=== PATIENT | male | born 1940 | race African-American/Black ===

== ENCOUNTER → 2020-07-03 15:41 | Outpatient (CLI) | payer MEDICARE, SELFPAY ==
[2020-07-03] MEDS: COVID-19 VACC, Ad26(JANSSEN)/PF 0.5 ML IM (16:07)
== END ==
PROVIDERS: PCP Family Medicine; Visit Provider Internal Medicine
DX: Z23 Encounter for immunization (principal)
CPT/HCPCS: 0031A; 91303

== ENCOUNTER 2021-05-02 15:21 | Emergency (ER) | payer OTHER, MEDICARE, SELFPAY ==
[2021-05-02] VITALS (31 sets, daily range): BP systolic 175–205; BP diastolic 83–95; PULSE 60–85; RESP 9–26; TEMP 36.1–36.7; O2SAT 92–100; BMI 27.4
--- NOTE | 2021-05-02 15:21 | DI.CT.S_ITS ---
PROCEDURE: CT STROKE INDICATIONS: weakjness, new confusion, speech difficulty TECHNIQUE: Noncontrast 4.5 mm thick angled axial sections acquired from the foramen magnum to the vertex, with coronal reformats. For radiation dose reduction, the following was used: automated exposure control, adjustment of mA and/or kV according to patient size. COMPARISON: None. FINDINGS: Image quality: Excellent. CSF spaces: Basal cisterns are patent. No extra-axial fluid collections. The ventricles are symmetric in size and shape. Brain: No intracranial bleeds or masses. There is cerebral volume loss for age, with resultant ventricular and sulcal prominence. There are periventricular and deep white matter chronic small vessel ischemic changes. There is encephalomalacia within the right parietal occipital lobes consistent with remote infarction. No acute transcortical infarction. There is intracranial internal carotid artery atherosclerosis. Skull and face: Calvarium and visualized facial bones appear intact, without suspicious lesions. Sinuses: Visualized sinuses and mastoids are clear. IMPRESSION: No acute intracranial hemorrhage. Findings consistent with microvascular ischemic changes and remote right parietal occipital infarction. No acute transcortical infarction. Findings discussed with the ordering provider Dr. Kylee Bennett by Dr. Kt Meadows over the telephone at approximately 2:40 p.m. [place] Standard time on 05/02/2021. This study fulfills neurological imaging criteria for inclusion or exclusion of acute stroke therapies based on available published neurological guidelines. Dictated by: Kt Meadows D.O. on 05/02/2021 at 14:35 Approved by: Kt Meadows D.O. on 05/02/2021 at 14:42
--- NOTE | 2021-05-02 15:22 | DI.CT.S_ITS ---
PROCEDURE: CT ANGIO HEAD AND NECK INDICATIONS: stroke TECHNIQUE: After the administration of intravenous contrast, 1 mm thick sections acquired from the aortic arch through the [place] of [place]. Post-contrast 4.5 mm thick sections then re-acquired from the foramen magnum to the vertex. 3-dimensional fyjrnur-gealexlic-kxjxfushgj (MIP) and/or volume rendering reformats were acquired of the central intracranial vasculature and neck separately. COMPARISON: Same day CT head. FINDINGS: Image quality: Excellent. HEAD CT ANGIOGRAPHY: Anterior circulation: Mild atherosclerotic calcifications are noted within the proximal intracranial carotid arteries most from within the cavernous segments without evidence of flow-limiting stenosis or occlusion. Intracranial internal carotid arteries are normal in size and flow. The flow within the paired anterior cerebral arteries is normal and symmetric. The flow within the middle cerebral arteries is normal and symmetric. The anterior communicating artery is seen. No aneurysms are seen. Posterior circulation: Visualized portions of the vertebral arteries demonstrate normal caliber, and join to form a normal appearing basilar artery. Flow within the posterior cerebral arteries is normal and symmetric. No aneurysms are seen. NECK CT ANGIOGRAPHY: Carotid system: Proximal origins of the right carotid artery limited evaluation given artifact from adjacent contrast. The great vessels demonstrate a conventional anatomy as they arise from the aortic arch. The origins of the common carotid arteries appear patent. The common carotid arteries demonstrate normal caliber and courses. The bifurcation regions are both widely patent. The internal carotid arteries demonstrate normal calibers and courses. Posterior circulation: The origins of the vertebral arteries both appear widely patent. The more superior extracranial portions of both vertebral arteries also demonstrate normal courses and calibers. They join to form a normal appearing basilar artery. Soft tissues: Visualized neck soft tissues demonstrate no suspicious abnormalities. Bones: No suspicious bony lesions. Multilevel degenerative changes of the cervical spine with reversal of the normal cervical lordosis. Multiple pole level of mild spinal canal and [id number] neural foraminal stenosis. Mild mucosal thickening of the right maxillary sinus. IMPRESSION: No significant flow-limiting stenosis or occlusion of the intracranial or cervical vasculature. Dictated by: Kt Meadows D.O. on 05/02/2021 at 14:58 Approved by: Kt Meadows D.O. on 05/02/2021 at 15:05
--- NOTE | 2021-05-02 15:23 | ED.NEUROSD ---
HPI - Neuro Symptoms/Deficit General Chief Complaint: Neuro Symptoms/Deficit Stated Complaint: Code Stroke Time Seen by Provider: 05/02/21 15:21 Source: EMS Mode of arrival: EMS Limitations: altered mental status History of Present Illness HPI Narrative: This is a 80-year-old male who comes emergency department with concern for stroke. Patient was at home with his and the 's caregiver when they noticed that he seemed to have one-sided weakness, speech difficulties and confusion. This was described to have occurred about 3:00 p.m. today. EMS was contacted. They do not appreciate any one-sided weakness but do appreciate patient's speech difficulties and that he does not really follow commands. According to patient's daughter who gives all the history that is available to me he has a history of hypertension, PTSD and is supposed to be on sertraline, tamsulosin, furosemide, spironolactone, prazosin, simvastatin, losartan and diazepam. She is unaware of any thinners such as aspirin or Plavix or other does wax. She states they have never discussed his goals of care and that he has never mention whether or not he would want CPR or intubation or aggressive interventions. She believes this is all of his medications she was looking in his box of medications at home. He does have an allergy to penicillin in the EMR. Patient is able to converse but is confused and asks how he can be helpful today over and over. He does not follow commands for me. Related Data Allergies Allergy/AdvReac Type Severity Reaction Status Date / Time Penicillins [PENICILLINS] Allergy Intermediate Unverified 08/03/17 13:00 Review of Systems Review of Systems ROS Unobtainable: Unobtainable due to mental status/LOC Patient History Surgical History History of oral surgery Family History Father Heart disease Essential hypertension Grandmother Diabetes mellitus Exam Narrative Exam Narrative: GEN: Elderly appearing male, alert and oriented x 3, patient appears to be in mild distress. HEENT: Atraumatic, pupils are equal round reactive to light, extraocular movements are intact, nares are clear, TMs are clear with no fluid, there is no conjunctival pallor. Throat is clear without any exudates, erythema, tonsillar enlargement or uvular deviation, right facial droop although patient does not smile for exam. HEART: Regular rate and rhythm without murmur, clicks, rubs. Pulses are equal in upper and lower extremities LUNGS:Lungs clear to auscultation, no wheezes, rales, crackles, chest moves symmetrically ABD:bowel sounds normal, soft, non-tender, no guarding, rebound, rigidity, no masses noted, no hepatosplenomegaly :No CVA tenderness MSCL: Non-tender, no muscle atrophy, muscles strength 5/5 upper and lower extremities. Patient can hold his arms up for 10 seconds as well as his legs but they have to be placed in that position. Will gently lower them down after told that he can do this. NEURO:CN 2-12 intact, sensation normal, reflexes 2/4 upper and lower extremities. Unable to perform xnoeng-vdbk-ajnyik heel-frazier patient is not able to follow commands. Initial Vital Signs Initial Vital Signs: Vital Signs Temperature 97.6 F 05/02/21 15:21 Pulse Rate 84 05/02/21 15:21 Respiratory Rate 18 05/02/21 15:21 Blood Pressure 175/86 H 05/02/21 15:21 Pulse Oximetry 98 05/02/21 15:21 Scores NIH Stroke Scale Level of Conciousness: Alert, keenly responsive Ask month/age: Answers neither question correctly, aphasic, stuporous, coma Open/close eyes, close hand: Performs neither task correctly Facial palsy: Minor paralysis, flattened nasolabial fold, asymmetry on smiling Left arm drift: No drift for full 10 sec Right arm drift: No drift for full 10 sec Left leg drift: No drift for full 5 sec Right leg drift: No drift for full 5 sec Sensory on face/arms/legs: Normal, no sensory loss Best language: Severe aphasia, not much is understood, fragmented Dysarthria: Mild to mod,some slurring Extinction or inattention: No abnormality Citation:: Patient has an NIH of 8 on exam but I am unable to fully access limb ataxia or visual mendez fully. Course Orders Ordered: ED Orders 05/02/21 15:21 CT Stroke Stat EKG-12 Lead Stat 05/02/21 15:22 CT angio head and neck Stat 05/02/21 15:38 Basic Metabolic Panel Stat Complete Blood Count AUTO DIFF Stat Partial Thromboplastin Time Stat Prothrombin Time INR Stat Troponin & CK Cardiac Panel Stat 05/02/21 15:53 COVID19 - ADMIT ([employer] swab/PCR) Stat 05/02/21 16:15 Urinalysis and Microscopic Stat Urine Drug Screen, Rapid Stat Sodium Chloride (Normal Saline 0.9%) 1,000 mls @ 150 mls/hr IV CONT KATE Discontinued Medications Alteplase, Recombinant (Alteplase 100 Mg/100 Ml Vial) 82.7 mg IV NOW ONE Stop: 05/02/21 17:01 Last Admin: 05/02/21 17:13 Dose: 82.7 mg Documented by: Aspirin (Aspirin 81 Mg Chew Tab) 324 mg PO NOW ONE Stop: 05/02/21 18:24 Labetalol HCl (Labetalol 20 Mg/4 Ml Syringe) 5 mg IV NOW ONE Stop: 05/02/21 17:39 Reevaluation(s) Reevaluation #1: Patient had very slight improvement in speech she is able to tell me his name and that he is cold but really cannot answer any other questions or have other back and forth interaction. Patient has not had any other changes on his examination so far. Reevaluation #2: Post tPA, patient's daughter has arrived. She did confirm her consent. Patient has had some mild improvement. His systolic blood pressure did come up to 190 so a dose of labetalol was ordered. Consultations Consultation #1: Tele-stroke. Dr. Lynne recommends tpa if we can pin down an appropriate would be tpa candidate. Patient otherwise appears to be appropriate candidate. Patient's family would have to consent. I did discuss with patient's daughter at length for unable to establish a clear timeline she states not to give tPA. If we are able to establish a clear inappropriate timeline than would be appropriate to give. Patient's daughter Sudha did give verbal consent to give tPA for able to establish a clear timeline and is appropriate time frame. We did discuss the risk versus benefits. Time: 16:30 Consultation #2: I was able to more clearly establish a last known normal which would be 1245. Dr. Lynne recommends we go ahead and give tPA at this time. We still are within the window at this time. He agrees with plan for transfer although finding bed availability will be difficult. He asked us to contact their transfer center. Consultation #3: Dr. Watts with neurology at [facility] accepted for transfer ED to ED for post tpa treatment and monitoring. Vital Signs Vital signs: Vital Signs - 8 hr 05/02/21 15:21 05/02/21 15:34 05/02/21 15:51 Temperature 97.6 F Pulse Rate 84 85 Respiratory Rate 18 18 Blood Pressure 175/86 H 175/86 H Pulse Oximetry 98 05/02/21 16:00 05/02/21 16:15 05/02/21 16:30 Temperature Pulse Rate 80 64 64 Respiratory Rate 20 18 17 Blood Pressure Pulse Oximetry 98 92 95 05/02/21 16:45 05/02/21 17:11 05/02/21 17:15 Temperature Pulse Rate 67 79 64 Respiratory Rate 23 18 18 Blood Pressure Pulse Oximetry 100 98 98 05/02/21 17:16 05/02/21 17:30 05/02/21 17:37 Temperature 97.0 F L Pulse Rate 64 61 63 Respiratory Rate 20 19 20 Blood Pressure 190/88 H 191/94 H 194/88 H Pulse Oximetry 98 100 98 05/02/21 17:45 05/02/21 17:59 05/02/21 18:00 Temperature 97.5 F L 97.7 F Pulse Rate 61 63 64 Respiratory Rate 17 18 14 Blood Pressure 186/89 H 186/95 H 188/87 H Pulse Oximetry 99 97 97 05/02/21 18:15 05/02/21 18:16 05/02/21 18:28 Temperature 97.8 F 98.1 F Pulse Rate 61 61 60 Respiratory Rate 17 20 13 Blood Pressure 184/91 H 195/90 H 197/88 H Pulse Oximetry 96 98 99 MDM - Neuro Symptoms/Deficit Lab Data Result diagrams: 05/02/21 15:38 05/02/21 15:38 Labs: Lab Results 05/02/21 05/02/21 05/02/21 Range/Units 15:38 15:38 15:38 WBC 6.6 (4.5-11.0) X10^3/uL RBC 3.86 L (4.5-5.9) X10^6/uL Hgb 12.3 L (13.5-17.5) g/dL Hct 36.4 L (41-53) % MCV 94.2 (80-100) fL MCH 31.9 (26-34) PG MCHC 33.8 (30-36) % RDW 12.5 (11.6-14.8) % Plt Count 153 (150-400) X10^3/uL Neut % (Auto) 74.2 (50-75) % Lymph % (Auto) 16.1 L (25-40) % [place] % (Auto) 7.0 (3-14) % Eos % (Auto) 2.0 (2-4) % Baso % (Auto) 0.7 (0-2) % Neut # (Auto) 4900 (5288-2611) /uL Lymph # (Auto) 1100 (3434-3125) /uL [place] # (Auto) 500 (0-900) /uL Eos # (Auto) 100 (0-450) /uL Baso # (Auto) 0 (0-100) /uL PT 11.7 (10.1-12.7) SECONDS INR 1.0 (0.9-1.3) APTT 28 (26.4-36.2) SECONDS Sodium 137 (137-145) mmol/L Potassium 4.4 (3.4-5.1) mmol/L Chloride 103 (98-107) mmol/L Carbon Dioxide 31 (22-32) mmol/L BUN 18 (9-20) mg/dL Creatinine 1.29 H (0.66-1.25) mg/dL Estimated GFR 53.7 L (>60) mL/min BUN/Creatinine Ratio 14.0 (6-22) Glucose 116 H (80-110) mg/dL Calcium 8.7 (8.4-10.2) mg/dL Total Creatine Kinase 51 L (55-170) U/L CK-MB (CK-2) TNP CK-MB (CK-2) Rel Index TNP Troponin I < 0.012 (0.01-0.034) ng/mL Urine Color Urine Appearance Urine pH (4.5-8.0) Ur Specific [place] (1.000-1.035) Urine Protein (Negative) Urine Glucose (UA) (Negative) g/dL Urine Ketones (NEGATIVE) Urine Occult Blood (Negative) Urine Nitrate (Negative) Urine Bilirubin (NEGATIVE) Urine Urobilinogen (0.2) E.U./dL Ur Leukocyte Esterase (NEGATIVE) Urine RBC (0-5/HPF) Urine WBC (0-5/HPF) Urine Bacteria (None) Ur Culture Indicated? U Opiates 300ng/mL cut (Negative) Ur Oxycodone Screen (Negative) Urine Methadone Screen (Negative) Ur Barbiturates Screen (Negative) U Tricyclic Antidepress (Negative) Ur Phencyclidine Scrn (Negative) Ur Amphetamines Screen (Negative) U Methamphetamines Scrn (Negative) Ur MDMA Scrn (Ecstasy) (Negative) U Benzodiazepines Scrn (Negative) Urine Cocaine Screen (Negative) U Marijuana (THC) Screen (Negative) SARS-CoV-2 (PCR) (Negative) 05/02/21 05/02/21 05/02/21 Range/Units 15:53 16:15 16:15 WBC (4.5-11.0) X10^3/uL RBC (4.5-5.9) X10^6/uL Hgb (13.5-17.5) g/dL Hct (41-53) % MCV (80-100) fL MCH (26-34) PG MCHC (30-36) % RDW (11.6-14.8) % Plt Count (150-400) X10^3/uL Neut % (Auto) (50-75) % Lymph % (Auto) (25-40) % [place] % (Auto) (3-14) % Eos % (Auto) (2-4) % Baso % (Auto) (0-2) % Neut # (Auto) (2421-6096) /uL Lymph # (Auto) (4408-7560) /uL [place] # (Auto) (0-900) /uL Eos # (Auto) (0-450) /uL Baso # (Auto) (0-100) /uL PT (10.1-12.7) SECONDS INR (0.9-1.3) APTT (26.4-36.2) SECONDS Sodium (137-145) mmol/L Potassium (3.4-5.1) mmol/L Chloride (98-107) mmol/L Carbon Dioxide (22-32) mmol/L BUN (9-20) mg/dL Creatinine (0.66-1.25) mg/dL Estimated GFR (>60) mL/min BUN/Creatinine Ratio (6-22) Glucose (80-110) mg/dL Calcium (8.4-10.2) mg/dL Total Creatine Kinase (55-170) U/L CK-MB (CK-2) CK-MB (CK-2) Rel Index Troponin I (0.01-0.034) ng/mL Urine Color Yellow Urine Appearance Clear Urine pH 7.5 (4.5-8.0) Ur Specific [place] 1.010 (1.000-1.035) Urine Protein Trace H (Negative) Urine Glucose (UA) Negative (Negative) g/dL Urine Ketones Negative (NEGATIVE) Urine Occult Blood Negative (Negative) Urine Nitrate Negative (Negative) Urine Bilirubin Negative (NEGATIVE) Urine Urobilinogen 0.2 (0.2) E.U./dL Ur Leukocyte Esterase Negative (NEGATIVE) Urine RBC 0-1/hpf (0-5/HPF) Urine WBC 0-1/hpf (0-5/HPF) Urine Bacteria None seen (None) Ur Culture Indicated? Cult not indicated U Opiates 300ng/mL cut Negative (Negative) Ur Oxycodone Screen Negative (Negative) Urine Methadone Screen Negative (Negative) Ur Barbiturates Screen Negative (Negative) U Tricyclic Antidepress Negative (Negative) Ur Phencyclidine Scrn Negative (Negative) Ur Amphetamines Screen Negative (Negative) U Methamphetamines Scrn Negative (Negative) Ur MDMA Scrn (Ecstasy) Negative (Negative) U Benzodiazepines Scrn Negative (Negative) Urine Cocaine Screen Negative (Negative) U Marijuana (THC) Screen Negative (Negative) SARS-CoV-2 (PCR) Negative (Negative) Imaging Data CT scan - head: Radiologist's Impression: wet read by Dr. Meadows is negative. called to [place] [address] CT Scan Report Signed Patient: Zackery Banda MR#: [id number] : 1940 Acct:[id number] Age/Sex: 80 / M Date of Service: 05/02/21 Loc: ED Accession Number: [id number] ?? Procedure: CT Stroke Ordering Provider: Kylee Bennett D.O. PROCEDURE:? CT STROKE ? INDICATIONS:? weakjness, new confusion, speech difficulty ? TECHNIQUE:? Noncontrast 4.5 mm thick angled axial sections acquired from the foramen magnum to the vertex, with coronal reformats.? For radiation dose reduction, the following was used:? automated exposure control, adjustment of mA and/or kV according to patient size.? ? COMPARISON:? None. ? FINDINGS:? Image quality:? Excellent.? ? CSF spaces:? Basal cisterns are patent.? No extra-axial fluid collections.? The ventricles are symmetric in size and shape.? ? Brain:? No intracranial bleeds or masses.? There is cerebral volume loss for age, with resultant ventricular and sulcal prominence.? There are periventricular and deep white matter chronic small vessel ischemic changes.? There is encephalomalacia within the right parietal occipital lobes consistent with remote infarction.? No acute transcortical infarction.? There is intracranial internal carotid artery atherosclerosis.? ? Skull and face:? Calvarium and visualized facial bones appear intact, without suspicious lesions.? ? Sinuses:? Visualized sinuses and mastoids are clear.? ? IMPRESSION:? ? No acute intracranial hemorrhage. ? Findings consistent with microvascular ischemic changes and remote right parietal occipital infarction.? No acute transcortical infarction. ? Findings discussed with the ordering provider Dr. Kylee Bennett by Dr. Kt Meadows over the telephone at approximately 2:40 p.m. [place] Standard time on 05/02/2021. ? This study fulfills neurological imaging criteria for inclusion or exclusion of acute stroke therapies based on available published neurological guidelines.? ? ? Dictated by: Kt Meadows D.O. on 05/02/2021 at 14:35 ? ? Approved by: Kt Meadows D.O. on 05/02/2021 at 14:42?? CTA - brain/neck: Radiologist's Impression: Zackery Banda??80??M??1940 ? Allergy/Adv: Penicillins Close Head/Neck CTA (Signed) Kt Meadows - 05/02/[address] (Signed) Kt Meadows 05/02/21 [address] [address] CT Scan Report Signed Patient: Zackery Banda MR#: [id number] : 1940 Acct:[id number] Age/Sex: 80 / M Date of Service: 05/02/21 Loc: ED Accession Number: [id number] ?? Procedure: CT angio head and neck Ordering Provider: Mank,Kylee C D.O. PROCEDURE:? CT ANGIO HEAD AND NECK ? INDICATIONS:? stroke ? TECHNIQUE:? After the administration of intravenous contrast, 1 mm thick sections acquired from the aortic arch through the [place] of Banda.? Post-contrast 4.5 mm thick sections then re-acquired from the foramen magnum to the vertex.? 3-dimensional dehbsgh-wbszpjjrk-fcjulejczp (MIP) and/or volume rendering reformats were acquired of the central intracranial vasculature and neck separately. ? COMPARISON:? Same day CT head. ? FINDINGS:? Image quality:? Excellent.? ? HEAD CT ANGIOGRAPHY:? Anterior circulation:? Mild atherosclerotic calcifications are noted within the proximal intracranial carotid arteries most from within the cavernous segments without evidence of flow-limiting stenosis or occlusion.? Intracranial internal carotid arteries are normal in size and flow.? The flow within the paired anterior cerebral arteries is normal and symmetric.? The flow within the middle cerebral arteries is normal and symmetric.? The anterior communicating artery is seen.? No aneurysms are seen.? ? Posterior circulation:? Visualized portions of the vertebral arteries demonstrate normal caliber, and join to form a normal appearing basilar artery.? Flow within the posterior cerebral arteries is normal and symmetric.? No aneurysms are seen.? ? NECK CT ANGIOGRAPHY:? Carotid system:? Proximal origins of the right carotid artery limited evaluation given artifact from adjacent contrast.? The great vessels demonstrate a conventional anatomy as they arise from the aortic arch.? The origins of the common carotid arteries appear patent.? The common carotid arteries demonstrate normal caliber and courses.? The bifurcation regions are both widely patent.? The internal carotid arteries demonstrate normal calibers and courses.? ? Posterior circulation:? The origins of the vertebral arteries both appear widely patent.? The more superior extracranial portions of both vertebral arteries also demonstrate normal courses and calibers.? They join to form a normal appearing basilar artery.? ? Soft tissues:? Visualized neck soft tissues demonstrate no suspicious abnormalities.? ? Bones:? No suspicious bony lesions.? Multilevel degenerative changes of the cervical spine with reversal of the normal cervical lordosis.? Multiple pole level of mild spinal canal and ypsj-sm-adtwbxjb neural foraminal stenosis.? Mild mucosal thickening of the right maxillary sinus. ? ? IMPRESSION:? ? No significant flow-limiting stenosis or occlusion of the intracranial or cervical vasculature. ? ? ? Dictated by: Kt Meadows D.O. on 05/02/2021 at 14:58 ? ? Approved by: Kt Meadows D.O. on 05/02/2021 at 15:05?? ECG Data Attestation: I personally reviewed and interpreted this ECG as follows: Prior ECG tracings: not available for review Interpretation: Sinus rhythm rate of 65 [place] 174 QRS 86 and QTC of 430. No acute ST elevation depression noted. Patient has premature complexes but appears to be sinus. No priors available. MDM Narrative Medical decision making narrative: This is a 80-year-old male who comes in with suspected stroke. Patient has equal strength but does not follow commands to fully evaluate with an IH. He does have dense expressive aphasia, some dysarthria and a right facial droop which is appreciated even though he will smile. I was able to speak with his daughter she does not believe he is on any blood thinners. She is able to review some of his medications which include medications for blood pressure, dyslipidemia, diuretics, PTSD and prostate issues. She states he is normally fully cognizant individual with no memory issues, he assist taking care of his and she states this is very atypical. The time line I have been given was that at 3:00 p.m. or just a few minutes before he had a sudden onset of one-sided weakness and difficulty with speech and confusion that was witnessed by the 's caregiver. Patient is potential tpa candidate at this time. Tele-stroke contacted. Spoke with Dr. Lynne. He would recommend tPA for able to establish a clear timeline. Spoke with daughter at length. She is agreeable to giving tPA if patient is in the window. If it is unclear when able to establish a clear timeline she would not wish to take that risk. Spoke with caregiver. Maritza Freeman. After long discussion appears patient's last known normal was likely 12:45pm and not 3:00 p.m. patient did have an episode of confusion at that time. Caregiver states that she had been with the whom she caregives and when she returned she saw at 1430 seated attempting to eat and that he was unable to use his been properly. Re-contacted Telestroke. Spoke with Dr. Lynne. Patient is very close but within the window at this time for 4-1/2 hours. He would recommend going at giving tPA. We have CAD verbal consent from the family already risks and benefits were discussed. Bolus was initiated. Patient has been having some improvement here in the department and is now following some commands. He did have a increase in his blood pressure to systolic of 190s was given a dose of labetalol post infusion he was not that elevated prior. We are searching for bed placement as he is patient's are typically transferred post tPA but there are no beds available regionally. We were able to find placement at [facility], Dr. Koenig kindly accepts for transfer to ED to ED at [facility]. Critical Care Time Critical Care Time Critical Care Time: Yes Total Critical Care Time: 55 Attestation: The high probability of a clinically significant, sudden or life threatening deterioration of the [neurologic] system(s) required my full and direct attention, intervention and personal management. The aggregate critical care time was [55] minutes. This time is in addition to time spent performing reported procedures but includes the following: [x] Data Review and interpretation [x] Patient assessment and monitoring of vital signs [x] Documentation [x] Medication orders and management Discharge Plan Departure Patient Disposition: [facility] Clinical Impression: Acute CVA (cerebrovascular accident) Referrals: Leydi Josue DO [Primary Care Provider] -
--- NOTE | 2021-05-02 15:42 | RT ---
Responded to code stroke, pt airway intact, no distress noted and pt on room air. Released by Rn
[2021-05-02 15:48] LABS: Add Manual Diff / Slide Review NO; Basophils Absolute Auto 0 /uL (0-100); Basophils Percent Auto 0.7 % (0-2); Eosinophils Absolute Auto 100 /uL (0-450); Hematocrit 36.4 % (41-53); Hemoglobin 12.3 g/dL (13.5-17.5); Lymphocytes Absolute Auto 1100 /uL (1100-4500); Lymphocytes Percent Auto 16.1 % (25-40); Mean Corpuscular HGB Conc 33.8 % (30-36); Mean Corpuscular Hemoglobin 31.9 PG (26-34); Mean Corpuscular Volume 94.2 fL (80-100); Monocytes Absolute Auto 500 /uL (0-900); Neutrophils Absolute Auto 4900 /uL (1500-7000); Neutrophils Percent Auto 74.2 % (50-75); Platelet Count 153 X10^3/uL (150-400); Red Blood Cell Count 3.86 X10^6/uL (4.5-5.9); Red Cell Distribution Width 12.5 % (11.6-14.8); White Blood Cell Count 6.6 X10^3/uL (4.5-11.0)
[2021-05-02 16:01] LABS: Prothrombin Time 11.7 SECONDS (10.1-12.7)
[2021-05-02 16:03] LABS: PTT Partial Thromboplastin Tim 28 SECONDS (26.4-36.2)
[2021-05-02 16:05] LABS: Blood Urea Nitrogen 18 mg/dL (9-20); Calcium 8.7 mg/dL (8.4-10.2); Carbon Dioxide 31 mmol/L (22-32); Chloride 103 mmol/L (98-107); Creatine Kinase 51 U/L (55-170); Estimated Glomerular Filt Rate 53.7 mL/min (>60); Glucose 116 mg/dL (80-110); HEMOLYSIS 30 (0-50); Potassium 4.4 mmol/L (3.4-5.1); Sodium 137 mmol/L (137-145)
[2021-05-02 16:17] LABS: Troponin I < 0.012 ng/mL (0.01-0.034)
[2021-05-02 16:50] LABS: Appearance Urine UA CLEAR; Bilirubin Urine UA NEGATIVE (NEGATIVE); Color Urine UA YELLOW; Glucose Urine UA NEGATIVE (Negative); Ketones Urine UA NEGATIVE (NEGATIVE); Leukocyte Esterase Urine UA NEGATIVE (NEGATIVE); Nitrite Urine UA NEGATIVE (Negative); Occult Blood Urine UA NEGATIVE (Negative); Protein Urine UA TRACE (Negative); Urobilinogen Urine UA 0.2 E.U./dL (0.2); pH Urine UA 7.5 (4.5-8.0)
[2021-05-02 16:52] LABS: UR Morphine/Opiate cutoff 300 Negative (Negative); Ur Creatinine Normal (Normal); Ur Specific Gravity Normal (Normal); Urine Amphetamines Negative (Negative); Urine Barbiturates Negative (Negative); Urine Benzodiazepines Negative (Negative); Urine Cocaine Negative (Negative); Urine MDMA Negative (Negative); Urine Methadone Negative (Negative); Urine Methamphetamines Negative (Negative); Urine Oxycodone Negative (Negative); Urine Phencyclidine Negative (Negative); Urine Tetrahydrocannabinol Negative (Negative); Urine Tricyclic Antidepressant Negative (Negative); Urine pH Normal (Normal)
[2021-05-02 17:11] LABS: RBC Urine 0-1/HPF (0-5/HPF); WBC Urine 0-1/HPF (0-5/HPF)
[2021-05-02 17:12] LABS: Bacteria Urine None Seen; Culture Indicated Urine Cult Not Indicated
[2021-05-02] MEDS: ALTEPLASE 100 MG/100 ML VIAL 82.7 MG IV (17:13)
[2021-05-02 17:20] LABS: COVID19 - ADMIT (NP swab/PCR) Negative (Negative)
[2021-05-02] MEDS: ASPIRIN 81 MG CHEW TAB 324 MG PO (18:45)
[2021-05-02] MEDS: LABETALOL 20 MG/4 ML SYRINGE 5 MG IV ×2 (18:51→19:41)
--- NOTE | 2021-05-02 19:29 | PC.NURSE ---
Pt arrives @ 1520 with signs/symptoms associated with Stroke. Code stroke called overhead prior to pt's arrival. Initial NIH @ 1521 = 12, secondary NIH @ 1721 = 3. TPA bolus given at 1713, TPA drip started at 1714, Q15 vitals taken for 2hrs. TPA stopped at 1851. There was a brief unimtentional stop
--- NOTE | 2021-05-02 19:35 | PC.NURSE ---
Pt arrives @ 1520 with signs/symptoms associated with Stroke. Code stroke called overhead prior to pt's arrival. Initial NIH @ 1521 = 12, secondary NIH @ 1721 = 3. TPA bolus given at 1713, TPA drip started at 1714, Q15 vitals taken for 2hrs. TPA stopped at 1851. There was a brief unintentional stop of the TPA drip, MD advised. Restarted and no complications. Unable to obtain 2nd IV. Doctor ordered labetalol to be pushed when TPA was finished, 5mg x 2 prior to transport. Full report given to Rickey ENGLISH with [facility]. Pt transported to [facility].
[2021-05-02] MEDS: NICARDIPINE 25 MG in SODIUM CHLORIDE 0.9% 240 ML 50 ML IV (19:41)
== END 2021-05-02 20:07 | disposition short-term general hospital (02) ==
PROVIDERS: Emergency Provider Emergency Medicine; PCP Family Medicine; Referring Provider Emergency Medicine
DX: I63.9 Cerebral infarction, unspecified (principal); R29.708 NIHSS score 8; I10 Essential (primary) hypertension; Z20.822 Contact with and (suspected) exposure to COVID-19
CPT/HCPCS: 70450; 70496; 70498; 80048; 80305; 81001; 82550; 84484; 85025; 85610; 85730; 87635; 93005; 93010; 96365; 96375; 96376; 99285; 99291; 99292; C9803; J2997; Q9967

== ENCOUNTER → 2022-08-04 12:14 | Outpatient (CLI) | payer OTHER, SELFPAY ==
[2022-08-04 13:39] LABS: Add Manual Diff / Slide Review NO; Basophils Absolute Auto 100 /uL (0-100); Eosinophils Absolute Auto 200 /uL (0-450); Eosinophils Percent Auto 3.2 % (2-4); Hematocrit 37.9 % (41-53); Hemoglobin 12.8 g/dL (13.5-17.5); Lymphocytes Absolute Auto 1500 /uL (1100-4500); Lymphocytes Percent Auto 22.9 % (25-40); Mean Corpuscular HGB Conc 33.8 % (30-36); Mean Corpuscular Volume 91.8 fL (80-100); Monocytes Absolute Auto 500 /uL (0-900); Monocytes Percent Auto 8.6 % (3-14); Neutrophils Absolute Auto 4100 /uL (1500-7000); Neutrophils Percent Auto 64.3 % (50-75); Platelet Count 174 X10^3/uL (150-400); Red Blood Cell Count 4.12 X10^6/uL (4.5-5.9); White Blood Cell Count 6.4 X10^3/uL (4.5-11.0)
[2022-08-04 14:17] LABS: Alanine Aminotransferase 14 IU/L (<50); Albumin 3.5 g/dL (3.5-5.0); Albumin Globulin Ratio 1.2 (1.0-2.8); Alkaline Phosphatase 49 U/L (38-126); Aspartate Aminotransferase 19 IU/L (17-59); BUN Creatinine Ratio 16.7 (6-22); Bilirubin Total 0.4 mg/dL (0.2-1.3); Blood Urea Nitrogen 22 mg/dL (9-20); Calcium 8.7 mg/dL (8.4-10.2); Carbon Dioxide 26 mmol/L (22-32); Chloride 106 mmol/L (98-107); Estimated Glomerular Filt Rate 54 mL/min (>60); Globulin 2.9 g/dL (1.7-4.1); Glucose 119 mg/dL (80-110); HEMOLYSIS < 15 (0-50); Potassium 4.4 mmol/L (3.4-5.1); Sodium 140 mmol/L (137-145); Total Protein 6.4 g/dL (6.3-8.2)
== END ==
PROVIDERS: PCP Family Medicine; Referring Provider Internal Medicine Cardiovascular Disease; Visit Provider Internal Medicine Cardiovascular Disease
DX: I10 Essential (primary) hypertension (principal); Z86.73 Personal history of transient ischemic attack (TIA), and cerebral infarction without residual deficits
CPT/HCPCS: 36415; 80053; 85025

== ENCOUNTER 2022-12-20 15:45 | Emergency (ER) | payer OTHER, SELFPAY ==
[2022-12-20] VITALS (7 sets, daily range): BP systolic 144–184; BP diastolic 65–99; PULSE 50–67; RESP 12–21; TEMP 36.2; O2SAT 97–100; BMI 27.8
--- NOTE | 2022-12-20 16:01 | DI.RAD.S_ITS ---
PROCEDURE: XR CHEST 1V INDICATIONS: chest pain TECHNIQUE: One view of the chest was acquired. COMPARISON: None. FINDINGS: Surgical changes and devices: None. Lungs and pleura: Lungs are clear. No pleural effusions or pneumothorax. Mediastinum: Mediastinal contours appear normal. Heart size is normal. Bones and chest wall: No suspicious bony lesions. Overlying soft tissues appear unremarkable. IMPRESSION: No acute cardiopulmonary process. Dictated by: Amaury Hubbard M.D. on 12/20/2022 at 16:23 Approved by: Amaury Hubbard M.D. on 12/20/2022 at 16:24
--- NOTE | 2022-12-20 16:05 | DI.CT.S_ITS ---
PROCEDURE: CT HEAD/BRAIN WO CON INDICATIONS: fall, ASA 325mg TECHNIQUE: Noncontrast 4.5 mm thick angled axial sections acquired from the foramen magnum to the vertex, with coronal and sagittal reformats. For radiation dose reduction, the following was used: automated exposure control, adjustment of mA and/or kV according to patient size. COMPARISON: None. FINDINGS: Image quality: Excellent. CSF spaces: Basal cisterns are patent. No extra-axial fluid collections. The ventricles are symmetric in size and shape. Brain: No intracranial bleeds or masses. There is cerebral volume loss for age, with resultant ventricular and sulcal prominence. There are periventricular and deep white matter chronic small vessel ischemic changes. Old focal right parietal infarct. There is intracranial internal carotid artery atherosclerosis. Skull and face: Calvarium and visualized facial bones appear intact, without suspicious lesions. Sinuses: Visualized sinuses and mastoids are clear. IMPRESSION: Old focal infarct, age-related volume loss and small vessel ischemic change. No acute intracranial process. Dictated by: Gary Krishnamurthy M.D. on 12/20/2022 at 16:34 Approved by: Gary Krishnamurthy M.D. on 12/20/2022 at 16:36
--- NOTE | 2022-12-20 16:05 | DI.CT.S_ITS ---
PROCEDURE: CT CERVICAL SPINE WO CON INDICATIONS: fall, ASA 325mg TECHNIQUE: Noncontrast 3 mm thick sections acquired from the skull base to the T4 level. Sagittal and coronal reformats were then constructed. For radiation dose reduction, the following was used: automated exposure control, adjustment of mA and/or kV according to patient size. COMPARISON: None. FINDINGS: Image quality: Excellent. Bones: No fractures or dislocations. Reversal the normal cervical lordosis. No spondylolisthesis. There are multilevel degenerative changes of the cervical spine with facet and uncovertebral arthropathy, disc height loss with degenerative endplate changes and spurring. Visualized superior ribs are intact. Soft tissues: Prevertebral soft tissues are normal in thickness. No paravertebral hematomas. No apical pneumothoraces. Partially visualized right upper lobe opacity, may be infectious or inflammatory in etiology. IMPRESSION: 1. No acute fracture or traumatic listhesis of the cervical spine. 2. Partially visualized small right upper lobe pulmonary opacity, may be infectious or inflammatory in etiology. Nodule can not be excluded, consider nonurgent chest CT. Dictated by: Amaury Hubbard M.D. on 12/20/2022 at 16:24 Approved by: Amaury Hubbard M.D. on 12/20/2022 at 16:27
[2022-12-20 16:45] LABS: Add Manual Diff / Slide Review NO; Basophils Absolute Auto 100 /uL (0-100); Basophils Percent Auto 1.5 % (0-2); Eosinophils Absolute Auto 200 /uL (0-450); Eosinophils Percent Auto 2.7 % (2-4); Hematocrit 38.5 % (41-53); Hemoglobin 13.2 g/dL (13.5-17.5); Lymphocytes Absolute Auto 1500 /uL (1100-4500); Lymphocytes Percent Auto 23.9 % (25-40); Mean Corpuscular HGB Conc 34.3 % (30-36); Mean Corpuscular Hemoglobin 31.2 PG (26-34); Mean Corpuscular Volume 91.1 fL (80-100); Monocytes Absolute Auto 500 /uL (0-900); Monocytes Percent Auto 8.5 % (3-14); Neutrophils Absolute Auto 4000 /uL (1500-7000); Neutrophils Percent Auto 63.4 % (50-75); Platelet Count 171 X10^3/uL (150-400); Red Blood Cell Count 4.23 X10^6/uL (4.5-5.9); Red Cell Distribution Width 13.5 % (11.6-14.8); White Blood Cell Count 6.3 X10^3/uL (4.5-11.0)
[2022-12-20 16:50] LABS: INR 1.1 (0.9-1.3); Prothrombin Time 12.5 SECONDS (10.1-12.7)
[2022-12-20 16:52] LABS: PTT Partial Thromboplastin Tim 30 SECONDS (26-36)
[2022-12-20 16:55] LABS: Alanine Aminotransferase 12 IU/L (<50); Albumin Globulin Ratio 1.3 (1.0-2.8); Alkaline Phosphatase 30 U/L (38-126); Aspartate Aminotransferase 26 IU/L (17-59); BUN Creatinine Ratio 17.2 (6-22); Bilirubin Total 0.8 mg/dL (0.2-1.3); Blood Urea Nitrogen 22 mg/dL (9-20); Calcium 8.8 mg/dL (8.4-10.2); Carbon Dioxide 25 mmol/L (22-32); Chloride 104 mmol/L (98-107); Creatine Kinase 53 U/L (55-170); Estimated Glomerular Filt Rate 56 mL/min (>60); Glucose 102 mg/dL (80-110); HEMOLYSIS 84 (0-50); Lipase 56 U/L (23-300); Magnesium 2.1 mg/dL (1.6-2.3); Potassium 4.5 mmol/L (3.4-5.1); Sodium 136 mmol/L (137-145)
[2022-12-20 17:06] LABS: Troponin I 0.025 ng/mL (0.01-0.034)
--- NOTE | 2022-12-20 17:09 | ED_ITS ---
HPI - General Adult General Chief complaint: Dizziness Stated complaint: GLF hit head, blood thinners, low BP Time Seen by Provider: 12/20/22 16:55 Source: patient and family Mode of arrival: Ambulatory Limitations: no limitations History of Present Illness HPI narrative: Patient is an 82-year-old male. He is on anticoagulation. He states that he is had an issue for extended period of time that includes becoming very lightheaded when he goes from sitting to standing. This happened to him over the weekend. He states he fell because of this and did hit his head. No loss of consciousness. He has no upper or lower extremity injuries. He states that at the time of my evaluation he does have a small amount of lightheadedness but this is baseline for him. At the time he was not having palpitations or chest pain or shortness of breath. He has not taken his medications today. Related Data Allergies Allergy/AdvReac Type Severity Reaction Status Date / Time Penicillins [PENICILLINS] Allergy Intermediate Verified 12/20/22 15:53 Review of Systems Review of Systems ROS Unobtainable: All systems reviewed & are unremarkable except as noted in HPI and below Patient History Surgical History History of oral surgery Family History Father Heart disease Essential hypertension Grandmother Diabetes mellitus Social History Smoking Status: Former smoker Smoking Status: Former smoker alcohol intake frequency: 0-2 drinks per day Alcohol type: wine and hard liquor Substance Use Type: does not use Exam Initial Vital Signs Initial Vital Signs: Vital Signs Temperature 97.1 F L 12/20/22 15:53 Pulse Rate 67 12/20/22 15:53 Respiratory Rate 18 12/20/22 15:53 Blood Pressure 144/65 H 12/20/22 15:53 Pulse Oximetry 98 12/20/22 15:53 Oxygen Delivery Method Room Air 12/20/22 15:53 Const General: cooperative and comfortable HENMT Head: normal to inspection Resp Effort & Inspection: normal respiratory effort Auscultation: clear to auscultation bilaterally Cardio Rate: bradycardic Rhythm: regular rhythm Skin General: no rashes or lesions noted Neuro General: patient alert, patient awake and moves all extremities Extrem General: normal to inspection and capillary refill normal Course Orders Ordered: ED Orders 12/20/22 16:01 XR chest 1V Stat 12/20/22 16:05 CT cervical spine wo con Stat CT head/brain wo con Stat 12/20/22 16:22 EKG-12 Lead Stat 12/20/22 16:30 Complete Blood Count AUTO DIFF Stat Comprehensive Metabolic Panel Stat Lipase Stat Magnesium Stat PTT Partial Thromboplastin Jose Antonio Stat Prothrombin Time INR Stat Troponin & CK Cardiac Panel Stat Discontinued Medications Aspirin (Aspirin 81 Mg Chew Tab) 324 mg PO NOW ONE Stop: 12/20/22 16:02 Last Admin: 12/20/22 16:55 Dose: Not Given Documented By: JABIER Vital Signs Vital signs: Vital Signs - 8 hr 12/20/22 15:53 12/20/22 16:30 12/20/22 16:31 Temperature 97.1 F L Pulse Rate 67 67 67 Respiratory Rate 18 21 21 Blood Pressure 144/65 H Pulse Oximetry 98 100 100 Oxygen Delivery Method Room Air 12/20/22 17:00 12/20/22 17:01 12/20/22 17:01 Temperature Pulse Rate 50 L 55 L Respiratory Rate 12 17 Blood Pressure 184/99 H Pulse Oximetry 100 100 Oxygen Delivery Method Medical Decision Making Lab Data Lab results reviewed: Yes I reviewed the patient's lab results. 12/20/22 16:30 12/20/22 16:30 Labs: Lab Results 12/20/22 12/20/22 12/20/22 Range/Units 16:30 16:30 16:30 WBC 6.3 (4.5-11.0) X10^3/uL RBC 4.23 L (4.5-5.9) X10^6/uL Hgb 13.2 L (13.5-17.5) g/dL Hct 38.5 L (41-53) % MCV 91.1 (80-100) fL MCH 31.2 (26-34) PG MCHC 34.3 (30-36) % RDW 13.5 (11.6-14.8) % Plt Count 171 (150-400) X10^3/uL Neut % (Auto) 63.4 (50-75) % Lymph % (Auto) 23.9 L (25-40) % Blanco % (Auto) 8.5 (3-14) % Eos % (Auto) 2.7 (2-4) % Baso % (Auto) 1.5 (0-2) % Neut # (Auto) 4000 (2257-2188) /uL Lymph # (Auto) 1500 (4672-5745) /uL Blanco # (Auto) 500 (0-900) /uL Eos # (Auto) 200 (0-450) /uL Baso # (Auto) 100 (0-100) /uL PT 12.5 (10.1-12.7) SECONDS INR 1.1 (0.9-1.3) APTT 30 (26-36) SECONDS Sodium 136 L (137-145) mmol/L Potassium 4.5 (3.4-5.1) mmol/L Chloride 104 (98-107) mmol/L Carbon Dioxide 25 (22-32) mmol/L BUN 22 H (9-20) mg/dL Creatinine 1.28 H (0.66-1.25) mg/dL Estimated GFR 56 L (>60) mL/min BUN/Creatinine Ratio 17.2 (6-22) Glucose 102 (80-110) mg/dL Calcium 8.8 (8.4-10.2) mg/dL Magnesium 2.1 (1.6-2.3) mg/dL Total Bilirubin 0.8 (0.2-1.3) mg/dL AST 26 (17-59) IU/L ALT 12 (<50) IU/L Alkaline Phosphatase 30 L (38-126) U/L Total Creatine Kinase 53 L (55-170) U/L Troponin I 0.025 (0.01-0.034) ng/mL Total Protein 7.0 (6.3-8.2) g/dL Albumin 4.0 (3.5-5.0) g/dL Globulin 3.0 (1.7-4.1) g/dL Albumin/Globulin Ratio 1.3 (1.0-2.8) Lipase 56 (23-300) U/L Imaging Data Chest x-ray: Radiologist's Impression: PROCEDURE:? XR CHEST 1V ? INDICATIONS:? chest pain ? TECHNIQUE:? One view of the chest was acquired.? ? COMPARISON:? None. ? FINDINGS:? ? Surgical changes and devices:? None.? ? Lungs and pleura:? Lungs are clear.? No pleural effusions or pneumothorax.? ? Mediastinum:? Mediastinal contours appear normal.? Heart size is normal.? ? Bones and chest wall:? No suspicious bony lesions.? Overlying soft tissues appear unremarkable.? ? IMPRESSION:? No acute cardiopulmonary process CT - cervical spine: Radiologist's Impression: PROCEDURE:? CT CERVICAL SPINE WO CON ? INDICATIONS:? fall, ASA 325mg ? TECHNIQUE:? Noncontrast 3 mm thick sections acquired from the skull base to the T4 level.? Sagittal and coronal reformats were then constructed.? For radiation dose reduction, the following was used:? automated exposure control, adjustment of mA and/or kV according to patient size.? ? COMPARISON:? None. ? FINDINGS:? Image quality:? Excellent.? ? Bones:? No fractures or dislocations.? Reversal the normal cervical lordosis.? No spondylolisthesis. There are multilevel degenerative changes of the cervical spine with facet and uncovertebral arthropathy, disc height loss with degenerative endplate changes and spurring. ? Visualized superior ribs are intact.? ? Soft tissues:? Prevertebral soft tissues are normal in thickness.? No paravertebral hematomas.? No apical pneumothoraces.? Partially visualized right upper lobe opa city, may be infectious or inflammatory in etiology. ? ? IMPRESSION:? ? 1. No acute fracture or traumatic listhesis of the cervical spine. 2. Partially visualized small right upper lobe pulmonary opacity, may be infectious or inflammatory in etiology.? Nodule can not be excluded, consider nonurgent chest CT. CT scan - head: Radiologist's Impression: PROCEDURE:? CT HEAD/BRAIN WO CON ? INDICATIONS:? fall, ASA 325mg ? TECHNIQUE:? Noncontrast 4.5 mm thick angled axial sections acquired from the foramen magnum to the vertex, with coronal and sagittal reformats.? For radiation dose reduction, the following was used:? automated exposure control, adjustment of mA and/or kV according to patient size.? ? COMPARISON:? None. ? FINDINGS:? Image quality:? Excellent.? ? CSF spaces:? Basal cisterns are patent.? No extra-axial fluid collections.? The ventricles are symmetric in size and shape.? ? Brain:? No intracranial bleeds or masses.? There is cerebral volume loss for age, with resultant ventricular and sulcal prominence.? There are periventricular and deep white matter chronic small vessel ischemic changes.? Old focal right parietal infarct.? There is intracranial internal carotid artery atherosclerosis.? ? Skull and face:? Calvarium and visualized facial bones appear intact, without suspicious lesions.? ? Sinuses:? Visualized sinuses and mastoids are clear.? ? IMPRESSION:? Old focal infarct, age-related volume loss and small vessel ischemic change. ?No acute intracranial process ECG Data Attestation: I personally reviewed and interpreted this ECG as follows: Interpretation: Sinus rhythm Ventricular rate is 66 Sinus arrhythmia Normal QRS Normal QTC Nonspecific ST T wave changes MDM Narrative Medical decision making narrative: Patient is hypertensive however he has not taken any of his medications today. His imaging studies today show no acute issues. He reports no extremity injuries. Had a long discussion with him and his family regarding his symptoms. It does appear that it is every time for and he goes from sitting to standing is when he gets lightheaded. We discussed that he needs to avoid falling. He uses a walking stick or cane at baseline. Will discharge patient home with instructions to follow-up with his primary doctor. He was given return precautions. He expressed understanding and agreement. Discharge Plan Departure Patient Disposition: Home Clinical Impression: Lightheadedness Instructions: DI for Dizziness-Nonvertigo Activity Restrictions/Additional Instructions: I do recommend that you continue to take all of your medications as directed. It is also important that you contact your primary doctor for a follow-up so that you can discuss the issues that you were having with the lightheadedness. This very well could be issues with your blood pressure and you may need to change some of your blood pressure medications. Return to the emergency department for new or worsening symptoms. Referrals: Leydi Josue DO [Primary Care Provider] - Stand Alone Forms: Patient Portal/API
== END 2022-12-20 18:05 | disposition home or self-care (01) ==
PROVIDERS: Emergency Provider Emergency Medicine; PCP Family Medicine
DX: R42 Dizziness and giddiness (principal); S09.90XA Unspecified injury of head, initial encounter; W18.30XA Fall on same level, unspecified, initial encounter; Z79.01 Long term (current) use of anticoagulants
CPT/HCPCS: 36415; 70450; 71045; 72125; 80053; 82550; 83690; 83735; 84484; 85025; 85610; 85730; 93005; 99283; 99284

== ENCOUNTER 2023-01-01 15:42 | Observation (INO) | payer OTHER, SELFPAY ==
[2023-01-01] VITALS (11 sets, daily range): BP systolic 141–183; BP diastolic 65–91; PULSE 66–77; RESP 12–23; TEMP 36.1–36.9; O2SAT 96–100; BMI 29.5; BMI 29.4
--- NOTE | 2023-01-01 15:55 | DI.CT.S_ITS ---
PROCEDURE: CT STROKE INDICATIONS: left weak/face, resolved now. TECHNIQUE: Noncontrast 4.5 mm thick angled axial sections acquired from the foramen magnum to the vertex, with coronal reformats. For radiation dose reduction, the following was used: automated exposure control, adjustment of mA and/or kV according to patient size. COMPARISON: [facility], CT, CT STROKE, 05/02/2021, 15:30. FINDINGS: Image quality: Excellent. CSF spaces: Basal cisterns are patent. No extra-axial fluid collections. Ventricles are normal in size and shape. Brain: No midline shift. No intracranial masses or hemorrhage. Luna-white matter interface is normal. Moderate cerebral and cerebellar volume loss with multifocal white matter chronic ischemic change noted. Encephalomalacia and gliosis noted in the posterior aspect of the right MCA territory, stable from the prior exam.. Skull and face: Calvarium and visualized facial bones are intact, without suspicious lesions. Sinuses: Visualized sinuses and mastoids are clear. 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 No change from prior exam Atrophy and chronic ischemic change without intracranial hemorrhage or mass effect This study fulfills neurological imaging criteria for inclusion or exclusion of acute stroke therapies based on available published neurological imaging guidelines. Approved by: Darwin Shirley M.D. on 01/01/2023 at 15:50
--- NOTE | 2023-01-01 15:56 | DI.CT.S_ITS ---
PROCEDURE: CT ANGIO HEAD AND NECK INDICATIONS: left face, arm, resolved. TECHNIQUE: After the administration of intravenous contrast, 1 mm thick sections acquired from the aortic arch through the [place] of [place]. MIP reformats of the arterial vasculature were utilized. For radiation dose reduction, the following was used: automated exposure control, adjustment of mA and/or kV according to patient size. COMPARISON: [facility], CT, CT ANGIO HEAD AND NECK, 05/02/2021, 15:30. FINDINGS: Cerebral CT Angiogram: Internal carotid arteries: Mild calcific atherosclerotic plaque in the cavernous segments of both internal carotid arteries without stenosis or occlusion Anterior cerebral arteries: Unremarkable. No significant stenosis. No occlusion. No aneurysm. Middle cerebral arteries: Unremarkable. No significant stenosis. No occlusion. No aneurysm. Posterior cerebral arteries: Unremarkable. No significant stenosis. No occlusion. No aneurysm. Basilar artery: Unremarkable. No significant stenosis. No occlusion. No aneurysm. Vertebral arteries: Unremarkable as visualized. Dural venous sinuses: Unremarkable given phase of enhancement. Other: Arterial phase brain parenchyma is unremarkable. Neck CT Angiogram: Internal carotid arteries: Mild atherosclerotic plaque in both proximal internal carotid arteries without stenosis or aneurysm. Common carotid arteries: Unremarkable. No significant stenosis. No dissection or occlusion. External carotid arteries: Unremarkable. No occlusion. Vertebral arteries: Unremarkable. No significant stenosis. No dissection or occlusion. Other: None. Aortic Arch and Mediastinum: Partially visualized aortic arch unremarkable without evidence of aneurysm. Origins of the great vessels unremarkable. IMPRESSION: 1. Unremarkable CT angiogram without large vessel occlusion, stenosis or aneurysm. 2. 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 Approved by: Darwin Shirley M.D. on 01/01/2023 at 16:01
[2023-01-01 16:08] LABS: INR 1.1 (0.9-1.3); Prothrombin Time 12.3 SECONDS (10.1-12.7)
[2023-01-01 16:10] LABS: PTT Partial Thromboplastin Tim 29 SECONDS (26-36)
[2023-01-01 16:21] LABS: Add Manual Diff / Slide Review NO; Basophils Absolute Auto 0 /uL (0-100); Basophils Percent Auto 0.6 % (0-2); Eosinophils Absolute Auto 100 /uL (0-450); Eosinophils Percent Auto 1.9 % (2-4); Hematocrit 37.3 % (41-53); Hemoglobin 12.6 g/dL (13.5-17.5); Lymphocytes Absolute Auto 1800 /uL (1100-4500); Lymphocytes Percent Auto 26.3 % (25-40); Mean Corpuscular HGB Conc 33.7 % (30-36); Mean Corpuscular Hemoglobin 31.4 PG (26-34); Mean Corpuscular Volume 93.2 fL (80-100); Monocytes Absolute Auto 600 /uL (0-900); Monocytes Percent Auto 8.9 % (3-14); Neutrophils Absolute Auto 4400 /uL (1500-7000); Neutrophils Percent Auto 62.3 % (50-75); Platelet Count 170 X10^3/uL (150-400); Red Cell Distribution Width 13.6 % (11.6-14.8)
[2023-01-01 16:26] LABS: Alanine Aminotransferase 13 IU/L (<50); Albumin 3.8 g/dL (3.5-5.0); Albumin Globulin Ratio 1.3 (1.0-2.8); Alkaline Phosphatase 46 U/L (38-126); Aspartate Aminotransferase 19 IU/L (17-59); BUN Creatinine Ratio 15.8 (6-22); Bilirubin Total 0.4 mg/dL (0.2-1.3); Blood Urea Nitrogen 25 mg/dL (9-20); Calcium 8.6 mg/dL (8.4-10.2); Carbon Dioxide 27 mmol/L (22-32); Chloride 105 mmol/L (98-107); Creatine Kinase 44 U/L (55-170); Estimated Glomerular Filt Rate 44 mL/min (>60); Ethanol (ETOH) < 10 mg/dL; Globulin 2.9 g/dL (1.7-4.1); Glucose 114 mg/dL (80-110); HEMOLYSIS < 15 (0-50); Potassium 3.9 mmol/L (3.4-5.1); Sodium 138 mmol/L (137-145); Total Protein 6.7 g/dL (6.3-8.2)
[2023-01-01 16:37] LABS: Troponin I 0.015 ng/mL (0.01-0.034)
--- NOTE | 2023-01-01 17:00 | ED.NEUROSD ---
HPI - Neuro Symptoms/Deficit General Chief Complaint: Neuro Symptoms/Deficit Stated Complaint: stroke symptoms resolved now Time Seen by Provider: 01/01/23 15:53 Source: patient, family and EMS Mode of arrival: EMS Limitations: no limitations History of Present Illness HPI Narrative: This is a 82-year-old male with history of prior stroke receive tPA in October of 2021, hypertension, urine output CHF, PTSD, seizures recently started on Keppra 2 weeks ago. Patient's family states seizures already tightness of the face and using of his on the left with no other changes. Patient presents today after having left facial droop, left upper extremity weakness and unable being lift move his arm. Patient was at home with his daughter at bedside he would just finished eating he was seated she noted he could not talk, he could not get his words out his face started drooping in his left arm stopped working when she had him lift his extremities to check. EMS states they were present he had active symptoms and they resolved in route. Patient's glucose in the field was greater than 100. Onset was around 1510. Patient did have some lightheadedness earlier today family notes that when he got out to walk earlier he had to hang and stand for awhile and then was able to walk without issue. They did not appreciate any facial droop they did not appreciate any lateralized weakness, facial changes or speech changes. Patient denies any numbness tingling or weakness currently. He denies any twitching or facial changes currently, he states his speech is fine he denies headache, no chest pain, no shortness of breath, denies any nausea or vomiting, no diarrhea constipation, no loss of bowel or bladder control. Patient does note that he got tPA about a year ago was told he had a prior stroke, he was recommended to have a Watchman device but deferred as he did not wish to pursue surgery. He and family note that he is currently on aspirin 325 mg daily, carvedilol, finasteride, Lasix, losartan, prazosin for PTSD at nightmares, sertraline, spironolactone, tamsulosin and started Keppra for seizures 2 weeks ago. He and family note he had positive EEG after seeing cardiology and complaining of a tightness in his face. He denies any surgeries. No known drug allergies besides penicillin. He notes he is a Spiritism and does not wish for blood products. Had 2 pack per day history quit about 15 years ago, occasional alcohol but none recently, no marijuana, no illicit. PCP is Dr. Ray, Dr. Deleon is his ward nurse, Dr. Bernabe is his neurologist in [place]. Patient has daughter and family bedside. On Anticoagulants: No (asa 325 mg) Related Data Allergies Allergy/AdvReac Type Severity Reaction Status Date / Time Penicillins [PENICILLINS] Allergy Intermediate Verified 01/01/23 16:03 Review of Systems Review of Systems ROS Unobtainable: All systems reviewed & are unremarkable except as noted in HPI and below Hematologic/Lymphatic On Anticoagulants: No (asa 325 mg) Patient History Surgical History History of oral surgery Family History Father Heart disease Essential hypertension Grandmother Diabetes mellitus Social History Smoking Status: Former smoker Smoking Status: Former smoker tobacco type: cigarettes alcohol intake frequency: 0-2 drinks per day Alcohol type: wine and hard liquor Substance Use Type: does not use Exam Narrative Exam Narrative: GEN: well nourished, well appearing male, alert and oriented x 3, patient appears to be in mild distress. HEENT: Atraumatic, pupils are equal round reactive to light, extraocular movements are intact, no nystagmus, nares are clear, there is no conjunctival pallor. Throat is clear without any exudates, erythema, tonsillar enlargement or uvular deviation, no facial droop. Normal movement. HEART: Regular rate and rhythm without murmur, clicks, rubs. Pulses are equal in upper and lower extremities LUNGS:Lungs clear to auscultation, no wheezes, rales, crackles, chest moves symmetrically ABD:bowel sounds normal, soft, non-tender, no guarding, rebound, rigidity, no masses noted, no hepatosplenomegaly :No CVA tenderness MSCL: Non-tender, no muscle atrophy, muscles strength 5/5 upper and lower extremities, full range of motion NEURO:CN 2-12 intact, sensation normal, finger nose finger test normal, heel frazier test normal SKIN: No rash, erythema or other skin changes noted. Initial Vital Signs Initial Vital Signs: Vital Signs Pulse Rate 67 01/01/23 15:56 Respiratory Rate 20 01/01/23 15:56 Pulse Oximetry 98 01/01/23 15:56 Scores NIH Stroke Scale Level of Conciousness: Alert, keenly responsive Ask month/age: Answers both questions correctly. Open/close eyes, close hand: Performs both tasks correctly Best gaze horizontal: Normal Visual mendez: No visual loss Facial palsy: Normal symetrical movement Left arm drift: No drift for full 10 sec Right arm drift: No drift for full 10 sec Left leg drift: No drift for full 5 sec Right leg drift: No drift for full 5 sec Limb ataxia: Absent Sensory on face/arms/legs: Normal, no sensory loss Best language: No aphasia, normal Dysarthria: Normal Extinction or inattention: No abnormality Total NIH Stroke scale score: 0 Course Orders Ordered: ED Orders 01/01/23 15:25 Complete Blood Count AUTO DIFF Stat Comprehensive Metabolic Panel Stat Ethanol (ETOH) Stat PTT Partial Thromboplastin Jose Antonio Stat Prothrombin Time INR Stat Troponin & CK Cardiac Panel Stat 01/01/23 15:55 CT Stroke Stat Urinalysis and Microscopic Stat Urine Drug Screen, Rapid Stat EKG-12 Lead Stat 01/01/23 15:56 CT angio head and neck Stat Sodium Chloride (Normal Saline 0.9%) 1,000 mls @ 150 mls/hr IV CONT KATE Last Admin: 01/01/23 17:30 Dose: Not Given Vital Signs Vital signs: Vital Signs - 8 hr 01/01/23 16:03 01/01/23 15:56 01/01/23 15:57 Temperature 97.0 F L Pulse Rate 67 67 Respiratory Rate 12 20 Blood Pressure 141/66 H 141/66 H Pulse Oximetry 99 98 Oxygen Delivery Method Room Air 01/01/23 15:57 01/01/23 16:00 01/01/23 16:00 Temperature Pulse Rate 67 66 Respiratory Rate 16 12 Blood Pressure 146/67 H Pulse Oximetry 98 98 Oxygen Delivery Method Room Air 01/01/23 16:19 01/01/23 16:19 01/01/23 16:30 Temperature Pulse Rate 71 Respiratory Rate 17 Blood Pressure 176/72 H 147/65 H Pulse Oximetry 97 Oxygen Delivery Method 01/01/23 16:30 01/01/23 17:00 01/01/23 17:00 Temperature Pulse Rate 70 70 Respiratory Rate 15 18 Blood Pressure 176/81 H Pulse Oximetry 97 97 Oxygen Delivery Method Room Air 01/01/23 17:30 01/01/23 17:30 Temperature Pulse Rate 72 Respiratory Rate 23 Blood Pressure 183/81 H Pulse Oximetry 97 Oxygen Delivery Method MDM - Neuro Symptoms/Deficit Lab Data 01/01/23 15:25 01/01/23 15:25 Labs: Lab Results 01/01/23 01/01/23 01/01/23 Range/Units 15:25 15:25 15:25 WBC 7.0 (4.5-11.0) X10^3/uL RBC 4.00 L (4.5-5.9) X10^6/uL Hgb 12.6 L (13.5-17.5) g/dL Hct 37.3 L (41-53) % MCV 93.2 (80-100) fL MCH 31.4 (26-34) PG MCHC 33.7 (30-36) % RDW 13.6 (11.6-14.8) % Plt Count 170 (150-400) X10^3/uL Neut % (Auto) 62.3 (50-75) % Lymph % (Auto) 26.3 (25-40) % [place] % (Auto) 8.9 (3-14) % Eos % (Auto) 1.9 L (2-4) % Baso % (Auto) 0.6 (0-2) % Neut # (Auto) 4400 (8302-3735) /uL Lymph # (Auto) 1800 (0513-0946) /uL [place] # (Auto) 600 (0-900) /uL Eos # (Auto) 100 (0-450) /uL Baso # (Auto) 0 (0-100) /uL PT 12.3 (10.1-12.7) SECONDS INR 1.1 (0.9-1.3) APTT 29 (26-36) SECONDS Sodium 138 (137-145) mmol/L Potassium 3.9 (3.4-5.1) mmol/L Chloride 105 (98-107) mmol/L Carbon Dioxide 27 (22-32) mmol/L BUN 25 H (9-20) mg/dL Creatinine 1.58 H (0.66-1.25) mg/dL Estimated GFR 44 L (>60) mL/min BUN/Creatinine Ratio 15.8 (6-22) Glucose 114 H (80-110) mg/dL Calcium 8.6 (8.4-10.2) mg/dL Total Bilirubin 0.4 (0.2-1.3) mg/dL AST 19 (17-59) IU/L ALT 13 (<50) IU/L Alkaline Phosphatase 46 (38-126) U/L Total Creatine Kinase 44 L (55-170) U/L Troponin I 0.015 (0.01-0.034) ng/mL Total Protein 6.7 (6.3-8.2) g/dL Albumin 3.8 (3.5-5.0) g/dL Globulin 2.9 (1.7-4.1) g/dL Albumin/Globulin Ratio 1.3 (1.0-2.8) Ethyl Alcohol < 10 ( - 10) mg/dL Point of Care Testing Glucose POC [address] scan - head: Radiologist's Impression: [address] [address] [address] Scan Report Signed Patient: Zackery Banda MR#: [id number] : 1940 Acct:[id number] Age/Sex: 82 / M Date of Service: 01/01/23 Loc: ED Accession Number: [id number] ?? Procedure: CT Stroke Ordering Provider: Kylee Bennett D.O. PROCEDURE:? CT STROKE ? INDICATIONS:? left weak/face, resolved now. ? TECHNIQUE:? Noncontrast 4.5 mm thick angled axial sections acquired from the foramen magnum to the vertex, with coronal reformats.? For radiation dose reduction, the following was used:? automated exposure control, adjustment of mA and/or kV according to patient size.? ? COMPARISON:? [facility], CT, CT STROKE, 05/02/2021, 15:30. ? FINDINGS:? Image quality:? Excellent.? ? CSF spaces:? Basal cisterns are patent.? No extra-axial fluid collections.? Ventricles are normal in size and shape.? ? Brain:? No midline shift.? No intracranial masses or hemorrhage.? Luna-white matter interface is normal.? Moderate cerebral and cerebellar volume loss with multifocal white matter chronic ischemic change noted.? Encephalomalacia and gliosis noted in the posterior aspect of the right MCA territory, stable from the prior exam.. ? Skull and face:? Calvarium and visualized facial bones are intact, without suspicious lesions.? ? Sinuses:? Visualized sinuses and mastoids are clear.? ? IMPRESSION:? ? Old right occipital MCA infarct noted in the posterior territory.? No change from prior exam ? Atrophy and chronic ischemic change without intracranial hemorrhage or mass effect ? This study fulfills neurological imaging criteria for inclusion or exclusion of acute stroke therapies based on available published neurological imaging guidelines.? Approved by: Darwin Shirley M.D. on 01/01/2023 at 15:50? CTA - brain/neck: Radiologist's Impression: [address] [address] [address] Scan Report Signed Patient: Zackery Banda MR#: [id number] : 1940 Acct:[id number] Age/Sex: 82 / M Date of Service: 01/01/23 Loc: ED Accession Number: [id number] ?? Procedure: CT angio head and neck Ordering Provider: Kylee Bennett D.O. PROCEDURE:? CT ANGIO HEAD AND NECK ? INDICATIONS:? left face, arm, resolved. ? TECHNIQUE:? After the administration of intravenous contrast, 1 mm thick sections acquired from the aortic arch through the [place] of [place]anda.? MIP reformats of the arterial vasculature were utilized.? For radiation dose reduction, the following was used:? automated exposure control, adjustment of mA and/or kV according to patient size.? ? COMPARISON:? [facility], CT, CT ANGIO HEAD AND NECK, 05/02/2021, 15:30. ? FINDINGS: ? Cerebral CT Angiogram: ? Internal carotid arteries:? Mild calcific atherosclerotic plaque in the cavernous segments of both internal carotid arteries without stenosis or occlusion ? Anterior cerebral arteries:? Unremarkable.? No significant stenosis.? No occlusion.? No aneurysm. ? Middle cerebral arteries:? Unremarkable.? No significant stenosis.? No occlusion.? No aneurysm. ? Posterior cerebral arteries:? Unremarkable.? No significant stenosis.? No occlusion.? No aneurysm. ? Basilar artery:? Unremarkable.? No significant stenosis.? No occlusion.? No aneurysm. ? Vertebral arteries:? Unremarkable as visualized. ? Dural venous sinuses:? Unremarkable given phase of enhancement. ? Other:? Arterial phase brain parenchyma is unremarkable. ? Neck CT Angiogram: ? Internal carotid arteries:? Mild atherosclerotic plaque in both proximal internal carotid arteries without stenosis or aneurysm. ? Common carotid arteries:? Unremarkable.? No significant stenosis.? No dissection or occlusion. ? External carotid arteries:? Unremarkable.? No occlusion. ? Vertebral arteries:? Unremarkable.? No significant stenosis.? No dissection or occlusion. ? Other: None. ? Aortic Arch and Mediastinum:? Partially visualized aortic arch unremarkable without evidence of aneurysm. Origins of the great vessels unremarkable. ? IMPRESSION: ? 1. Unremarkable CT angiogram without large vessel occlusion, stenosis or aneurysm. ? 2. 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 ? Note: If present, proximal ICA stenosis was calculated using NASCET guidelines.? Approved by: Darwin Shirley M.D. on 01/01/2023 at 16:01? ECG Data Attestation: I personally reviewed and interpreted this ECG as follows: Prior ECG tracings: available for review Interpretation: Sinus rhythm sinus arrhythmia, rate of 70 AL 202 QRS [address]TC [address] No acute [address] elevation, patient does have T-wave inversion in 1 and aVL. Patient has prior from 12/20/2022 which has some appear appearing ST segments accept for inverted T-waves in V5 and V6. EKG from 05/02/2021 does not show any changes from today. MDM Narrative Medical decision making narrative: This is a 82-year-old male with history of prior stroke seen on CT, patient had what sounds like stroke-like symptoms today had left facial and left upper extremity droop with drooling and garbled speech. Symptoms resolved with EMS and patient is currently asymptomatic he has not NIH of 0 on examination and is not tpa candidate, initial head CT shows old right MCA infarct but no acute change CT angio shows no significant stenosis, does show multilevel degenerative changes, CBC is appropriate, INR is 1.1, creatinine 1.58 appears to range to 1.3-1.2 on last couple visits, normal electrolytes with potassium of 3.9, glucose of 114. LFTs and troponin are negative. Urine is negative for for infection UDS is negative. Patient takes an aspirin full dose daily. Suspect TIA although with discussion with patient he was recently diagnosed with seizure disorder and started on Keppra 2 weeks ago. He reportedly was diagnosed by EEG by Dr. Bernabe with Neurology in [place]. They note that usual symptoms are tightness sensation in his left cheek with squeezing of his eyes tightly. Facial droop, weakness of extremities are not the typical symptoms. Discussed with Dr. Cai hospitalist who accepts for admission. Reviewed todays findings with patient and family at bedside. All questions answered patient is agreeable to observation overnight for further workup. Denies any metal or contraindications to MRI in am. Discharge Plan Departure Patient Disposition: Admitted as Observation Clinical Impression: TIA (transient ischemic attack), Spinal stenosis Admit Date/Time: 01/01/23 17:39 Admit Provider: Nikolai Cai
--- NOTE | 2023-01-01 17:49 | DI.ECHO.S_ITS ---
[facility] +---------+ Hospital +---------+ : : [address] : : : : [id number] : : : : Phone: [phone]+ Echocardiogram Report + + :Name: BRITT FREITAS Study Date: 01/02/2023 Height: 69 in : :[facility] ReadingLocation: Weight: 200 lb : : Gender: Male BSA: 2.1 m2 : :: 1940 Age: 82 yrs BP: 174/91 mmHg: :Reason For Study: TIA : : Performed By: Jose Feldman : :Referring: KELLE VEGA A : + + Interpretation Summary Left ventricular wall thickness is mildly increased. Left ventricular systolic function is normal. The ejection fraction is estimated to be 65-70%. There is basal inferior wall hypokinesis which was present on prior study. Diastolic parameters suggest a relaxation abnormality of the left ventricle, consistent with probable normal filling pressures. The right ventricle is normal in size and function. Pulmonary artery pressures cannot be estimated because of the lack of a measurable TR jet velocity but the IVC suggests a CVP of around 3 mmHg. Both atria are normal in size. Procedure: A two-dimensional transthoracic echocardiogram with color flow and Doppler was performed. The study quality was technically adequate. Comparison is made with the echocardiogram of 11/02/21. The patient was in normal sinus rhythm during the exam. Left Ventricle: The left ventricle is normal in size. Left ventricular wall thickness is mildly increased. Left ventricular systolic function is normal. The ejection fraction is estimated to be 65-70%. There is basal inferior wall hypokinesis. Diastolic parameters suggest a relaxation abnormality of the left ventricle, consistent with probable normal filling pressures. Right Ventricle: The right ventricle is normal in size and function. Atria: Both atria are normal in size. There is no Doppler evidence for an atrial septal defect. Mitral Valve: The mitral valve is normal in structure and function. There is mild mitral regurgitation. Aortic Valve: The aortic valve is trileaflet. The aortic valve opens well. There is trace aortic regurgitation. Tricuspid Valve: The tricuspid valve is normal in structure and function. No tricuspid regurgitation. Pulmonary artery pressures cannot be estimated because of the lack of a measurable TR jet velocity but the IVC suggests a CVP of around 3 mmHg. Pulmonic Valve: The pulmonic valve leaflets are thin and pliable; valve motion is normal. There is trace pulmonic regurgitation. Great Vessels: The aortic root is normal size. The dimensions of the ascending aorta are normal. The pulmonary artery is normal size. The IVC is of normal diameter and collapses greater than 50% with a sniff. This suggests a low right atrial pressure of 3 mm Hg. Pericardium/ Pleura There is no pericardial effusion. There is no pleural effusion. MMode/2D Measurements & Calculations LVIDd: 4.9 cm LVOT diam: 2.2 cm LVIDs: 3.3 cm Ao root diam: 3.6 cm FS: 31.6 % asc Aorta Diam: 3.3 cm EPSS: 0.44 cm Ao Arch Diam (Prox Trans): 2.4 cm IVSd: 1.0 cm LVPWd: 0.88 cm LV katz. diameter/BSA (cm/m^2): 2.3 LV sys. diameter/BSA (cm/m^2): 1.6 LA A2 area: 20.4 cm2 RA long axis: 5.0 cm LA A4 area: 19.6 cm2 RA area: 13.5 cm2 LA length (vol): 5.8 cm RA vol: 31.3 ml LA vol: 58.8 ml RA : 15.1 ml/m2 LA vol index: 28.5 ml/m2 IVC diam: 1.1 cm TAPSE: 1.8 cm Doppler Measurements & Calculations Ao V2 max: 121.8 cm/sec LVOT Max Ede: 97.8 cm/sec Ao V2 mean: 92.4 cm/sec LV V1 max P.8 mmHg Ao max P.9 mmHg LV V1 VTI: 21.8 cm Ao mean P.6 mmHg MIKE(I,D): 3.1 cm2 Ao V2 VTI: 27.1 cm MIKE(V,D): 3.1 cm2 sev ratio: 0.80 MIKE indexed to BSA (cm^2/m^2): 1.5 MV E max ede: 61.5 cm/sec PA V2 max: 84.7 cm/sec MV A max ede: 76.0 cm/sec PA V2 mean: 68.0 cm/sec MV E/A: 0.81 PA mean P.9 mmHg Med Peak E' Ede: 3.9 cm/sec PA pr(Accel): 36.2 mmHg E/E' med: 15.9 Lat Peak E' Ede: 6.0 cm/sec E/E' lat: 10.3 E/e' average: 13.1 MV dec time: 0.19 sec SV(LVOT): 82.9 ml Reading Physician:02:40 PM
--- NOTE | 2023-01-01 17:51 | DI.MRI.S_ITS ---
PROCEDURE: MR HEAD/BRAIN WO CON INDICATIONS: TIA TECHNIQUE: Noncontrast axial T1 spin echo, axial T2 fast spin echo, sagittal and axial FLAIR, coronal T2 fast spin echo, axial gradient echo, axial diffusion and ADC through the brain. COMPARISON: [facility], CT, CT STROKE, 01/01/2023, 16:11. FINDINGS: Image quality: Excellent. CSF Spaces: Basal cisterns are patent. No extra-axial fluid collections. Ventricles are normal in size and shape. Brain: No intracranial masses or hemorrhage. Encephalomalacia and gliosis noted in the right occipital lobe. Atrophy and confluent white matter chronic ischemic change noted Brainstem appears normal. Diffusion-weighted sequence is unremarkable without evidence of acute infarct. Normal intravascular flow voids are present. Skull and face: Calvarium has normal marrow signal. Orbits appear normal. Sinuses: Sinuses and mastoids are clear. IMPRESSION: Atrophy and white matter chronic ischemic change without acute infarct, hemorrhage or mass lesion. Old right occipital infarct Approved by: Darwin Shirley M.D. on 01/02/2023 at 8:26
--- NOTE | 2023-01-01 17:59 | P.HP_ITS ---
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 Patient is a poor historian so history obtained from the ED note. Apparently he developed acute onset L facial droop and L arm weakness at 1510. EMS called and while in transport his symptoms resolved. He has has continued L facial spasms which an EEG confirmed were focal seizures so he was started on po keppra 2 weeks ago. He is apparently on aspirin 325 mg daily, carvedilol, finasteride, Lasix, losartan, prazosin for PTSD at nightmares, sertraline, spironolactone, tamsulosin and Keppra. No record in chart of current dosages. Nursing obtaining med list from daughter to have reconciled in chart. Patient currently denies any symptoms. He appears to have a slightly flattened nasolabial fold on the left. He denies current weakness, numbness or tingling in his extremities. He denies CP, NV, SOB, abd pain or diarrhea. [facility] Surgical History History of oral surgery Family History Father Heart disease Essential hypertension Grandmother Diabetes mellitus Social History household members: spouse Smoking Status: Former smoker Meds Home Medications and Allergies Allergies Allergy/AdvReac Type Severity Reaction Status Date / Time Penicillins [PENICILLINS] Allergy Intermediate Verified 01/01/23 16:03 Review of Systems Review of Systems Narrative: All other systems reviewed with the patient and are negative unless otherwise stated. Exam Vital Signs (past 8 hours): - 01/01/23 16:03 01/01/23 15:56 01/01/23 15:57 Temperature 97.0 F L Pulse Rate 67 67 Respiratory Rate 12 20 Blood Pressure 141/66 H 141/66 H Pulse Oximetry 99 98 Oxygen Delivery Method Room Air 01/01/23 15:57 01/01/23 16:00 01/01/23 16:00 Temperature Pulse Rate 67 66 Respiratory Rate 16 12 Blood Pressure 146/67 H Pulse Oximetry 98 98 Oxygen Delivery Method Room Air 01/01/23 16:19 01/01/23 16:19 01/01/23 16:30 Temperature Pulse Rate 71 Respiratory Rate 17 Blood Pressure 176/72 H 147/65 H Pulse Oximetry 97 Oxygen Delivery Method 01/01/23 16:30 01/01/23 17:00 01/01/23 17:00 Temperature Pulse Rate 70 70 Respiratory Rate 15 18 Blood Pressure 176/81 H Pulse Oximetry 97 97 Oxygen Delivery Method Room Air 01/01/23 17:30 01/01/23 17:30 Temperature Pulse Rate 72 Respiratory Rate 23 Blood Pressure 183/81 H Pulse Oximetry 97 Oxygen Delivery Method Oxygen Delivery Method Room Air Narrative Exam Narrative: GEN: no acute distress HEENT: moist mucous membranes, PERRL NECK: trachea midline, no JVD CV: regular rate and rhythm, no murmurs PULM: clear bilaterally ABD: soft, nontender, nondistended, no organomegaly EXT: warm and well perfused with no edema NEURO: flattened L nasolabial fold Objective Labs 01/01/23 15:25 01/01/23 15:25 Labs: Laboratory Results - last 24 hr 01/01/23 01/01/23 01/01/23 15:25 15:25 15:25 WBC 7.0 RBC 4.00 L Hgb 12.6 L Hct 37.3 L MCV 93.2 MCH 31.4 MCHC 33.7 RDW 13.6 Plt Count 170 Neut % (Auto) 62.3 Lymph % (Auto) 26.3 [place] % (Auto) 8.9 Eos % (Auto) 1.9 L Baso % (Auto) 0.6 Neut # (Auto) 4400 Lymph # (Auto) 1800 [place] # (Auto) 600 Eos # (Auto) 100 Baso # (Auto) 0 PT 12.3 INR 1.1 APTT 29 Sodium 138 Potassium 3.9 Chloride 105 Carbon Dioxide 27 BUN 25 H Creatinine 1.58 H Estimated GFR 44 L BUN/Creatinine Ratio 15.8 Glucose 114 H Calcium 8.6 Total Bilirubin 0.4 AST 19 ALT 13 Alkaline Phosphatase 46 Total Creatine Kinase 44 L Troponin I 0.015 Total Protein 6.7 Albumin 3.8 Globulin 2.9 Albumin/Globulin Ratio 1.3 Ethyl Alcohol < 10 Assessment & Plan Assessment & Plan narrative: # likely TIA -patient had acute L facial droop, L arm weakness, resolved before he got to the ED -NIH 0 in ED, CT and CTA head/neck showed prior infarct but nothing acute -given ASA 325 mg, start 81 mg aspirin daily and plavix -start Lipitor 80 mg nightly -check lipid panel, A1c and TSH -MRI brain ordered -echo ordered -labetalol as needed for SBP greater than 220 -tele # prior CVA s/p tPA in April 2021, 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 Rodriguez neurology in [place], recently placed on Keppra 2 weeks ago -resume home keppra # HTN -allow permissive HTN x24 hours # CKD stage III -creatinine 1.58 with baseline 1.3 -IV fluids given -monitor # PTSD -continue zoloft and prazosin # BPH -continue flomax # alcohol dependence -drinks 1-2 drinks of wine or liquor daily Code status is Full code. No blood products as he is JW. DVT prophylaxis with heparin subQ. Proxy is daughter Skylar. I have reviewed home meds and used all available resources to reconcile the home meds. Case discussed with ED physician/APC and patient will be admitted to the hosp italist service for further workup and management. This patient will be admitted as observation and will require less than 2 midnights of hospital time to treat TIA.
[2023-01-01 18:23] LABS: Cholesterol 160 mg/dL (140-199); HDL Cholesterol 40 mg/dL (40-60); LDL Cholesterol Calculated 101 mg/dL (<100); Triglycerides 97 mg/dL (35-150)
[2023-01-01 18:25] LABS: Hemoglobin A1C% w Est Avg Glu 5.3 % (4.0-6.0)
[2023-01-01] MEDS: SERTRALINE 50 MG TABLET 25 MG PO (20:29)
[2023-01-01] MEDS: PRAZOSIN 1 MG CAPSULE PO (20:29)
[2023-01-01] MEDS: ATORVASTATIN 20 MG TABLET 80 MG PO (20:29)
[2023-01-01] MEDS: HEPARIN 5,000 UNIT/ML VIAL 5000 UNIT SUBCUT (20:29)
[2023-01-01] MEDS: levETIRAcetam 250 MG TABLET 500 MG PO (20:29)
[2023-01-01] MEDS: CLOPIDOGREL 75 MG TABLET 300 MG PO (20:31)
[2023-01-01 22:50] LABS: UR Morphine/Opiate cutoff 300 Negative (Negative); Ur Creatinine Normal (Normal); Ur Specific Gravity Normal (Normal); Urine Amphetamines Negative (Negative); Urine Barbiturates Negative (Negative); Urine Benzodiazepines Negative (Negative); Urine Cocaine Negative (Negative); Urine MDMA Negative (Negative); Urine Methadone Negative (Negative); Urine Methamphetamines Negative (Negative); Urine Oxycodone Negative (Negative); Urine Phencyclidine Negative (Negative); Urine Tetrahydrocannabinol Negative (Negative); Urine Tricyclic Antidepressant Negative (Negative); Urine pH Normal (Normal)
[2023-01-01 22:56] LABS: Appearance Urine UA CLEAR; Bilirubin Urine UA NEGATIVE (NEGATIVE); Color Urine UA YELLOW; Glucose Urine UA NEGATIVE (Negative); Ketones Urine UA NEGATIVE (NEGATIVE); Leukocyte Esterase Urine UA NEGATIVE (NEGATIVE); Nitrite Urine UA NEGATIVE (Negative); Occult Blood Urine UA NEGATIVE (Negative); Protein Urine UA NEGATIVE (Negative)
[2023-01-01 23:04] LABS: Bacteria Urine None Seen; Culture Indicated Urine Cult Not Indicated; RBC Urine None Seen (0-5/HPF); Squamous Epithelial Cell Urine None Seen (0-5/HPF); WBC Urine None Seen (0-5/HPF)
[2023-01-02] VITALS: BP 167/80; PULSE 72; RESP 16; TEMP 36.3; O2SAT 99
[2023-01-02 04:00] VITALS: BP 170/86; PULSE 69; RESP 19; TEMP 36.8; O2SAT 98
[2023-01-02 05:18] LABS: Add Manual Diff / Slide Review NO; Basophils Absolute Auto 0 /uL (0-100); Basophils Percent Auto 0.5 % (0-2); Eosinophils Absolute Auto 200 /uL (0-450); Eosinophils Percent Auto 2.2 % (2-4); Hematocrit 35.9 % (41-53); Hemoglobin 12.3 g/dL (13.5-17.5); Lymphocytes Absolute Auto 1800 /uL (1100-4500); Lymphocytes Percent Auto 25.8 % (25-40); Mean Corpuscular HGB Conc 34.4 % (30-36); Mean Corpuscular Hemoglobin 31.3 PG (26-34); Mean Corpuscular Volume 91.1 fL (80-100); Monocytes Absolute Auto 600 /uL (0-900); Monocytes Percent Auto 9.2 % (3-14); Neutrophils Absolute Auto 4300 /uL (1500-7000); Neutrophils Percent Auto 62.3 % (50-75); Platelet Count 163 X10^3/uL (150-400); Red Blood Cell Count 3.94 X10^6/uL (4.5-5.9); Red Cell Distribution Width 13.6 % (11.6-14.8); White Blood Cell Count 6.9 X10^3/uL (4.5-11.0)
[2023-01-02 05:24] LABS: BUN Creatinine Ratio 16.5 (6-22); Blood Urea Nitrogen 22 mg/dL (9-20); Calcium 8.1 mg/dL (8.4-10.2); Carbon Dioxide 26 mmol/L (22-32); Chloride 105 mmol/L (98-107); Estimated Glomerular Filt Rate 54 mL/min (>60); Glucose 99 mg/dL (80-110); HEMOLYSIS < 15 (0-50); Potassium 4.1 mmol/L (3.4-5.1); Sodium 135 mmol/L (137-145)
[2023-01-02 05:57] LABS: TSH w/ Reflex to FT4 1.37 uIU/mL (0.47-4.68)
[2023-01-02 08:00] VITALS: BP 124/66; PULSE 71; RESP 16; TEMP 35.9; O2SAT 98
[2023-01-02] MEDS: TAMSULOSIN 0.4 MG CAPSULE PO (09:46)
[2023-01-02] MEDS: levETIRAcetam 250 MG TABLET 500 MG PO (09:46)
[2023-01-02] MEDS: ASPIRIN EC 81 MG TABLET PO (09:46)
[2023-01-02] MEDS: CLOPIDOGREL 75 MG TABLET PO (09:46)
[2023-01-02] MEDS: HEPARIN 5,000 UNIT/ML VIAL 5000 UNIT SUBCUT (09:47)
--- NOTE | 2023-01-02 10:40 | PC.NURSE ---
Addendum entered by Nova Dove R.N. 01/02/23 14:29: Patient napping and watching football. Addendum entered by Nova Dove R.N. 01/02/23 13:22: Phoned patients daughter Jennifer and talked with her. She will be by to visit later on. Original Note: Patients NIH score a 2/10. Patient has some asymmetry when smiling and its hard at times for him to think of what he wants to say! Patient states that he has a hx of seizures and sometimes the l.side of his cheek gets spasms from this. No seizure like activity noted. Patient down and back from his MRI. Working with physical therapy now.
--- NOTE | 2023-01-02 10:43 | PT.IIE ---
Surgical History (Last Reviewed 01/01/23 @ 18:09 by Kylee Bennett DO) History of oral surgery Physical Therapy Inpatient Evaluation/Re-Eval M1 PT/OT-IP Prior Functional Status Start: 01/02/23 11:43 Freq: NEEDED Status: Active Protocol: Document 01/02/23 11:44 AB (Rec: 01/02/23 12:03 AB [id number]) Medical Review Prior Functional Status Medical History Reviewed Yes Communication Pt is able to express needs. Mobility and Gait Pt reports he ambulates with SPC. Activities of Daily Living and IADL's IND with ADLs, but reports he requires assistance from daughter for IADLs such as cooking and cleaning. Social History Household Members spouse,children Living Arrangements House Number of Floors (Floors) One Floor Number of Stairs To Enter/Railing? Ramp + 1 WILBERTO Home Environment Standard Height Toilet,Walk in Shower,Tub/Shower Doors,Built -In Shower Seat Home Equipment Front Wheel Walker,Four Wheel Walker,Straight Cane,Power Wheelchair/Scooter,Bedside Commode,Shower Seat with Backrest,Hand Held Shower,Grab Bars Near Toilet,Grab Bars In Shower Additional Social History Comment The pt reports his requires more assistance with ADLs than he does, which his daughter helps with. He also states some of the DME they have are what his uses. They have an adjustable bed which can elevate head of bed or foot of bed. M2 PT-IP Current Condition Start: 01/02/23 11:43 Freq: NEEDED Status: Active Protocol: Document 01/02/23 11:44 AB (Rec: 01/02/23 12:03 AB [id number]) Physical Therapy Current Condition Current Condition Evaluation Date 01/02/23 Treatment Diagnosis NSTEMI; decreased activity tolerance Onset Date 01/01/23 M3 PT-IP Subjective Start: 01/02/23 11:43 Freq: NEEDED Status: Active Protocol: Document 01/02/23 11:44 AB (Rec: 01/02/23 12:03 AB [id number]) Subjective Physical Therapy Visit Type Type Initial Evaluation Visit Start Time 10:41 Visit Stop Time 11:15 Total Visit Minutes 44 Notes Pt presents seated in chair with all needs met. Number of PLANT SPRAYER Visits 0 Physical Therapy Visit Comments Patient Comments The pt reports he is feeling well and denies any symptoms currently. He is agreeable to PT evaluation this morning. Patient Goals To be safe and avoid falls when walking. Therapy Pain Assessment Pain When Pain Assessed At Rest Pain Present Pain Present Denied Pain M4 PT-IP Mobility and Gait Start: 01/02/23 11:43 Freq: NEEDED Status: Active Protocol: Document 01/02/23 11:44 AB (Rec: 01/02/23 12:03 AB [id number]) PT-Bed Mobility Assessment Rolling Level of Assist Independent Supine to Sit Supine to Sit Independent,Head of Bed Elevated Sit to Supine Sit to Supine Independent,Head of Bed Elevated Scooting Scooting to Edge of Bed Independent PT-Transfer Assessment Sit to and From Stand Sit to and from Stand Independent,Use of Upper Extremities Equipment Transfer Assistive Device Gait Belt Transfers Transfer Destination Bed,Chair Transfer Technique Stand Step Pivot Transfer Ability Level of Assist Standby Assistance,1 Person Assistance,Use of Upper Extremities Gait Assessment Gait Gait Assistance Required: Standby Assistance,1 Person Assist Distance (Feet) 200 Assistive Devices Assistive Device Gait Belt,Front Wheeled Walker Gait Deviations General Gait Pattern Decreased Feet Clearance Factors Limiting Gait Function Factors Limiting Gait Function Decreased Activity Tolerance Comments Gait Comments Pt is able to amb 200ft with FWW and SBA, showing only minor gait deviations. He is able to ambulated 2x10ft with SBA and no AD. Stair Climbing Assessment Comments Stair Climbing Comments Not assessed today due to fatigue. PT-Balance Assessment Sitting Balance and Reactions Static Sitting Balance Ability Normal Dynamic Sitting Balance Ability Normal Standing Balance and Reactions Static Standing Balance Ability Normal Dynamic Standing Balance Ability Good M5 PT-IP Objective Assessments Start: 01/02/23 11:43 Freq: NEEDED Status: Active Protocol: Document 01/02/23 11:44 AB (Rec: 01/02/23 12:03 AB [id number]) Orientation Orientation/Cognition Level of Alertness Alert Orientation Name,Date,Place,Situation Language Function Ability No Deficits Noted Safety Awareness Understands Safety Issues Memory Description No Deficits Noted Gross Range of Motion Upper Extremity ROM Assessment Within Functional Limits Lower Extremity ROM Assessment Within Functional Limits Strength Upper Extremity Strength Assessment Within Functional Limits Lower Extremity Strength Assessment Within Functional Limits M6 PT-IP Treatment Start: 01/02/23 11:43 Freq: NEEDED Status: Active Protocol: Document 01/02/23 11:44 AB (Rec: 01/02/23 12:03 AB [id number]) Physical Therapy Treatment Education Education Provided Safety Brace Education Patient Other Treatments Other Treatment Performed Education regarding safety with functional mobility. Pt demos good standing balance to use the restroom and to perform hand hygiene. At end of session, the pt returned to chair, all needs were met and call light was placed within reach. RN and MD were notified of PT eval findings. M7 PT-IP Assessment and Plan Start: 01/02/23 11:43 Freq: NEEDED Status: Active Protocol: Document 01/02/23 11:44 AB (Rec: 01/02/23 12:03 AB [id number]) PT Summary Assessment and Plan Potential Rehabilitation Potential Excellent Status of Condition at Evaluation Stable Summary Impairments Strength,Activity Tolerance Assessment Summary Zackery Banda is an 82 year old male patient who presented to ED with stroke-like symptoms. Today's PT evaluation revealed mild gait deviations and mild weakness, though he is within functional limits. He is able to perform bed mobility and STS independently, and required only SBA with transfers and ambulation, though he improved throughout session. The pt was able to ambulate 200ft with FWW and 2x10ft without AD , and did not have any instances of LOB. He demonstrates good safety awareness and verbalizes understanding of education regarding safety with functional mobility. Based on his current level of function, discharge from PT is recommended at this time, and the pt does not require home health PT or outpatient PT at this time. However, he was educated on the benefits of outpatient PT if he notices increased balance impairments or muscular weakness, with the pt verbalizing understanding. Goals Bed Mobility Goal Independent Transfer Goal Independent Gait Goal Independent,Cane Gait Distance 200 Days to Meet Goals 5 Frequency of Treatment Frequency Of Treatment Discharge Treatment Plan Physical Therapy Treatment Plan Gait Training,Therapeutic Exercise,Balance Retraining, Discharge Planning,Hot or Cold Pack,Neuromuscular Re-ed Other Recommendations and Next Treatment PT only as needed. Focus Recommendations To Nursing Amount of Assist Needed Standby Assistance,1 Person Assist Discharge Recommendations PT Discharge Recommendations Home Transportation Needs at Discharge Private Vehicle
--- NOTE | 2023-01-02 11:30 | CM.DANOTE ---
Addendum entered by FATMATA Costello 01/02/23 12:50: Per PT, patient moved very well and they will not be recommending HH at this time. EMERGENCY MANAGEMENT SYSTEM DIRECTOR called daughter Skylar to update her. reports understanding. asked for nurse to call her for updates/questions she has. Informed RN of daughter's wishes. SL. Original Note: DCP Assessment Note: Patient is an 82yo m here following likely TIA. PCP Dr. Cory Campbell [facility] and self pay EMERGENCY MANAGEMENT SYSTEM DIRECTOR reviewed EMR. Per provider, likely d/c home today. Pending MRI and PT eval. EMERGENCY MANAGEMENT SYSTEM DIRECTOR entered room and introduced self and role. Patient sitting in chair and appeared A/Ox4. Patient reports living at home with spouse and daughter, emergency contact Skylar ([phone]). patient reports daughter has been assisting with him and his for needs. He needs assistance with shopping/chores/meal prep but spouse needs a lot more care. Patient no longer drives and daughter drives for him. Patient uses a cane and has a walker at home. Patient has used [facility] in past. EMERGENCY MANAGEMENT SYSTEM DIRECTOR spoke with keaton alba over the phone. Skylar reported she would be interested in additional resources for private caregivers. Skylar reported if needed would be open to HH. EMERGENCY MANAGEMENT SYSTEM DIRECTOR informed Skylar that if not ordered here could also be done through PCP. EMERGENCY MANAGEMENT SYSTEM DIRECTOR put senior resources booklet and other caregiver information in patient's room. Plan: home when medically stable, likely today transport with daughter. CM team will continue to follow closely for additional needs. FATMATA Costello Discharge Planning/Care Management CM Discharge Assessment Start: 01/02/23 11:25 Freq: Status: Active Protocol: Document 01/02/23 11:25 (Rec: 01/02/23 11:30 [id number]) Discharge Planning Assessment Assigned Animal Care Provider FATMATA Salas DPOA/Assigned Designee Name Skylar Banda (daughter) Contact Information [phone] Advance Directives? Yes Advance Directives on File No History Provided By Patient,Family Member,Medical Record Prior Living Arrangements House Household Members spouse,children Comment Adult daughter is caregiver for him and spouse Type of transporation used prior to Relies on Others admit Comment Daughter transports Independent with ADL's Yes: see needs assistance with Is patient alert and oriented? Yes Needs Assistance With Meal Prep,Home Chores / Shopping Comment daughter assists him with needs DME Already Rented / Owned FWW / Walker,Cane,Other Comment shower railings Discharge Plan Home Transportation Arrangement daughter in POV SNF/HH Preference used [facility] in past Whiteboard Updated in Patient Room with Yes name and ext. # of Animal Care Provider Review Status In Process Next Review Type Continued Stay Review
[2023-01-02 12:00] VITALS: BP 151/72; PULSE 71; RESP 16; TEMP 36.5; O2SAT 99
--- NOTE | 2023-01-02 17:40 | PM.DS.1 ---
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 Patient is a poor historian so history obtained from the ED note. Apparently he developed acute onset L facial droop and L arm weakness at 1510. EMS called and while in transport his symptoms resolved. He has has continued L facial spasms which an EEG confirmed were focal seizures so he was started on po keppra 2 weeks ago. He is apparently on aspirin 325 mg daily, carvedilol, finasteride, Lasix, losartan, prazosin for PTSD at nightmares, sertraline, spironolactone, tamsulosin and Keppra. No record in chart of current dosages. Nursing obtaining med list from daughter to have reconciled in chart. Patient currently denies any symptoms. He appears to have a slightly flattened nasolabial fold on the left. He denies current weakness, numbness or tingling in his extremities. He denies CP, NV, SOB, abd pain or diarrhea. Discharge Providers Provider Date of admission: 01/01/23 17:39 Discharge Date: 01/02/23 Primary care physician: Leydi Josue DO Consults: 01/02/23 10:07 Consult to Physical Therapy Evaluate & Treat Comment: Physician Instructions: Evaluate and Treat Discharge provider: Nikolai aCi DO Summary Hospital Course Discharge Diagnosis: # likely TIA -patient had acute L facial droop, L arm weakness, resolved before he got to the ED -NIH 0 in ED, CT and CTA head/neck showed prior infarct but nothing acute -given ASA 325 mg, start 81 mg aspirin daily and plavix x21 days -start Lipitor 80 mg nightly, given script on discharge -A1c 6.1%, LDL 101, TSH normal -MRI brain without acute infarct, showed old infarct -echo unchanged from previous, no LV clots -labetalol as needed for SBP greater than 220 -tele # prior CVA s/p tPA in April 2021, 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 Rodriguez neurology in [place], recently placed on Keppra 2 weeks ago -resumed home keppra # HTN -allow permissive HTN x24 hours -resumed home BP meds on discharge # CKD stage III -creatinine 1.58 with baseline 1.3 -IV fluids given -monitor # PTSD -continue zoloft and prazosin # BPH -continue flomax # alcohol dependence -drinks 1-2 drinks of wine or liquor daily Hospital Course: Admitted for L facial droop and arm weakness which resolved. Worked up for TIA with MRI brain and echo which were reassuring. Placed on DAPT x21 days due to high-risk TIA and told to resume home ASA 325 after this time. Placed on high-intensity statin. PT cleared for home. Will f/u with neurology in clinic in a few days. Exam Vital Signs (past 8 hours): - 01/02/23 12:00 Temperature 97.7 F Pulse Rate 71 Respiratory Rate 16 Blood Pressure 151/72 H Pulse Oximetry 99 Oxygen Flow Rate 0 Oxygen Delivery Method Room Air Oxygen Flow Rate 0 Narrative Exam Narrative: GEN: no acute distress HEENT: moist mucous membranes, PERRL NECK: trachea midline, no JVD CV: regular rate and rhythm, no murmurs PULM: clear bilaterally ABD: soft, nontender, nondistended, no organomegaly EXT: warm and well perfused with no edema NEURO: flattened L nasolabial fold Objective Labs 01/02/23 04:28 01/02/23 04:28 Labs: Laboratory Results - last 24 hr 01/01/23 01/01/23 01/01/23 15:25 15:25 22:36 WBC RBC Hgb Hct MCV MCH MCHC RDW Plt Count Neut % (Auto) Lymph % (Auto) Yates % (Auto) Eos % (Auto) Baso % (Auto) Neut # (Auto) Lymph # (Auto) Yates # (Auto) Eos # (Auto) Baso # (Auto) Sodium Potassium Chloride Carbon Dioxide BUN Creatinine Estimated GFR BUN/Creatinine Ratio Glucose Hemoglobin A1c 5.3 Calcium Triglycerides 97 Cholesterol 160 LDL Cholesterol, Calc 101 H HDL Cholesterol 40 TSH Urine Color Urine Appearance Urine pH Ur Specific [place] Urine Protein Urine Glucose (UA) Urine Ketones Urine Occult Blood Urine Nitrate Urine Bilirubin Urine Urobilinogen Ur Leukocyte Esterase Urine RBC Urine WBC Ur Squamous Epith Cells Urine Bacteria Ur Culture Indicated? U Opiates 300ng/mL cut Negative Ur Oxycodone Screen Negative Urine Methadone Screen Negative Ur Barbiturates Screen Negative U Tricyclic Antidepress Negative Ur Phencyclidine Scrn Negative Ur Amphetamines Screen Negative U Methamphetamines Scrn Negative Ur MDMA Scrn (Ecstasy) Negative U Benzodiazepines Scrn Negative Urine Cocaine Screen Negative U Marijuana (THC) Screen Negative 01/01/23 01/02/23 01/02/23 22:36 04:28 04:28 WBC 6.9 RBC 3.94 L Hgb 12.3 L Hct 35.9 L MCV 91.1 MCH 31.3 MCHC 34.4 RDW 13.6 Plt Count 163 Neut % (Auto) 62.3 Lymph % (Auto) 25.8 Yates % (Auto) 9.2 Eos % (Auto) 2.2 Baso % (Auto) 0.5 Neut # (Auto) 4300 Lymph # (Auto) 1800 Yates # (Auto) 600 Eos # (Auto) 200 Baso # (Auto) 0 Sodium 135 L Potassium 4.1 Chloride 105 Carbon Dioxide 26 BUN 22 H Creatinine 1.33 H Estimated GFR 54 L BUN/Creatinine Ratio 16.5 Glucose 99 Hemoglobin A1c Calcium 8.1 L Triglycerides Cholesterol LDL Cholesterol, Calc HDL Cholesterol TSH Urine Color Yellow Urine Appearance Clear Urine pH 6.0 Ur Specific [place] 1.010 Urine Protein Negative Urine Glucose (UA) Negative Urine Ketones Negative Urine Occult Blood Negative Urine Nitrate Negative Urine Bilirubin Negative Urine Urobilinogen 2.0 H Ur Leukocyte Esterase Negative Urine RBC None seen Urine WBC None seen Ur Squamous Epith Cells None seen Urine Bacteria None seen Ur Culture Indicated? Cult not indicated U Opiates 300ng/mL cut Ur Oxycodone Screen Urine Methadone Screen Ur Barbiturates Screen U Tricyclic Antidepress Ur Phencyclidine Scrn Ur Amphetamines Screen U Methamphetamines Scrn Ur MDMA Scrn (Ecstasy) U Benzodiazepines Scrn Urine Cocaine Screen U Marijuana (THC) Screen 01/02/23 04:28 WBC RBC Hgb Hct MCV MCH MCHC RDW Plt Count Neut % (Auto) Lymph % (Auto) Yates % (Auto) Eos % (Auto) Baso % (Auto) Neut # (Auto) Lymph # (Auto) Yates # (Auto) Eos # (Auto) Baso # (Auto) Sodium Potassium Chloride Carbon Dioxide BUN Creatinine Estimated GFR BUN/Creatinine Ratio Glucose Hemoglobin A1c Calcium Triglycerides Cholesterol LDL Cholesterol, Calc HDL Cholesterol TSH 1.37 Urine Color Urine Appearance Urine pH Ur Specific [place] Urine Protein Urine Glucose (UA) Urine Ketones Urine Occult Blood Urine Nitrate Urine Bilirubin Urine Urobilinogen Ur Leukocyte Esterase Urine RBC Urine WBC Ur Squamous Epith Cells Urine Bacteria Ur Culture Indicated? U Opiates 300ng/mL cut Ur Oxycodone Screen Urine Methadone Screen Ur Barbiturates Screen U Tricyclic Antidepress Ur Phencyclidine Scrn Ur Amphetamines Screen U Methamphetamines Scrn Ur MDMA Scrn (Ecstasy) U Benzodiazepines Scrn Urine Cocaine Screen U Marijuana (THC) Screen COUNT INCLUDES THE [facility] Surgical History History of oral surgery Family History Father Heart disease Essential hypertension Grandmother Diabetes mellitus Social History household members: spouse and children Smoking Status: Former smoker alcohol intake: current Discharge Plan Discharge Plan Patient Disposition: Home Provider Discharge Comment: Zackery likely had a TIA or mini-stroke. No new stroke was seen on his brain MRI. He will now need to be on a blood thinner called plavix for 3 weeks. Please take a baby aspirin during this time, and then once finished can restart the aspirin 325. I've also prescribed a statin. Discharge orders & Medications Prescriptions: New aspirin 81 mg Tablet,Delayed Release (Dr/Ec) 81 mg PO DAILY 20 Days Qty: 20 0RF Rx Instructions: hold on taking aspirin 325mg while taking this clopidogrel 75 mg Tablet 75 mg PO DAILY 20 Days Qty: 20 0RF Rx Instructions: start on 01/03 atorvastatin 80 mg tablet 80 mg PO BEDTIME Qty: 90 0RF Continued aspirin 325 mg Tablet,Delayed Release (Dr/Ec) 325 mg PO DAILY carvedilol 12.5 mg Tablet 12.5 mg PO BID Rx Instructions: must administer with a meal/food sertraline 100 mg Tablet 150 mg PO DAILY Rx Instructions: one and one half tab q day tamsulosin 0.4 mg Capsule 1 mg PO BEDTIME levetiracetam [Keppra] 250 mg Tablet 250 mg PO BID losartan 25 mg Tablet 12.5 mg PO DAILY Rx Instructions: one half tab daily furosemide 20 mg Tablet 20 mg PO Q OTHER DAY Rx Instructions: tue.tue,fri finasteride 5 mg Tablet 5 mg PO DAILY prazosin 2 mg Capsule 2 mg PO BEDTIME spironolactone 50 mg Tablet 50 mg PO DAILY fluoride (sodium) [Sodium Fluoride 5000 Dry Mouth] 1.1 % Paste 1 ea PO BEDTIME Follow up/Referrals: Leydi Josue DO [Primary Care Provider] - 2 Weeks Visit Report/Discharge Packet Instructions: Transient Ischemic Attack, Atorvastatin, Clopidogrel Stand Alone Forms: Patient Portal/API, Stroke Signs & Symptoms Discharge Data Primary Care Provider: Leydi Josue Attending Provider: Nikolai Cai Admit Date/Time: 01/01/23 17:39 Discharges patient from system. Discharge Date/Time: 01/02/23 18:10 Quality VTE Deep Vein Thrombosis/Pulmonary Embolism Present on Admission: No
== END 2023-01-02 18:10 | disposition home or self-care (01) ==
LOC: ED 17:37 → AC 17:40
PROVIDERS: Admitting Provider Student in an Organized Health Care Education/Training Program; Emergency Provider Emergency Medicine; PCP Family Medicine; Visit Provider Student in an Organized Health Care Education/Training Program
DX: R29.818 Other symptoms and signs involving the nervous system (principal); R29.810 Facial weakness; R53.1 Weakness; Z86.73 Personal history of transient ischemic attack (TIA), and cerebral infarction without residual deficits; R29.700 NIHSS score 0; I12.9 Hypertensive chronic kidney disease with stage 1 through stage 4 chronic kidney disease, or unspecified chronic kidney disease; N18.30 Chronic kidney disease, stage 3 unspecified; F43.10 Post-traumatic stress disorder, unspecified; N40.0 Benign prostatic hyperplasia without lower urinary tract symptoms; F10.20 Alcohol dependence, uncomplicated
CPT/HCPCS: 36415; 70450; 70496; 70498; 70551; 80048; 80053; 80061; 80305; 80320; 81001; 82550; 82962; 83036; 84443; 84484; 85025; 85610; 85730; 93005; 93010; 93306; 96372; 97161; 97535; 99285; G0378; J1644; Q9967

== ENCOUNTER 2023-07-14 14:30 | Outpatient (RCR) | payer OTHER, SELFPAY ==
[2023-01-01 18:43] VITALS: BMI 29.4
--- NOTE | 2023-05-24 17:14 | PT.OIE ---
Current Diagnoses Unspecified fall, sequela (05/24/23) Past Surgical History (Last Reviewed 01/01/23 @ 18:09 by Kylee Bennett DO) History of oral surgery Visit Care Team Role Provider Type Leydi Josue DO Family Provider Non-Staff Primary Care Provider Specialty: Family Practice Address: [address] [place] [address], [facility], [place], [address] Email: [email or web address] Dana Clemons MD Attending Provider Non-Staff Referring Provider Specialty: Internal Medicine Address: [address] [place] [address],[address], [place], [address] Email: Physical Therapy Initial Evaluation PT-OP-A Visit Information Start: 05/24/23 13:01 Freq: Status: Active Protocol: Document 05/24/23 13:02 NM (Rec: 05/24/23 14:31 NM [id number]) Out-Patient Physical Therapy Visit Information Visit Information Visit Type Initial Evaluation Visit Note 15 visits Visit Start Time 13:05 Visit Stop Time 13:45 Visit Number 05/09 Evaluation Information Evaluation Date 05/24/23 Precautions Precautions Fall risk, hx of stroke PT-OP-B Current Condition Start: 05/24/23 13:01 Freq: Status: Active Protocol: Document 05/24/23 13:02 NM (Rec: 05/24/23 14:31 NM [id number]) Current Condition History of Current Condition Onset Date April 2022 Current Complaints poor balance, pain in arms/ legs History of Current Condition Pt presents to clinic with decreased balance in addition to L shoulder pain, R thigh/ hip pain s/p 2 stroked/TIA in April and Dec 2022. Has hx of falls and decreased balance , reporting falls 1x/2-3 months. During his strokes, pt reports that his L side was more affected. He presents to clinic with spc on R side. Reports catching in R hip/ thigh with limb advancement and hip flexion. Prior to 1st stroke, pt was not using an AD for gait. He reports changes in his blood pressure, especially with positional changes but improved since change in medications. Prior to his falls, he often reports that he feels dizzy; he tries to get into a chair to minimize his fall risk. Hx of seizures, reports of dizziness and lightheadedness, room spinning prior to falls. Dizziness is worse with bending, squatting. Occurred prior to stroke. Lives with (requires 15/11 care), daughter who cares for them. Hx of L4-L5 herniated disc from years ago, no surgery. Prior Treatments and Tests Previous PT for L shoulder; HHPT following strokes Current Functional Impairments (Reported) Functional Limitations- ADL's Limited household ADLs due to balance, changing blood pressure Functional Limitations- Mobility/Gait Uses AD for ambulation, difficulty ambulating >150 ft due to R hip/thigh pain PT-OP-C Subjective Start: 05/24/23 13:01 Freq: Status: Active Protocol: Document 05/24/23 13:02 NM (Rec: 05/24/23 14:31 NM [id number]) OP-PT Subjective Patient Comments Patient Comments see hx above for pt report OP-PT Pain Assessment Location R hip/thigh Pain Location Details inside anterior hip joint, lateral hip, anterior thigh Intensity 6 Scale Used Numeric (0 - 10) Description Aching,With Movement Description- Other best 3/10 at rest Frequency Frequent Pain Aggravating Factors Changing Position,Standing, Walking Pain Alleviating Factors Sitting,Massage Other Pain Alleviating Factors lidocaine L shoulder Pain Location Details posterior scapula, anterior shoulder Intensity 6 Scale Used Numeric (0 - 10) Description Aching Frequency Frequent Pain Aggravating Factors Position,Activity Pain Alleviating Factors Heat,Rest Other Pain Alleviating Factors stretching Pain Behaviors Pain Behaviors Calling Out,Guarding,Holding Area PT-OP-D Balance Start: 05/24/23 13:01 Freq: Status: Active Protocol: Document 05/24/23 13:02 NM (Rec: 05/24/23 14:31 NM [id number]) Balance Tests Crespo Balance Test Cerspo Balance Test Score 38/56 Romberg Romberg 10 seconds Single Limb Standing Single Limb- Right 1 second Single Limb- Left 3 seconds Semi-Tandem Standing Semi-Tandem Standing Balance 10 seconds with CGA Tandem Tandem Standing unable position IND, 5 seconds B once in position PT-OP-E Functional Tests Start: 05/24/23 13:01 Freq: Status: Active Protocol: Document 05/24/23 13:02 NM (Rec: 05/24/23 14:31 NM [id number]) Functional Tests Five Times Sit to Stand Test Score 26.10 sec Comments reports no pain in hip, but slow motion with difficulty without UE to rise Timed Up and Go (TUG) Score 26.52 seconds Comments using spc, close SBA for gait Tinetti Balance and Gait Assessment Balance Score 10 Gait Score 6 Composite Score 16/28 PT-OP-F Manual Assessment Start: 05/24/23 13:01 Freq: Status: Active Protocol: Document 05/24/23 13:02 NM (Rec: 05/24/23 14:31 NM [id number]) Manual Assessments Soft Tissue Assessment Soft Tissue Mobility Assessment Demonstrates decreased hip flexion ROM and length, restricted hip extension. Joint Mobility Assessment Joint Mobility Assessment R hip mobility decreased into active and passive hip flexion , lena with IR, ER, ADD. Pt reports catching, worse with R hip flexion overpressure, scouring hip joint. PT-OP-G Mobility & Gait Start: 05/24/23 13:01 Freq: Status: Active Protocol: Document 05/24/23 13:02 NM (Rec: 05/24/23 14:31 NM [id number]) OP Gait Assessment Gait Gait Assistance Required: Standby Assistance,Contact Guard Assist Distance (Feet) 100 Assistive Devices Assistive Device Gait Belt,Straight Cane Gait Deviations General Gait Pattern Antalgic,Decreased Stride Length,Step-to Gait Factors Limiting Gait Function Factors Limiting Gait Function Decreased Activity Tolerance, Decreased Strength,Limited Range of Motion,Pain,Poor Balance Comments Gait Comments Decreased B hip extension. Pain in R hip with ambulation, lena with limb advancement. No pain with step tapping during Crespo PT-OP-H Neuro Start: 05/24/23 13:01 Freq: Status: Active Protocol: Document 05/24/23 13:02 NM (Rec: 05/24/23 14:31 NM [id number]) Sensation Evaluation Comments Summary Comments Did not formally assess due to time constraints; will assess B light touch next session PT-OP-J Posture/Palpation/Skin Start: 05/24/23 13:01 Freq: Status: Active Protocol: Document 05/24/23 13:02 NM (Rec: 05/24/23 14:31 NM [id number]) Posture Evaluation Position Standing Head/C-Spine Posture Forward Head T-Spine Posture Increased Kyphosis L-Spine Posture Increased Lordosis Shoulder Posture (L) Rounded,(R) Rounded,(L) Elevated Pelvis Posture Anteriorly Tilted Weight Distribution Decreased Wt.Bear on (R) Hip Posture (L) Externally Rotated,(R) Externally Rotated Knee Posture (L) Genu Valgus,(R) Genu Valgus Patellar Posture (L) Superior,(R) Superior Palpation Assessment Location R hip Palpation Location R lateral quad, iliopsoas, hip flexors, greater trochanter, joint Palpation Findings Soft Tissue Tightness,Muscle Guarding,Tenderness Palpation Details Tenderness to palpation at R superolateral quad, hip flexors; worse with hip IR/ER. No tenderness at greater trochanter, distal quad, or ASIS. PT-OP-K Range of Motion Start: 05/24/23 13:01 Freq: Status: Active Protocol: Document 05/24/23 13:02 NM (Rec: 05/24/23 14:31 NM [id number]) Hip Goniometric Range of Motion Hip Left Flexion w/Knee Flexed 95 Extension 5 Right Flexion w/Knee Flexed 90 Extension 5 Comments Pain with hip flexion PT-OP-L Special Tests Start: 05/24/23 13:01 Freq: Status: Active Protocol: Document 05/24/23 13:02 NM (Rec: 05/24/23 14:31 NM [id number]) Special Tests Hip Special Tests FADIR Test Results + Comments R hip, pain inside anterior joint Scour Test Test Results + Comments R hip Anterior Labral Test Test Results + Comments R hip PT-OP-M Strength Start: 05/24/23 13:01 Freq: Status: Active Protocol: Document 05/24/23 13:02 NM (Rec: 05/24/23 14:31 NM [id number]) Hip Strength Hip Manual Muscle Testing Right Flexion (L2) 4- Good- Extension (S1) 4- Good- Abduction 4- Good- Adduction 4- Good- External Rotation 4- Good- Internal Rotation 4- Good- Left Flexion (L2) 4- Good- Extension (S1) 4- Good- Abduction 4- Good- Adduction 4- Good- External Rotation 4- Good- Internal Rotation 4- Good- Knee Strength Knee Manual Muscle Testing Right Flexion (S2) 4- Good- Extension (L3) 4- Good- Left Flexion (S2) 4 Good Extension (L3) 4 Good Ankle/Foot Strength Ankle and Foot Manual Muscle Testing Right Dorsiflexion (L4) 4 Good Plantarflexion (S1) 4 Good Left Dorsiflexion (L4) 4 Good Plantarflexion (S1) 4 Good PT-OP-Q Treatments Start: 05/24/23 13:01 Freq: Status: Active Protocol: Document 05/24/23 13:02 NM (Rec: 05/24/23 17:09 NM [id number]) Self-Care/Home Management Treatment Education Patient Education Fall Risk,Safety Other Education 8 minutes: PT educated pt on exam findings and POC, including fall risk. Instructed pt in safety precautions to decrease fall risk, including removing rugs, using lights, using AD consistently. Further education regarding blood pressure findings; instructed pt in performing slow transitions with positional changes, especially if symptomatic. Also instructed pt in performing brief isometrics or exercises prior to standing/positional changes to increase circulation. Orthostatic assessment: seated at rest prior: 132/67, 72 bpm, 99 spo2 supine 151/79 mmHg, sitting 134/62 mmHg, standing 111/79 mmHg PT-OP-T Assessment and Plan Start: 05/24/23 13:01 Freq: Status: Active Protocol: Document 05/24/23 13:02 NM (Rec: 05/24/23 14:31 NM [id number]) Physical Therapy Assessment Rehab Potential Rehabilitation Potential Fair Evaluation Complexity Number of Personal Factors/Comorbidities 3 or More Number of Body Systems Impaired 3 Clinical Presentation at Evaluation Evolving Impairments Impairments Activity Tolerance,Balance, Coordination,Functional Activities,Functional Mobility ,Gait,Integument,Pain,Posture, ROM,Sensation,Soft Tissue Mobility,Strength,Transfers Goals Four Impairment gait Impairment Difficulty with ambulation > 150 ft with close SBA using spc due to R hip pain Short Term Goal (STG) Pt will ambulate at least 200 ft using LRAD and SBA or better in order to demonstrate improved balance and activity tolerance STG Duration 4 weeks Chcf Goal (LTG) Pt will ambulate at least 500 ft using LRAD and SBA or better in order to demonstrate improved balance and activity tolerance LTG Duration 8 weeks Three Impairment strength Impairment 5x STS test 26.10 seconds Short Term Goal (STG) Pt will complete 5x STS in less than 22 seconds in order to demonstrate increased BLE strength needed for gait and ADLs. STG Duration 4 weeks Chcf Goal (LTG) Pt will complete 5x STS in less than 18 seconds in order to demonstrate increased BLE strength needed for gait and ADLs. LTG Duration 8 weeks Two Impairment balance Impairment Crespo/56 Short Term Goal (STG) Pt will increase Crespo score to greater than 41 using LRAD in order to demonstrate improved balance and decreased fall risk. STG Duration 4 weeks Chcf Goal (LTG) Pt will increase Crespo score to greater than 45 using LRAD in order to demonstrate improved balance and decreased fall risk. LTG Duration 8 weeks One Impairment balance Impairment TU.52 seconds with spc Short Term Goal (STG) Pt will decrease TUG time to less than 22 seconds using LRAD in order to demonstrate improved balance, gait speed, and safety during ambulation. STG Duration 4 weeks Chcf Goal (LTG) Pt will decrease TUG time to less than 20 seconds using LRAD in order to demonstrate improved balance, gait speed, and safety during ambulation. LTG Duration 8 weeks Assessment Summary Assessment Pt is an 82 y.o. male presenting to clinic with impairments in balance and gait s/p 2 CVA/TIAs in 2022. His L side was affected by the strokes; however, pt's LLE strength is comparable to his RLE strength. Currently, pt's global B hip strength is 4-/5 MMT. His 5 time sit to stand score is 26.1 seconds; pt has difficulty rising without UE use. He has pain at his R hip joint and reports catching that worsens with gait. He is positive for labral tests and would benefit from further imaging and assessment from PCP. Pt has a hx of falls and uses a single point cane for ambulation. However, he reports that he has difficulty with ambulation greater than 150 ft due to R hip pain. His Crespo score is 38/56, Tinetti score 16/28 (gait more limited than balance), and a TUG time of 26.52 seconds using his spc; all indicate an increased fall risk. He has most difficulty with maintaining balance with changes in ROSS or moving outside ROSS. Pt also demonstrates positive signs for orthostatic hypotension, which likely factors into pt's balance changes and hx of falls. PT educated pt on exam findings, POC, fall risk, increased safety awareness, slow positional changes, and gentle isometrics or exercise prior to rising. Pt would benefit from skilled PT for progressive BLE strengthening, balance, and gait training in order to decrease fall risk, improve activity tolerance, and decrease caregiver burden. Physical Therapy Plan Frequency and Duration Frequency of Treatment 2x/Week Duration of treatment (weeks) 8 Plan of Care Start Date 05/24/23 Plan of Care End Date 07/22/23 Therapeutic Interventions Therapeutic Interventions Aquatic Therapy,Balance Training,Coordination Training ,Gait Training,Home Exercise Program,Joint Mobilizations, Manual Therapy,Neuromuscular Re-education,Orthotic/ Prosthetic Management,Patient/ Caregiver Education,Self-Care/ Home Management,Sensory Integration,Soft Tissue Mobilization,Taping, Therapeutic Activities, Therapeutic Exercises Modalities Biofeedback,Cold Pack/Ice Massage,Electric Stimulation, Hot Packs,Iontophoresis, Ultrasound,Vasopneumatic Devices Other Referrals/Consults Referrals/Consults Recommended Recommend further imaging of R hip due to reports of catching and reproduction of symptoms into R hip flexion/ ADD/IR Next Visit Focus/Plan Next Note Type Treatment Note Next Visit Plan STS (add band prn), hip abd, seated hip flex. Gait training with AD, stepping, hurdles POC: BLE strengthening, gait and balance training
--- NOTE | 2023-05-24 17:15 | PT.OPPOC ---
Physical, Occupational & Speech Therapy At [facility] Current Diagnoses Unspecified fall, sequela (05/24/23) Visit Care Team Role Provider Type Leydi Josue DO Family Provider Non-Staff Primary Care Provider Specialty: Family Practice Address: [address] [place] [address], [facility] [place], [address] Email: [email or web address] Dana Clemons MD Attending Provider Non-Staff Referring Provider Specialty: Internal Medicine Address: [address] [place] [address],[address], [place], [address] Email: Plan Of Care PT-OP-T Assessment and Plan Start: 05/24/23 13:01 Freq: Status: Active Protocol: Document 05/24/23 13:02 NM (Rec: 05/24/23 14:31 NM [id number]) Physical Therapy Assessment Rehab Potential Rehabilitation Potential Fair Evaluation Complexity Number of Personal Factors/Comorbidities 3 or More Number of Body Systems Impaired 3 Clinical Presentation at Evaluation Evolving Impairments Impairments Activity Tolerance,Balance, Coordination,Functional Activities,Functional Mobility ,Gait,Integument,Pain,Posture, ROM,Sensation,Soft Tissue Mobility,Strength,Transfers Goals Four Impairment gait Impairment Difficulty with ambulation > 150 ft with close SBA using spc due to R hip pain Short Term Goal (STG) Pt will ambulate at least 200 ft using LRAD and SBA or better in order to demonstrate improved balance and activity tolerance STG Duration 4 weeks Repair Operator Goal (LTG) Pt will ambulate at least 500 ft using LRAD and SBA or better in order to demonstrate improved balance and activity tolerance LTG Duration 8 weeks Three Impairment strength Impairment 5x STS test 26.10 seconds Short Term Goal (STG) Pt will complete 5x STS in less than 22 seconds in order to demonstrate increased BLE strength needed for gait and ADLs. STG Duration 4 weeks Senior Care Goal (LTG) Pt will complete 5x STS in less than 18 seconds in order to demonstrate increased BLE strength needed for gait and ADLs. LTG Duration 8 weeks Two Impairment balance Impairment Crespo/56 Short Term Goal (STG) Pt will increase Crespo score to greater than 41 using LRAD in order to demonstrate improved balance and decreased fall risk. STG Duration 4 weeks Senior Care Goal (LTG) Pt will increase Crespo score to greater than 45 using LRAD in order to demonstrate improved balance and decreased fall risk. LTG Duration 8 weeks One Impairment balance Impairment TU.52 seconds with spc Short Term Goal (STG) Pt will decrease TUG time to less than 22 seconds using LRAD in order to demonstrate improved balance, gait speed, and safety during ambulation. STG Duration 4 weeks Senior Care Goal (LTG) Pt will decrease TUG time to less than 20 seconds using LRAD in order to demonstrate improved balance, gait speed, and safety during ambulation. LTG Duration 8 weeks Assessment Summary Assessment Pt is an 82 y.o. male presenting to clinic with impairments in balance and gait s/p 2 CVA/TIAs in 2022. His L side was affected by the strokes; however, pt's LLE strength is comparable to his RLE strength. Currently, pt's global B hip strength is 4-/5 MMT. His 5 time sit to stand score is 26.1 seconds; pt has difficulty rising without UE use. He has pain at his R hip joint and reports catching that worsens with gait. He is positive for labral tests and would benefit from further imaging and assessment from PCP. Pt has a hx of falls and uses a single point cane for ambulation. However, he reports that he has difficulty with ambulation greater than 150 ft due to R hip pain. His Crespo score is 38/56, Tinetti score 16/28 (gait more limited than balance), and a TUG time of 26.52 seconds using his spc; all indicate an increased fall risk. He has most difficulty with maintaining balance with changes in ROSS or moving outside ROSS. Pt also demonstrates positive signs for orthostatic hypotension, which likely factors into pt's balance changes and hx of falls. PT educated pt on exam findings, POC, fall risk, increased safety awareness, slow positional changes, and gentle isometrics or exercise prior to rising. Pt would benefit from skilled PT for progressive BLE strengthening, balance, and gait training in order to decrease fall risk, improve activity tolerance, and decrease caregiver burden. Physical Therapy Plan Frequency and Duration Frequency of Treatment 2x/Week Duration of treatment (weeks) 8 Plan of Care Start Date 05/24/23 Plan of Care End Date 07/22/23 Therapeutic Interventions Therapeutic Interventions Aquatic Therapy,Balance Training,Coordination Training ,Gait Training,Home Exercise Program,Joint Mobilizations, Manual Therapy,Neuromuscular Re-education,Orthotic/ Prosthetic Management,Patient/ Caregiver Education,Self-Care/ Home Management,Sensory Integration,Soft Tissue Mobilization,Taping, Therapeutic Activities, Therapeutic Exercises Modalities Biofeedback,Cold Pack/Ice Massage,Electric Stimulation, Hot Packs,Iontophoresis, Ultrasound,Vasopneumatic Devices Other Referrals/Consults Referrals/Consults Recommended Recommend further imaging of R hip due to reports of catching and reproduction of symptoms into R hip flexion/ ADD/IR Next Visit Focus/Plan Next Note Type Treatment Note Next Visit Plan STS (add band prn), hip abd, seated hip flex. Gait training with AD, stepping, hurdles POC: BLE strengthening, gait and balance training Plan of Care Dates Plan of Care Start Date 05/24/23 Plan of Care End Date 07/22/23 Electronically Signed by: Perla Robbins, PT 05/24/23 5902 If you are in agreement with this Plan of Care, please return a signed and dated copy. I have reviewed this Plan of Care and certify that the skilled therapy services above are required to meet the patient?s needs. Physician Signature Date Printed Name and Credentials Clinical Instructor Signature Printed Name and Credentials
--- NOTE | 2023-05-27 15:59 | PT.OTN ---
Current Diagnoses Unspecified fall, sequela (05/27/23) Physical Therapy Treatment Note PT-OP-A Visit Information Start: 05/24/23 13:01 Freq: Status: Active Protocol: Document 05/27/23 13:45 NM (Rec: 05/27/23 14:32 NM [id number]) Out-Patient Physical Therapy Visit Information Visit Information Visit Type Treatment Note Visit Note daughter Skylar Visit Start Time 13:45 Visit Stop Time 14:30 Visit Number 06/09 Evaluation Information Evaluation Date 05/24/23 Precautions Precautions Fall risk, hx of stroke PT-OP-B Current Condition Start: 05/24/23 13:01 Freq: Status: Active Protocol: Document 05/24/23 13:02 NM (Rec: 05/24/23 14:31 NM [id number]) Current Condition History of Current Condition Onset Date April 2022 Current Complaints poor balance, pain in arms/ legs History of Current Condition Pt presents to clinic with decreased balance in addition to L shoulder pain, R thigh/ hip pain s/p 2 stroked/TIA in April and Dec 2022. Has hx of falls and decreased balance , reporting falls 1x/2-3 months. During his strokes, pt reports that his L side was more affected. He presents to clinic with spc on R side. Reports catching in R hip/ thigh with limb advancement and hip flexion. Prior to 1st stroke, pt was not using an AD for gait. He reports changes in his blood pressure, especially with positional changes but improved since change in medications. Prior to his falls, he often reports that he feels dizzy; he tries to get into a chair to minimize his fall risk. Hx of seizures, reports of dizziness and lightheadedness, room spinning prior to falls. Dizziness is worse with bending, squatting. Occurred prior to stroke. Lives with (requires / care), daughter who cares for them. Hx of L4-L5 herniated disc from years ago, no surgery. Prior Treatments and Tests Previous PT for L shoulder; HHPT following strokes Current Functional Impairments (Reported) Functional Limitations- ADL's Limited household ADLs due to balance, changing blood pressure Functional Limitations- Mobility/Gait Uses AD for ambulation, difficulty ambulating >150 ft due to R hip/thigh pain PT-OP-C Subjective Start: 05/24/23 13:01 Freq: Status: Active Protocol: Document 05/27/23 13:45 NM (Rec: 05/27/23 14:32 NM [id number]) OP-PT Subjective Patient Comments Patient Comments Pt reports R hip pain of 0/10 sitting, 4/10 during ambulation. Using spc in R hand. Daughter Skylar present today. PT-OP-D Balance Start: 05/24/23 13:01 Freq: Status: Active Protocol: Document 05/24/23 13:02 NM (Rec: 05/24/23 14:31 NM [id number]) Balance Tests Crespo Balance Test Crespo Balance Test Score 38/56 Romberg Romberg 10 seconds Single Limb Standing Single Limb- Right 1 second Single Limb- Left 3 seconds Semi-Tandem Standing Semi-Tandem Standing Balance 10 seconds with CGA Tandem Tandem Standing unable position IND, 5 seconds B once in position PT-OP-E Functional Tests Start: 05/24/23 13:01 Freq: Status: Active Protocol: Document 05/24/23 13:02 NM (Rec: 05/24/23 14:31 NM [id number]) Functional Tests Five Times Sit to Stand Test Score 26.10 sec Comments reports no pain in hip, but slow motion with difficulty without UE to rise Timed Up and Go (TUG) Score 26.52 seconds Comments using spc, close SBA for gait Tinetti Balance and Gait Assessment Balance Score 10 Gait Score 6 Composite Score 16/28 PT-OP-F Manual Assessment Start: 05/24/23 13:01 Freq: Status: Active Protocol: Document 05/24/23 13:02 NM (Rec: 05/24/23 14:31 NM [id number]) Manual Assessments Soft Tissue Assessment Soft Tissue Mobility Assessment Demonstrates decreased hip flexion ROM and length, restricted hip extension. Joint Mobility Assessment Joint Mobility Assessment R hip mobility decreased into active and passive hip flexion , lena with IR, ER, ADD. Pt reports catching, worse with R hip flexion overpressure, scouring hip joint. PT-OP-G Mobility & Gait Start: 05/24/23 13:01 Freq: Status: Active Protocol: Document 05/24/23 13:02 NM (Rec: 05/24/23 14:31 NM [id number]) OP Gait Assessment Gait Gait Assistance Required: Standby Assistance,Contact Guard Assist Distance (Feet) 100 Assistive Devices Assistive Device Gait Belt,Straight Cane Gait Deviations General Gait Pattern Antalgic,Decreased Stride Length,Step-to Gait Factors Limiting Gait Function Factors Limiting Gait Function Decreased Activity Tolerance, Decreased Strength,Limited Range of Motion,Pain,Poor Balance Comments Gait Comments Decreased B hip extension. Pain in R hip with ambulation, lena with limb advancement. No pain with step tapping during Crespo PT-OP-H Neuro Start: 05/24/23 13:01 Freq: Status: Active Protocol: Document 05/24/23 13:02 NM (Rec: 05/24/23 14:31 NM [id number]) Sensation Evaluation Comments Summary Comments Did not formally assess due to time constraints; will assess B light touch next session PT-OP-J Posture/Palpation/Skin Start: 05/24/23 13:01 Freq: Status: Active Protocol: Document 05/24/23 13:02 NM (Rec: 05/24/23 14:31 NM [id number]) Posture Evaluation Position Standing Head/C-Spine Posture Forward Head T-Spine Posture Increased Kyphosis L-Spine Posture Increased Lordosis Shoulder Posture (L) Rounded,(R) Rounded,(L) Elevated Pelvis Posture Anteriorly Tilted Weight Distribution Decreased Wt.Bear on (R) Hip Posture (L) Externally Rotated,(R) Externally Rotated Knee Posture (L) Genu Valgus,(R) Genu Valgus Patellar Posture (L) Superior,(R) Superior Palpation Assessment Location R hip Palpation Location R lateral quad, iliopsoas, hip flexors, greater trochanter, joint Palpation Findings Soft Tissue Tightness,Muscle Guarding,Tenderness Palpation Details Tenderness to palpation at R superolateral quad, hip flexors; worse with hip IR/ER. No tenderness at greater trochanter, distal quad, or ASIS. PT-OP-K Range of Motion Start: 05/24/23 13:01 Freq: Status: Active Protocol: Document 05/24/23 13:02 NM (Rec: 05/24/23 14:31 NM [id number]) Hip Goniometric Range of Motion Hip Left Flexion w/Knee Flexed 95 Extension 5 Right Flexion w/Knee Flexed 90 Extension 5 Comments Pain with hip flexion PT-OP-L Special Tests Start: 05/24/23 13:01 Freq: Status: Active Protocol: Document 05/24/23 13:02 NM (Rec: 05/24/23 14:31 NM [id number]) Special Tests Hip Special Tests FADIR Test Results + Comments R hip, pain inside anterior joint Scour Test Test Results + Comments R hip Anterior Labral Test Test Results + Comments R hip PT-OP-M Strength Start: 05/24/23 13:01 Freq: Status: Active Protocol: Document 05/24/23 13:02 NM (Rec: 05/24/23 14:31 NM [id number]) Hip Strength Hip Manual Muscle Testing Right Flexion (L2) 4- Good- Extension (S1) 4- Good- Abduction 4- Good- Adduction 4- Good- External Rotation 4- Good- Internal Rotation 4- Good- Left Flexion (L2) 4- Good- Extension (S1) 4- Good- Abduction 4- Good- Adduction 4- Good- External Rotation 4- Good- Internal Rotation 4- Good- Knee Strength Knee Manual Muscle Testing Right Flexion (S2) 4- Good- Extension (L3) 4- Good- Left Flexion (S2) 4 Good Extension (L3) 4 Good Ankle/Foot Strength Ankle and Foot Manual Muscle Testing Right Dorsiflexion (L4) 4 Good Plantarflexion (S1) 4 Good Left Dorsiflexion (L4) 4 Good Plantarflexion (S1) 4 Good PT-OP-Q Treatments Start: 05/24/23 13:01 Freq: Status: Active Protocol: Document 05/27/23 13:45 NM (Rec: 05/27/23 14:32 NM [id number]) Therapeutic Exercises Sitting Exercises hip flexion Sitting Exercise Name marching (performed individually) Side bilateral Resistance lvl 2 teal tb around thighs Reps/Minutes 1x15 ea Comments cued to prevent post trunk lean compensation hip abduction Sitting Exercise Name seated clam. 1 LE at a time Side bilateral Resistance lvl 2 tb around thighs Equipment Used chair Reps/Minutes 2x10 with 2 hold Comments cue for full ROM, reports good feedback with exercises plantarflexion Sitting Exercise Name seated heel raises (added to HEP) Side bilateral Resistance AROM Reps/Minutes 1x20 with 3 hold Comments cued full range dorsiflexion Sitting Exercise Name seated toe raises (added to HEP) Side bilateral Resistance AROM Reps/Minutes 1x20 with 3 hold Comments cue for full range; reports medium difficulty Sit to stand Sitting Exercise Name (added to HEP) Side bilateral Equipment Used plinth> chair behind Reps/Minutes 4x5 Comments cue for fwd weight shift, nose over toes Gait Training Gait Activity Spc Device Used spc Level of Assistance IND for spc R hand, close SBA for spc L hand Surface stable Distance/Duration 250 ft Treatment Focus 2 pt gait pattern, 3 pt gait pattern, nml mechanics Comments 1. 2 point gait pattern x 200 ft With spc in R hand, cued for moving LLE and spc simulataneously per pt's normal usage at home/community due to hx of stroke and R weakness. Cued for coordination initially, then for upright trunk posture, increased gait speed, and B foot clearance for safety 2. 3 point gait pattern x50 ft With spc in L hand to offload RLE due to pt reports of pain, pt unable to coordinate 2 pt gait pattern. Able to perform 3 pt gait pattern with cues only for foot clearance. Pt reports no RLE pain currently. Instructed to use this pattern at home Self-Care/Home Management Treatment Education Patient Education Fall Risk,Home Exercise Program,Pain Management,Safety Caregiver Education Daughter, Skylar; educated on being near pt during any standing exercises. Also educated on slow positional changes, performance of exercises, being nearby when pt performs STS Other Education 7 min total: Educated again on orthostasis, slow positional changes, performance of exercises prior to getting up out of bed to increase circulation. HEP handout: seated heel raises, seated toe raises, sit to stand without UE support (daughter nearby) with band around thighs, seated hip abduction. Instructed on use of spc with gait, L hand if RLE hurts using 3 pt pattern or 2pt pattern if using with R hand. Pt has exercise bike, so discussed trying to use recumbent bike at home 1-2x/wk PT-OP-T Assessment and Plan Start: 05/24/23 13:01 Freq: Status: Active Protocol: Document 05/27/23 13:45 NM (Rec: 05/27/23 14:32 NM [id number]) Physical Therapy Assessment Goals Four Impairment gait Impairment Difficulty with ambulation > 150 ft with close SBA using spc due to R hip pain Short Term Goal (STG) Pt will ambulate at least 200 ft using LRAD and SBA or better in order to demonstrate improved balance and activity tolerance STG Duration 4 weeks Hydrodynamicist Goal (LTG) Pt will ambulate at least 500 ft using LRAD and SBA or better in order to demonstrate improved balance and activity tolerance LTG Duration 8 weeks Three Impairment strength Impairment 5x STS test 26.10 seconds Short Term Goal (STG) Pt will complete 5x STS in less than 22 seconds in order to demonstrate increased BLE strength needed for gait and ADLs. STG Duration 4 weeks Group Home Goal (LTG) Pt will complete 5x STS in less than 18 seconds in order to demonstrate increased BLE strength needed for gait and ADLs. LTG Duration 8 weeks Two Impairment balance Impairment Crespo/56 Short Term Goal (STG) Pt will increase Crespo score to greater than 41 using LRAD in order to demonstrate improved balance and decreased fall risk. STG Duration 4 weeks Hydrodynamicist Goal (LTG) Pt will increase Crespo score to greater than 45 using LRAD in order to demonstrate improved balance and decreased fall risk. LTG Duration 8 weeks One Impairment balance Impairment TU.52 seconds with spc Short Term Goal (STG) Pt will decrease TUG time to less than 22 seconds using LRAD in order to demonstrate improved balance, gait speed, and safety during ambulation. STG Duration 4 weeks Group Home Goal (LTG) Pt will decrease TUG time to less than 20 seconds using LRAD in order to demonstrate improved balance, gait speed, and safety during ambulation. LTG Duration 8 weeks Assessment Summary Assessment Initiated BLE strengthening to address impairments and as precursor for future balance training. Exercises provided in sitting due to pt reports of RLE pain with certain activities in standing; able to perform all motions without pain today. During sit to stand, pt able to progress from elevated plinth to normal chair using fwd reach for anterior weight shift, no UE support, and band around thighs for tactile cue to prevent knee valgus. PT verbally cued pt consistently to scoot fwd in chair prior to stand. Pt demos good eccentric lowering to chair but increased difficulty as plinth/chair height lowered. Initiated gait training using spc in both hands with 2 pt and 3 pt gait patterns as pt reports tendency to switch between hands depending on his RLE pain. Pt unable to coordinate 2 pt gait pattern with spc in L hand despite max cueing. PT educated pt and daughter about HEP, safety during transitions between positions; both verbalize understanding. Pt would benefit from skilled PT for progressive BLE strengthening, gait and balance training in order to decrease fall risk and caregiver burden. Physical Therapy Plan Frequency and Duration Frequency of Treatment 2x/Week Duration of treatment (weeks) 8 Plan of Care Start Date 05/24/23 Plan of Care End Date 07/22/23 Therapeutic Interventions Therapeutic Interventions Aquatic Therapy,Balance Training,Coordination Training ,Gait Training,Home Exercise Program,Joint Mobilizations, Manual Therapy,Neuromuscular Re-education,Orthotic/ Prosthetic Management,Patient/ Caregiver Education,Self-Care/ Home Management,Sensory Integration,Soft Tissue Mobilization,Taping, Therapeutic Activities, Therapeutic Exercises Modalities Biofeedback,Cold Pack/Ice Massage,Electric Stimulation, Hot Packs,Iontophoresis, Ultrasound,Vasopneumatic Devices Other Referrals/Consults Referrals/Consults Recommended Recommend further imaging of R hip due to reports of catching and reproduction of symptoms into R hip flexion/ ADD/IR Next Visit Focus/Plan Next Note Type Treatment Note Next Visit Plan Progress BLE strengthening ( into standing depending on RLE pain), initiate gait training as needed with obstacles etc for balance (2 pt vs 3 pt if RLE hurting) Future sessions: stair training (has B rails at home) , with and without spc
--- NOTE | 2023-06-01 16:27 | PT.OTN ---
Current Diagnoses Unspecified fall, sequela (06/01/23) Physical Therapy Treatment Note PT-OP-A Visit Information Start: 05/24/23 13:01 Freq: Status: Active Protocol: Document 06/01/23 13:51 SW (Rec: 06/01/23 14:34 SW [id number]) Out-Patient Physical Therapy Visit Information Visit Information Visit Type Treatment Note Visit Start Time 13:48 Visit Stop Time 14:28 Visit Number 3 Precautions Precautions Fall risk, hx of stroke PT-OP-B Current Condition Start: 05/24/23 13:01 Freq: Status: Active Protocol: Document 05/24/23 13:02 NM (Rec: 05/24/23 14:31 NM [id number]) Current Condition History of Current Condition Onset Date April 2022 Current Complaints poor balance, pain in arms/ legs History of Current Condition Pt presents to clinic with decreased balance in addition to L shoulder pain, R thigh/ hip pain s/p 2 stroked/TIA in April and Dec 2022. Has hx of falls and decreased balance , reporting falls 1x/2-3 months. During his strokes, pt reports that his L side was more affected. He presents to clinic with spc on R side. Reports catching in R hip/ thigh with limb advancement and hip flexion. Prior to 1st stroke, pt was not using an AD for gait. He reports changes in his blood pressure, especially with positional changes but improved since change in medications. Prior to his falls, he often reports that he feels dizzy; he tries to get into a chair to minimize his fall risk. Hx of seizures, reports of dizziness and lightheadedness, room spinning prior to falls. Dizziness is worse with bending, squatting. Occurred prior to stroke. Lives with (requires 15/11 care), daughter who cares for them. Hx of L4-L5 herniated disc from years ago, no surgery. Prior Treatments and Tests Previous PT for L shoulder; HHPT following strokes Current Functional Impairments (Reported) Functional Limitations- ADL's Limited household ADLs due to balance, changing blood pressure Functional Limitations- Mobility/Gait Uses AD for ambulation, difficulty ambulating >150 ft due to R hip/thigh pain PT-OP-C Subjective Start: 05/24/23 13:01 Freq: Status: Active Protocol: Document 06/01/23 13:51 SW (Rec: 06/01/23 14:34 SW [id number]) OP-PT Subjective Patient Comments Patient Comments Pt reports seeing doctor yesterday for xray in shoulder and RLE. PT-OP-D Balance Start: 05/24/23 13:01 Freq: Status: Active Protocol: Document 05/24/23 13:02 NM (Rec: 05/24/23 14:31 NM [id number]) Balance Tests Crespo Balance Test Crespo Balance Test Score 38/56 Romberg Romberg 10 seconds Single Limb Standing Single Limb- Right 1 second Single Limb- Left 3 seconds Semi-Tandem Standing Semi-Tandem Standing Balance 10 seconds with CGA Tandem Tandem Standing unable position IND, 5 seconds B once in position PT-OP-E Functional Tests Start: 05/24/23 13:01 Freq: Status: Active Protocol: Document 05/24/23 13:02 NM (Rec: 05/24/23 14:31 NM [id number]) Functional Tests Five Times Sit to Stand Test Score 26.10 sec Comments reports no pain in hip, but slow motion with difficulty without UE to rise Timed Up and Go (TUG) Score 26.52 seconds Comments using spc, close SBA for gait Tinetti Balance and Gait Assessment Balance Score 10 Gait Score 6 Composite Score 16/28 PT-OP-F Manual Assessment Start: 05/24/23 13:01 Freq: Status: Active Protocol: Document 05/24/23 13:02 NM (Rec: 05/24/23 14:31 NM [id number]) Manual Assessments Soft Tissue Assessment Soft Tissue Mobility Assessment Demonstrates decreased hip flexion ROM and length, restricted hip extension. Joint Mobility Assessment Joint Mobility Assessment R hip mobility decreased into active and passive hip flexion , lena with IR, ER, ADD. Pt reports catching, worse with R hip flexion overpressure, scouring hip joint. PT-OP-G Mobility & Gait Start: 05/24/23 13:01 Freq: Status: Active Protocol: Document 05/24/23 13:02 NM (Rec: 05/24/23 14:31 NM [id number]) OP Gait Assessment Gait Gait Assistance Required: Standby Assistance,Contact Guard Assist Distance (Feet) 100 Assistive Devices Assistive Device Gait Belt,Straight Cane Gait Deviations General Gait Pattern Antalgic,Decreased Stride Length,Step-to Gait Factors Limiting Gait Function Factors Limiting Gait Function Decreased Activity Tolerance, Decreased Strength,Limited Range of Motion,Pain,Poor Balance Comments Gait Comments Decreased B hip extension. Pain in R hip with ambulation, lena with limb advancement. No pain with step tapping during Crespo PT-OP-H Neuro Start: 05/24/23 13:01 Freq: Status: Active Protocol: Document 05/24/23 13:02 NM (Rec: 05/24/23 14:31 NM [id number]) Sensation Evaluation Comments Summary Comments Did not formally assess due to time constraints; will assess B light touch next session PT-OP-J Posture/Palpation/Skin Start: 05/24/23 13:01 Freq: Status: Active Protocol: Document 05/24/23 13:02 NM (Rec: 05/24/23 14:31 NM [id number]) Posture Evaluation Position Standing Head/C-Spine Posture Forward Head T-Spine Posture Increased Kyphosis L-Spine Posture Increased Lordosis Shoulder Posture (L) Rounded,(R) Rounded,(L) Elevated Pelvis Posture Anteriorly Tilted Weight Distribution Decreased Wt.Bear on (R) Hip Posture (L) Externally Rotated,(R) Externally Rotated Knee Posture (L) Genu Valgus,(R) Genu Valgus Patellar Posture (L) Superior,(R) Superior Palpation Assessment Location R hip Palpation Location R lateral quad, iliopsoas, hip flexors, greater trochanter, joint Palpation Findings Soft Tissue Tightness,Muscle Guarding,Tenderness Palpation Details Tenderness to palpation at R superolateral quad, hip flexors; worse with hip IR/ER. No tenderness at greater trochanter, distal quad, or ASIS. PT-OP-K Range of Motion Start: 05/24/23 13:01 Freq: Status: Active Protocol: Document 05/24/23 13:02 NM (Rec: 05/24/23 14:31 NM [id number]) Hip Goniometric Range of Motion Hip Left Flexion w/Knee Flexed 95 Extension 5 Right Flexion w/Knee Flexed 90 Extension 5 Comments Pain with hip flexion PT-OP-L Special Tests Start: 05/24/23 13:01 Freq: Status: Active Protocol: Document 05/24/23 13:02 NM (Rec: 05/24/23 14:31 NM [id number]) Special Tests Hip Special Tests FADIR Test Results + Comments R hip, pain inside anterior joint Scour Test Test Results + Comments R hip Anterior Labral Test Test Results + Comments R hip PT-OP-M Strength Start: 05/24/23 13:01 Freq: Status: Active Protocol: Document 05/24/23 13:02 NM (Rec: 05/24/23 14:31 NM [id number]) Hip Strength Hip Manual Muscle Testing Right Flexion (L2) 4- Good- Extension (S1) 4- Good- Abduction 4- Good- Adduction 4- Good- External Rotation 4- Good- Internal Rotation 4- Good- Left Flexion (L2) 4- Good- Extension (S1) 4- Good- Abduction 4- Good- Adduction 4- Good- External Rotation 4- Good- Internal Rotation 4- Good- Knee Strength Knee Manual Muscle Testing Right Flexion (S2) 4- Good- Extension (L3) 4- Good- Left Flexion (S2) 4 Good Extension (L3) 4 Good Ankle/Foot Strength Ankle and Foot Manual Muscle Testing Right Dorsiflexion (L4) 4 Good Plantarflexion (S1) 4 Good Left Dorsiflexion (L4) 4 Good Plantarflexion (S1) 4 Good PT-OP-Q Treatments Start: 05/24/23 13:01 Freq: Status: Active Protocol: Document 06/01/23 13:51 SW (Rec: 06/01/23 14:34 SW [id number]) Therapeutic Exercises Sitting Exercises hip flexion Sitting Exercise Name marching (performed individually) Side bilateral Resistance lvl 2 teal tb around thighs Reps/Minutes 1x15 ea Comments cued to prevent post trunk lean compensation hip abduction Sitting Exercise Name seated clam. 1 LE at a time Side bilateral Resistance lvl 2 tb around thighs Equipment Used chair Reps/Minutes 2x10 with 2 hold Comments cue for full ROM, reports good feedback with exercises plantarflexion Sitting Exercise Name seated heel raises (added to HEP) Side bilateral Resistance AROM Reps/Minutes 1x20 with 3 hold Comments cued full range dorsiflexion Sitting Exercise Name seated toe raises (added to HEP) Side bilateral Resistance AROM Reps/Minutes 1x20 with 3 hold Comments cue for full range; reports medium difficulty Sit to stand Sitting Exercise Name (added to HEP) Side bilateral Equipment Used plinth> chair behind Reps/Minutes 4x5 Comments cue for fwd weight shift, nose over toes Standing Exercises Hip Abd Standing Exercise Name Hip Abd Side bilateral Resistance AROM Equipment Used @ rail Reps/Minutes x10 ea Comments cues for execution and for compensation Neuro Re-Education Treatment Balance Activities Step Tap Details step taps, alternating Surface stable Equipment @ rail for support prn Reps/Duration x 10 Comments cues for slow control to decrease reliance on momentum, CHANNEL DEVELOPMENT MANAGER prn, in PT only. PT-OP-T Assessment and Plan Start: 05/24/23 13:01 Freq: Status: Active Protocol: Document 06/01/23 13:51 SW (Rec: 06/01/23 14:34 SW [id number]) Physical Therapy Assessment Goals Four Impairment gait Impairment Difficulty with ambulation > 150 ft with close SBA using spc due to R hip pain Short Term Goal (STG) Pt will ambulate at least 200 ft using LRAD and SBA or better in order to demonstrate improved balance and activity tolerance STG Duration 4 weeks Making Line Worker Goal (LTG) Pt will ambulate at least 500 ft using LRAD and SBA or better in order to demonstrate improved balance and activity tolerance LTG Duration 8 weeks Three Impairment strength Impairment 5x STS test 26.10 seconds Short Term Goal (STG) Pt will complete 5x STS in less than 22 seconds in order to demonstrate increased BLE strength needed for gait and ADLs. STG Duration 4 weeks Prison Goal (LTG) Pt will complete 5x STS in less than 18 seconds in order to demonstrate increased BLE strength needed for gait and ADLs. LTG Duration 8 weeks Two Impairment balance Impairment Crespo/56 Short Term Goal (STG) Pt will increase Crespo score to greater than 41 using LRAD in order to demonstrate improved balance and decreased fall risk. STG Duration 4 weeks Prison Goal (LTG) Pt will increase Crespo score to greater than 45 using LRAD in order to demonstrate improved balance and decreased fall risk. LTG Duration 8 weeks One Impairment balance Impairment TU.52 seconds with spc Short Term Goal (STG) Pt will decrease TUG time to less than 22 seconds using LRAD in order to demonstrate improved balance, gait speed, and safety during ambulation. STG Duration 4 weeks Making Line Worker Goal (LTG) Pt will decrease TUG time to less than 20 seconds using LRAD in order to demonstrate improved balance, gait speed, and safety during ambulation. LTG Duration 8 weeks Assessment Summary Assessment Trialed standing hip abd strengthening ex this session for pt tolerance, pt tolerated well without increase pn, mod verbal cues for compensations with trunk and hip flexion, pt denies increased pn. Initiated step taps in PT only today for pt balance, instructed patient not to try this at home d/t fall risk. Pt denied increased pain with standing activities this session, but does express that standing is when pain would typically increase. Plan to follow up with pt tolerance to today's session and progress as able. Physical Therapy Plan Frequency and Duration Frequency of Treatment 2x/Week Duration of treatment (weeks) 8 Plan of Care Start Date 05/24/23 Plan of Care End Date 07/22/23 Therapeutic Interventions Therapeutic Interventions Aquatic Therapy,Balance Training,Coordination Training ,Gait Training,Home Exercise Program,Joint Mobilizations, Manual Therapy,Neuromuscular Re-education,Orthotic/ Prosthetic Management,Patient/ Caregiver Education,Self-Care/ Home Management,Sensory Integration,Soft Tissue Mobilization,Taping, Therapeutic Activities, Therapeutic Exercises Modalities Biofeedback,Cold Pack/Ice Massage,Electric Stimulation, Hot Packs,Iontophoresis, Ultrasound,Vasopneumatic Devices Other Referrals/Consults Referrals/Consults Recommended Recommend further imaging of R hip due to reports of catching and reproduction of symptoms into R hip flexion/ ADD/IR Next Visit Focus/Plan Next Note Type Treatment Note Next Visit Plan Progress BLE strengthening ( into standing depending on RLE pain), initiate gait training as needed with obstacles etc for balance (2 pt vs 3 pt if RLE hurting) Future sessions: stair training (has B rails at home) , with and without spc
--- NOTE | 2023-06-03 14:35 | PT.OTN ---
Current Diagnoses Unspecified fall, sequela (06/03/23) Physical Therapy Treatment Note PT-OP-A Visit Information Start: 05/24/23 13:01 Freq: Status: Active Protocol: Document 06/03/23 13:57 SP (Rec: 06/03/23 14:39 SP [id number]) Out-Patient Physical Therapy Visit Information Visit Information Visit Type Treatment Note Visit Start Time 13:57 Visit Stop Time 14:35 Visit Number 08/07 Evaluation Information Evaluation Date 05/24/23 Precautions Precautions Fall risk, hx of stroke PT-OP-B Current Condition Start: 05/24/23 13:01 Freq: Status: Active Protocol: Document 05/24/23 13:02 NM (Rec: 05/24/23 14:31 NM [id number]) Current Condition History of Current Condition Onset Date April 2022 Current Complaints poor balance, pain in arms/ legs History of Current Condition Pt presents to clinic with decreased balance in addition to L shoulder pain, R thigh/ hip pain s/p 2 stroked/TIA in April and Dec 2022. Has hx of falls and decreased balance , reporting falls 1x/2-3 months. During his strokes, pt reports that his L side was more affected. He presents to clinic with spc on R side. Reports catching in R hip/ thigh with limb advancement and hip flexion. Prior to 1st stroke, pt was not using an AD for gait. He reports changes in his blood pressure, especially with positional changes but improved since change in medications. Prior to his falls, he often reports that he feels dizzy; he tries to get into a chair to minimize his fall risk. Hx of seizures, reports of dizziness and lightheadedness, room spinning prior to falls. Dizziness is worse with bending, squatting. Occurred prior to stroke. Lives with (requires 15/11 care), daughter who cares for them. Hx of L4-L5 herniated disc from years ago, no surgery. Prior Treatments and Tests Previous PT for L shoulder; HHPT following strokes Current Functional Impairments (Reported) Functional Limitations- ADL's Limited household ADLs due to balance, changing blood pressure Functional Limitations- Mobility/Gait Uses AD for ambulation, difficulty ambulating >150 ft due to R hip/thigh pain PT-OP-C Subjective Start: 05/24/23 13:01 Freq: Status: Active Protocol: Document 06/03/23 13:57 SP (Rec: 06/03/23 14:39 SP [id number]) OP-PT Subjective Patient Comments Patient Comments Pt reports doing ok after last tx. He prefers wear hospital mask for his safety around others. PT-OP-D Balance Start: 05/24/23 13:01 Freq: Status: Active Protocol: Document 05/24/23 13:02 NM (Rec: 05/24/23 14:31 NM [id number]) Balance Tests Crespo Balance Test Crespo Balance Test Score 38/56 Romberg Romberg 10 seconds Single Limb Standing Single Limb- Right 1 second Single Limb- Left 3 seconds Semi-Tandem Standing Semi-Tandem Standing Balance 10 seconds with CGA Tandem Tandem Standing unable position IND, 5 seconds B once in position PT-OP-E Functional Tests Start: 05/24/23 13:01 Freq: Status: Active Protocol: Document 05/24/23 13:02 NM (Rec: 05/24/23 14:31 NM [id number]) Functional Tests Five Times Sit to Stand Test Score 26.10 sec Comments reports no pain in hip, but slow motion with difficulty without UE to rise Timed Up and Go (TUG) Score 26.52 seconds Comments using spc, close SBA for gait Tinetti Balance and Gait Assessment Balance Score 10 Gait Score 6 Composite Score 16/28 PT-OP-F Manual Assessment Start: 05/24/23 13:01 Freq: Status: Active Protocol: Document 05/24/23 13:02 NM (Rec: 05/24/23 14:31 NM [id number]) Manual Assessments Soft Tissue Assessment Soft Tissue Mobility Assessment Demonstrates decreased hip flexion ROM and length, restricted hip extension. Joint Mobility Assessment Joint Mobility Assessment R hip mobility decreased into active and passive hip flexion , lena with IR, ER, ADD. Pt reports catching, worse with R hip flexion overpressure, scouring hip joint. PT-OP-G Mobility & Gait Start: 05/24/23 13:01 Freq: Status: Active Protocol: Document 05/24/23 13:02 NM (Rec: 05/24/23 14:31 NM [id number]) OP Gait Assessment Gait Gait Assistance Required: Standby Assistance,Contact Guard Assist Distance (Feet) 100 Assistive Devices Assistive Device Gait Belt,Straight Cane Gait Deviations General Gait Pattern Antalgic,Decreased Stride Length,Step-to Gait Factors Limiting Gait Function Factors Limiting Gait Function Decreased Activity Tolerance, Decreased Strength,Limited Range of Motion,Pain,Poor Balance Comments Gait Comments Decreased B hip extension. Pain in R hip with ambulation, lena with limb advancement. No pain with step tapping during Crespo PT-OP-H Neuro Start: 05/24/23 13:01 Freq: Status: Active Protocol: Document 05/24/23 13:02 NM (Rec: 05/24/23 14:31 NM [id number]) Sensation Evaluation Comments Summary Comments Did not formally assess due to time constraints; will assess B light touch next session PT-OP-J Posture/Palpation/Skin Start: 05/24/23 13:01 Freq: Status: Active Protocol: Document 05/24/23 13:02 NM (Rec: 05/24/23 14:31 NM [id number]) Posture Evaluation Position Standing Head/C-Spine Posture Forward Head T-Spine Posture Increased Kyphosis L-Spine Posture Increased Lordosis Shoulder Posture (L) Rounded,(R) Rounded,(L) Elevated Pelvis Posture Anteriorly Tilted Weight Distribution Decreased Wt.Bear on (R) Hip Posture (L) Externally Rotated,(R) Externally Rotated Knee Posture (L) Genu Valgus,(R) Genu Valgus Patellar Posture (L) Superior,(R) Superior Palpation Assessment Location R hip Palpation Location R lateral quad, iliopsoas, hip flexors, greater trochanter, joint Palpation Findings Soft Tissue Tightness,Muscle Guarding,Tenderness Palpation Details Tenderness to palpation at R superolateral quad, hip flexors; worse with hip IR/ER. No tenderness at greater trochanter, distal quad, or ASIS. PT-OP-K Range of Motion Start: 05/24/23 13:01 Freq: Status: Active Protocol: Document 05/24/23 13:02 NM (Rec: 05/24/23 14:31 NM [id number]) Hip Goniometric Range of Motion Hip Left Flexion w/Knee Flexed 95 Extension 5 Right Flexion w/Knee Flexed 90 Extension 5 Comments Pain with hip flexion PT-OP-L Special Tests Start: 05/24/23 13:01 Freq: Status: Active Protocol: Document 05/24/23 13:02 NM (Rec: 05/24/23 14:31 NM [id number]) Special Tests Hip Special Tests FADIR Test Results + Comments R hip, pain inside anterior joint Scour Test Test Results + Comments R hip Anterior Labral Test Test Results + Comments R hip PT-OP-M Strength Start: 05/24/23 13:01 Freq: Status: Active Protocol: Document 05/24/23 13:02 NM (Rec: 05/24/23 14:31 NM [id number]) Hip Strength Hip Manual Muscle Testing Right Flexion (L2) 4- Good- Extension (S1) 4- Good- Abduction 4- Good- Adduction 4- Good- External Rotation 4- Good- Internal Rotation 4- Good- Left Flexion (L2) 4- Good- Extension (S1) 4- Good- Abduction 4- Good- Adduction 4- Good- External Rotation 4- Good- Internal Rotation 4- Good- Knee Strength Knee Manual Muscle Testing Right Flexion (S2) 4- Good- Extension (L3) 4- Good- Left Flexion (S2) 4 Good Extension (L3) 4 Good Ankle/Foot Strength Ankle and Foot Manual Muscle Testing Right Dorsiflexion (L4) 4 Good Plantarflexion (S1) 4 Good Left Dorsiflexion (L4) 4 Good Plantarflexion (S1) 4 Good PT-OP-Q Treatments Start: 05/24/23 13:01 Freq: Status: Active Protocol: Document 06/03/23 13:57 SP (Rec: 06/03/23 14:39 SP [id number]) Therapeutic Exercises Sitting Exercises shoulder ER Sitting Exercise Name added to HEP Side bilateral Resistance AROM Reps/Minutes 2x10 Comments cued upright posturing, elbows at side, ROM painfree LAQ Sitting Exercise Name trialed in PT Side bilateral Resistance TB #2 at forefoot/under ft Equipment Used mesh chair Reps/Minutes 5, Comments good tiring effort, painfree hip flexion Sitting Exercise Name marching (performed individually) Side bilateral Resistance lvl 2 teal tb around thighs Reps/Minutes 1x15 ea Comments cued to prevent post trunk lean compensation hip abduction Sitting Exercise Name seated clam. 1 LE at a time Side bilateral Resistance lvl 2 tb around thighs Equipment Used chair Reps/Minutes 2x12 with 2 hold Comments cue for full ROM, good tiring effort lat thigh, performed x2 at home plantarflexion Sitting Exercise Name seated heel raises standing 2/ 9 Side bilateral Resistance AROM Reps/Minutes 1x20 with 3 hold Comments cued full range dorsiflexion Sitting Exercise Name seated toe raises standing 2/9 Side bilateral Resistance AROM Reps/Minutes 1x20 with 3 hold Comments cue for full range; reports medium difficulty Sit to stand Sitting Exercise Name HEP reviewed Side bilateral Equipment Used mesh chair Reps/Minutes x10 Comments cue scoot fwd, hip hinge slow descent sit Standing Exercises Hip Abd Standing Exercise Name Hip Abd Side bilateral Resistance AROM Equipment Used @ rail Reps/Minutes x10 ea Comments cues elongated posture on RLE for engagement Gait Training Gait Activity Spc Device Used spc Level of Assistance IND for spc R hand, close SBA for spc L hand Surface stable Distance/Duration 250 ft Treatment Focus 2 pt gait pattern, 3 pt gait pattern, nml mechanics Comments 1. 2 point gait pattern x 200 ft With spc in R hand, cued for moving LLE and spc simulataneously per pt's normal usage at home/community due to hx of stroke and R weakness. Cued for coordination initially, then for upright trunk posture, increased gait speed, and B foot clearance for safety 2. 3 point gait pattern x50 ft With spc in L hand to offload RLE due to pt reports of pain, pt unable to coordinate 2 pt gait pattern. Able to perform 3 pt gait pattern with cues only for foot clearance. Pt reports no RLE pain currently. Instructed to use this pattern at home Neuro Re-Education Treatment Balance Activities hurdles Details walking around cheryl obstacle and stepping over Surface floor, SPC in RUE, CGA via gait belt Equipment 4 hurdles Reps/Duration 15 ft distance x2 laps Comments good SPC patterning with RUE, cued Rhomboid fac and wt shift over stance LE wt shift into advance LE with awareness of trail LE foot clearance. GOod stability, trial repetitive hurdles next tx, progress uneven as tolerated. PT-OP-T Assessment and Plan Start: 05/24/23 13:01 Freq: Status: Active Protocol: Document 06/03/23 13:57 SP (Rec: 06/03/23 14:39 SP [id number]) Physical Therapy Assessment Goals Four Impairment gait Impairment Difficulty with ambulation > 150 ft with close SBA using spc due to R hip pain Short Term Goal (STG) Pt will ambulate at least 200 ft using LRAD and SBA or better in order to demonstrate improved balance and activity tolerance STG Duration 4 weeks Skilled Nursing Goal (LTG) Pt will ambulate at least 500 ft using LRAD and SBA or better in order to demonstrate improved balance and activity tolerance LTG Duration 8 weeks Three Impairment strength Impairment 5x STS test 26.10 seconds Short Term Goal (STG) Pt will complete 5x STS in less than 22 seconds in order to demonstrate increased BLE strength needed for gait and ADLs. STG Duration 4 weeks Skilled Nursing Goal (LTG) Pt will complete 5x STS in less than 18 seconds in order to demonstrate increased BLE strength needed for gait and ADLs. LTG Duration 8 weeks Two Impairment balance Impairment Crespo/56 Short Term Goal (STG) Pt will increase Crespo score to greater than 41 using LRAD in order to demonstrate improved balance and decreased fall risk. STG Duration 4 weeks Skilled Nursing Goal (LTG) Pt will increase Crespo score to greater than 45 using LRAD in order to demonstrate improved balance and decreased fall risk. LTG Duration 8 weeks One Impairment balance Impairment TU.52 seconds with spc Short Term Goal (STG) Pt will decrease TUG time to less than 22 seconds using LRAD in order to demonstrate improved balance, gait speed, and safety during ambulation. STG Duration 4 weeks Skilled Nursing Goal (LTG) Pt will decrease TUG time to less than 20 seconds using LRAD in order to demonstrate improved balance, gait speed, and safety during ambulation. LTG Duration 8 weeks Assessment Summary Assessment Pt denies pain this tx. Pt tolerated standing DF/PF this tx with UE support on rails, cues for posture over LEs. He tires quickly and requires seated rest between standing activities for recovery breath and low progression endurance . He was able to complete further gait with almost consistant 2pt gait using SPC, improvement from 3pt gait last tx. Will progress stair mgt next tx. Physical Therapy Plan Frequency and Duration Frequency of Treatment 2x/Week Duration of treatment (weeks) 8 Plan of Care Start Date 05/24/23 Plan of Care End Date 07/22/23 Therapeutic Interventions Therapeutic Interventions Aquatic Therapy,Balance Training,Coordination Training ,Gait Training,Home Exercise Program,Joint Mobilizations, Manual Therapy,Neuromuscular Re-education,Orthotic/ Prosthetic Management,Patient/ Caregiver Education,Self-Care/ Home Management,Sensory Integration,Soft Tissue Mobilization,Taping, Therapeutic Activities, Therapeutic Exercises Modalities Biofeedback,Cold Pack/Ice Massage,Electric Stimulation, Hot Packs,Iontophoresis, Ultrasound,Vasopneumatic Devices Other Referrals/Consults Referrals/Consults Recommended Recommend further imaging of R hip due to reports of catching and reproduction of symptoms into R hip flexion/ ADD/IR Next Visit Focus/Plan Next Note Type Treatment Note Next Visit Plan Progress BLE strengthening ( into standing depending on RLE pain), initiate gait training as needed with obstacles etc for balance (2 pt vs 3 pt if RLE hurting) Future sessions: stair training (has B rails at home) , with and without spc
--- NOTE | 2023-06-09 16:38 | PT.OTN ---
Current Diagnoses Unspecified fall, sequela (06/09/23) Physical Therapy Treatment Note PT-OP-A Visit Information Start: 05/24/23 13:01 Freq: Status: Active Protocol: Document 06/09/23 13:49 SW (Rec: 06/09/23 14:33 SW [id number]) Out-Patient Physical Therapy Visit Information Visit Information Visit Type Treatment Note Visit Start Time 13:48 Visit Stop Time 14:27 Visit Number 09/06 Precautions Precautions Fall risk, hx of stroke PT-OP-B Current Condition Start: 05/24/23 13:01 Freq: Status: Active Protocol: Document 05/24/23 13:02 NM (Rec: 05/24/23 14:31 NM [id number]) Current Condition History of Current Condition Onset Date April 2022 Current Complaints poor balance, pain in arms/ legs History of Current Condition Pt presents to clinic with decreased balance in addition to L shoulder pain, R thigh/ hip pain s/p 2 stroked/TIA in April and Dec 2022. Has hx of falls and decreased balance , reporting falls 1x/2-3 months. During his strokes, pt reports that his L side was more affected. He presents to clinic with spc on R side. Reports catching in R hip/ thigh with limb advancement and hip flexion. Prior to 1st stroke, pt was not using an AD for gait. He reports changes in his blood pressure, especially with positional changes but improved since change in medications. Prior to his falls, he often reports that he feels dizzy; he tries to get into a chair to minimize his fall risk. Hx of seizures, reports of dizziness and lightheadedness, room spinning prior to falls. Dizziness is worse with bending, squatting. Occurred prior to stroke. Lives with (requires 15/11 care), daughter who cares for them. Hx of L4-L5 herniated disc from years ago, no surgery. Prior Treatments and Tests Previous PT for L shoulder; HHPT following strokes Current Functional Impairments (Reported) Functional Limitations- ADL's Limited household ADLs due to balance, changing blood pressure Functional Limitations- Mobility/Gait Uses AD for ambulation, difficulty ambulating >150 ft due to R hip/thigh pain PT-OP-C Subjective Start: 05/24/23 13:01 Freq: Status: Active Protocol: Document 06/09/23 13:49 SW (Rec: 06/09/23 14:33 SW [id number]) OP-PT Subjective Patient Comments Patient Comments Pt reports it lets me know it is still there, but no increase in pain since last session. Pt reports doing stationary bike at home PT-OP-D Balance Start: 05/24/23 13:01 Freq: Status: Active Protocol: Document 05/24/23 13:02 NM (Rec: 05/24/23 14:31 NM [id number]) Balance Tests Crespo Balance Test Crespo Balance Test Score 38/56 Romberg Romberg 10 seconds Single Limb Standing Single Limb- Right 1 second Single Limb- Left 3 seconds Semi-Tandem Standing Semi-Tandem Standing Balance 10 seconds with CGA Tandem Tandem Standing unable position IND, 5 seconds B once in position PT-OP-E Functional Tests Start: 05/24/23 13:01 Freq: Status: Active Protocol: Document 05/24/23 13:02 NM (Rec: 05/24/23 14:31 NM [id number]) Functional Tests Five Times Sit to Stand Test Score 26.10 sec Comments reports no pain in hip, but slow motion with difficulty without UE to rise Timed Up and Go (TUG) Score 26.52 seconds Comments using spc, close SBA for gait Tinetti Balance and Gait Assessment Balance Score 10 Gait Score 6 Composite Score 16/28 PT-OP-F Manual Assessment Start: 05/24/23 13:01 Freq: Status: Active Protocol: Document 05/24/23 13:02 NM (Rec: 05/24/23 14:31 NM [id number]) Manual Assessments Soft Tissue Assessment Soft Tissue Mobility Assessment Demonstrates decreased hip flexion ROM and length, restricted hip extension. Joint Mobility Assessment Joint Mobility Assessment R hip mobility decreased into active and passive hip flexion , lena with IR, ER, ADD. Pt reports catching, worse with R hip flexion overpressure, scouring hip joint. PT-OP-G Mobility & Gait Start: 05/24/23 13:01 Freq: Status: Active Protocol: Document 05/24/23 13:02 NM (Rec: 05/24/23 14:31 NM [id number]) OP Gait Assessment Gait Gait Assistance Required: Standby Assistance,Contact Guard Assist Distance (Feet) 100 Assistive Devices Assistive Device Gait Belt,Straight Cane Gait Deviations General Gait Pattern Antalgic,Decreased Stride Length,Step-to Gait Factors Limiting Gait Function Factors Limiting Gait Function Decreased Activity Tolerance, Decreased Strength,Limited Range of Motion,Pain,Poor Balance Comments Gait Comments Decreased B hip extension. Pain in R hip with ambulation, lena with limb advancement. No pain with step tapping during Crespo PT-OP-H Neuro Start: 05/24/23 13:01 Freq: Status: Active Protocol: Document 05/24/23 13:02 NM (Rec: 05/24/23 14:31 NM [id number]) Sensation Evaluation Comments Summary Comments Did not formally assess due to time constraints; will assess B light touch next session PT-OP-J Posture/Palpation/Skin Start: 05/24/23 13:01 Freq: Status: Active Protocol: Document 05/24/23 13:02 NM (Rec: 05/24/23 14:31 NM [id number]) Posture Evaluation Position Standing Head/C-Spine Posture Forward Head T-Spine Posture Increased Kyphosis L-Spine Posture Increased Lordosis Shoulder Posture (L) Rounded,(R) Rounded,(L) Elevated Pelvis Posture Anteriorly Tilted Weight Distribution Decreased Wt.Bear on (R) Hip Posture (L) Externally Rotated,(R) Externally Rotated Knee Posture (L) Genu Valgus,(R) Genu Valgus Patellar Posture (L) Superior,(R) Superior Palpation Assessment Location R hip Palpation Location R lateral quad, iliopsoas, hip flexors, greater trochanter, joint Palpation Findings Soft Tissue Tightness,Muscle Guarding,Tenderness Palpation Details Tenderness to palpation at R superolateral quad, hip flexors; worse with hip IR/ER. No tenderness at greater trochanter, distal quad, or ASIS. PT-OP-K Range of Motion Start: 05/24/23 13:01 Freq: Status: Active Protocol: Document 05/24/23 13:02 NM (Rec: 05/24/23 14:31 NM [id number]) Hip Goniometric Range of Motion Hip Left Flexion w/Knee Flexed 95 Extension 5 Right Flexion w/Knee Flexed 90 Extension 5 Comments Pain with hip flexion PT-OP-L Special Tests Start: 05/24/23 13:01 Freq: Status: Active Protocol: Document 05/24/23 13:02 NM (Rec: 05/24/23 14:31 NM [id number]) Special Tests Hip Special Tests FADIR Test Results + Comments R hip, pain inside anterior joint Scour Test Test Results + Comments R hip Anterior Labral Test Test Results + Comments R hip PT-OP-M Strength Start: 05/24/23 13:01 Freq: Status: Active Protocol: Document 05/24/23 13:02 NM (Rec: 05/24/23 14:31 NM [id number]) Hip Strength Hip Manual Muscle Testing Right Flexion (L2) 4- Good- Extension (S1) 4- Good- Abduction 4- Good- Adduction 4- Good- External Rotation 4- Good- Internal Rotation 4- Good- Left Flexion (L2) 4- Good- Extension (S1) 4- Good- Abduction 4- Good- Adduction 4- Good- External Rotation 4- Good- Internal Rotation 4- Good- Knee Strength Knee Manual Muscle Testing Right Flexion (S2) 4- Good- Extension (L3) 4- Good- Left Flexion (S2) 4 Good Extension (L3) 4 Good Ankle/Foot Strength Ankle and Foot Manual Muscle Testing Right Dorsiflexion (L4) 4 Good Plantarflexion (S1) 4 Good Left Dorsiflexion (L4) 4 Good Plantarflexion (S1) 4 Good PT-OP-Q Treatments Start: 05/24/23 13:01 Freq: Status: Active Protocol: Document 06/09/23 13:49 SW (Rec: 06/09/23 14:33 SW [id number]) Therapeutic Exercises Sitting Exercises LAQ Sitting Exercise Name trialed in PT Side bilateral Resistance TB #2 at forefoot/under ft Equipment Used mesh chair Reps/Minutes 5, Comments good tiring effort, painfree hip flexion Sitting Exercise Name marching (performed individually) Side bilateral Resistance lvl 2 teal tb around thighs Reps/Minutes 1x15 ea Comments cued to prevent post trunk lean compensation hip abduction Sitting Exercise Name seated clam. 1 LE at a time Side bilateral Resistance lvl 2 tb around thighs Equipment Used chair Reps/Minutes 2x12 with 2 hold Comments cue for full ROM, good tiring effort lat thigh, performed x2 at home Sit to stand Sitting Exercise Name HEP reviewed Side bilateral Equipment Used mesh chair Reps/Minutes x10 Comments cue scoot fwd, hip hinge slow descent sit Standing Exercises Toe raises Standing Exercise Name Toe raises Reps/Minutes x10 Comments minimal lift, cues for trunk stabilization Heel raises Standing Exercise Name Heel raises Reps/Minutes x1o Hip Abd Standing Exercise Name Hip Abd Side bilateral Resistance AROM Equipment Used @ rail Reps/Minutes x10 ea Comments cues elongated posture on RLE for engagement PT-OP-T Assessment and Plan Start: 05/24/23 13:01 Freq: Status: Active Protocol: Document 06/09/23 13:49 (Rec: 06/09/23 14:33 [id number]) Physical Therapy Assessment Goals Four Impairment gait Impairment Difficulty with ambulation > 150 ft with close SBA using spc due to R hip pain Short Term Goal (STG) Pt will ambulate at least 200 ft using LRAD and SBA or better in order to demonstrate improved balance and activity tolerance STG Duration 4 weeks Wet Process Operator Goal (LTG) Pt will ambulate at least 500 ft using LRAD and SBA or better in order to demonstrate improved balance and activity tolerance LTG Duration 8 weeks Three Impairment strength Impairment 5x STS test 26.10 seconds Short Term Goal (STG) Pt will complete 5x STS in less than 22 seconds in order to demonstrate increased BLE strength needed for gait and ADLs. STG Duration 4 weeks Usp Goal (LTG) Pt will complete 5x STS in less than 18 seconds in order to demonstrate increased BLE strength needed for gait and ADLs. LTG Duration 8 weeks Two Impairment balance Impairment Crespo/56 Short Term Goal (STG) Pt will increase Crespo score to greater than 41 using LRAD in order to demonstrate improved balance and decreased fall risk. STG Duration 4 weeks Usp Goal (LTG) Pt will increase Crespo score to greater than 45 using LRAD in order to demonstrate improved balance and decreased fall risk. LTG Duration 8 weeks One Impairment balance Impairment TU.52 seconds with spc Short Term Goal (STG) Pt will decrease TUG time to less than 22 seconds using LRAD in order to demonstrate improved balance, gait speed, and safety during ambulation. STG Duration 4 weeks Usp Goal (LTG) Pt will decrease TUG time to less than 20 seconds using LRAD in order to demonstrate improved balance, gait speed, and safety during ambulation. LTG Duration 8 weeks Assessment Summary Assessment Continued strengthening exercises this session for carryover into pt gait and balance goals, issued HEP HO, minimal cues required for correct execution. Educated pt on safety with standing strengthening exercises. Pt required seated rest breaks throughout session d/t pt fatigue. Physical Therapy Plan Frequency and Duration Frequency of Treatment 2x/Week Duration of treatment (weeks) 8 Plan of Care Start Date 05/24/23 Plan of Care End Date 07/22/23 Therapeutic Interventions Therapeutic Interventions Aquatic Therapy,Balance Training,Coordination Training ,Gait Training,Home Exercise Program,Joint Mobilizations, Manual Therapy,Neuromuscular Re-education,Orthotic/ Prosthetic Management,Patient/ Caregiver Education,Self-Care/ Home Management,Sensory Integration,Soft Tissue Mobilization,Taping, Therapeutic Activities, Therapeutic Exercises Modalities Biofeedback,Cold Pack/Ice Massage,Electric Stimulation, Hot Packs,Iontophoresis, Ultrasound,Vasopneumatic Devices Other Referrals/Consults Referrals/Consults Recommended Recommend further imaging of R hip due to reports of catching and reproduction of symptoms into R hip flexion/ ADD/IR Next Visit Focus/Plan Next Note Type Treatment Note Next Visit Plan Progress BLE strengthening ( into standing depending on RLE pain), initiate gait training as needed with obstacles etc for balance (2 pt vs 3 pt if RLE hurting) Future sessions: stair training (has B rails at home) , with and without spc
--- NOTE | 2023-06-14 14:59 | PT.OTN ---
Current Diagnoses Unspecified fall, sequela (06/14/23) Physical Therapy Treatment Note PT-OP-A Visit Information Start: 05/24/23 13:01 Freq: Status: Active Protocol: Document 06/14/23 13:45 NM (Rec: 06/14/23 14:59 NM [id number]) Out-Patient Physical Therapy Visit Information Visit Information Visit Type Treatment Note Visit Start Time 13:45 Visit Stop Time 14:30 Visit Number 10/07 Evaluation Information Evaluation Date 05/24/23 PT-OP-B Current Condition Start: 05/24/23 13:01 Freq: Status: Active Protocol: Document 05/24/23 13:02 NM (Rec: 05/24/23 14:31 NM [id number]) Current Condition History of Current Condition Onset Date April 2022 Current Complaints poor balance, pain in arms/ legs History of Current Condition Pt presents to clinic with decreased balance in addition to L shoulder pain, R thigh/ hip pain s/p 2 stroked/TIA in April and Dec 2022. Has hx of falls and decreased balance , reporting falls 1x/2-3 months. During his strokes, pt reports that his L side was more affected. He presents to clinic with spc on R side. Reports catching in R hip/ thigh with limb advancement and hip flexion. Prior to 1st stroke, pt was not using an AD for gait. He reports changes in his blood pressure, especially with positional changes but improved since change in medications. Prior to his falls, he often reports that he feels dizzy; he tries to get into a chair to minimize his fall risk. Hx of seizures, reports of dizziness and lightheadedness, room spinning prior to falls. Dizziness is worse with bending, squatting. Occurred prior to stroke. Lives with (requires 15/11 care), daughter who cares for them. Hx of L4-L5 herniated disc from years ago, no surgery. Prior Treatments and Tests Previous PT for L shoulder; HHPT following strokes Current Functional Impairments (Reported) Functional Limitations- ADL's Limited household ADLs due to balance, changing blood pressure Functional Limitations- Mobility/Gait Uses AD for ambulation, difficulty ambulating >150 ft due to R hip/thigh pain PT-OP-C Subjective Start: 05/24/23 13:01 Freq: Status: Active Protocol: Document 06/14/23 13:45 NM (Rec: 06/14/23 14:59 NM [id number]) OP-PT Subjective Patient Comments Patient Comments Pt is wearing lidocaine patches on his hip and shoulders. Reports his HEP is easy. Presents with spc. Reports that his hip only bothers him when he's walking too fast. He's been doing the stationary bike, on lvl 7 (only goes to up 8). He is constipated and is having trouble performing lots of standing exercises at one time , has to sit occasionally until pain passes. Had hip and shoulder x ray PT-OP-D Balance Start: 05/24/23 13:01 Freq: Status: Active Protocol: Document 05/24/23 13:02 NM (Rec: 05/24/23 14:31 NM [id number]) Balance Tests Crespo Balance Test Crespo Balance Test Score 38/56 Romberg Romberg 10 seconds Single Limb Standing Single Limb- Right 1 second Single Limb- Left 3 seconds Semi-Tandem Standing Semi-Tandem Standing Balance 10 seconds with CGA Tandem Tandem Standing unable position IND, 5 seconds B once in position PT-OP-E Functional Tests Start: 05/24/23 13:01 Freq: Status: Active Protocol: Document 05/24/23 13:02 NM (Rec: 05/24/23 14:31 NM [id number]) Functional Tests Five Times Sit to Stand Test Score 26.10 sec Comments reports no pain in hip, but slow motion with difficulty without UE to rise Timed Up and Go (TUG) Score 26.52 seconds Comments using spc, close SBA for gait Tinetti Balance and Gait Assessment Balance Score 10 Gait Score 6 Composite Score 16/28 PT-OP-F Manual Assessment Start: 05/24/23 13:01 Freq: Status: Active Protocol: Document 05/24/23 13:02 NM (Rec: 05/24/23 14:31 NM [id number]) Manual Assessments Soft Tissue Assessment Soft Tissue Mobility Assessment Demonstrates decreased hip flexion ROM and length, restricted hip extension. Joint Mobility Assessment Joint Mobility Assessment R hip mobility decreased into active and passive hip flexion , lena with IR, ER, ADD. Pt reports catching, worse with R hip flexion overpressure, scouring hip joint. PT-OP-G Mobility & Gait Start: 05/24/23 13:01 Freq: Status: Active Protocol: Document 05/24/23 13:02 NM (Rec: 05/24/23 14:31 NM [id number]) OP Gait Assessment Gait Gait Assistance Required: Standby Assistance,Contact Guard Assist Distance (Feet) 100 Assistive Devices Assistive Device Gait Belt,Straight Cane Gait Deviations General Gait Pattern Antalgic,Decreased Stride Length,Step-to Gait Factors Limiting Gait Function Factors Limiting Gait Function Decreased Activity Tolerance, Decreased Strength,Limited Range of Motion,Pain,Poor Balance Comments Gait Comments Decreased B hip extension. Pain in R hip with ambulation, lena with limb advancement. No pain with step tapping during Crespo PT-OP-H Neuro Start: 05/24/23 13:01 Freq: Status: Active Protocol: Document 05/24/23 13:02 NM (Rec: 05/24/23 14:31 NM [id number]) Sensation Evaluation Comments Summary Comments Did not formally assess due to time constraints; will assess B light touch next session PT-OP-J Posture/Palpation/Skin Start: 05/24/23 13:01 Freq: Status: Active Protocol: Document 05/24/23 13:02 NM (Rec: 05/24/23 14:31 NM [id number]) Posture Evaluation Position Standing Head/C-Spine Posture Forward Head T-Spine Posture Increased Kyphosis L-Spine Posture Increased Lordosis Shoulder Posture (L) Rounded,(R) Rounded,(L) Elevated Pelvis Posture Anteriorly Tilted Weight Distribution Decreased Wt.Bear on (R) Hip Posture (L) Externally Rotated,(R) Externally Rotated Knee Posture (L) Genu Valgus,(R) Genu Valgus Patellar Posture (L) Superior,(R) Superior Palpation Assessment Location R hip Palpation Location R lateral quad, iliopsoas, hip flexors, greater trochanter, joint Palpation Findings Soft Tissue Tightness,Muscle Guarding,Tenderness Palpation Details Tenderness to palpation at R superolateral quad, hip flexors; worse with hip IR/ER. No tenderness at greater trochanter, distal quad, or ASIS. PT-OP-K Range of Motion Start: 05/24/23 13:01 Freq: Status: Active Protocol: Document 05/24/23 13:02 NM (Rec: 05/24/23 14:31 NM [id number]) Hip Goniometric Range of Motion Hip Left Flexion w/Knee Flexed 95 Extension 5 Right Flexion w/Knee Flexed 90 Extension 5 Comments Pain with hip flexion PT-OP-L Special Tests Start: 05/24/23 13:01 Freq: Status: Active Protocol: Document 05/24/23 13:02 NM (Rec: 05/24/23 14:31 NM [id number]) Special Tests Hip Special Tests FADIR Test Results + Comments R hip, pain inside anterior joint Scour Test Test Results + Comments R hip Anterior Labral Test Test Results + Comments R hip PT-OP-M Strength Start: 05/24/23 13:01 Freq: Status: Active Protocol: Document 05/24/23 13:02 NM (Rec: 05/24/23 14:31 NM [id number]) Hip Strength Hip Manual Muscle Testing Right Flexion (L2) 4- Good- Extension (S1) 4- Good- Abduction 4- Good- Adduction 4- Good- External Rotation 4- Good- Internal Rotation 4- Good- Left Flexion (L2) 4- Good- Extension (S1) 4- Good- Abduction 4- Good- Adduction 4- Good- External Rotation 4- Good- Internal Rotation 4- Good- Knee Strength Knee Manual Muscle Testing Right Flexion (S2) 4- Good- Extension (L3) 4- Good- Left Flexion (S2) 4 Good Extension (L3) 4 Good Ankle/Foot Strength Ankle and Foot Manual Muscle Testing Right Dorsiflexion (L4) 4 Good Plantarflexion (S1) 4 Good Left Dorsiflexion (L4) 4 Good Plantarflexion (S1) 4 Good PT-OP-Q Treatments Start: 05/24/23 13:01 Freq: Status: Active Protocol: Document 06/14/23 13:45 NM (Rec: 06/14/23 14:59 NM [id number]) Therapeutic Exercises Sitting Exercises LAQ Side bilateral Resistance 5# Equipment Used mesh chair Reps/Minutes 2x10 Comments painfree; PT hand external target for TKE Sit to stand Side bilateral Equipment Used mesh chair, from 20 plinth for 5x STS Reps/Minutes 1x5 with lvl 2 teal band for abd, 1x5 from plinth 20 Comments slow motion, increased time; min cueing for form Standing Exercises march Standing Exercise Name added to HEP at ballet bar/ counter top: non-alternating Side bilateral Resistance 5# ankle weight Equipment Used spc for balance, CGA for safety but not steadying Reps/Minutes 1. 1x10 ea, 2. 1x5 at ballet bar for HEP Comments cued for smaller AROM for balance, weight shift slightly onto stance LE side steps Standing Exercise Name added to HEP Side bilateral Resistance lvl 2 tb around thighs Equipment Used ballet bars for UE support, 2 flat hands Reps/Minutes 2x10 ft Comments cued to prevent L hip rot, upright trunk, no shuffling step up Standing Exercise Name 4, 6 Side bilateral Resistance AROM, non alternating Equipment Used 1 hand rail Reps/Minutes 1x10 4 ea leg, 1x10 6 ea leg Comments cued for upright trunk, strong glute activation w step up, eccentric lower Heel raises Standing Exercise Name heel raises Resistance 5# ankle weights Reps/Minutes 2x10 Comments cued for straight up/down, no rocking; improved with reps Hip Abd Standing Exercise Name Hip Abd Side bilateral Resistance lvl 2 tb around thighs Equipment Used @ rail Reps/Minutes x10 ea Comments cues elongated posture on RLE for engagement Self-Care/Home Management Treatment Education Patient Education Fall Risk,Home Exercise Program,Pain Management,Safety Other Education 8 minutes- HEP: side steps at counter top, standing march at counter top. Educated to have daughter nearby and aware for safety. Educated on use of hand support at home for safety, decrease fall risk. PT also educated pt on drinking water, exercise can assist with bowel mobilization. Encouraged to continue riding stationary bike, changing levels and varying exercise speed/resistance/time for strength and cardio. Educated on modalities, gentle activity for pain relief. Pt verbalizes understanding. PT-OP-T Assessment and Plan Start: 05/24/23 13:01 Freq: Status: Active Protocol: Document 06/14/23 13:45 NM (Rec: 06/14/23 14:59 NM [id number]) Physical Therapy Assessment Goals Four Impairment gait Impairment Difficulty with ambulation > 150 ft with close SBA using spc due to R hip pain Short Term Goal (STG) Pt will ambulate at least 200 ft using LRAD and SBA or better in order to demonstrate improved balance and activity tolerance STG Duration 4 weeks [facility]ci Goal (LTG) Pt will ambulate at least 500 ft using LRAD and SBA or better in order to demonstrate improved balance and activity tolerance LTG Duration 8 weeks Three Impairment strength Impairment 5x STS test 26.10 seconds Short Term Goal (STG) Pt will complete 5x STS in less than 22 seconds in order to demonstrate increased BLE strength needed for gait and ADLs. 06/14/23: 38 sec, pain in rectum d/t constipation STG Duration 4 weeks Telecommunications Manager Goal (LTG) Pt will complete 5x STS in less than 18 seconds in order to demonstrate increased BLE strength needed for gait and ADLs. LTG Duration 8 weeks Two Impairment balance Impairment Crespo/56 Short Term Goal (STG) Pt will increase Crespo score to greater than 41 using LRAD in order to demonstrate improved balance and decreased fall risk. STG Duration 4 weeks [facility]ci Goal (LTG) Pt will increase Crespo score to greater than 45 using LRAD in order to demonstrate improved balance and decreased fall risk. LTG Duration 8 weeks One Impairment balance Impairment TU.52 seconds with spc Short Term Goal (STG) Pt will decrease TUG time to less than 22 seconds using LRAD in order to demonstrate improved balance, gait speed, and safety during ambulation. STG Duration 4 weeks [facility] Goal (LTG) Pt will decrease TUG time to less than 20 seconds using LRAD in order to demonstrate improved balance, gait speed, and safety during ambulation. LTG Duration 8 weeks Assessment Summary Assessment Pt reports constipated, so required seated rest breaks throughout session due to pain and fatigue. Initiated 4 and 6 step ups with 1 hand rail for quad/glute strengthening, in addition to challenge for balance. Pt requires cues for strong glute squeeze and push up strong on step ups; however, able to perform with 1 hand rail use and verbal cueing. Pt responds well to external target, particularly when progressed LAQ with 5# ankle weights. Progressed to standing march and stand heel raise with 5# ankle weight for greater challenge to balance and strength for improved gait patterns. Initiated side steps with B flat hand support for hip abduction strengthening; pt attempts to compensate with hip external rotation, requires moderate cues for correct execution and upright trunk posture. PT educated pt on safety during standing exercises, asking pt to have daughter next to pt and aware of exercises. Pt would benefit from progressive BLE strengthening and balance training in order to decrease fall risk, improve balance, and QOL. Physical Therapy Plan Frequency and Duration Frequency of Treatment 2x/Week Duration of treatment (weeks) 8 Plan of Care Start Date 05/24/23 Plan of Care End Date 07/22/23 Therapeutic Interventions Therapeutic Interventions Aquatic Therapy,Balance Training,Coordination Training ,Gait Training,Home Exercise Program,Joint Mobilizations, Manual Therapy,Neuromuscular Re-education,Orthotic/ Prosthetic Management,Patient/ Caregiver Education,Self-Care/ Home Management,Sensory Integration,Soft Tissue Mobilization,Taping, Therapeutic Activities, Therapeutic Exercises Modalities Biofeedback,Cold Pack/Ice Massage,Electric Stimulation, Hot Packs,Iontophoresis, Ultrasound,Vasopneumatic Devices Other Referrals/Consults Referrals/Consults Recommended Recommend further imaging of R hip due to reports of catching and reproduction of symptoms into R hip flexion/ ADD/IR Next Visit Focus/Plan Next Note Type Treatment Note Next Visit Plan Progress BLE strengthening ( standing), initiate gait training as needed with obstacles etc for balance (2 pt vs 3 pt if RLE hurting), static and Crespo balance activities/dynamic balance Future sessions: stair training (has B rails at home) , with and without spc PN in 2 visits
--- NOTE | 2023-06-16 16:25 | PT.OTN ---
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 Has hx of falls and decreased balance , reporting falls 1x/2-3 months. During his strokes, pt reports that his L side was more affected. He presents to clinic with spc on R side. Reports catching in R hip/ thigh with limb advancement and hip flexion. Prior to 1st stroke, pt was not using an AD for gait. He reports changes in his blood pressure, especially with positional changes but improved since change in medications. Prior to his falls, he often reports that he feels dizzy; he tries to get into a chair to minimize his fall risk. Hx of seizures, reports of dizziness and lightheadedness, room spinning prior to falls. Dizziness is worse with bending, squatting. Occurred prior to stroke. Lives with (requires / care), daughter who cares for them. Hx of L4-L5 herniated disc from years ago, no surgery. Prior Treatments and Tests Previous PT for L shoulder; HHPT following strokes Current Functional Impairments (Reported) Functional Limitations- ADL's Limited household ADLs due to balance, changing blood pressure Functional Limitations- Mobility/Gait Uses AD for ambulation, difficulty ambulating >150 ft due to R hip/thigh pain PT-OP-C Subjective Start: 05/24/23 13:01 Freq: Status: Active Protocol: Document 06/16/23 14:36 SW (Rec: 06/16/23 15:17 SW [id number]) OP-PT Subjective Patient Comments Patient Comments Pt reports feeling better than earlier this week. Pt reports wearing two lidocain patches at a time, though has question for pharmacist on usage. PT-OP-D Balance Start: 05/24/23 13:01 Freq: Status: Active Protocol: Document 05/24/23 13:02 NM (Rec: 05/24/23 14:31 NM [id number]) Balance Tests Crespo Balance Test Crespo Balance Test Score 38/56 Romberg Romberg 10 seconds Single Limb Standing Single Limb- Right 1 second Single Limb- Left 3 seconds Semi-Tandem Standing Semi-Tandem Standing Balance 10 seconds with CGA Tandem Tandem Standing unable position IND, 5 seconds B once in position PT-OP-E Functional Tests Start: 05/24/23 13:01 Freq: Status: Active Protocol: Document 05/24/23 13:02 NM (Rec: 05/24/23 14:31 NM [id number]) Functional Tests Five Times Sit to Stand Test Score 26.10 sec Comments reports no pain in hip, but slow motion with difficulty without UE to rise Timed Up and Go (TUG) Score 26.52 seconds Comments using spc, close SBA for gait Tinetti Balance and Gait Assessment Balance Score 10 Gait Score 6 Composite Score 16/28 PT-OP-F Manual Assessment Start: 05/24/23 13:01 Freq: Status: Active Protocol: Document 05/24/23 13:02 NM (Rec: 05/24/23 14:31 NM [id number]) Manual Assessments Soft Tissue Assessment Soft Tissue Mobility Assessment Demonstrates decreased hip flexion ROM and length, restricted hip extension. Joint Mobility Assessment Joint Mobility Assessment R hip mobility decreased into active and passive hip flexion , lena with IR, ER, ADD. Pt reports catching, worse with R hip flexion overpressure, scouring hip joint. PT-OP-G Mobility & Gait Start: 05/24/23 13:01 Freq: Status: Active Protocol: Document 05/24/23 13:02 NM (Rec: 05/24/23 14:31 NM [id number]) OP Gait Assessment Gait Gait Assistance Required: Standby Assistance,Contact Guard Assist Distance (Feet) 100 Assistive Devices Assistive Device Gait Belt,Straight Cane Gait Deviations General Gait Pattern Antalgic,Decreased Stride Length,Step-to Gait Factors Limiting Gait Function Factors Limiting Gait Function Decreased Activity Tolerance, Decreased Strength,Limited Range of Motion,Pain,Poor Balance Comments Gait Comments Decreased B hip extension. Pain in R hip with ambulation, lena with limb advancement. No pain with step tapping during Crespo PT-OP-H Neuro Start: 05/24/23 13:01 Freq: Status: Active Protocol: Document 05/24/23 13:02 NM (Rec: 05/24/23 14:31 NM [id number]) Sensation Evaluation Comments Summary Comments Did not formally assess due to time constraints; will assess B light touch next session PT-OP-J Posture/Palpation/Skin Start: 05/24/23 13:01 Freq: Status: Active Protocol: Document 05/24/23 13:02 NM (Rec: 05/24/23 14:31 NM [id number]) Posture Evaluation Position Standing Head/C-Spine Posture Forward Head T-Spine Posture Increased Kyphosis L-Spine Posture Increased Lordosis Shoulder Posture (L) Rounded,(R) Rounded,(L) Elevated Pelvis Posture Anteriorly Tilted Weight Distribution Decreased Wt.Bear on (R) Hip Posture (L) Externally Rotated,(R) Externally Rotated Knee Posture (L) Genu Valgus,(R) Genu Valgus Patellar Posture (L) Superior,(R) Superior Palpation Assessment Location R hip Palpation Location R lateral quad, iliopsoas, hip flexors, greater trochanter, joint Palpation Findings Soft Tissue Tightness,Muscle Guarding,Tenderness Palpation Details Tenderness to palpation at R superolateral quad, hip flexors; worse with hip IR/ER. No tenderness at greater trochanter, distal quad, or ASIS. PT-OP-K Range of Motion Start: 05/24/23 13:01 Freq: Status: Active Protocol: Document 05/24/23 13:02 NM (Rec: 05/24/23 14:31 NM [id number]) Hip Goniometric Range of Motion Hip Left Flexion w/Knee Flexed 95 Extension 5 Right Flexion w/Knee Flexed 90 Extension 5 Comments Pain with hip flexion PT-OP-L Special Tests Start: 05/24/23 13:01 Freq: Status: Active Protocol: Document 05/24/23 13:02 NM (Rec: 05/24/23 14:31 NM [id number]) Special Tests Hip Special Tests FADIR Test Results + Comments R hip, pain inside anterior joint Scour Test Test Results + Comments R hip Anterior Labral Test Test Results + Comments R hip PT-OP-M Strength Start: 05/24/23 13:01 Freq: Status: Active Protocol: Document 05/24/23 13:02 NM (Rec: 05/24/23 14:31 NM [id number]) Hip Strength Hip Manual Muscle Testing Right Flexion (L2) 4- Good- Extension (S1) 4- Good- Abduction 4- Good- Adduction 4- Good- External Rotation 4- Good- Internal Rotation 4- Good- Left Flexion (L2) 4- Good- Extension (S1) 4- Good- Abduction 4- Good- Adduction 4- Good- External Rotation 4- Good- Internal Rotation 4- Good- Knee Strength Knee Manual Muscle Testing Right Flexion (S2) 4- Good- Extension (L3) 4- Good- Left Flexion (S2) 4 Good Extension (L3) 4 Good Ankle/Foot Strength Ankle and Foot Manual Muscle Testing Right Dorsiflexion (L4) 4 Good Plantarflexion (S1) 4 Good Left Dorsiflexion (L4) 4 Good Plantarflexion (S1) 4 Good PT-OP-Q Treatments Start: 05/24/23 13:01 Freq: Status: Active Protocol: Document 06/16/23 14:36 SW (Rec: 06/16/23 15:17 SW [id number]) Therapeutic Exercises Sitting Exercises LAQ Side bilateral Resistance 5# Equipment Used mesh chair Reps/Minutes 2x10 Comments painfree; PT hand external target for TKE Sit to stand Side bilateral Equipment Used mesh chair, from 20 plinth for 5x STS Reps/Minutes 1x5 with lvl 2 teal band for abd, 1x5 from plinth 20 Comments slow motion, increased time; min cueing for form Standing Exercises march Standing Exercise Name added to HEP at ballet bar/ counter top: non-alternating Side bilateral Resistance 5# ankle weight Equipment Used spc for balance, CGA for safety but not steadying Reps/Minutes 1. 1x10 ea, 2. 1x5 at ballet bar for HEP Comments cued for smaller AROM for balance, weight shift slightly onto stance LE side steps Standing Exercise Name added to HEP Side bilateral Resistance lvl 2 tb around thighs Equipment Used ballet bars for UE support, 2 flat hands Reps/Minutes 2x10 ft Comments cued to prevent L hip rot, upright trunk, no shuffling step up Standing Exercise Name 4, 6 Side bilateral Resistance AROM, non alternating Equipment Used 1 hand rail Reps/Minutes 1x10 4 ea leg, 1x10 6 ea leg Comments cued for upright trunk, strong glute activation w step up, eccentric lower Heel raises Standing Exercise Name heel raises Resistance 5# ankle weights Reps/Minutes 2x10 Comments cued for straight up/down, no rocking; improved with reps Hip Abd Standing Exercise Name Hip Abd Side bilateral Resistance lvl 2 tb around thighs Equipment Used @ rail Reps/Minutes x10 ea Comments cues elongated posture on RLE for engagement PT-OP-T Assessment and Plan Start: 05/24/23 13:01 Freq: Status: Active Protocol: Document 06/16/23 14:36 SW (Rec: 06/16/23 15:17 [id number]) Physical Therapy Assessment Goals Four Impairment gait Impairment Difficulty with ambulation > 150 ft with close SBA using spc due to R hip pain Short Term Goal (STG) Pt will ambulate at least 200 ft using LRAD and SBA or better in order to demonstrate improved balance and activity tolerance STG Duration 4 weeks Senior Care Goal (LTG) Pt will ambulate at least 500 ft using LRAD and SBA or better in order to demonstrate improved balance and activity tolerance LTG Duration 8 weeks Three Impairment strength Impairment 5x STS test 26.10 seconds Short Term Goal (STG) Pt will complete 5x STS in less than 22 seconds in order to demonstrate increased BLE strength needed for gait and ADLs. 06/14/23: 38 sec, pain in rectum d/t constipation STG Duration 4 weeks Senior Care Goal (LTG) Pt will complete 5x STS in less than 18 seconds in order to demonstrate increased BLE strength needed for gait and ADLs. LTG Duration 8 weeks Two Impairment balance Impairment Crespo/56 Short Term Goal (STG) Pt will increase Crespo score to greater than 41 using LRAD in order to demonstrate improved balance and decreased fall risk. STG Duration 4 weeks Facilitator Goal (LTG) Pt will increase Crespo score to greater than 45 using LRAD in order to demonstrate improved balance and decreased fall risk. LTG Duration 8 weeks One Impairment balance Impairment TU.52 seconds with spc Short Term Goal (STG) Pt will decrease TUG time to less than 22 seconds using LRAD in order to demonstrate improved balance, gait speed, and safety during ambulation. STG Duration 4 weeks Facilitator Goal (LTG) Pt will decrease TUG time to less than 20 seconds using LRAD in order to demonstrate improved balance, gait speed, and safety during ambulation. LTG Duration 8 weeks Assessment Summary Assessment Pt reported good tolerance to strengthening exercises this session, minimal reproduction of pain with standing strength , verbal/tactile cues required for correct posture and execution without compensation , relieved discomfort with corrections. Physical Therapy Plan Frequency and Duration Frequency of Treatment 2x/Week Duration of treatment (weeks) 8 Plan of Care Start Date 05/24/23 Plan of Care End Date 07/22/23 Therapeutic Interventions Therapeutic Interventions Aquatic Therapy,Balance Training,Coordination Training ,Gait Training,Home Exercise Program,Joint Mobilizations, Manual Therapy,Neuromuscular Re-education,Orthotic/ Prosthetic Management,Patient/ Caregiver Education,Self-Care/ Home Management,Sensory Integration,Soft Tissue Mobilization,Taping, Therapeutic Activities, Therapeutic Exercises Modalities Biofeedback,Cold Pack/Ice Massage,Electric Stimulation, Hot Packs,Iontophoresis, Ultrasound,Vasopneumatic Devices Other Referrals/Consults Referrals/Consults Recommended Recommend further imaging of R hip due to reports of catching and reproduction of symptoms into R hip flexion/ ADD/IR Next Visit Focus/Plan Next Note Type Treatment Note Next Visit Plan Progress BLE strengthening ( standing), initiate gait training as needed with obstacles etc for balance (2 pt vs 3 pt if RLE hurting), static and Crespo balance activities/dynamic balance Future sessions: stair training (has B rails at home) , with and without spc PN in 2 visits
--- NOTE | 2023-06-21 15:12 | PT.OTN ---
Current Diagnoses Unspecified fall, sequela (06/21/23) Physical Therapy Treatment Note PT-OP-A Visit Information Start: 05/24/23 13:01 Freq: Status: Active Protocol: Document 06/21/23 13:53 NM (Rec: 06/21/23 15:12 NM [id number]) Out-Patient Physical Therapy Visit Information Visit Information Visit Type Progress Note Visit Start Time 13:53 Visit Stop Time 14:35 Visit Number 12/07 Evaluation Information Evaluation Date 05/24/23 PT-OP-B Current Condition Start: 05/24/23 13:01 Freq: Status: Active Protocol: Document 05/24/23 13:02 NM (Rec: 05/24/23 14:31 NM [id number]) Current Condition History of Current Condition Onset Date April 2022 Current Complaints poor balance, pain in arms/ legs History of Current Condition Pt presents to clinic with decreased balance in addition to L shoulder pain, R thigh/ hip pain s/p 2 stroked/TIA in April and Dec 2022. Has hx of falls and decreased balance , reporting falls 1x/2-3 months. During his strokes, pt reports that his L side was more affected. He presents to clinic with spc on R side. Reports catching in R hip/ thigh with limb advancement and hip flexion. Prior to 1st stroke, pt was not using an AD for gait. He reports changes in his blood pressure, especially with positional changes but improved since change in medications. Prior to his falls, he often reports that he feels dizzy; he tries to get into a chair to minimize his fall risk. Hx of seizures, reports of dizziness and lightheadedness, room spinning prior to falls. Dizziness is worse with bending, squatting. Occurred prior to stroke. Lives with (requires 15/11 care), daughter who cares for them. Hx of L4-L5 herniated disc from years ago, no surgery. Prior Treatments and Tests Previous PT for L shoulder; HHPT following strokes Current Functional Impairments (Reported) Functional Limitations- ADL's Limited household ADLs due to balance, changing blood pressure Functional Limitations- Mobility/Gait Uses AD for ambulation, difficulty ambulating >150 ft due to R hip/thigh pain PT-OP-C Subjective Start: 05/24/23 13:01 Freq: Status: Active Protocol: Document 06/21/23 13:53 NM (Rec: 06/21/23 15:12 NM [id number]) OP-PT Subjective Patient Comments Patient Comments Pt reports he's feeling better . Had some soreness of R leg. He reports that he has more mental confidence in his balance. He thinks his balance has improved; he was able to put his pants on while standing with less difficulty. PT-OP-D Balance Start: 05/24/23 13:01 Freq: Status: Active Protocol: Document 05/24/23 13:02 NM (Rec: 05/24/23 14:31 NM [id number]) Balance Tests Crespo Balance Test Crespo Balance Test Score 38/56 Romberg Romberg 10 seconds Single Limb Standing Single Limb- Right 1 second Single Limb- Left 3 seconds Semi-Tandem Standing Semi-Tandem Standing Balance 10 seconds with CGA Tandem Tandem Standing unable position IND, 5 seconds B once in position PT-OP-E Functional Tests Start: 05/24/23 13:01 Freq: Status: Active Protocol: Document 05/24/23 13:02 NM (Rec: 05/24/23 14:31 NM [id number]) Functional Tests Five Times Sit to Stand Test Score 26.10 sec Comments reports no pain in hip, but slow motion with difficulty without UE to rise Timed Up and Go (TUG) Score 26.52 seconds Comments using spc, close SBA for gait Tinetti Balance and Gait Assessment Balance Score 10 Gait Score 6 Composite Score 16/28 PT-OP-F Manual Assessment Start: 05/24/23 13:01 Freq: Status: Active Protocol: Document 05/24/23 13:02 NM (Rec: 05/24/23 14:31 NM [id number]) Manual Assessments Soft Tissue Assessment Soft Tissue Mobility Assessment Demonstrates decreased hip flexion ROM and length, restricted hip extension. Joint Mobility Assessment Joint Mobility Assessment R hip mobility decreased into active and passive hip flexion , lena with IR, ER, ADD. Pt reports catching, worse with R hip flexion overpressure, scouring hip joint. PT-OP-G Mobility & Gait Start: 05/24/23 13:01 Freq: Status: Active Protocol: Document 05/24/23 13:02 NM (Rec: 05/24/23 14:31 NM [id number]) OP Gait Assessment Gait Gait Assistance Required: Standby Assistance,Contact Guard Assist Distance (Feet) 100 Assistive Devices Assistive Device Gait Belt,Straight Cane Gait Deviations General Gait Pattern Antalgic,Decreased Stride Length,Step-to Gait Factors Limiting Gait Function Factors Limiting Gait Function Decreased Activity Tolerance, Decreased Strength,Limited Range of Motion,Pain,Poor Balance Comments Gait Comments Decreased B hip extension. Pain in R hip with ambulation, lena with limb advancement. No pain with step tapping during Crespo PT-OP-H Neuro Start: 05/24/23 13:01 Freq: Status: Active Protocol: Document 05/24/23 13:02 NM (Rec: 05/24/23 14:31 NM [id number]) Sensation Evaluation Comments Summary Comments Did not formally assess due to time constraints; will assess B light touch next session PT-OP-J Posture/Palpation/Skin Start: 05/24/23 13:01 Freq: Status: Active Protocol: Document 05/24/23 13:02 NM (Rec: 05/24/23 14:31 NM [id number]) Posture Evaluation Position Standing Head/C-Spine Posture Forward Head T-Spine Posture Increased Kyphosis L-Spine Posture Increased Lordosis Shoulder Posture (L) Rounded,(R) Rounded,(L) Elevated Pelvis Posture Anteriorly Tilted Weight Distribution Decreased Wt.Bear on (R) Hip Posture (L) Externally Rotated,(R) Externally Rotated Knee Posture (L) Genu Valgus,(R) Genu Valgus Patellar Posture (L) Superior,(R) Superior Palpation Assessment Location R hip Palpation Location R lateral quad, iliopsoas, hip flexors, greater trochanter, joint Palpation Findings Soft Tissue Tightness,Muscle Guarding,Tenderness Palpation Details Tenderness to palpation at R superolateral quad, hip flexors; worse with hip IR/ER. No tenderness at greater trochanter, distal quad, or ASIS. PT-OP-K Range of Motion Start: 05/24/23 13:01 Freq: Status: Active Protocol: Document 05/24/23 13:02 NM (Rec: 05/24/23 14:31 NM [id number]) Hip Goniometric Range of Motion Hip Left Flexion w/Knee Flexed 95 Extension 5 Right Flexion w/Knee Flexed 90 Extension 5 Comments Pain with hip flexion PT-OP-L Special Tests Start: 05/24/23 13:01 Freq: Status: Active Protocol: Document 05/24/23 13:02 NM (Rec: 05/24/23 14:31 NM [id number]) Special Tests Hip Special Tests FADIR Test Results + Comments R hip, pain inside anterior joint Scour Test Test Results + Comments R hip Anterior Labral Test Test Results + Comments R hip PT-OP-M Strength Start: 05/24/23 13:01 Freq: Status: Active Protocol: Document 05/24/23 13:02 NM (Rec: 05/24/23 14:31 NM [id number]) Hip Strength Hip Manual Muscle Testing Right Flexion (L2) 4- Good- Extension (S1) 4- Good- Abduction 4- Good- Adduction 4- Good- External Rotation 4- Good- Internal Rotation 4- Good- Left Flexion (L2) 4- Good- Extension (S1) 4- Good- Abduction 4- Good- Adduction 4- Good- External Rotation 4- Good- Internal Rotation 4- Good- Knee Strength Knee Manual Muscle Testing Right Flexion (S2) 4- Good- Extension (L3) 4- Good- Left Flexion (S2) 4 Good Extension (L3) 4 Good Ankle/Foot Strength Ankle and Foot Manual Muscle Testing Right Dorsiflexion (L4) 4 Good Plantarflexion (S1) 4 Good Left Dorsiflexion (L4) 4 Good Plantarflexion (S1) 4 Good PT-OP-Q Treatments Start: 05/24/23 13:01 Freq: Status: Active Protocol: Document 06/21/23 13:53 NM (Rec: 06/21/23 15:12 NM [id number]) Therapeutic Exercises Sitting Exercises Sit to stand Sitting Exercise Name 5x STS Side bilateral Equipment Used 20 plinth Reps/Minutes 2x5 (28 sec, 19 sec) Comments improved eccentric control, Standing Exercises step up Standing Exercise Name 6 step up Side bilateral Resistance AROM Equipment Used 1 hand rail assist Reps/Minutes 1x10 ea step Comments cued for upright trunk, strong glute activation w step up, eccentric lower Gait Training Gait Activity stairs Device Used 1 hand rail assist Level of Assistance close SBA, CGA prn Distance/Duration 2x4 steps Treatment Focus foot clearance, strengthening Comments reciprocal gait, cued for DF/ toe clearance onto step to prevent catching. Improved stability with less UE support needed to ascend. Cued for eccentric control upon descent Spc Description normal gait mechanics Device Used spc in L hand Level of Assistance close SBA Surface stable (tile, carpet, obstacles) Distance/Duration 300 ft Treatment Focus endurance, spc placement, nml gait mechanics Comments Pt ambulated for distance with spc in L hand. PT providing cues for spc placement more in front of pt to offload R quad more. Reports no hip pain, but feels R quad when advancing RLE or during stance after 150 ft using spc. Demos decreased trunk sway compared to IE. Also cued for foot clearance prn as fatigues Neuro Re-Education Treatment Balance Activities Crespo Surface stable, unstable Reps/Duration 43/56 Comments Demos difficulty with picking object off of ground, performed 2 reps. Also challenged with single leg stance, step taps on stairs, forward reaching, weight shifts with turning foam pad Surface unstable airex Equipment 1 hand support for ascent/ descent, changing positions Comments 1. stance on foam, 1x60 2. narrow ROSS on foam, 2x30 3. stance on foam with horizontal head turns, 2x30 4. stance on foam with vertical head nods, 2x30 CGA to steady, cues for correct execution and weight shift toward center of foam. Demos ankle strategy, able to correct with slight hip strategy prn june Comments 1. standing march on stable surface, 2x10 ea leg Hands hoving above ballet bar, CGA to steady. PT cueing pt for weight shift onto RLE during L june, cued soft knee for increased stability, faciltiating at hips prn 2. on foam pad, 1x5 ea, 1 hand support on ballet bar, CGA Cued for weight shift on foam prior to lifting LE for stability TUG Surface stable Equipment spc Reps/Duration 1 set Comments 20 sec Improved turns around cones, speed of transfers. Demos spc far from body during turns hurdles Surface stable Equipment hand hovering over ballet bar for prn UE support Reps/Duration 2 reps ea Comments 1. fwd cheryl, non alternating x5 hurdles 2. fwd cheryl, reciprocal x5 hurdles 3. lateral hurdles, x5 hurdles CGA for all to steady. Cued to step closer to cheryl prior to stepping for safety, weight shift onto stance LE prior to advancing swing LE Step Tap Details close SBA Surface stable Equipment 6 stairs, no UE support Reps/Duration 2x8 taps Comments Reciprocal stepping, demos slight trunk sway PT-OP-T Assessment and Plan Start: 05/24/23 13:01 Freq: Status: Active Protocol: Document 06/21/23 13:53 NM (Rec: 06/21/23 15:12 NM [id number]) Physical Therapy Assessment Goals Four Impairment gait Impairment Difficulty with ambulation > 150 ft with close SBA using spc due to R hip pain Short Term Goal (STG) Pt will ambulate at least 200 ft using LRAD and SBA or better in order to demonstrate improved balance and activity tolerance 06/21/23: 300 ft using spc SBA without reports of R hip pain STG Duration 4 weeks [facility] Goal (LTG) Pt will ambulate at least 500 ft using LRAD and SBA or better in order to demonstrate improved balance and activity tolerance LTG Duration 8 weeks Three Impairment strength Impairment 5x STS test 26.10 seconds Short Term Goal (STG) Pt will complete 5x STS in less than 22 seconds in order to demonstrate increased BLE strength needed for gait and ADLs. 06/14/23: 38 sec, pain in rectum d/t constipation 06/21/23: 28 sec, 19 secs 2nd attempt STG Duration 4 weeks [facility] Goal (LTG) Pt will complete 5x STS in less than 18 seconds in order to demonstrate increased BLE strength needed for gait and ADLs. 06/21/23: 19 sec LTG Duration 8 weeks Two Impairment balance Impairment Crespo/56 Short Term Goal (STG) Pt will increase Crespo score to greater than 41 using LRAD in order to demonstrate improved balance and decreased fall risk. 06/21/23: 43/56, no spc used STG Duration 4 weeks [facility] Goal (LTG) Pt will increase Crespo score to greater than 45 using LRAD in order to demonstrate improved balance and decreased fall risk. LTG Duration 8 weeks One Impairment balance Impairment TU.52 seconds with spc Short Term Goal (STG) Pt will decrease TUG time to less than 22 seconds using LRAD in order to demonstrate improved balance, gait speed, and safety during ambulation. 06/21/23: 20.5 sec STG Duration 4 weeks [facility] Goal (LTG) Pt will decrease TUG time to less than 20 seconds using LRAD in order to demonstrate improved balance, gait speed, and safety during ambulation. LTG Duration 8 weeks Progress Towards Goals Progress Towards Goals Progressing Toward Goals Progress Comments Met all STGs, progressing toward LTGs Assessment Summary Assessment Pt tolerated session well today with minimal pain or discomfort at start of session . He continues to require increased time with activity and has poor tolerance overall , requiring frequent breaks. However, pt demos improved balance and safety understanding. Initiated stairs with 1 hand rail today; PT cued for dorsiflexion due to poor toe clearance. Continued with balance activities targeting changing ROSS, stability of surface, and challenging non-visual aspects of balance in order to increase pt proprioceptive awareness. Pt demos difficulty with weight shifts during Crespo and other balance activities, requiring cues for shifting onto stance LE and maintaining stability without locking R knee. During gait training, pt demos improved speed and overall mechanics, distance using spc without R hip pain (but reports R quad pain). PT verbally cued pt for spc placement for safety and to better offload RLE depending on pt needs. Pt has been seen x7 visits since IE in April 2023 for balance and gait abnormalities . He is progressing well toward goals, meeting all STGs at this time. His Crespo score continues to improve and TUG score continues to decrease, indicating decreased fall risk . Pt also able to perform 5x STS with improved form, better eccentric and concentric control, indicating improved BLE strength. He continues to be most limited by activity tolerance. Will continue to progress BLE strength and balance in future sessions. Pt would benefit from skilled PT for progressive BLE strengthening, gait, and balance training in order to decrease fall risk, decrease caregiver burden, and improve activity tolerance. Physical Therapy Plan Frequency and Duration Frequency of Treatment 2x/Week Duration of treatment (weeks) 8 Plan of Care Start Date 05/24/23 Plan of Care End Date 07/22/23 Therapeutic Interventions Therapeutic Interventions Aquatic Therapy,Balance Training,Coordination Training ,Gait Training,Home Exercise Program,Joint Mobilizations, Manual Therapy,Neuromuscular Re-education,Orthotic/ Prosthetic Management,Patient/ Caregiver Education,Self-Care/ Home Management,Sensory Integration,Soft Tissue Mobilization,Taping, Therapeutic Activities, Therapeutic Exercises Modalities Biofeedback,Cold Pack/Ice Massage,Electric Stimulation, Hot Packs,Iontophoresis, Ultrasound,Vasopneumatic Devices Other Referrals/Consults Referrals/Consults Recommended Recommend further imaging of R hip due to reports of catching and reproduction of symptoms into R hip flexion/ ADD/IR Next Visit Focus/Plan Next Note Type Treatment Note Next Visit Plan Progress BLE strengthening ( standing), initiate gait training as needed with obstacles etc for balance (2 pt vs 3 pt if RLE hurting), static and Crespo balance activities/dynamic balance Future sessions: stair training (has B rails at home) , with and without spc PN in 2 visits
--- NOTE | 2023-06-23 16:30 | PT.OTN ---
Current Diagnoses Unspecified fall, sequela (06/23/23) Physical Therapy Treatment Note PT-OP-A Visit Information Start: 05/24/23 13:01 Freq: Status: Active Protocol: Document 06/23/23 14:30 SW (Rec: 06/23/23 15:19 SW [id number]) Out-Patient Physical Therapy Visit Information Visit Information Visit Type Treatment Note Visit Start Time 14:30 Visit Stop Time 15:10 Visit Number 15 Number of CLAIM PROFESSIONAL Visits 1 PT-OP-B Current Condition Start: 05/24/23 13:01 Freq: Status: Active Protocol: Document 05/24/23 13:02 NM (Rec: 05/24/23 14:31 NM [id number]) Current Condition History of Current Condition Onset Date April 2022 Current Complaints poor balance, pain in arms/ legs History of Current Condition Pt presents to clinic with decreased balance in addition to L shoulder pain, R thigh/ hip pain s/p 2 stroked/TIA in April and Dec 2022. Has hx of falls and decreased balance , reporting falls 1x/2-3 months. During his strokes, pt reports that his L side was more affected. He presents to clinic with spc on R side. Reports catching in R hip/ thigh with limb advancement and hip flexion. Prior to 1st stroke, pt was not using an AD for gait. He reports changes in his blood pressure, especially with positional changes but improved since change in medications. Prior to his falls, he often reports that he feels dizzy; he tries to get into a chair to minimize his fall risk. Hx of seizures, reports of dizziness and lightheadedness, room spinning prior to falls. Dizziness is worse with bending, squatting. Occurred prior to stroke. Lives with (requires / care), daughter who cares for them. Hx of L4-L5 herniated disc from years ago, no surgery. Prior Treatments and Tests Previous PT for L shoulder; HHPT following strokes Current Functional Impairments (Reported) Functional Limitations- ADL's Limited household ADLs due to balance, changing blood pressure Functional Limitations- Mobility/Gait Uses AD for ambulation, difficulty ambulating >150 ft due to R hip/thigh pain PT-OP-C Subjective Start: 05/24/23 13:01 Freq: Status: Active Protocol: Document 06/23/23 14:30 SW (Rec: 06/23/23 15:19 SW [id number]) OP-PT Subjective Patient Comments Patient Comments Pt reports no new c/o this session. Did not have meds today. PT-OP-D Balance Start: 05/24/23 13:01 Freq: Status: Active Protocol: Document 05/24/23 13:02 NM (Rec: 05/24/23 14:31 NM [id number]) Balance Tests Crespo Balance Test Crespo Balance Test Score 38/56 Romberg Romberg 10 seconds Single Limb Standing Single Limb- Right 1 second Single Limb- Left 3 seconds Semi-Tandem Standing Semi-Tandem Standing Balance 10 seconds with CGA Tandem Tandem Standing unable position IND, 5 seconds B once in position PT-OP-E Functional Tests Start: 05/24/23 13:01 Freq: Status: Active Protocol: Document 05/24/23 13:02 NM (Rec: 05/24/23 14:31 NM [id number]) Functional Tests Five Times Sit to Stand Test Score 26.10 sec Comments reports no pain in hip, but slow motion with difficulty without UE to rise Timed Up and Go (TUG) Score 26.52 seconds Comments using spc, close SBA for gait Tinetti Balance and Gait Assessment Balance Score 10 Gait Score 6 Composite Score 16/28 PT-OP-F Manual Assessment Start: 05/24/23 13:01 Freq: Status: Active Protocol: Document 05/24/23 13:02 NM (Rec: 05/24/23 14:31 NM [id number]) Manual Assessments Soft Tissue Assessment Soft Tissue Mobility Assessment Demonstrates decreased hip flexion ROM and length, restricted hip extension. Joint Mobility Assessment Joint Mobility Assessment R hip mobility decreased into active and passive hip flexion , lena with IR, ER, ADD. Pt reports catching, worse with R hip flexion overpressure, scouring hip joint. PT-OP-G Mobility & Gait Start: 05/24/23 13:01 Freq: Status: Active Protocol: Document 05/24/23 13:02 NM (Rec: 05/24/23 14:31 NM [id number]) OP Gait Assessment Gait Gait Assistance Required: Standby Assistance,Contact Guard Assist Distance (Feet) 100 Assistive Devices Assistive Device Gait Belt,Straight Cane Gait Deviations General Gait Pattern Antalgic,Decreased Stride Length,Step-to Gait Factors Limiting Gait Function Factors Limiting Gait Function Decreased Activity Tolerance, Decreased Strength,Limited Range of Motion,Pain,Poor Balance Comments Gait Comments Decreased B hip extension. Pain in R hip with ambulation, lena with limb advancement. No pain with step tapping during Crespo PT-OP-H Neuro Start: 05/24/23 13:01 Freq: Status: Active Protocol: Document 05/24/23 13:02 NM (Rec: 05/24/23 14:31 NM [id number]) Sensation Evaluation Comments Summary Comments Did not formally assess due to time constraints; will assess B light touch next session PT-OP-J Posture/Palpation/Skin Start: 05/24/23 13:01 Freq: Status: Active Protocol: Document 05/24/23 13:02 NM (Rec: 05/24/23 14:31 NM [id number]) Posture Evaluation Position Standing Head/C-Spine Posture Forward Head T-Spine Posture Increased Kyphosis L-Spine Posture Increased Lordosis Shoulder Posture (L) Rounded,(R) Rounded,(L) Elevated Pelvis Posture Anteriorly Tilted Weight Distribution Decreased Wt.Bear on (R) Hip Posture (L) Externally Rotated,(R) Externally Rotated Knee Posture (L) Genu Valgus,(R) Genu Valgus Patellar Posture (L) Superior,(R) Superior Palpation Assessment Location R hip Palpation Location R lateral quad, iliopsoas, hip flexors, greater trochanter, joint Palpation Findings Soft Tissue Tightness,Muscle Guarding,Tenderness Palpation Details Tenderness to palpation at R superolateral quad, hip flexors; worse with hip IR/ER. No tenderness at greater trochanter, distal quad, or ASIS. PT-OP-K Range of Motion Start: 05/24/23 13:01 Freq: Status: Active Protocol: Document 05/24/23 13:02 NM (Rec: 05/24/23 14:31 NM [id number]) Hip Goniometric Range of Motion Hip Left Flexion w/Knee Flexed 95 Extension 5 Right Flexion w/Knee Flexed 90 Extension 5 Comments Pain with hip flexion PT-OP-L Special Tests Start: 05/24/23 13:01 Freq: Status: Active Protocol: Document 05/24/23 13:02 NM (Rec: 05/24/23 14:31 NM [id number]) Special Tests Hip Special Tests FADIR Test Results + Comments R hip, pain inside anterior joint Scour Test Test Results + Comments R hip Anterior Labral Test Test Results + Comments R hip PT-OP-M Strength Start: 05/24/23 13:01 Freq: Status: Active Protocol: Document 05/24/23 13:02 NM (Rec: 05/24/23 14:31 NM [id number]) Hip Strength Hip Manual Muscle Testing Right Flexion (L2) 4- Good- Extension (S1) 4- Good- Abduction 4- Good- Adduction 4- Good- External Rotation 4- Good- Internal Rotation 4- Good- Left Flexion (L2) 4- Good- Extension (S1) 4- Good- Abduction 4- Good- Adduction 4- Good- External Rotation 4- Good- Internal Rotation 4- Good- Knee Strength Knee Manual Muscle Testing Right Flexion (S2) 4- Good- Extension (L3) 4- Good- Left Flexion (S2) 4 Good Extension (L3) 4 Good Ankle/Foot Strength Ankle and Foot Manual Muscle Testing Right Dorsiflexion (L4) 4 Good Plantarflexion (S1) 4 Good Left Dorsiflexion (L4) 4 Good Plantarflexion (S1) 4 Good PT-OP-Q Treatments Start: 05/24/23 13:01 Freq: Status: Active Protocol: Document 06/23/23 14:30 SW (Rec: 06/23/23 15:19 SW [id number]) Cardio Equipment Recumbent Elliptical (Lukkin) Duration (Minutes) 5 Resistance 3 Therapeutic Exercises Sitting Exercises Sit to stand Sitting Exercise Name 5x STS Side bilateral Equipment Used 20 plinth Reps/Minutes 2x5 (28 sec, 19 sec) Comments improved eccentric control, Standing Exercises step up Standing Exercise Name 6 step up Side bilateral Resistance AROM Equipment Used 1 hand rail assist Reps/Minutes 1x10 ea step Comments cued for upright trunk, strong glute activation w step up, eccentric lower Neuro Re-Education Treatment Balance Activities Crespo Details SLS, Step taps, forward reach Surface stable foam pad Surface unstable airex Equipment 1 hand support for ascent/ descent, changing positions Comments 1.NBOS foam 2 x30 2.Stance on foam EC 2.Stance on foam, horizontal head turns 3.stance on foam, vertical head turns 4. Weight shifting june Comments 1. standing march on foam, 2x10 ea leg Hands hoving above ballet bar, CGA to steady. PT cueing pt for weight shift onto RLE during June, cued soft knee for increased stability, faciltiating at hips prn Cued for weight shift on foam prior to lifting LE for stability Step Tap Details close SBA Surface stable Equipment 6 stairs, no UE support Reps/Duration 2x10 taps ea Comments Reciprocal stepping, demos slight trunk sway PT-OP-T Assessment and Plan Start: 05/24/23 13:01 Freq: Status: Active Protocol: Document 06/23/23 14:30 SW (Rec: 06/23/23 15:19 SW [id number]) Physical Therapy Assessment Goals Four Impairment gait Impairment Difficulty with ambulation > 150 ft with close SBA using spc due to R hip pain Short Term Goal (STG) Pt will ambulate at least 200 ft using LRAD and SBA or better in order to demonstrate improved balance and activity tolerance 06/21/23: 300 ft using spc SBA without reports of R hip pain STG Duration 4 weeks MET Hvac Operations Technician Goal (LTG) Pt will ambulate at least 500 ft using LRAD and SBA or better in order to demonstrate improved balance and activity tolerance LTG Duration 8 weeks Three Impairment strength Impairment 5x STS test 26.10 seconds Short Term Goal (STG) Pt will complete 5x STS in less than 22 seconds in order to demonstrate increased BLE strength needed for gait and ADLs. 06/14/23: 38 sec, pain in rectum d/t constipation 06/21/23: 28 sec, 19 secs 2nd attempt STG Duration 4 weeks MET H[employer] Operations Technician Goal (LTG) Pt will complete 5x STS in less than 18 seconds in order to demonstrate increased BLE strength needed for gait and ADLs. 06/21/23: 19 sec LTG Duration 8 weeks Two Impairment balance Impairment Crespo/56 Short Term Goal (STG) Pt will increase Crespo score to greater than 41 using LRAD in order to demonstrate improved balance and decreased fall risk. 06/21/23: 43/56, no spc used STG Duration 4 weeks MET Hvac Operations Technician Goal (LTG) Pt will increase Crespo score to greater than 45 using LRAD in order to demonstrate improved balance and decreased fall risk. LTG Duration 8 weeks One Impairment balance Impairment TU.52 seconds with spc Short Term Goal (STG) Pt will decrease TUG time to less than 22 seconds using LRAD in order to demonstrate improved balance, gait speed, and safety during ambulation. 06/21/23: 20.5 sec STG Duration 4 weeks MET H[employer] Operations Technician Goal (LTG) Pt will decrease TUG time to less than 20 seconds using LRAD in order to demonstrate improved balance, gait speed, and safety during ambulation. 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 Pt continued to require verbal cues for accepting weight into RLE during balance challenges , ankle and hip strategies engaged and occasional GILL TENDER prn . Pt highly challenged with elimination of visual input during balance work today, requiring CGA. Physical Therapy Plan Frequency and Duration Frequency of Treatment 2x/Week Duration of treatment (weeks) 8 Plan of Care Start Date 05/24/23 Plan of Care End Date 07/22/23 Therapeutic Interventions Therapeutic Interventions Aquatic Therapy,Balance Training,Coordination Training ,Gait Training,Home Exercise Program,Joint Mobilizations, Manual Therapy,Neuromuscular Re-education,Orthotic/ Prosthetic Management,Patient/ Caregiver Education,Self-Care/ Home Management,Sensory Integration,Soft Tissue Mobilization,Taping, Therapeutic Activities, Therapeutic Exercises Modalities Biofeedback,Cold Pack/Ice Massage,Electric Stimulation, Hot Packs,Iontophoresis, Ultrasound,Vasopneumatic Devices Other Referrals/Consults Referrals/Consults Recommended Recommend further imaging of R hip due to reports of catching and reproduction of symptoms into R hip flexion/ ADD/IR Next Visit Focus/Plan Next Note Type Treatment Note Next Visit Plan Progress BLE strengthening ( standing), initiate gait training as needed with obstacles etc for balance (2 pt vs 3 pt if RLE hurting), static and Crespo balance activities/dynamic balance Future sessions: stair training (has B rails at home) , with and without spc PN in 2 visits
--- NOTE | 2023-06-28 15:13 | PT.OTN ---
Current Diagnoses Unspecified fall, sequela (06/28/23) Physical Therapy Treatment Note PT-OP-A Visit Information Start: 05/24/23 13:01 Freq: Status: Active Protocol: Document 06/28/23 13:48 NM (Rec: 06/28/23 14:31 NM [id number]) Out-Patient Physical Therapy Visit Information Visit Information Visit Type Treatment Note Visit Start Time 13:48 Visit Stop Time 14:30 Visit Number 02/06 Evaluation Information Evaluation Date 05/24/23 PT-OP-B Current Condition Start: 05/24/23 13:01 Freq: Status: Active Protocol: Document 05/24/23 13:02 NM (Rec: 05/24/23 14:31 NM [id number]) Current Condition History of Current Condition Onset Date April 2022 Current Complaints poor balance, pain in arms/ legs History of Current Condition Pt presents to clinic with decreased balance in addition to L shoulder pain, R thigh/ hip pain s/p 2 stroked/TIA in April and Dec 2022. Has hx of falls and decreased balance , reporting falls 1x/2-3 months. During his strokes, pt reports that his L side was more affected. He presents to clinic with spc on R side. Reports catching in R hip/ thigh with limb advancement and hip flexion. Prior to 1st stroke, pt was not using an AD for gait. He reports changes in his blood pressure, especially with positional changes but improved since change in medications. Prior to his falls, he often reports that he feels dizzy; he tries to get into a chair to minimize his fall risk. Hx of seizures, reports of dizziness and lightheadedness, room spinning prior to falls. Dizziness is worse with bending, squatting. Occurred prior to stroke. Lives with (requires 15/11 care), daughter who cares for them. Hx of L4-L5 herniated disc from years ago, no surgery. Prior Treatments and Tests Previous PT for L shoulder; HHPT following strokes Current Functional Impairments (Reported) Functional Limitations- ADL's Limited household ADLs due to balance, changing blood pressure Functional Limitations- Mobility/Gait Uses AD for ambulation, difficulty ambulating >150 ft due to R hip/thigh pain PT-OP-C Subjective Start: 05/24/23 13:01 Freq: Status: Active Protocol: Document 06/28/23 13:48 NM (Rec: 06/28/23 14:31 NM [id number]) OP-PT Subjective Patient Comments Patient Comments Pt reports that he's doing ok . He reports that he's not having any leg pain. He has been compliant with HEP, still medium difficulty. PT-OP-D Balance Start: 05/24/23 13:01 Freq: Status: Active Protocol: Document 05/24/23 13:02 NM (Rec: 05/24/23 14:31 NM [id number]) Balance Tests Crespo Balance Test Crespo Balance Test Score 38/56 Romberg Romberg 10 seconds Single Limb Standing Single Limb- Right 1 second Single Limb- Left 3 seconds Semi-Tandem Standing Semi-Tandem Standing Balance 10 seconds with CGA Tandem Tandem Standing unable position IND, 5 seconds B once in position PT-OP-E Functional Tests Start: 05/24/23 13:01 Freq: Status: Active Protocol: Document 05/24/23 13:02 NM (Rec: 05/24/23 14:31 NM [id number]) Functional Tests Five Times Sit to Stand Test Score 26.10 sec Comments reports no pain in hip, but slow motion with difficulty without UE to rise Timed Up and Go (TUG) Score 26.52 seconds Comments using spc, close SBA for gait Tinetti Balance and Gait Assessment Balance Score 10 Gait Score 6 Composite Score 16/28 PT-OP-F Manual Assessment Start: 05/24/23 13:01 Freq: Status: Active Protocol: Document 05/24/23 13:02 NM (Rec: 05/24/23 14:31 NM [id number]) Manual Assessments Soft Tissue Assessment Soft Tissue Mobility Assessment Demonstrates decreased hip flexion ROM and length, restricted hip extension. Joint Mobility Assessment Joint Mobility Assessment R hip mobility decreased into active and passive hip flexion , lena with IR, ER, ADD. Pt reports catching, worse with R hip flexion overpressure, scouring hip joint. PT-OP-G Mobility & Gait Start: 05/24/23 13:01 Freq: Status: Active Protocol: Document 05/24/23 13:02 NM (Rec: 05/24/23 14:31 NM [id number]) OP Gait Assessment Gait Gait Assistance Required: Standby Assistance,Contact Guard Assist Distance (Feet) 100 Assistive Devices Assistive Device Gait Belt,Straight Cane Gait Deviations General Gait Pattern Antalgic,Decreased Stride Length,Step-to Gait Factors Limiting Gait Function Factors Limiting Gait Function Decreased Activity Tolerance, Decreased Strength,Limited Range of Motion,Pain,Poor Balance Comments Gait Comments Decreased B hip extension. Pain in R hip with ambulation, lena with limb advancement. No pain with step tapping during Crespo PT-OP-H Neuro Start: 05/24/23 13:01 Freq: Status: Active Protocol: Document 05/24/23 13:02 NM (Rec: 05/24/23 14:31 NM [id number]) Sensation Evaluation Comments Summary Comments Did not formally assess due to time constraints; will assess B light touch next session PT-OP-J Posture/Palpation/Skin Start: 05/24/23 13:01 Freq: Status: Active Protocol: Document 05/24/23 13:02 NM (Rec: 05/24/23 14:31 NM [id number]) Posture Evaluation Position Standing Head/C-Spine Posture Forward Head T-Spine Posture Increased Kyphosis L-Spine Posture Increased Lordosis Shoulder Posture (L) Rounded,(R) Rounded,(L) Elevated Pelvis Posture Anteriorly Tilted Weight Distribution Decreased Wt.Bear on (R) Hip Posture (L) Externally Rotated,(R) Externally Rotated Knee Posture (L) Genu Valgus,(R) Genu Valgus Patellar Posture (L) Superior,(R) Superior Palpation Assessment Location R hip Palpation Location R lateral quad, iliopsoas, hip flexors, greater trochanter, joint Palpation Findings Soft Tissue Tightness,Muscle Guarding,Tenderness Palpation Details Tenderness to palpation at R superolateral quad, hip flexors; worse with hip IR/ER. No tenderness at greater trochanter, distal quad, or ASIS. PT-OP-K Range of Motion Start: 05/24/23 13:01 Freq: Status: Active Protocol: Document 05/24/23 13:02 NM (Rec: 05/24/23 14:31 NM [id number]) Hip Goniometric Range of Motion Hip Left Flexion w/Knee Flexed 95 Extension 5 Right Flexion w/Knee Flexed 90 Extension 5 Comments Pain with hip flexion PT-OP-L Special Tests Start: 05/24/23 13:01 Freq: Status: Active Protocol: Document 05/24/23 13:02 NM (Rec: 05/24/23 14:31 NM [id number]) Special Tests Hip Special Tests FADIR Test Results + Comments R hip, pain inside anterior joint Scour Test Test Results + Comments R hip Anterior Labral Test Test Results + Comments R hip PT-OP-M Strength Start: 05/24/23 13:01 Freq: Status: Active Protocol: Document 05/24/23 13:02 NM (Rec: 05/24/23 14:31 NM [id number]) Hip Strength Hip Manual Muscle Testing Right Flexion (L2) 4- Good- Extension (S1) 4- Good- Abduction 4- Good- Adduction 4- Good- External Rotation 4- Good- Internal Rotation 4- Good- Left Flexion (L2) 4- Good- Extension (S1) 4- Good- Abduction 4- Good- Adduction 4- Good- External Rotation 4- Good- Internal Rotation 4- Good- Knee Strength Knee Manual Muscle Testing Right Flexion (S2) 4- Good- Extension (L3) 4- Good- Left Flexion (S2) 4 Good Extension (L3) 4 Good Ankle/Foot Strength Ankle and Foot Manual Muscle Testing Right Dorsiflexion (L4) 4 Good Plantarflexion (S1) 4 Good Left Dorsiflexion (L4) 4 Good Plantarflexion (S1) 4 Good PT-OP-Q Treatments Start: 05/24/23 13:01 Freq: Status: Active Protocol: Document 06/28/23 13:48 NM (Rec: 06/28/23 14:31 NM [id number]) Therapeutic Exercises Sitting Exercises LAQ Side bilateral Resistance 4# Equipment Used mesh chair Reps/Minutes 1x15 Comments cued TKE, PT hand for target Sit to stand Side bilateral Equipment Used mesh chair Reps/Minutes 1x5, 1x10 Comments good eccentric control, no UE support Standing Exercises resisted stepping Standing Exercise Name fwd/bwd Side bilateral Resistance lvl 2 teal tb around ankles Equipment Used no hand support in //bars, CGA Reps/Minutes 2x10 ft Comments cued for larger step, wider ROSS for balance hip extension Side bilateral Resistance 4# ankle weight ea Equipment Used B hand support //bars Reps/Minutes 2x10 Comments cued no trunk flexion, kick leg back Hip Abd Standing Exercise Name Hip Abd Side bilateral Resistance 4# ankle weight Equipment Used B hand support /bars Reps/Minutes 2x10 ea Comments cued no lateral trunk lean compensation Neuro Re-Education Treatment Balance Activities foam pad Surface unstable airex Equipment 1 hand support ascent/descent Comments 1. NBOS, 2x30 close SBA 2. NBOS eyes closed, 2x30 Close SBA 3. Semi-tandem stance, 2x30 ea leg Ankle strategy, improved stability, close SBA wtih 1 instance CGA 4. lateral step taps from stable to airex pad, 1x10 ea Improved weight shift onto stance LE march Surface 4 trujillo pillow Comments Non-alternating marching, 2x10 ea Cued strong TKE but without locking out knee for increased stability. CGA to steady. Improved weight shift, but challenging hurdles Details CGA Surface stable Equipment hand hovering over ballet bar for prn UE support Comments 1. fwd non alternating 2 feet, 2x5 2. fwd cheryl reciprocal, 2x5 Step Tap Details close SBA Surface stable Equipment 6 step, no UE support (hands hovering over //bars) Comments Reciprocal stepping, demos slight trunk sway 1. 1x10 ea reciprocal, ~30 sec 2. 1x4 ea reciprocal, for speed ~15 sec PT-OP-T Assessment and Plan Start: 05/24/23 13:01 Freq: Status: Active Protocol: Document 06/28/23 13:48 NM (Rec: 06/28/23 14:31 NM [id number]) Physical Therapy Assessment Goals Four Impairment gait Impairment Difficulty with ambulation > 150 ft with close SBA using spc due to R hip pain Short Term Goal (STG) Pt will ambulate at least 200 ft using LRAD and SBA or better in order to demonstrate improved balance and activity tolerance 06/21/23: 300 ft using spc SBA without reports of R hip pain STG Duration 4 weeks [facility] [employer] [facility] Goal (LTG) Pt will ambulate at least 500 ft using LRAD and SBA or better in order to demonstrate improved balance and activity tolerance LTG Duration 8 weeks Three Impairment strength Impairment 5x STS test 26.10 seconds Short Term Goal (STG) Pt will complete 5x STS in less than 22 seconds in order to demonstrate increased BLE strength needed for gait and ADLs. 06/14/23: 38 sec, pain in rectum d/t constipation 06/21/23: 28 sec, 19 secs 2nd attempt STG Duration 4 weeks [facility] [employer] [facility] Goal (LTG) Pt will complete 5x STS in less than 18 seconds in order to demonstrate increased BLE strength needed for gait and ADLs. 06/21/23: 19 sec LTG Duration 8 weeks Two Impairment balance Impairment Crespo/56 Short Term Goal (STG) Pt will increase Crespo score to greater than 41 using LRAD in order to demonstrate improved balance and decreased fall risk. 06/21/23: 43/56, no spc used STG Duration 4 weeks [facility] Goal (LTG) Pt will increase Crespo score to greater than 45 using LRAD in order to demonstrate improved balance and decreased fall risk. LTG Duration 8 weeks One Impairment balance Impairment TU.52 seconds with spc Short Term Goal (STG) Pt will decrease TUG time to less than 22 seconds using LRAD in order to demonstrate improved balance, gait speed, and safety during ambulation. 06/21/23: 20.5 sec STG Duration 4 weeks [facility] Goal (LTG) Pt will decrease TUG time to less than 20 seconds using LRAD in order to demonstrate improved balance, gait speed, and safety during ambulation. LTG Duration 8 weeks Assessment Summary Assessment Pt tolerated session well, progressing toward goals. Requires increased time for activities. Demonstrates improved weight shifting during balance activities. Progressed stance and dynamic stepping exercises on unstable surfaces. Progressed marching from airex pad to 4 trujillo pillow for greater challenge. PT cued pt for shifting ROSS over midfoot for improved stability. Pt able to perform reciprocal hurdles without contact with cheryl today compared to previous sessions. Requires decreased level of assistance for most activities . Continued with BLE strengthening, especially hip abductors and extensors for improved hip stability during gait and balance. PT cueing pt to prevent compensations with trunk, soft terminal knee extension. PT educated pt on having daughter near during HEP for safety due to fall risk. PT also recommended pt begin reaching out to referring physician to initiate process for further authorization if pt wanting to continue with PT. Pt would benefit from skilled PT for further gait and balance training in order to decrease fall risk, reduce caregiver burden, and improve activity tolerance. Physical Therapy Plan Frequency and Duration Frequency of Treatment 2x/Week Duration of treatment (weeks) 8 Plan of Care Start Date 05/24/23 Plan of Care End Date 07/22/23 Therapeutic Interventions Therapeutic Interventions Aquatic Therapy,Balance Training,Coordination Training ,Gait Training,Home Exercise Program,Joint Mobilizations, Manual Therapy,Neuromuscular Re-education,Orthotic/ Prosthetic Management,Patient/ Caregiver Education,Self-Care/ Home Management,Sensory Integration,Soft Tissue Mobilization,Taping, Therapeutic Activities, Therapeutic Exercises Modalities Biofeedback,Cold Pack/Ice Massage,Electric Stimulation, Hot Packs,Iontophoresis, Ultrasound,Vasopneumatic Devices Other Referrals/Consults Referrals/Consults Recommended Recommend further imaging of R hip due to reports of catching and reproduction of symptoms into R hip flexion/ ADD/IR Next Visit Focus/Plan Next Note Type Treatment Note Next Visit Plan Progress BLE strengthening ( standing), initiate gait training as needed with obstacles etc for balance (2 pt vs 3 pt if RLE hurting), static and Crespo balance activities/dynamic balance Future sessions: stair training (has B rails at home) , with and without spc
--- NOTE | 2023-06-30 15:34 | PT.OTN ---
Current Diagnoses Unspecified fall, sequela (06/30/23) Physical Therapy Treatment Note PT-OP-A Visit Information Start: 05/24/23 13:01 Freq: Status: Active Protocol: Document 06/30/23 14:35 SW (Rec: 06/30/23 15:33 SW [id number]) Out-Patient Physical Therapy Visit Information Visit Information Visit Type Treatment Note Visit Start Time 14:28 Visit Stop Time 15:10 Visit Number 11 Number of VOICE WRITING REPORTER Visits 1 PT-OP-B Current Condition Start: 05/24/23 13:01 Freq: Status: Active Protocol: Document 05/24/23 13:02 NM (Rec: 05/24/23 14:31 NM [id number]) Current Condition History of Current Condition Onset Date April 2022 Current Complaints poor balance, pain in arms/ legs History of Current Condition Pt presents to clinic with decreased balance in addition to L shoulder pain, R thigh/ hip pain s/p 2 stroked/TIA in April and Dec 2022. Has hx of falls and decreased balance , reporting falls 1x/2-3 months. During his strokes, pt reports that his L side was more affected. He presents to clinic with spc on R side. Reports catching in R hip/ thigh with limb advancement and hip flexion. Prior to 1st stroke, pt was not using an AD for gait. He reports changes in his blood pressure, especially with positional changes but improved since change in medications. Prior to his falls, he often reports that he feels dizzy; he tries to get into a chair to minimize his fall risk. Hx of seizures, reports of dizziness and lightheadedness, room spinning prior to falls. Dizziness is worse with bending, squatting. Occurred prior to stroke. Lives with (requires /7 care), daughter who cares for them. Hx of L4-L5 herniated disc from years ago, no surgery. Prior Treatments and Tests Previous PT for L shoulder; HHPT following strokes Current Functional Impairments (Reported) Functional Limitations- ADL's Limited household ADLs due to balance, changing blood pressure Functional Limitations- Mobility/Gait Uses AD for ambulation, difficulty ambulating >150 ft due to R hip/thigh pain PT-OP-C Subjective Start: 05/24/23 13:01 Freq: Status: Active Protocol: Document 06/30/23 14:35 SW (Rec: 06/30/23 15:33 SW [id number]) OP-PT Subjective Patient Comments Patient Comments Pt reports doing ok. He reported last session he came in to the session for the first time with no right side pain. PT-OP-D Balance Start: 05/24/23 13:01 Freq: Status: Active Protocol: Document 05/24/23 13:02 NM (Rec: 05/24/23 14:31 NM [id number]) Balance Tests Crespo Balance Test Crespo Balance Test Score 38/56 Romberg Romberg 10 seconds Single Limb Standing Single Limb- Right 1 second Single Limb- Left 3 seconds Semi-Tandem Standing Semi-Tandem Standing Balance 10 seconds with CGA Tandem Tandem Standing unable position IND, 5 seconds B once in position PT-OP-E Functional Tests Start: 05/24/23 13:01 Freq: Status: Active Protocol: Document 05/24/23 13:02 NM (Rec: 05/24/23 14:31 NM [id number]) Functional Tests Five Times Sit to Stand Test Score 26.10 sec Comments reports no pain in hip, but slow motion with difficulty without UE to rise Timed Up and Go (TUG) Score 26.52 seconds Comments using spc, close SBA for gait Tinetti Balance and Gait Assessment Balance Score 10 Gait Score 6 Composite Score 16/28 PT-OP-F Manual Assessment Start: 05/24/23 13:01 Freq: Status: Active Protocol: Document 05/24/23 13:02 NM (Rec: 05/24/23 14:31 NM [id number]) Manual Assessments Soft Tissue Assessment Soft Tissue Mobility Assessment Demonstrates decreased hip flexion ROM and length, restricted hip extension. Joint Mobility Assessment Joint Mobility Assessment R hip mobility decreased into active and passive hip flexion , lena with IR, ER, ADD. Pt reports catching, worse with R hip flexion overpressure, scouring hip joint. PT-OP-G Mobility & Gait Start: 05/24/23 13:01 Freq: Status: Active Protocol: Document 05/24/23 13:02 NM (Rec: 05/24/23 14:31 NM [id number]) OP Gait Assessment Gait Gait Assistance Required: Standby Assistance,Contact Guard Assist Distance (Feet) 100 Assistive Devices Assistive Device Gait Belt,Straight Cane Gait Deviations General Gait Pattern Antalgic,Decreased Stride Length,Step-to Gait Factors Limiting Gait Function Factors Limiting Gait Function Decreased Activity Tolerance, Decreased Strength,Limited Range of Motion,Pain,Poor Balance Comments Gait Comments Decreased B hip extension. Pain in R hip with ambulation, lena with limb advancement. No pain with step tapping during Crespo PT-OP-H Neuro Start: 05/24/23 13:01 Freq: Status: Active Protocol: Document 05/24/23 13:02 NM (Rec: 05/24/23 14:31 NM [id number]) Sensation Evaluation Comments Summary Comments Did not formally assess due to time constraints; will assess B light touch next session PT-OP-J Posture/Palpation/Skin Start: 05/24/23 13:01 Freq: Status: Active Protocol: Document 05/24/23 13:02 NM (Rec: 05/24/23 14:31 NM [id number]) Posture Evaluation Position Standing Head/C-Spine Posture Forward Head T-Spine Posture Increased Kyphosis L-Spine Posture Increased Lordosis Shoulder Posture (L) Rounded,(R) Rounded,(L) Elevated Pelvis Posture Anteriorly Tilted Weight Distribution Decreased Wt.Bear on (R) Hip Posture (L) Externally Rotated,(R) Externally Rotated Knee Posture (L) Genu Valgus,(R) Genu Valgus Patellar Posture (L) Superior,(R) Superior Palpation Assessment Location R hip Palpation Location R lateral quad, iliopsoas, hip flexors, greater trochanter, joint Palpation Findings Soft Tissue Tightness,Muscle Guarding,Tenderness Palpation Details Tenderness to palpation at R superolateral quad, hip flexors; worse with hip IR/ER. No tenderness at greater trochanter, distal quad, or ASIS. PT-OP-K Range of Motion Start: 05/24/23 13:01 Freq: Status: Active Protocol: Document 05/24/23 13:02 NM (Rec: 05/24/23 14:31 NM [id number]) Hip Goniometric Range of Motion Hip Left Flexion w/Knee Flexed 95 Extension 5 Right Flexion w/Knee Flexed 90 Extension 5 Comments Pain with hip flexion PT-OP-L Special Tests Start: 05/24/23 13:01 Freq: Status: Active Protocol: Document 05/24/23 13:02 NM (Rec: 05/24/23 14:31 NM [id number]) Special Tests Hip Special Tests FADIR Test Results + Comments R hip, pain inside anterior joint Scour Test Test Results + Comments R hip Anterior Labral Test Test Results + Comments R hip PT-OP-M Strength Start: 05/24/23 13:01 Freq: Status: Active Protocol: Document 05/24/23 13:02 NM (Rec: 05/24/23 14:31 NM [id number]) Hip Strength Hip Manual Muscle Testing Right Flexion (L2) 4- Good- Extension (S1) 4- Good- Abduction 4- Good- Adduction 4- Good- External Rotation 4- Good- Internal Rotation 4- Good- Left Flexion (L2) 4- Good- Extension (S1) 4- Good- Abduction 4- Good- Adduction 4- Good- External Rotation 4- Good- Internal Rotation 4- Good- Knee Strength Knee Manual Muscle Testing Right Flexion (S2) 4- Good- Extension (L3) 4- Good- Left Flexion (S2) 4 Good Extension (L3) 4 Good Ankle/Foot Strength Ankle and Foot Manual Muscle Testing Right Dorsiflexion (L4) 4 Good Plantarflexion (S1) 4 Good Left Dorsiflexion (L4) 4 Good Plantarflexion (S1) 4 Good PT-OP-Q Treatments Start: 05/24/23 13:01 Freq: Status: Active Protocol: Document 06/30/23 14:35 SW (Rec: 06/30/23 15:33 SW [id number]) Cardio Equipment Recumbent Elliptical ([employer]) Duration (Minutes) 5 Resistance 4 Therapeutic Exercises Sitting Exercises LAQ Side bilateral Resistance 4# Equipment Used mesh chair Reps/Minutes 1x15 Comments cued TKE, PT hand for target Sit to stand Side bilateral Equipment Used mesh chair Reps/Minutes 2 x 10 Comments good eccentric control, no UE support Standing Exercises resisted stepping Standing Exercise Name fwd/bwd Side bilateral Resistance lvl 2 teal tb around ankles Equipment Used no hand support in //bars, CGA Reps/Minutes 2x10 ft Comments cued for larger step, wider ROSS for balance hip extension Side bilateral Resistance 4# ankle weight ea Equipment Used B hand support //bars Reps/Minutes 2x10 Comments cued no trunk flexion, kick leg back Hip Abd Standing Exercise Name Hip Abd Side bilateral Resistance 4# ankle weight Equipment Used B hand support /bars Reps/Minutes 2x10 ea Comments cued no lateral trunk lean compensation Neuro Re-Education Treatment Balance Activities foam pad Surface Airex Comments 1.Tandem head turns 2.NBOS E/O E/C Head turns 2.March 3.Fwd/lateral step up march Surface 4 trujillo pillow Comments Non-alternating marching, 2x10 ea Cued strong TKE but without locking out knee for increased stability. CGA to steady. Improved weight shift, but challenging hurdles Details CGA Surface stable Equipment hand hovering over ballet bar for prn UE support Comments 1. fwd non alternating 2 feet, 2x10 2. fwd cheryl reciprocal, 2x10 cues to slow control and pause for balance prn PT-OP-T Assessment and Plan Start: 05/24/23 13:01 Freq: Status: Active Protocol: Document 06/30/23 14:35 SW (Rec: 06/30/23 15:33 SW [id number]) Physical Therapy Assessment Goals Four Impairment gait Impairment Difficulty with ambulation > 150 ft with close SBA using spc due to R hip pain Short Term Goal (STG) Pt will ambulate at least 200 ft using LRAD and SBA or better in order to demonstrate improved balance and activity tolerance 06/21/23: 300 ft using spc SBA without reports of R hip pain STG Duration 4 weeks [facility] Goal (LTG) Pt will ambulate at least 500 ft using LRAD and SBA or better in order to demonstrate improved balance and activity tolerance LTG Duration 8 weeks Three Impairment strength Impairment 5x STS test 26.10 seconds Short Term Goal (STG) Pt will complete 5x STS in less than 22 seconds in order to demonstrate increased BLE strength needed for gait and ADLs. 06/14/23: 38 sec, pain in rectum d/t constipation 06/21/23: 28 sec, 19 secs 2nd attempt STG Duration 4 weeks [facility] Goal (LTG) Pt will complete 5x STS in less than 18 seconds in order to demonstrate increased BLE strength needed for gait and ADLs. 06/21/23: 19 sec LTG Duration 8 weeks Two Impairment balance Impairment Crespo/56 Short Term Goal (STG) Pt will increase Crespo score to greater than 41 using LRAD in order to demonstrate improved balance and decreased fall risk. 06/21/23: 43/56, no spc used STG Duration 4 weeks [facility] Goal (LTG) Pt will increase Crespo score to greater than 45 using LRAD in order to demonstrate improved balance and decreased fall risk. LTG Duration 8 weeks One Impairment balance Impairment TU.52 seconds with spc Short Term Goal (STG) Pt will decrease TUG time to less than 22 seconds using LRAD in order to demonstrate improved balance, gait speed, and safety during ambulation. 06/21/23: 20.5 sec STG Duration 4 weeks [facility] Goal (LTG) Pt will decrease TUG time to less than 20 seconds using LRAD in order to demonstrate improved balance, gait speed, and safety during ambulation. LTG Duration 8 weeks Assessment Summary Assessment Continued strengthening exercises to progress toward pt goals. Progressed pt with level 3 TB for HEP exercises this session. Continued balance challenges with elimination of visual input to challenge proprioception, CGA ankle strategy fully engaged, occasional hip strategy, though patient tends to REAL ESTATE ANALYST prior to engaging knee/hip strategy. Pt reported symptom relief, no pain in right side post session stating I feel like I could keep going. Pt showed progress with STS today , able to tolerate 2 x 10 today with no REAL ESTATE ANALYST. Physical Therapy Plan Frequency and Duration Frequency of Treatment 2x/Week Duration of treatment (weeks) 8 Plan of Care Start Date 05/24/23 Plan of Care End Date 07/22/23 Therapeutic Interventions Therapeutic Interventions Aquatic Therapy,Balance Training,Coordination Training ,Gait Training,Home Exercise Program,Joint Mobilizations, Manual Therapy,Neuromuscular Re-education,Orthotic/ Prosthetic Management,Patient/ Caregiver Education,Self-Care/ Home Management,Sensory Integration,Soft Tissue Mobilization,Taping, Therapeutic Activities, Therapeutic Exercises Modalities Biofeedback,Cold Pack/Ice Massage,Electric Stimulation, Hot Packs,Iontophoresis, Ultrasound,Vasopneumatic Devices Other Referrals/Consults Referrals/Consults Recommended Recommend further imaging of R hip due to reports of catching and reproduction of symptoms into R hip flexion/ ADD/IR Next Visit Focus/Plan Next Note Type Treatment Note Next Visit Plan Progress BLE strengthening ( standing), initiate gait training as needed with obstacles etc for balance (2 pt vs 3 pt if RLE hurting), static and Crespo balance activities/dynamic balance Future sessions: stair training (has B rails at home) , with and without spc
--- NOTE | 2023-07-05 16:35 | PT.OTN ---
Current Diagnoses Unspecified fall, sequela (07/05/23) Physical Therapy Treatment Note PT-OP-A Visit Information Start: 05/24/23 13:01 Freq: Status: Active Protocol: Document 07/05/23 14:37 SW (Rec: 07/05/23 15:18 SW [id number]) Out-Patient Physical Therapy Visit Information Visit Information Visit Type Treatment Note Visit Start Time 14:32 Visit Stop Time 15:10 Visit Number 04/08 PT-OP-B Current Condition Start: 05/24/23 13:01 Freq: Status: Active Protocol: Document 05/24/23 13:02 NM (Rec: 05/24/23 14:31 NM [id number]) Current Condition History of Current Condition Onset Date April 2022 Current Complaints poor balance, pain in arms/ legs History of Current Condition Pt presents to clinic with decreased balance in addition to L shoulder pain, R thigh/ hip pain s/p 2 stroked/TIA in April and Dec 2022. Has hx of falls and decreased balance , reporting falls 1x/2-3 months. During his strokes, pt reports that his L side was more affected. He presents to clinic with spc on R side. Reports catching in R hip/ thigh with limb advancement and hip flexion. Prior to 1st stroke, pt was not using an AD for gait. He reports changes in his blood pressure, especially with positional changes but improved since change in medications. Prior to his falls, he often reports that he feels dizzy; he tries to get into a chair to minimize his fall risk. Hx of seizures, reports of dizziness and lightheadedness, room spinning prior to falls. Dizziness is worse with bending, squatting. Occurred prior to stroke. Lives with (requires 24/7 care), daughter who cares for them. Hx of L4-L5 herniated disc from years ago, no surgery. Prior Treatments and Tests Previous PT for L shoulder; HHPT following strokes Current Functional Impairments (Reported) Functional Limitations- ADL's Limited household ADLs due to balance, changing blood pressure Functional Limitations- Mobility/Gait Uses AD for ambulation, difficulty ambulating >150 ft due to R hip/thigh pain PT-OP-C Subjective Start: 05/24/23 13:01 Freq: Status: Active Protocol: Document 07/05/23 14:37 SW (Rec: 07/05/23 15:18 SW [id number]) OP-PT Subjective Patient Comments Patient Comments Pt reports reports doing ok, was tempted to try walking without cane, went to neighbors without and felt pretty good. PT-OP-D Balance Start: 05/24/23 13:01 Freq: Status: Active Protocol: Document 05/24/23 13:02 NM (Rec: 05/24/23 14:31 NM [id number]) Balance Tests Crespo Balance Test Crespo Balance Test Score 38/56 Romberg Romberg 10 seconds Single Limb Standing Single Limb- Right 1 second Single Limb- Left 3 seconds Semi-Tandem Standing Semi-Tandem Standing Balance 10 seconds with CGA Tandem Tandem Standing unable position IND, 5 seconds B once in position PT-OP-E Functional Tests Start: 05/24/23 13:01 Freq: Status: Active Protocol: Document 05/24/23 13:02 NM (Rec: 05/24/23 14:31 NM [id number]) Functional Tests Five Times Sit to Stand Test Score 26.10 sec Comments reports no pain in hip, but slow motion with difficulty without UE to rise Timed Up and Go (TUG) Score 26.52 seconds Comments using spc, close SBA for gait Tinetti Balance and Gait Assessment Balance Score 10 Gait Score 6 Composite Score 16/28 PT-OP-F Manual Assessment Start: 05/24/23 13:01 Freq: Status: Active Protocol: Document 05/24/23 13:02 NM (Rec: 05/24/23 14:31 NM [id number]) Manual Assessments Soft Tissue Assessment Soft Tissue Mobility Assessment Demonstrates decreased hip flexion ROM and length, restricted hip extension. Joint Mobility Assessment Joint Mobility Assessment R hip mobility decreased into active and passive hip flexion , lena with IR, ER, ADD. Pt reports catching, worse with R hip flexion overpressure, scouring hip joint. PT-OP-G Mobility & Gait Start: 05/24/23 13:01 Freq: Status: Active Protocol: Document 05/24/23 13:02 NM (Rec: 05/24/23 14:31 NM [id number]) OP Gait Assessment Gait Gait Assistance Required: Standby Assistance,Contact Guard Assist Distance (Feet) 100 Assistive Devices Assistive Device Gait Belt,Straight Cane Gait Deviations General Gait Pattern Antalgic,Decreased Stride Length,Step-to Gait Factors Limiting Gait Function Factors Limiting Gait Function Decreased Activity Tolerance, Decreased Strength,Limited Range of Motion,Pain,Poor Balance Comments Gait Comments Decreased B hip extension. Pain in R hip with ambulation, lena with limb advancement. No pain with step tapping during Crespo PT-OP-H Neuro Start: 05/24/23 13:01 Freq: Status: Active Protocol: Document 05/24/23 13:02 NM (Rec: 05/24/23 14:31 NM [id number]) Sensation Evaluation Comments Summary Comments Did not formally assess due to time constraints; will assess B light touch next session PT-OP-J Posture/Palpation/Skin Start: 05/24/23 13:01 Freq: Status: Active Protocol: Document 05/24/23 13:02 NM (Rec: 05/24/23 14:31 NM [id number]) Posture Evaluation Position Standing Head/C-Spine Posture Forward Head T-Spine Posture Increased Kyphosis L-Spine Posture Increased Lordosis Shoulder Posture (L) Rounded,(R) Rounded,(L) Elevated Pelvis Posture Anteriorly Tilted Weight Distribution Decreased Wt.Bear on (R) Hip Posture (L) Externally Rotated,(R) Externally Rotated Knee Posture (L) Genu Valgus,(R) Genu Valgus Patellar Posture (L) Superior,(R) Superior Palpation Assessment Location R hip Palpation Location R lateral quad, iliopsoas, hip flexors, greater trochanter, joint Palpation Findings Soft Tissue Tightness,Muscle Guarding,Tenderness Palpation Details Tenderness to palpation at R superolateral quad, hip flexors; worse with hip IR/ER. No tenderness at greater trochanter, distal quad, or ASIS. PT-OP-K Range of Motion Start: 05/24/23 13:01 Freq: Status: Active Protocol: Document 05/24/23 13:02 NM (Rec: 05/24/23 14:31 NM [id number]) Hip Goniometric Range of Motion Hip Left Flexion w/Knee Flexed 95 Extension 5 Right Flexion w/Knee Flexed 90 Extension 5 Comments Pain with hip flexion PT-OP-L Special Tests Start: 05/24/23 13:01 Freq: Status: Active Protocol: Document 05/24/23 13:02 NM (Rec: 05/24/23 14:31 NM [id number]) Special Tests Hip Special Tests FADIR Test Results + Comments R hip, pain inside anterior joint Scour Test Test Results + Comments R hip Anterior Labral Test Test Results + Comments R hip PT-OP-M Strength Start: 05/24/23 13:01 Freq: Status: Active Protocol: Document 05/24/23 13:02 NM (Rec: 05/24/23 14:31 NM [id number]) Hip Strength Hip Manual Muscle Testing Right Flexion (L2) 4- Good- Extension (S1) 4- Good- Abduction 4- Good- Adduction 4- Good- External Rotation 4- Good- Internal Rotation 4- Good- Left Flexion (L2) 4- Good- Extension (S1) 4- Good- Abduction 4- Good- Adduction 4- Good- External Rotation 4- Good- Internal Rotation 4- Good- Knee Strength Knee Manual Muscle Testing Right Flexion (S2) 4- Good- Extension (L3) 4- Good- Left Flexion (S2) 4 Good Extension (L3) 4 Good Ankle/Foot Strength Ankle and Foot Manual Muscle Testing Right Dorsiflexion (L4) 4 Good Plantarflexion (S1) 4 Good Left Dorsiflexion (L4) 4 Good Plantarflexion (S1) 4 Good PT-OP-Q Treatments Start: 05/24/23 13:01 Freq: Status: Active Protocol: Document 07/05/23 14:37 SW (Rec: 07/05/23 15:18 SW [id number]) Cardio Equipment Recumbent Elliptical (Biodex) Duration (Minutes) 2 Resistance 4 Other warmup Therapeutic Exercises Sitting Exercises Sit to stand Side bilateral Equipment Used mesh chair Reps/Minutes 2 x 10 Comments good eccentric control, no UE support Gait Training Gait Activity Spc Description normal gait mechanics Device Used spc in L hand Level of Assistance close SBA Surface stable (tile, carpet, obstacles) Distance/Duration 300 ft Treatment Focus endurance, spc placement, nml gait mechanics Comments Corrected pt cane placement to LUE vs RUE, cues for foot clearance, x1 instance of hip catching, close SBA Neuro Re-Education Treatment Balance Activities Tandem Details Tandem>Tandem walking in PT only Surface stable Equipment // bars Comments PROFILE TRIMMER prn uneven surface Details Dynamic Balance challenge Surface Unstable Equipment SPC, mat/wedges Comments gait on uneven surface, gait belt donned, CGA hurdles Details CGA Surface stable Equipment hand hovering over ballet bar for prn UE support Comments 1. fwd non alternating 2 feet, 2x10 2. fwd cheryl reciprocal, 2x10 cues to slow control and pause for balance prn PT-OP-T Assessment and Plan Start: 05/24/23 13:01 Freq: Status: Active Protocol: Document 07/05/23 14:37 (Rec: 07/05/23 15:18 [id number]) Physical Therapy Assessment Goals Four Impairment gait Impairment Difficulty with ambulation > 150 ft with close SBA using spc due to R hip pain Short Term Goal (STG) Pt will ambulate at least 200 ft using LRAD and SBA or better in order to demonstrate improved balance and activity tolerance 06/21/23: 300 ft using spc SBA without reports of R hip pain STG Duration 4 weeks MET Prepress Operator Goal (LTG) Pt will ambulate at least 500 ft using LRAD and SBA or better in order to demonstrate improved balance and activity tolerance LTG Duration 8 weeks Three Impairment strength Impairment 5x STS test 26.10 seconds Short Term Goal (STG) Pt will complete 5x STS in less than 22 seconds in order to demonstrate increased BLE strength needed for gait and ADLs. 06/14/23: 38 sec, pain in rectum d/t constipation 06/21/23: 28 sec, 19 secs 2nd attempt STG Duration 4 weeks MET Custodial Goal (LTG) Pt will complete 5x STS in less than 18 seconds in order to demonstrate increased BLE strength needed for gait and ADLs. 06/21/23: 19 sec LTG Duration 8 weeks Two Impairment balance Impairment Crespo/56 Short Term Goal (STG) Pt will increase Crespo score to greater than 41 using LRAD in order to demonstrate improved balance and decreased fall risk. 06/21/23: 43/56, no spc used STG Duration 4 weeks MET Custodial Goal (LTG) Pt will increase Crespo score to greater than 45 using LRAD in order to demonstrate improved balance and decreased fall risk. LTG Duration 8 weeks One Impairment balance Impairment TU.52 seconds with spc Short Term Goal (STG) Pt will decrease TUG time to less than 22 seconds using LRAD in order to demonstrate improved balance, gait speed, and safety during ambulation. 06/21/23: 20.5 sec STG Duration 4 weeks MET Custodial Goal (LTG) Pt will decrease TUG time to less than 20 seconds using LRAD in order to demonstrate improved balance, gait speed, and safety during ambulation. LTG Duration 8 weeks Assessment Summary Assessment Tx focus on balance this session. Initiated ambulation on uneven surface, pt heavily reliant on visual feedback at feet requiring slower pace, difficulty gazing environment for obstacles ahead, improved with repetition, CGA. Corrected SPC hand placement to KVNG vs SATNAM, educated pt on reasoning for using AD on opposite side for stability and decreased pain on right side. Physical Therapy Plan Frequency and Duration Frequency of Treatment 2x/Week Duration of treatment (weeks) 8 Plan of Care Start Date 05/24/23 Plan of Care End Date 07/22/23 Therapeutic Interventions Therapeutic Interventions Aquatic Therapy,Balance Training,Coordination Training ,Gait Training,Home Exercise Program,Joint Mobilizations, Manual Therapy,Neuromuscular Re-education,Orthotic/ Prosthetic Management,Patient/ Caregiver Education,Self-Care/ Home Management,Sensory Integration,Soft Tissue Mobilization,Taping, Therapeutic Activities, Therapeutic Exercises Modalities Biofeedback,Cold Pack/Ice Massage,Electric Stimulation, Hot Packs,Iontophoresis, Ultrasound,Vasopneumatic Devices Other Referrals/Consults Referrals/Consults Recommended Recommend further imaging of R hip due to reports of catching and reproduction of symptoms into R hip flexion/ ADD/IR Next Visit Focus/Plan Next Note Type Treatment Note Next Visit Plan Progress BLE strengthening ( standing), initiate gait training as needed with obstacles etc for balance (2 pt vs 3 pt if RLE hurting), static and Crespo balance activities/dynamic balance Future sessions: stair training (has B rails at home) , with and without spc
--- NOTE | 2023-07-07 15:54 | PT.OTN ---
Current Diagnoses Unspecified fall, sequela (07/07/23) Physical Therapy Treatment Note PT-OP-A Visit Information Start: 05/24/23 13:01 Freq: Status: Active Protocol: Document 07/07/23 14:34 NM (Rec: 07/07/23 15:54 NM [id number]) Out-Patient Physical Therapy Visit Information Visit Information Visit Type Treatment Note Visit Start Time 14:34 Visit Stop Time 15:20 Visit Number Evaluation Information Evaluation Date 05/24/23 Precautions Precautions Fall risk, hx of stroke PT-OP-B Current Condition Start: 05/24/23 13:01 Freq: Status: Active Protocol: Document 05/24/23 13:02 NM (Rec: 05/24/23 14:31 NM [id number]) Current Condition History of Current Condition Onset Date April 2022 Current Complaints poor balance, pain in arms/ legs History of Current Condition Pt presents to clinic with decreased balance in addition to L shoulder pain, R thigh/ hip pain s/p 2 stroked/TIA in April and Dec 2022. Has hx of falls and decreased balance , reporting falls 1x/2-3 months. During his strokes, pt reports that his L side was more affected. He presents to clinic with spc on R side. Reports catching in R hip/ thigh with limb advancement and hip flexion. Prior to 1st stroke, pt was not using an AD for gait. He reports changes in his blood pressure, especially with positional changes but improved since change in medications. Prior to his falls, he often reports that he feels dizzy; he tries to get into a chair to minimize his fall risk. Hx of seizures, reports of dizziness and lightheadedness, room spinning prior to falls. Dizziness is worse with bending, squatting. Occurred prior to stroke. Lives with (requires 15/11 care), daughter who cares for them. Hx of L4-L5 herniated disc from years ago, no surgery. Prior Treatments and Tests Previous PT for L shoulder; HHPT following strokes Current Functional Impairments (Reported) Functional Limitations- ADL's Limited household ADLs due to balance, changing blood pressure Functional Limitations- Mobility/Gait Uses AD for ambulation, difficulty ambulating >150 ft due to R hip/thigh pain PT-OP-C Subjective Start: 05/24/23 13:01 Freq: Status: Active Protocol: Document 07/07/23 14:34 NM (Rec: 07/07/23 15:54 NM [id number]) OP-PT Subjective Patient Comments Patient Comments Pt reports that he is doing well wiht PT, compliant with HEP. [facility] PT-OP-D Balance Start: 05/24/23 13:01 Freq: Status: Active Protocol: Document 05/24/23 13:02 NM (Rec: 05/24/23 14:31 NM [id number]) Balance Tests Crespo Balance Test Crespo Balance Test Score 38/56 Romberg Romberg 10 seconds Single Limb Standing Single Limb- Right 1 second Single Limb- Left 3 seconds Semi-Tandem Standing Semi-Tandem Standing Balance 10 seconds with CGA Tandem Tandem Standing unable position IND, 5 seconds B once in position PT-OP-E Functional Tests Start: 05/24/23 13:01 Freq: Status: Active Protocol: Document 05/24/23 13:02 NM (Rec: 05/24/23 14:31 NM [id number]) Functional Tests Five Times Sit to Stand Test Score 26.10 sec Comments reports no pain in hip, but slow motion with difficulty without UE to rise Timed Up and Go (TUG) Score 26.52 seconds Comments using spc, close SBA for gait Tinetti Balance and Gait Assessment Balance Score 10 Gait Score 6 Composite Score 16/28 PT-OP-F Manual Assessment Start: 05/24/23 13:01 Freq: Status: Active Protocol: Document 05/24/23 13:02 NM (Rec: 05/24/23 14:31 NM [id number]) Manual Assessments Soft Tissue Assessment Soft Tissue Mobility Assessment Demonstrates decreased hip flexion ROM and length, restricted hip extension. Joint Mobility Assessment Joint Mobility Assessment R hip mobility decreased into active and passive hip flexion , lena with IR, ER, ADD. Pt reports catching, worse with R hip flexion overpressure, scouring hip joint. PT-OP-G Mobility & Gait Start: 05/24/23 13:01 Freq: Status: Active Protocol: Document 05/24/23 13:02 NM (Rec: 05/24/23 14:31 NM [id number]) OP Gait Assessment Gait Gait Assistance Required: Standby Assistance,Contact Guard Assist Distance (Feet) 100 Assistive Devices Assistive Device Gait Belt,Straight Cane Gait Deviations General Gait Pattern Antalgic,Decreased Stride Length,Step-to Gait Factors Limiting Gait Function Factors Limiting Gait Function Decreased Activity Tolerance, Decreased Strength,Limited Range of Motion,Pain,Poor Balance Comments Gait Comments Decreased B hip extension. Pain in R hip with ambulation, lena with limb advancement. No pain with step tapping during Crespo PT-OP-H Neuro Start: 05/24/23 13:01 Freq: Status: Active Protocol: Document 05/24/23 13:02 NM (Rec: 05/24/23 14:31 NM [id number]) Sensation Evaluation Comments Summary Comments Did not formally assess due to time constraints; will assess B light touch next session PT-OP-J Posture/Palpation/Skin Start: 05/24/23 13:01 Freq: Status: Active Protocol: Document 05/24/23 13:02 NM (Rec: 05/24/23 14:31 NM [id number]) Posture Evaluation Position Standing Head/C-Spine Posture Forward Head T-Spine Posture Increased Kyphosis L-Spine Posture Increased Lordosis Shoulder Posture (L) Rounded,(R) Rounded,(L) Elevated Pelvis Posture Anteriorly Tilted Weight Distribution Decreased Wt.Bear on (R) Hip Posture (L) Externally Rotated,(R) Externally Rotated Knee Posture (L) Genu Valgus,(R) Genu Valgus Patellar Posture (L) Superior,(R) Superior Palpation Assessment Location R hip Palpation Location R lateral quad, iliopsoas, hip flexors, greater trochanter, joint Palpation Findings Soft Tissue Tightness,Muscle Guarding,Tenderness Palpation Details Tenderness to palpation at R superolateral quad, hip flexors; worse with hip IR/ER. No tenderness at greater trochanter, distal quad, or ASIS. PT-OP-K Range of Motion Start: 05/24/23 13:01 Freq: Status: Active Protocol: Document 05/24/23 13:02 NM (Rec: 05/24/23 14:31 NM [id number]) Hip Goniometric Range of Motion Hip Left Flexion w/Knee Flexed 95 Extension 5 Right Flexion w/Knee Flexed 90 Extension 5 Comments Pain with hip flexion PT-OP-L Special Tests Start: 05/24/23 13:01 Freq: Status: Active Protocol: Document 05/24/23 13:02 NM (Rec: 05/24/23 14:31 NM [id number]) Special Tests Hip Special Tests FADIR Test Results + Comments R hip, pain inside anterior joint Scour Test Test Results + Comments R hip Anterior Labral Test Test Results + Comments R hip PT-OP-M Strength Start: 05/24/23 13:01 Freq: Status: Active Protocol: Document 05/24/23 13:02 NM (Rec: 05/24/23 14:31 NM [id number]) Hip Strength Hip Manual Muscle Testing Right Flexion (L2) 4- Good- Extension (S1) 4- Good- Abduction 4- Good- Adduction 4- Good- External Rotation 4- Good- Internal Rotation 4- Good- Left Flexion (L2) 4- Good- Extension (S1) 4- Good- Abduction 4- Good- Adduction 4- Good- External Rotation 4- Good- Internal Rotation 4- Good- Knee Strength Knee Manual Muscle Testing Right Flexion (S2) 4- Good- Extension (L3) 4- Good- Left Flexion (S2) 4 Good Extension (L3) 4 Good Ankle/Foot Strength Ankle and Foot Manual Muscle Testing Right Dorsiflexion (L4) 4 Good Plantarflexion (S1) 4 Good Left Dorsiflexion (L4) 4 Good Plantarflexion (S1) 4 Good PT-OP-Q Treatments Start: 05/24/23 13:01 Freq: Status: Active Protocol: Document 07/07/23 14:34 NM (Rec: 07/07/23 15:54 NM [id number]) Therapeutic Exercises Sitting Exercises Sit to stand Sitting Exercise Name 5x STS Equipment Used from plinth Reps/Minutes 2 sets: 21 sec, 14 sec Comments improved control, weight shift , no UE, speed w cuing, remains safe Standing Exercises HSC Standing Exercise Name butt kicks; added to HEP Side bilateral Resistance 5# ankle weight Equipment Used 2 finger support ea hand on ballet bar Reps/Minutes 1x10 ea Comments cued upright posture pallof press Standing Exercise Name trialed in PT: core, balance Side bilateral Resistance lvl 1 tb (both bands) Reps/Minutes 1x10 ea with brief pause Comments closed SBA; cued no trunk rotation, L more challenged than R hip extension Standing Exercise Name added to HEP Side bilateral Resistance 5# ankle weight Equipment Used 2 finger support ea hand on ballet bars Reps/Minutes 1x10 ea non alternating Comments cued upright posture, straight leg march Side bilateral Resistance 5# Equipment Used no hand support, hover above ballet bar Reps/Minutes 1x10 ea alternating Comments cued upright posture; improved stability Hip Abd Side bilateral Resistance 5# Equipment Used 2 finger support ea hand on ballet bar Reps/Minutes 1x10 ea Comments cued upright trunk posture; did not have lateral lean Gait Training Gait Activity Spc Description normal gait mechanics Device Used spc in L hand Level of Assistance close SBA with prn CGA Surface unstable: grass, inclines/ declines, gravel, carpet Distance/Duration 500 ft Treatment Focus endurance, spc placement, sequencing, balance Comments Cued for spc placement more in front of pt during gait, no dragging spc. Reinforced L hand to offset RLE. No pain with gait. CGA only for grass and decline, with cueing for slower descent and foot clearance. Improved sequencing after initial cuing, but continues to requires cues for placement prn Neuro Re-Education Treatment Balance Activities dynamic balance Reps/Duration 2 sets x 25 ft ea direction Comments 1. head turns horizontal with nml gait using spc, close SBA with prn CGA initially. Pt ambulate at nml speed looking ahead, the turn head on PT command, tell color of cone on side then return head to start and keep ambulation. No LOB Challenged initially, stops with turn but improved with reps 2. Vertical head nods with normal ambulation Pt ambulating normally with spc and close SBA, PT cue to look up then pt looking down to cone on floor and tell color, then return to look straight ahead. Minimal LOB without fall, no stopping with gait shuttle balance Details A/P, M/L Surface unstable Equipment CGA with prn min A Reps/Duration 2 min ea direction Comments For hip and ankle strategy. Cues to keep board level, weight shifts to maintain balance. Allowed 2 hand >1 hand> 2 fingers ea hand > progressed no hands. Cued to attempt to stabilize before use of hands. Improved with reps. M/L more challenged than A/P. Dependent heavily on vision, but able to look up with cueing, no LOB Crespo Details did not score but performed activities Comments 1. stair taps, alternating w/o hand use <20 sec ea Improved weight shift, alt legs, no LOB, close SBA 2. cotton picker object from floor, 1 rep close SPV. Cue to step closer to object for safety, spc in hand 3. 360 turn, ea direction Improved speed and foot clearance, no LOB 4. weight shifts to look over shoulder, ea direction Improved weight shift, no LOB, equal shifting 5. Tandem 10 sec ea leg. 2 sets ea LE, improved stepping with 2nd rep , no assist, close SBA, decreased ankle stability 6. SLS, 8 sec LLE and 3 sec RLE Improved ability to maintain stability on narrow ROSS, CGA to steady with LOB TUG Details 1 rep Equipment spc, close SPV Reps/Duration 17 sec Comments Improved speed, turns, and stability with test. No LOB. Good sequencing with spc PT-OP-T Assessment and Plan Start: 05/24/23 13:01 Freq: Status: Active Protocol: Document 07/07/23 14:34 NM (Rec: 07/07/23 15:54 NM [id number]) Physical Therapy Assessment Goals Four Impairment gait Impairment Difficulty with ambulation > 150 ft with close SBA using spc due to R hip pain Short Term Goal (STG) Pt will ambulate at least 200 ft using LRAD and SBA or better in order to demonstrate improved balance and activity tolerance 06/21/23: 300 ft using spc SBA without reports of R hip pain STG Duration 4 weeks MET Intermediate Goal (LTG) Pt will ambulate at least 500 ft using LRAD and SBA or better in order to demonstrate improved balance and activity tolerance LTG Duration 8 weeks MET Three Impairment strength Impairment 5x STS test 26.10 seconds Short Term Goal (STG) Pt will complete 5x STS in less than 22 seconds in order to demonstrate increased BLE strength needed for gait and ADLs. 06/14/23: 38 sec, pain in rectum d/t constipation 06/21/23: 28 sec, 19 secs 2nd attempt STG Duration 4 weeks MET [employer] Coordinator Goal (LTG) Pt will complete 5x STS in less than 18 seconds in order to demonstrate increased BLE strength needed for gait and ADLs. 06/21/23: 19 sec 07/07/23: 21 sec, 14 seconds LTG Duration 8 weeks MET Two Impairment balance Impairment Crespo/56 Short Term Goal (STG) Pt will increase Crespo score to greater than 41 using LRAD in order to demonstrate improved balance and decreased fall risk. 06/21/23: 43/56, no spc used STG Duration 4 weeks MET [employer] Coordinator Goal (LTG) Pt will increase Crespo score to greater than 45 using LRAD in order to demonstrate improved balance and decreased fall risk. 07/07/23: LTG Duration 8 weeks One Impairment balance Impairment TU.52 seconds with spc Short Term Goal (STG) Pt will decrease TUG time to less than 22 seconds using LRAD in order to demonstrate improved balance, gait speed, and safety during ambulation. 06/21/23: 20.5 sec STG Duration 4 weeks MET Intermediate Goal (LTG) Pt will decrease TUG time to less than 20 seconds using LRAD in order to demonstrate improved balance, gait speed, and safety during ambulation. 07/07/23: 17.6 seconds LTG Duration 8 weeks MET Assessment Summary Assessment Pt tolerated session well and did not report any RLE pain. Continues to demonstrate improvement in balance and activity tolerance. Session emphasis on balance, particularly on uneven surfaces to improve pt balance strategies and improve carryover between sessions. Pt reliant on vision, but able to demonstrate improved proprioception and awareness after initial cueing when on both stable and unstable surfaces. Since IE, pt has progressed most with weight shifting and maintaining stability with narrow ROSS. Pt continues to be challenged when moving outside ROSS. Continued with gait training on unstable surfaces, cueing for sequencing and spc placement for improved stability. Added hamstring curls and hip extension to HEP . Trialed pallof press for core, balance activity. PT and pt discussed POC as it will be ending soon; PT and pt agree that if pt able to get more authorization and more visits, to continue with addressing balance to continue to decrease fall risk. Pt continues to make good progress and met several goals today. Pt would benefit from skilled PT to address balance and gait, in addition to BLE strengthening to decrease fall risk and improve activity tolerance. Physical Therapy Plan Frequency and Duration Frequency of Treatment 2x/Week Duration of treatment (weeks) 8 Plan of Care Start Date 05/24/23 Plan of Care End Date 07/22/23 Therapeutic Interventions Therapeutic Interventions Aquatic Therapy,Balance Training,Coordination Training ,Gait Training,Home Exercise Program,Joint Mobilizations, Manual Therapy,Neuromuscular Re-education,Orthotic/ Prosthetic Management,Patient/ Caregiver Education,Self-Care/ Home Management,Sensory Integration,Soft Tissue Mobilization,Taping, Therapeutic Activities, Therapeutic Exercises Modalities Biofeedback,Cold Pack/Ice Massage,Electric Stimulation, Hot Packs,Iontophoresis, Ultrasound,Vasopneumatic Devices Other Referrals/Consults Referrals/Consults Recommended Recommend further imaging of R hip due to reports of catching and reproduction of symptoms into R hip flexion/ ADD/IR Next Visit Focus/Plan Next Note Type Treatment Note Next Visit Plan Next session: pallof press, moving outside ROSS, gait and balance on unsteady surface; shuttle balance; dynamic gait Progress BLE strengthening Future sessions: stair training (has B rails at home) , with and without spc
--- NOTE | 2023-07-12 16:18 | PT.OTN ---
Current Diagnoses Unspecified fall, sequela (07/12/23) Physical Therapy Treatment Note PT-OP-A Visit Information Start: 05/24/23 13:01 Freq: Status: Active Protocol: Document 07/12/23 14:34 SW (Rec: 07/12/23 15:19 SW [id number]) Out-Patient Physical Therapy Visit Information Visit Information Visit Type Treatment Note Visit Start Time 14:31 Visit Stop Time 15:10 Visit Number 14/15 Precautions Precautions Fall risk, hx of stroke PT-OP-B Current Condition Start: 05/24/23 13:01 Freq: Status: Active Protocol: Document 05/24/23 13:02 NM (Rec: 05/24/23 14:31 NM [id number]) Current Condition History of Current Condition Onset Date April 2022 Current Complaints poor balance, pain in arms/ legs History of Current Condition Pt presents to clinic with decreased balance in addition to L shoulder pain, R thigh/ hip pain s/p 2 stroked/TIA in April and Dec 2022. Has hx of falls and decreased balance , reporting falls 1x/2-3 months. During his strokes, pt reports that his L side was more affected. He presents to clinic with spc on R side. Reports catching in R hip/ thigh with limb advancement and hip flexion. Prior to 1st stroke, pt was not using an AD for gait. He reports changes in his blood pressure, especially with positional changes but improved since change in medications. Prior to his falls, he often reports that he feels dizzy; he tries to get into a chair to minimize his fall risk. Hx of seizures, reports of dizziness and lightheadedness, room spinning prior to falls. Dizziness is worse with bending, squatting. Occurred prior to stroke. Lives with (requires 15/11 care), daughter who cares for them. Hx of L4-L5 herniated disc from years ago, no surgery. Prior Treatments and Tests Previous PT for L shoulder; HHPT following strokes Current Functional Impairments (Reported) Functional Limitations- ADL's Limited household ADLs due to balance, changing blood pressure Functional Limitations- Mobility/Gait Uses AD for ambulation, difficulty ambulating >150 ft due to R hip/thigh pain PT-OP-C Subjective Start: 05/24/23 13:01 Freq: Status: Active Protocol: Document 07/12/23 14:34 SW (Rec: 07/12/23 15:19 [id number]) OP-PT Subjective Patient Comments Patient Comments Pt reports doing well today. Apt with reg doctor, plans to talk with doctor about more PT for shoulder if available. PT-OP-D Balance Start: 05/24/23 13:01 Freq: Status: Active Protocol: Document 05/24/23 13:02 NM (Rec: 05/24/23 14:31 NM [id number]) Balance Tests Crespo Balance Test Crespo Balance Test Score 38/56 Romberg Romberg 10 seconds Single Limb Standing Single Limb- Right 1 second Single Limb- Left 3 seconds Semi-Tandem Standing Semi-Tandem Standing Balance 10 seconds with CGA Tandem Tandem Standing unable position IND, 5 seconds B once in position PT-OP-E Functional Tests Start: 05/24/23 13:01 Freq: Status: Active Protocol: Document 05/24/23 13:02 NM (Rec: 05/24/23 14:31 NM [id number]) Functional Tests Five Times Sit to Stand Test Score 26.10 sec Comments reports no pain in hip, but slow motion with difficulty without UE to rise Timed Up and Go (TUG) Score 26.52 seconds Comments using spc, close SBA for gait Tinetti Balance and Gait Assessment Balance Score 10 Gait Score 6 Composite Score 16/28 PT-OP-F Manual Assessment Start: 05/24/23 13:01 Freq: Status: Active Protocol: Document 05/24/23 13:02 NM (Rec: 05/24/23 14:31 NM [id number]) Manual Assessments Soft Tissue Assessment Soft Tissue Mobility Assessment Demonstrates decreased hip flexion ROM and length, restricted hip extension. Joint Mobility Assessment Joint Mobility Assessment R hip mobility decreased into active and passive hip flexion , lena with IR, ER, ADD. Pt reports catching, worse with R hip flexion overpressure, scouring hip joint. PT-OP-G Mobility & Gait Start: 05/24/23 13:01 Freq: Status: Active Protocol: Document 05/24/23 13:02 NM (Rec: 05/24/23 14:31 NM [id number]) OP Gait Assessment Gait Gait Assistance Required: Standby Assistance,Contact Guard Assist Distance (Feet) 100 Assistive Devices Assistive Device Gait Belt,Straight Cane Gait Deviations General Gait Pattern Antalgic,Decreased Stride Length,Step-to Gait Factors Limiting Gait Function Factors Limiting Gait Function Decreased Activity Tolerance, Decreased Strength,Limited Range of Motion,Pain,Poor Balance Comments Gait Comments Decreased B hip extension. Pain in R hip with ambulation, lena with limb advancement. No pain with step tapping during Crespo PT-OP-H Neuro Start: 05/24/23 13:01 Freq: Status: Active Protocol: Document 05/24/23 13:02 NM (Rec: 05/24/23 14:31 NM [id number]) Sensation Evaluation Comments Summary Comments Did not formally assess due to time constraints; will assess B light touch next session PT-OP-J Posture/Palpation/Skin Start: 05/24/23 13:01 Freq: Status: Active Protocol: Document 05/24/23 13:02 NM (Rec: 05/24/23 14:31 NM [id number]) Posture Evaluation Position Standing Head/C-Spine Posture Forward Head T-Spine Posture Increased Kyphosis L-Spine Posture Increased Lordosis Shoulder Posture (L) Rounded,(R) Rounded,(L) Elevated Pelvis Posture Anteriorly Tilted Weight Distribution Decreased Wt.Bear on (R) Hip Posture (L) Externally Rotated,(R) Externally Rotated Knee Posture (L) Genu Valgus,(R) Genu Valgus Patellar Posture (L) Superior,(R) Superior Palpation Assessment Location R hip Palpation Location R lateral quad, iliopsoas, hip flexors, greater trochanter, joint Palpation Findings Soft Tissue Tightness,Muscle Guarding,Tenderness Palpation Details Tenderness to palpation at R superolateral quad, hip flexors; worse with hip IR/ER. No tenderness at greater trochanter, distal quad, or ASIS. PT-OP-K Range of Motion Start: 05/24/23 13:01 Freq: Status: Active Protocol: Document 05/24/23 13:02 NM (Rec: 05/24/23 14:31 NM [id number]) Hip Goniometric Range of Motion Hip Left Flexion w/Knee Flexed 95 Extension 5 Right Flexion w/Knee Flexed 90 Extension 5 Comments Pain with hip flexion PT-OP-L Special Tests Start: 05/24/23 13:01 Freq: Status: Active Protocol: Document 05/24/23 13:02 NM (Rec: 05/24/23 14:31 NM [id number]) Special Tests Hip Special Tests FADIR Test Results + Comments R hip, pain inside anterior joint Scour Test Test Results + Comments R hip Anterior Labral Test Test Results + Comments R hip PT-OP-M Strength Start: 05/24/23 13:01 Freq: Status: Active Protocol: Document 05/24/23 13:02 NM (Rec: 05/24/23 14:31 NM [id number]) Hip Strength Hip Manual Muscle Testing Right Flexion (L2) 4- Good- Extension (S1) 4- Good- Abduction 4- Good- Adduction 4- Good- External Rotation 4- Good- Internal Rotation 4- Good- Left Flexion (L2) 4- Good- Extension (S1) 4- Good- Abduction 4- Good- Adduction 4- Good- External Rotation 4- Good- Internal Rotation 4- Good- Knee Strength Knee Manual Muscle Testing Right Flexion (S2) 4- Good- Extension (L3) 4- Good- Left Flexion (S2) 4 Good Extension (L3) 4 Good Ankle/Foot Strength Ankle and Foot Manual Muscle Testing Right Dorsiflexion (L4) 4 Good Plantarflexion (S1) 4 Good Left Dorsiflexion (L4) 4 Good Plantarflexion (S1) 4 Good PT-OP-Q Treatments Start: 05/24/23 13:01 Freq: Status: Active Protocol: Document 07/12/23 14:34 SW (Rec: 07/12/23 15:19 SW [id number]) Gym Equipment Shuttle Balance Red Clips Details Red Clips Comments balance, weight shifts Blue Details Blue Clips Comments balance, weight shifts, head turns Therapeutic Exercises Sitting Exercises Sit to stand Sitting Exercise Name STS Equipment Used foam @ mesh chair Reps/Minutes 2 x 10 Comments improved control, weight shift , no UE, speed w cuing, remains safe Standing Exercises HSC Standing Exercise Name butt kicks; added to HEP Side bilateral Resistance 5# ankle weight Equipment Used 2 finger support ea hand on ballet bar Reps/Minutes 1x10 ea Comments cued upright posture pallof press Standing Exercise Name trialed in PT: core, balance Side bilateral Resistance lvl 1 tb (both bands) Reps/Minutes 1x10 ea with brief pause Comments closed SBA; cued no trunk rotation, L more challenged than R hip extension Side bilateral Resistance 5# ankle weight Equipment Used 2 finger support ea hand on ballet bars Reps/Minutes 1x10 ea non alternating Comments cued upright posture, straight leg march Side bilateral Resistance 5# Equipment Used no hand support, hover above ballet bar Reps/Minutes 1x10 ea alternating Comments cued upright posture; improved stability Hip Abd Side bilateral Resistance 5# Equipment Used 2 finger support ea hand on ballet bar Reps/Minutes 1x10 ea Comments cued upright trunk posture; did not have lateral lean Gait Training Gait Activity Spc Description normal gait mechanics Device Used spc in L hand Level of Assistance close SBA with prn CGA Surface unstable: grass, inclines/ declines, gravel, carpet Distance/Duration 500 ft Treatment Focus endurance, spc placement, sequencing, balance Comments Cued for spc placement more in front of pt during gait, no dragging spc. Reinforced L hand to offset RLE. No pain with gait. CGA only for grass and decline, with cueing for slower descent and foot clearance. Improved sequencing after initial cuing, but continues to requires cues for placement prn PT-OP-T Assessment and Plan Start: 05/24/23 13:01 Freq: Status: Active Protocol: Document 07/12/23 14:34 SW (Rec: 07/12/23 15:19 [id number]) Physical Therapy Assessment Goals Four Impairment gait Impairment Difficulty with ambulation > 150 ft with close SBA using spc due to R hip pain Short Term Goal (STG) Pt will ambulate at least 200 ft using LRAD and SBA or better in order to demonstrate improved balance and activity tolerance 06/21/23: 300 ft using spc SBA without reports of R hip pain STG Duration 4 weeks MET Stable Attendant Goal (LTG) Pt will ambulate at least 500 ft using LRAD and SBA or better in order to demonstrate improved balance and activity tolerance LTG Duration 8 weeks MET Three Impairment strength Impairment 5x STS test 26.10 seconds Short Term Goal (STG) Pt will complete 5x STS in less than 22 seconds in order to demonstrate increased BLE strength needed for gait and ADLs. 06/14/23: 38 sec, pain in rectum d/t constipation 06/21/23: 28 sec, 19 secs 2nd attempt STG Duration 4 weeks MET Nursing Home Goal (LTG) Pt will complete 5x STS in less than 18 seconds in order to demonstrate increased BLE strength needed for gait and ADLs. 06/21/23: 19 sec 07/07/23: 21 sec, 14 seconds LTG Duration 8 weeks MET Two Impairment balance Impairment Crespo/56 Short Term Goal (STG) Pt will increase Crespo score to greater than 41 using LRAD in order to demonstrate improved balance and decreased fall risk. 06/21/23: 43/56, no spc used STG Duration 4 weeks MET Nursing Home Goal (LTG) Pt will increase Crespo score to greater than 45 using LRAD in order to demonstrate improved balance and decreased fall risk. 07/07/23: LTG Duration 8 weeks One Impairment balance Impairment TU.52 seconds with spc Short Term Goal (STG) Pt will decrease TUG time to less than 22 seconds using LRAD in order to demonstrate improved balance, gait speed, and safety during ambulation. 06/21/23: 20.5 sec STG Duration 4 weeks MET Nursing Home Goal (LTG) Pt will decrease TUG time to less than 20 seconds using LRAD in order to demonstrate improved balance, gait speed, and safety during ambulation. 07/07/23: 17.6 seconds LTG Duration 8 weeks MET Assessment Summary Assessment Pt tolerated session well, only c/o of discomfort with lateral side stepping, relieved with rest. Continued balance challenge on shuttle recovery this session, pt improved with increased hip strategy to prevent LOB prior to going for TROUBLE LOCATER. Pt reports improvement with LE pain from PT, now feels shoulder is now the bigger source of discomfort. Physical Therapy Plan Frequency and Duration Frequency of Treatment 2x/Week Duration of treatment (weeks) 8 Plan of Care Start Date 05/24/23 Plan of Care End Date 07/22/23 Therapeutic Interventions Therapeutic Interventions Aquatic Therapy,Balance Training,Coordination Training ,Gait Training,Home Exercise Program,Joint Mobilizations, Manual Therapy,Neuromuscular Re-education,Orthotic/ Prosthetic Management,Patient/ Caregiver Education,Self-Care/ Home Management,Sensory Integration,Soft Tissue Mobilization,Taping, Therapeutic Activities, Therapeutic Exercises Modalities Biofeedback,Cold Pack/Ice Massage,Electric Stimulation, Hot Packs,Iontophoresis, Ultrasound,Vasopneumatic Devices Other Referrals/Consults Referrals/Consults Recommended Recommend further imaging of R hip due to reports of catching and reproduction of symptoms into R hip flexion/ ADD/IR Next Visit Focus/Plan Next Note Type Treatment Note Next Visit Plan Next session: pallof press, moving outside ROSS, gait and balance on unsteady surface; shuttle balance; dynamic gait Progress BLE strengthening Future sessions: stair training (has B rails at home) , with and without spc
--- NOTE | 2023-07-14 15:39 | PT.OTN ---
Current Diagnoses Unspecified fall, sequela (07/14/23) Physical Therapy Treatment Note PT-OP-A Visit Information Start: 05/24/23 13:01 Freq: Status: Active Protocol: Document 07/14/23 14:34 NM (Rec: 07/14/23 15:39 NM [id number]) Out-Patient Physical Therapy Visit Information Visit Information Visit Type Discharge Summary Visit Start Time 14:34 Visit Stop Time 15:15 Visit Number 15 Evaluation Information Evaluation Date 05/24/23 Precautions Precautions Fall risk, hx of stroke PT-OP-B Current Condition Start: 05/24/23 13:01 Freq: Status: Active Protocol: Document 05/24/23 13:02 NM (Rec: 05/24/23 14:31 NM [id number]) Current Condition History of Current Condition Onset Date April 2022 Current Complaints poor balance, pain in arms/ legs History of Current Condition Pt presents to clinic with decreased balance in addition to L shoulder pain, R thigh/ hip pain s/p 2 stroked/TIA in April and Dec 2022. Has hx of falls and decreased balance , reporting falls 1x/2-3 months. During his strokes, pt reports that his L side was more affected. He presents to clinic with spc on R side. Reports catching in R hip/ thigh with limb advancement and hip flexion. Prior to 1st stroke, pt was not using an AD for gait. He reports changes in his blood pressure, especially with positional changes but improved since change in medications. Prior to his falls, he often reports that he feels dizzy; he tries to get into a chair to minimize his fall risk. Hx of seizures, reports of dizziness and lightheadedness, room spinning prior to falls. Dizziness is worse with bending, squatting. Occurred prior to stroke. Lives with (requires 15/11 care), daughter who cares for them. Hx of L4-L5 herniated disc from years ago, no surgery. Prior Treatments and Tests Previous PT for L shoulder; HHPT following strokes Current Functional Impairments (Reported) Functional Limitations- ADL's Limited household ADLs due to balance, changing blood pressure Functional Limitations- Mobility/Gait Uses AD for ambulation, difficulty ambulating >150 ft due to R hip/thigh pain PT-OP-C Subjective Start: 05/24/23 13:01 Freq: Status: Active Protocol: Document 07/14/23 14:34 NM (Rec: 03/21/24 15:39 NM [id number]) OP-PT Subjective Patient Comments Patient Comments Pt had appt with doctor. He is wanting to get new referral for shoulder and hip. He is wanting to discharge from PT today. He feels he is doing better. Reports that his R hip is not constantly in pain anymore. PT-OP-D Balance Start: 05/24/23 13:01 Freq: Status: Active Protocol: Document 05/24/23 13:02 NM (Rec: 05/24/23 14:31 NM [id number]) Balance Tests Crespo Balance Test Crespo Balance Test Score 38/56 Romberg Romberg 10 seconds Single Limb Standing Single Limb- Right 1 second Single Limb- Left 3 seconds Semi-Tandem Standing Semi-Tandem Standing Balance 10 seconds with CGA Tandem Tandem Standing unable position IND, 5 seconds B once in position PT-OP-E Functional Tests Start: 05/24/23 13:01 Freq: Status: Active Protocol: Document 05/24/23 13:02 NM (Rec: 05/24/23 14:31 NM [id number]) Functional Tests Five Times Sit to Stand Test Score 26.10 sec Comments reports no pain in hip, but slow motion with difficulty without UE to rise Timed Up and Go (TUG) Score 26.52 seconds Comments using spc, close SBA for gait Tinetti Balance and Gait Assessment Balance Score 10 Gait Score 6 Composite Score 16/28 PT-OP-F Manual Assessment Start: 05/24/23 13:01 Freq: Status: Active Protocol: Document 05/24/23 13:02 NM (Rec: 05/24/23 14:31 NM [id number]) Manual Assessments Soft Tissue Assessment Soft Tissue Mobility Assessment Demonstrates decreased hip flexion ROM and length, restricted hip extension. Joint Mobility Assessment Joint Mobility Assessment R hip mobility decreased into active and passive hip flexion , lena with IR, ER, ADD. Pt reports catching, worse with R hip flexion overpressure, scouring hip joint. PT-OP-G Mobility & Gait Start: 05/24/23 13:01 Freq: Status: Active Protocol: Document 05/24/23 13:02 NM (Rec: 05/24/23 14:31 NM [id number]) OP Gait Assessment Gait Gait Assistance Required: Standby Assistance,Contact Guard Assist Distance (Feet) 100 Assistive Devices Assistive Device Gait Belt,Straight Cane Gait Deviations General Gait Pattern Antalgic,Decreased Stride Length,Step-to Gait Factors Limiting Gait Function Factors Limiting Gait Function Decreased Activity Tolerance, Decreased Strength,Limited Range of Motion,Pain,Poor Balance Comments Gait Comments Decreased B hip extension. Pain in R hip with ambulation, lena with limb advancement. No pain with step tapping during Crespo PT-OP-H Neuro Start: 05/24/23 13:01 Freq: Status: Active Protocol: Document 05/24/23 13:02 NM (Rec: 05/24/23 14:31 NM [id number]) Sensation Evaluation Comments Summary Comments Did not formally assess due to time constraints; will assess B light touch next session PT-OP-J Posture/Palpation/Skin Start: 05/24/23 13:01 Freq: Status: Active Protocol: Document 05/24/23 13:02 NM (Rec: 05/24/23 14:31 NM [id number]) Posture Evaluation Position Standing Head/C-Spine Posture Forward Head T-Spine Posture Increased Kyphosis L-Spine Posture Increased Lordosis Shoulder Posture (L) Rounded,(R) Rounded,(L) Elevated Pelvis Posture Anteriorly Tilted Weight Distribution Decreased Wt.Bear on (R) Hip Posture (L) Externally Rotated,(R) Externally Rotated Knee Posture (L) Genu Valgus,(R) Genu Valgus Patellar Posture (L) Superior,(R) Superior Palpation Assessment Location R hip Palpation Location R lateral quad, iliopsoas, hip flexors, greater trochanter, joint Palpation Findings Soft Tissue Tightness,Muscle Guarding,Tenderness Palpation Details Tenderness to palpation at R superolateral quad, hip flexors; worse with hip IR/ER. No tenderness at greater trochanter, distal quad, or ASIS. PT-OP-K Range of Motion Start: 05/24/23 13:01 Freq: Status: Active Protocol: Document 05/24/23 13:02 NM (Rec: 05/24/23 14:31 NM [id number]) Hip Goniometric Range of Motion Hip Left Flexion w/Knee Flexed 95 Extension 5 Right Flexion w/Knee Flexed 90 Extension 5 Comments Pain with hip flexion PT-OP-L Special Tests Start: 05/24/23 13:01 Freq: Status: Active Protocol: Document 05/24/23 13:02 NM (Rec: 05/24/23 14:31 NM [id number]) Special Tests Hip Special Tests FADIR Test Results + Comments R hip, pain inside anterior joint Scour Test Test Results + Comments R hip Anterior Labral Test Test Results + Comments R hip PT-OP-M Strength Start: 05/24/23 13:01 Freq: Status: Active Protocol: Document 05/24/23 13:02 NM (Rec: 05/24/23 14:31 NM [id number]) Hip Strength Hip Manual Muscle Testing Right Flexion (L2) 4- Good- Extension (S1) 4- Good- Abduction 4- Good- Adduction 4- Good- External Rotation 4- Good- Internal Rotation 4- Good- Left Flexion (L2) 4- Good- Extension (S1) 4- Good- Abduction 4- Good- Adduction 4- Good- External Rotation 4- Good- Internal Rotation 4- Good- Knee Strength Knee Manual Muscle Testing Right Flexion (S2) 4- Good- Extension (L3) 4- Good- Left Flexion (S2) 4 Good Extension (L3) 4 Good Ankle/Foot Strength Ankle and Foot Manual Muscle Testing Right Dorsiflexion (L4) 4 Good Plantarflexion (S1) 4 Good Left Dorsiflexion (L4) 4 Good Plantarflexion (S1) 4 Good PT-OP-Q Treatments Start: 05/24/23 13:01 Freq: Status: Active Protocol: Document 07/14/23 14:34 NM (Rec: 07/14/23 15:39 NM [id number]) Therapeutic Exercises Sitting Exercises LAQ Side bilateral Resistance lvl 3 band Equipment Used plinth Reps/Minutes 2x10 ea hip abduction Sitting Exercise Name seated clam. 1 LE at a time Side bilateral Resistance lvl 2 tb around thighs Equipment Used chair Reps/Minutes 2x12 with 2 hold Comments cue for full ROM, good tiring effort lat thigh, performed x2 at home Sit to stand Sitting Exercise Name STS Resistance lvl 3 band around thigh Equipment Used plinth Reps/Minutes 1. 1x10 with band, 2. 1x10 with 10# tball and band Comments improved control, weight shift , no UE, speed w cuing, remains safe Standing Exercises hip extension Side bilateral Resistance lvl 3 tb around ankles Equipment Used B hand support on counter Reps/Minutes 1x10 ea non alternating Comments cued upright posture, straight leg march Side bilateral Resistance lvl 3 band around thighs Equipment Used no hand support, hover above ballet bar Reps/Minutes 2x12 ea alternating Comments cued upright posture; improved stability Toe raises Standing Exercise Name Toe raises Equipment Used 2 hand support on plinth Reps/Minutes 2x10 Comments improved upright posture and no translation front/back Heel raises Standing Exercise Name heel raises Equipment Used 2 hand support on plinth Reps/Minutes 2x10 Comments improved upright posture, no translation fwd/bwd Hip Abd Side bilateral Resistance lvl 3 tb around ankles Equipment Used B finger support on plinth/ countertop Reps/Minutes 1x12 ea Comments improved upright posture Neuro Re-Education Treatment Balance Activities Crespo Details 48/56 Comments Challenged with standing on 1 foot, tandem, reaching forward with outstretched arm Self-Care/Home Management Treatment Education Patient Education Fall Risk,Home Exercise Program,Safety Caregiver Education HEP: STS with band, LAQ with band, hip abduction and extension with band and hand support, toe and heel raises with hand support, marching with hand support and band Other Education 8 minutes: Reviewed past HEP and educated pt on final HEP for maintenance program. Educated on new Crespo score, findings, and continued safety at home with throw rugs, use of lighted areas, stairs with rails/spc and daughter next to pt to continue to lower fall risk, use of spc. PT also educated pt on difference between OT/PT for pt upcoming referral for hips/shoulder. PT-OP-T Assessment and Plan Start: 05/24/23 13:01 Freq: Status: Active Protocol: Document 07/14/23 14:34 NM (Rec: 07/14/23 15:39 NM [id number]) Physical Therapy Assessment Goals Four Impairment gait Impairment Difficulty with ambulation > 150 ft with close SBA using spc due to R hip pain Short Term Goal (STG) Pt will ambulate at least 200 ft using LRAD and SBA or better in order to demonstrate improved balance and activity tolerance 06/21/23: 300 ft using spc SBA without reports of R hip pain STG Duration 4 weeks MET Half-Way Goal (LTG) Pt will ambulate at least 500 ft using LRAD and SBA or better in order to demonstrate improved balance and activity tolerance LTG Duration 8 weeks MET Three Impairment strength Impairment 5x STS test 26.10 seconds Short Term Goal (STG) Pt will complete 5x STS in less than 22 seconds in order to demonstrate increased BLE strength needed for gait and ADLs. 06/14/23: 38 sec, pain in rectum d/t constipation 06/21/23: 28 sec, 19 secs 2nd attempt STG Duration 4 weeks MET Optical Technician Goal (LTG) Pt will complete 5x STS in less than 18 seconds in order to demonstrate increased BLE strength needed for gait and ADLs. 06/21/23: 19 sec 07/07/23: 21 sec, 14 seconds LTG Duration 8 weeks MET Two Impairment balance Impairment Crespo/56 Short Term Goal (STG) Pt will increase Crespo score to greater than 41 using LRAD in order to demonstrate improved balance and decreased fall risk. 06/21/23: 43/56, no spc used STG Duration 4 weeks MET Optical Technician Goal (LTG) Pt will increase Crespo score to greater than 45 using LRAD in order to demonstrate improved balance and decreased fall risk. 07/14/23: 48/56 LTG Duration 8 weeks MET One Impairment balance Impairment TU.52 seconds with spc Short Term Goal (STG) Pt will decrease TUG time to less than 22 seconds using LRAD in order to demonstrate improved balance, gait speed, and safety during ambulation. 06/21/23: 20.5 sec STG Duration 4 weeks MET Half-Way Goal (LTG) Pt will decrease TUG time to less than 20 seconds using LRAD in order to demonstrate improved balance, gait speed, and safety during ambulation. 07/07/23: 17.6 seconds LTG Duration 8 weeks MET Progress Towards Goals Progress Towards Goals Goals Met Progress Comments All goals met Assessment Summary Assessment Pt tolerated session well. Session emphasis on reviewing past HEP and finalizing HEP maintenance program. Pt planning on returning to PT and/or OT in near future with referrals for shoulder/hip pain. Continued with emphasizing hip and quad strength for stability and improved balance. Pt using bands because does not have ankle weights at home. Progressed to sit<>stand using 10# weight, which pt able to perform with good eccentric control and no LOB. Requires prn cues for upright posture to prevent occasional trunk compensation during hip ext/ abd as fatigues. Pt demos improvements in Crespo score, now 48/56. Pt challenged with single leg stance, tandem, and forward reach. However, he is able to shift his weight, change the ROSS, and perform quicker alternating movements with little trunk sway and no LOB. Time spent reviewing education about decreasing fall risk around home by removing hazards and reviewing safety during activity. Pt verbalizes understanding. Pt has been seen x14 visits since IE in April 2023 for balance and gait abnormalities s/p fall. Pt has made signficant progress with BLE strength and balance since IE. He is now able to perform transfers safely with or without spc, and he no longer demonstrates retropulsion or LOB with ascent or eccentric control from a chair, even with resistance. Pt's Crespo score show significant improvement from 38/56 to 48/ 56, indicating decreased fall risk. Pt's TUG score also decreased with spc, indicating decreased fall risk and improved abilility to safely participate in community ambulation. Although pt still reports L hip pain with ambulation, he reports that he is able to ambulate community distances using spc with fewer instances of pain compared to beginning PT. PT and pt discussed discharging today as pt no longer has any available visits for this episode of care and is seeking referrals for R shoulder and L hip. PT and pt in agreement. PT educated pt on returning to PCP if changes occur in symptoms or worsen, balance or gait. Pt has met all PT goals related to balance and gait. He is safe to discharge to maintenance program for BLE strengthening. Physical Therapy Plan Frequency and Duration Frequency of Treatment 2x/Week Duration of treatment (weeks) 8 Plan of Care Start Date 05/24/23 Plan of Care End Date 07/22/23 Therapeutic Interventions Therapeutic Interventions Aquatic Therapy,Balance Training,Coordination Training ,Gait Training,Home Exercise Program,Joint Mobilizations, Manual Therapy,Neuromuscular Re-education,Orthotic/ Prosthetic Management,Patient/ Caregiver Education,Self-Care/ Home Management,Sensory Integration,Soft Tissue Mobilization,Taping, Therapeutic Activities, Therapeutic Exercises Modalities Biofeedback,Cold Pack/Ice Massage,Electric Stimulation, Hot Packs,Iontophoresis, Ultrasound,Vasopneumatic Devices Other Referrals/Consults Referrals/Consults Recommended Recommend further imaging of R hip due to reports of catching and reproduction of symptoms into R hip flexion/ ADD/IR: 07/14/23 brought letter indicating that 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 Pt without any more available visits, planning to return with referral for different body parts Next Visit Focus/Plan Next Visit Plan Discharge from PT services
== END 2023-07-20 08:28 | disposition home or self-care (01) ==
LOC: PHYS 14:30
PROVIDERS: Family Provider Family Medicine; PCP Family Medicine; Referring Provider Internal Medicine; Visit Provider Internal Medicine
DX: Z86.73 Personal history of transient ischemic attack (TIA), and cerebral infarction without residual deficits (principal); W19.XXXS Unspecified fall, sequela
CPT/HCPCS: 97110; 97112; 97116; 97162; 97535

== ENCOUNTER 2024-01-20 16:53 | Emergency (ER) | payer MEDICARE, OTHER, SELFPAY ==
[2023-01-01 18:43] VITALS: BMI 29.4
[2024-01-20] VITALS (27 sets, daily range): BP systolic 186–238; BP diastolic 86–123; PULSE 84–109; RESP 12–27; TEMP 36.3; O2SAT 95–100; BMI 31.5
--- NOTE | 2024-01-20 17:03 | EKG_ITS ---
[place] [address] [address] [place] [id number] Test Date: 2024-01-20 Pat Name: Zackery Banda Department: [facility] Room: Gender: Male Prompt Care Rn: : 1940 Requested By: Order Number: [id number] Reading MD: Javier Salazar MD Measurements Intervals [place] Rate: 100 P: MI: QRS: -5 QRSD: 86 T: 93 QT: 366 QTc: 472 Interpretive Statements Atrial fibrillation T wave abnormality, consider lateral ischemia Prolonged QT Electronically Signed On 01-23-2024 7:50:39 PDT by Javier Salazar MD
[2024-01-20 17:30] LABS: Add Manual Diff / Slide Review NO; Basophils Absolute Auto 100 /uL (0-100); Basophils Percent Auto 1.1 % (0-2); Eosinophils Absolute Auto 100 /uL (0-450); Eosinophils Percent Auto 0.6 % (2-4); Hematocrit 39.1 % (41-53); Hemoglobin 13.4 g/dL (13.5-17.5); Lymphocytes Absolute Auto 1100 /uL (1100-4500); Lymphocytes Percent Auto 11.5 % (25-40); Mean Corpuscular HGB Conc 34.2 % (30-36); Mean Corpuscular Volume 90.7 fL (80-100); Monocytes Absolute Auto 800 /uL (0-900); Neutrophils Absolute Auto 7500 /uL (1500-7000); Neutrophils Percent Auto 78.8 % (50-75); Platelet Count 218 X10^3/uL (150-400); Red Blood Cell Count 4.32 X10^6/uL (4.5-5.9); Red Cell Distribution Width 13.4 % (11.6-14.8); White Blood Cell Count 9.6 X10^3/uL (4.5-11.0)
[2024-01-20] MEDS: LIDOCAINE 2% (GLYDO) 6 ML GEL TOP (17:31)
[2024-01-20 17:35] LABS: INR 1.3 (0.9-1.3); Prothrombin Time 14.5 SECONDS (9.4-12.5)
[2024-01-20 17:39] LABS: Alanine Aminotransferase 12 IU/L (<50); Albumin Globulin Ratio 1.1 (1.0-2.8); Alkaline Phosphatase 44 U/L (38-126); Aspartate Aminotransferase 22 IU/L (17-59); BUN Creatinine Ratio 8.1 (6-22); Bilirubin Total 0.6 mg/dL (0.2-1.3); Blood Urea Nitrogen 91 mg/dL (9-20); Calcium 8.9 mg/dL (8.4-10.2); Carbon Dioxide 17 mmol/L (22-32); Chloride 102 mmol/L (98-107); Estimated Glomerular Filt Rate 4 mL/min (>60); Globulin 3.5 g/dL (1.7-4.1); Glucose 99 mg/dL (80-110); HEMOLYSIS < 15 (0-50); Lipase 66 U/L (23-300); Potassium 4.6 mmol/L (3.4-5.1); Sodium 135 mmol/L (137-145); Total Protein 7.5 g/dL (6.3-8.2)
[2024-01-20] MEDS: SODIUM CHLORIDE 0.9% 1,000 ML 1000 ML IV (17:47)
[2024-01-20 17:52] LABS: Appearance Urine UA CLEAR; Bilirubin Urine UA NEGATIVE (NEGATIVE); Color Urine UA YELLOW; Glucose Urine UA NEGATIVE (Negative); Ketones Urine UA NEGATIVE (NEGATIVE); Leukocyte Esterase Urine UA 1+ (NEGATIVE); Nitrite Urine UA NEGATIVE (Negative); Occult Blood Urine UA 2+ (Negative); Protein Urine UA NEGATIVE (Negative); Urobilinogen Urine UA 0.2 E.U./dL (0.2); pH Urine UA 5.5 (4.5-8.0)
[2024-01-20 18:02] LABS: Bacteria Urine Moderate (10-30); Culture Indicated Urine Specimen Cultured; RBC Urine 0-1/HPF (0-5/HPF); Squamous Epithelial Cell Urine 0-1 /HPF (0-5/HPF); Urine Volume 10mL (spun); WBC Urine 1-5/HPF (0-5/HPF)
--- NOTE | 2024-01-20 18:22 | ED.GENADULT ---
HPI - General Adult General Chief complaint: Abdominal Pain Stated complaint: abd pain t-3 Time Seen by Provider: 01/20/24 17:59 Source: patient Mode of arrival: Ambulatory Limitations: no limitations History of Present Illness HPI narrative: Patient is a 83-year-old male. Has a history of a CVA. Is on anticoagulation. Takes Keppra for seizures. Also has a history of BPH. Is here for evaluation of several days of lower abdominal discomfort. He initially thought that he pulled a muscle because he was lifting/moving some things at home. He states over the past couple days he has noticed a more difficult time urinating. Having episodes of incontinence. Having to wear a brief because of the incontinence episodes. Also some of the feeling of constipation. No fevers. No chest pain. No shortness of breath. No vomiting. Related Data Home Medications Medication Instructions Recorded Confirmed carvedilol 12.5 mg tablet 12.5 mg PO BID 01/01/23 01/20/24 finasteride 5 mg tablet 5 mg PO DAILY 01/01/23 01/20/24 fluoride (sodium) 1.1 % dental 1 ea PO BEDTIME 01/01/23 01/01/23 paste (Sodium Fluoride 5000 Dry Mouth) furosemide 20 mg tablet 20 mg PO Q OTHER DAY 01/01/23 01/20/24 levetiracetam 250 mg tablet 500 mg PO BID 01/01/23 01/20/24 (Keppra) losartan 25 mg tablet 12.5 mg PO DAILY 01/01/23 01/20/24 prazosin 2 mg capsule 1 mg PO BEDTIME 01/01/23 01/20/24 sertraline 100 mg tablet 150 mg PO DAILY 01/01/23 01/20/24 spironolactone 50 mg tablet 50 mg PO DAILY 01/01/23 01/20/24 aspirin 81 mg tablet,delayed 81 mg PO DAILY 01/20/24 01/20/24 release rivaroxaban 2.5 mg BID 01/20/24 01/20/24 Previous Rx's Medication Instructions Recorded atorvastatin 80 mg tablet 80 mg PO BEDTIME #90 tabs 01/02/23 Allergies Allergy/AdvReac Type Severity Reaction Status Date / Time Penicillins [PENICILLINS] Allergy Intermediate Verified 01/01/23 16:03 Review of Systems Review of Systems ROS Unobtainable: All systems reviewed & are unremarkable except as noted in HPI and below Patient History Surgical History History of oral surgery Family History Father Heart disease Essential hypertension Grandmother Diabetes mellitus Social History household members: spouse and children Smoking Status: Former smoker alcohol intake: current Smoking Status: Former smoker tobacco type: cigarettes alcohol intake frequency: 0-2 drinks per day Alcohol type: wine and hard liquor Substance Use Type: does not use Exam Initial Vital Signs Initial Vital Signs: Vital Signs Temperature 97.3 F L 01/20/24 16:59 Pulse Rate 91 H 01/20/24 16:59 Respiratory Rate 20 01/20/24 16:59 Blood Pressure 234/123 H 01/20/24 16:59 Pulse Oximetry 98 01/20/24 16:59 Oxygen Delivery Method Room Air 01/20/24 16:59 Const General: cooperative and No ill appearing HENMT Head: normal to inspection and normocephalic Resp Effort & Inspection: normal respiratory effort Auscultation: clear to auscultation bilaterally Cardio Rate: regular rate Rhythm: regular rhythm GI Inspection: distended Palpation: soft, No firm, No guarding and tender (Lower abdomen) External: normal external exam Scrotum: scrotum normal Testes: normal Other: Horowitz catheter in place Skin General: no rashes or lesions noted Neuro General: patient alert, patient awake and moves all extremities Extrem General: capillary refill normal Course Orders Ordered: ED Orders 01/20/24 17:03 EKG-12 Lead Stat 01/20/24 17:19 Complete Blood Count AUTO DIFF Stat Comprehensive Metabolic Panel Stat Lipase Stat Prothrombin Time INR Stat 01/20/24 17:43 Creatinine Urine Random Stat Sodium Urine Random Stat Urinalysis and Microscopic Stat Urine Culture Stat 01/20/24 18:32 BMP [Basic Metabolic Panel] Stat 01/20/24 21:10 BMP [Basic Metabolic Panel] Stat Sodium Chloride (Normal Saline 0.9%) 1,000 mls @ 125 mls/hr IV CONT KATE Last Infusion: 01/21/24 01:21 Dose: 0 mls/hr Documented By: Admin: 01/20/24 21:47 Dose: 125 mls/hr Documented By: ZENA Acetaminophen (Ofirmev) 1,000 mg in 100 mls @ 400 mls/hr IV NOW ONE Stop: 01/21/24 01:27 Last Infusion: 01/21/24 01:22 Dose: 0 mls/hr Documented By: Admin: 01/21/24 01:21 Dose: 400 mls/hr Documented By: ZENA Ondansetron HCl (Ondansetron 4 Mg/2 Ml Inj) 4 mg IV NOW PRN PRN Reason: Nausea And Vomiting Discontinued Medications Hydralazine HCl (Hydralazine 20 Mg/Ml Vial) 10 mg IV NOW ONE Stop: 01/20/24 22:39 Last Admin: 01/20/24 22:45 Dose: 10 mg Documented By: ZENA Sodium Chloride (Normal Saline 0.9%) 1,000 mls @ 1,000 mls/hr IV BOLUS ONE Stop: 01/20/24 18:41 Last Infusion: 01/20/24 18:50 Dose: Infused Documented By: Admin: 01/20/24 17:47 Dose: 1,000 mls/hr Documented By: GIOVANI Sodium Chloride (Normal Saline 0.9%) 1,000 mls @ 500 mls/hr IV BOLUS ONE Stop: 01/20/24 21:11 Last Infusion: 01/20/24 21:34 Dose: Infused Documented By: Admin: 01/20/24 19:40 Dose: 500 mls/hr Documented By: ZENA Lidocaine HCl (Lidocaine 2% (Glydo) 6 Ml Gel) 6 ml TOP NOW ONE Stop: 01/20/24 17:26 Last Admin: 01/20/24 17:31 Dose: 6 ml Documented By: GIOVANI Vital Signs Vital signs: Vital Signs - 8 hr 01/20/24 17:30 01/20/24 17:31 01/20/24 17:31 Pulse Rate 101 H 88 Respiratory Rate 22 23 Blood Pressure 214/99 H Pulse Oximetry 99 100 Oxygen Delivery Method 01/20/24 17:50 01/20/24 17:50 01/20/24 18:00 Pulse Rate 102 H 104 H Respiratory Rate Blood Pressure 186/86 H Pulse Oximetry 99 99 Oxygen Delivery Method 01/20/24 18:01 01/20/24 18:01 01/20/24 18:30 Pulse Rate 97 H Respiratory Rate Blood Pressure 195/95 H 219/102 H Pulse Oximetry 99 Oxygen Delivery Method 01/20/24 18:30 01/20/24 18:38 01/20/24 18:38 Pulse Rate 96 H 92 H Respiratory Rate Blood Pressure 204/91 H Pulse Oximetry 95 97 Oxygen Delivery Method Room Air 01/20/24 19:00 01/20/24 19:00 01/20/24 19:30 Pulse Rate 105 H Respiratory Rate 19 Blood Pressure 214/105 H 212/105 H Pulse Oximetry 96 Oxygen Delivery Method 01/20/24 19:30 01/20/24 20:00 01/20/24 20:01 Pulse Rate 98 H 96 H Respiratory Rate 22 22 Blood Pressure 225/102 H Pulse Oximetry 98 98 Oxygen Delivery Method 01/20/24 20:01 01/20/24 20:30 01/20/24 20:31 Pulse Rate 93 H 85 Respiratory Rate 27 H Blood Pressure 208/95 H Pulse Oximetry 98 98 Oxygen Delivery Method 01/20/24 20:31 01/20/24 21:00 01/20/24 21:00 Pulse Rate 85 98 H Respiratory Rate Blood Pressure 201/108 H Pulse Oximetry 98 98 Oxygen Delivery Method 01/20/24 21:30 01/20/24 21:30 01/20/24 22:00 Pulse Rate 104 H 88 Respiratory Rate 20 19 Blood Pressure 206/97 H Pulse Oximetry 98 99 Oxygen Delivery Method 01/20/24 22:01 01/20/24 22:01 01/20/24 22:30 Pulse Rate 90 84 Respiratory Rate 20 Blood Pressure 198/89 H Pulse Oximetry 99 98 Oxygen Delivery Method 01/20/24 22:31 01/20/24 22:31 01/20/24 22:45 Pulse Rate 84 Respiratory Rate Blood Pressure 222/95 H 222/95 H Pulse Oximetry 98 Oxygen Delivery Method 01/20/24 23:00 01/20/24 23:01 01/20/24 23:01 Pulse Rate 103 H 104 H Respiratory Rate 12 Blood Pressure 193/93 H Pulse Oximetry 98 98 Oxygen Delivery Method 01/20/24 23:30 01/20/24 23:30 01/20/24 23:47 Pulse Rate 109 H Respiratory Rate 19 Blood Pressure 204/95 H 204/95 H Pulse Oximetry 98 Oxygen Delivery Method 01/21/24 00:00 01/21/24 00:01 01/21/24 00:01 Pulse Rate 109 H 107 H Respiratory Rate 20 25 H Blood Pressure 211/94 H Pulse Oximetry 98 99 Oxygen Delivery Method 01/21/24 00:30 01/21/24 00:31 01/21/24 00:31 Pulse Rate 116 H 107 H Respiratory Rate 23 23 Blood Pressure 211/97 H Pulse Oximetry 100 100 Oxygen Delivery Method 01/21/24 01:00 01/21/24 01:01 01/21/24 01:01 Pulse Rate 109 H 100 H Respiratory Rate 19 24 Blood Pressure 217/93 H Pulse Oximetry 100 98 Oxygen Delivery Method Medical Decision Making Lab Data Lab results reviewed: Yes I reviewed the patient's lab results. 01/20/24 17:19 01/20/24 21:10 Labs: Lab Results 01/20/24 01/20/24 01/20/24 Range/Units 17:19 17:43 18:32 WBC 9.6 (4.5-11.0) X10^3/uL RBC 4.32 L (4.5-5.9) X10^6/uL Hgb 13.4 L (13.5-17.5) g/dL Hct 39.1 L (41-53) % MCV 90.7 (80-100) fL MCH 31.0 (26-34) PG MCHC 34.2 (30-36) % RDW 13.4 (11.6-14.8) % Plt Count 218 (150-400) X10^3/uL Neut % (Auto) 78.8 H (50-75) % Lymph % (Auto) 11.5 L (25-40) % [place] % (Auto) 8.0 (3-14) % Eos % (Auto) 0.6 L (2-4) % Baso % (Auto) 1.1 (0-2) % Neut # (Auto) 7500 H (8153-1664) /uL Lymph # (Auto) 1100 (2907-6514) /uL [place] # (Auto) 800 (0-900) /uL Eos # (Auto) 100 (0-450) /uL Baso # (Auto) 100 (0-100) /uL PT 14.5 H (9.4-12.5) SECONDS INR 1.3 (0.9-1.3) Sodium 135 L 134 L (137-145) mmol/L Potassium 4.6 4.8 (3.4-5.1) mmol/L Chloride 102 105 (98-107) mmol/L Carbon Dioxide 17 L 17 L (22-32) mmol/L BUN 91 H 89 H (9-20) mg/dL Creatinine 11.24 H* 9.84 H* (0.66-1.25) mg/dL Estimated GFR 4 L 5 L (>60) mL/min BUN/Creatinine Ratio 8.1 9.0 (6-22) Glucose 99 91 (80-110) mg/dL Calcium 8.9 8.3 L (8.4-10.2) mg/dL Total Bilirubin 0.6 (0.2-1.3) mg/dL AST 22 (17-59) IU/L ALT 12 (<50) IU/L Alkaline Phosphatase 44 (38-126) U/L Total Protein 7.5 (6.3-8.2) g/dL Albumin 4.0 (3.5-5.0) g/dL Globulin 3.5 (1.7-4.1) g/dL Albumin/Globulin Ratio 1.1 (1.0-2.8) Lipase 66 (23-300) U/L Urine Color Yellow Urine Appearance Clear Urine pH 5.5 (4.5-8.0) Ur Specific [place] 1.010 (1.000-1.035) Urine Protein Negative (Negative) Urine Glucose (UA) Negative (Negative) g/dL Urine Ketones Negative (NEGATIVE) Urine Occult Blood 2+ H (Negative) Urine Nitrate Negative (Negative) Urine Bilirubin Negative (NEGATIVE) Urine Urobilinogen 0.2 (0.2) E.U./dL Ur Leukocyte Esterase 1+ H (NEGATIVE) Urine RBC 0-1/hpf (0-5/HPF) Urine WBC 1-5/hpf (0-5/HPF) Ur Squamous Epith Cells 0-1 /hpf (0-5/HPF) Urine Bacteria Moderate (10-30) H (None) Ur Culture Indicated? Specimen cultured Vol Urine Centrifuged 10ml (spun) Ur Random Sodium 39 (30-90) mmol/L Urine Creatinine 82.90 mg/dL 01/20/24 Range/Units 21:10 WBC (4.5-11.0) X10^3/uL RBC (4.5-5.9) X10^6/uL Hgb (13.5-17.5) g/dL Hct (41-53) % MCV (80-100) fL MCH (26-34) PG MCHC (30-36) % RDW (11.6-14.8) % Plt Count (150-400) X10^3/uL Neut % (Auto) (50-75) % Lymph % (Auto) (25-40) % [place] % (Auto) (3-14) % Eos % (Auto) (2-4) % Baso % (Auto) (0-2) % Neut # (Auto) (9093-4085) /uL Lymph # (Auto) (5592-6612) /uL [place] # (Auto) (0-900) /uL Eos # (Auto) (0-450) /uL Baso # (Auto) (0-100) /uL PT (9.4-12.5) SECONDS INR (0.9-1.3) Sodium 136 L (137-145) mmol/L Potassium 4.5 (3.4-5.1) mmol/L Chloride 108 H (98-107) mmol/L Carbon Dioxide 19 L (22-32) mmol/L BUN 82 H (9-20) mg/dL Creatinine 8.58 H* (0.66-1.25) mg/dL Estimated GFR 6 L (>60) mL/min BUN/Creatinine Ratio 9.6 (6-22) Glucose 84 (80-110) mg/dL Calcium 8.4 (8.4-10.2) mg/dL Total Bilirubin (0.2-1.3) mg/dL AST (17-59) IU/L ALT (<50) IU/L Alkaline Phosphatase (38-126) U/L Total Protein (6.3-8.2) g/dL Albumin (3.5-5.0) g/dL Globulin (1.7-4.1) g/dL Albumin/Globulin Ratio (1.0-2.8) Lipase (23-300) U/L Urine Color Urine Appearance Urine pH (4.5-8.0) Ur Specific [place] (1.000-1.035) Urine Protein (Negative) Urine Glucose (UA) (Negative) g/dL Urine Ketones (NEGATIVE) Urine Occult Blood (Negative) Urine Nitrate (Negative) Urine Bilirubin (NEGATIVE) Urine Urobilinogen (0.2) E.U./dL Ur Leukocyte Esterase (NEGATIVE) Urine RBC (0-5/HPF) Urine WBC (0-5/HPF) Ur Squamous Epith Cells (0-5/HPF) Urine Bacteria (None) Ur Culture Indicated? Vol Urine Centrifuged Ur Random Sodium (30-90) mmol/L Urine Creatinine mg/dL ECG Data Attestation: I personally reviewed and interpreted this ECG as follows: Interpretation: Atrial fibrillation Ventricular rate [address] T wave changes MDM Narrative Medical decision making narrative: Prior to my evaluation the patient did have a Horowitz catheter placed by nursing staff. It has resulted in approximately 2.5 L. Patient reports improvement of his abdominal discomfort. Initial creatinine significantly elevated at 11.24. Labs from 1 year ago shows that baseline creatinine is in the 1.0-1.5 range with most values in the 1.2 range. His potassium is unremarkable. Somewhat acidotic with a CO2 of 17. After fluids and a period of time allowing the bladder to decompress repeat labs show improvement of his creatinine. Potassium continues to remain unremarkable. Patient is producing urine. FENa calculates as a potential intrinsic pathology however there is obvious an obstructive pathology as well. I did discuss the case with on-call nephrology at [facility] who recommended no bicarb drip. Agrees that the patient does not need emergent dialysis however transfer to a facility that has nephrology capability is reasonable given his creatinine level. I do think that the patient would benefit from transfer given our lack of Nephrology here at this facility. I did discuss the case with Dr. Deluca hospitalist at [facility] and never to accept the patient in transfer. Patient has been significantly hypertensive with a systolic blood pressures in the 190s to 210 range. He was given a dose of hydralazine. Patient is stable for transport. Discharge Plan Departure Patient Disposition: [facility] Clinical Impression: Acute renal failure, Acute urinary retention, Hypertension Prescriptions: No Action aspirin 81 mg tablet,delayed release (DR/EC) 81 mg PO DAILY rivaroxaban 2.5 mg 2.5 mg BID carvedilol 12.5 mg Tablet 12.5 mg PO BID Rx Instructions: must administer with a meal/food sertraline 100 mg Tablet 150 mg PO DAILY Rx Instructions: one and one half tab q day levetiracetam [Keppra] 250 mg Tablet 500 mg PO BID losartan 25 mg Tablet 12.5 mg PO DAILY Rx Instructions: one half tab daily furosemide 20 mg Tablet 20 mg PO Q OTHER DAY Rx Instructions: finasteride 5 mg Tablet 5 mg PO DAILY prazosin 2 mg Capsule 1 mg PO BEDTIME spironolactone 50 mg Tablet 50 mg PO DAILY fluoride (sodium) [Sodium Fluoride 5000 Dry Mouth] 1.1 % Paste 1 ea PO BEDTIME atorvastatin 80 mg tablet 80 mg PO BEDTIME Qty: 90 0RF Referrals: Leydi Josue DO [Primary Care Provider] -
[2024-01-20 18:59] LABS: Blood Urea Nitrogen 89 mg/dL (9-20); Calcium 8.3 mg/dL (8.4-10.2); Carbon Dioxide 17 mmol/L (22-32); Chloride 105 mmol/L (98-107); Estimated Glomerular Filt Rate 5 mL/min (>60); Glucose 91 mg/dL (80-110); HEMOLYSIS 24 (0-50); Potassium 4.8 mmol/L (3.4-5.1); Sodium 134 mmol/L (137-145)
[2024-01-20 19:01] LABS: Sodium Urine Random 39 mmol/L (30-90)
[2024-01-20] MEDS: SODIUM CHLORIDE 0.9% 1,000 ML 500 ML IV (19:40)
--- NOTE | 2024-01-20 19:43 | PC.NURSE ---
pt resting quietly family at bedside, family states pt has not had his bp medication in a couple of days so that is probably why his bp is elevated, pt has no c/o at this time
[2024-01-20 21:30] LABS: BUN Creatinine Ratio 9.6 (6-22); Blood Urea Nitrogen 82 mg/dL (9-20); Calcium 8.4 mg/dL (8.4-10.2); Carbon Dioxide 19 mmol/L (22-32); Chloride 108 mmol/L (98-107); Estimated Glomerular Filt Rate 6 mL/min (>60); Glucose 84 mg/dL (80-110); HEMOLYSIS 17 (0-50); Potassium 4.5 mmol/L (3.4-5.1); Sodium 136 mmol/L (137-145)
[2024-01-20] MEDS: SODIUM CHLORIDE 0.9% 1,000 ML 125 ML IV (21:47)
[2024-01-20] MEDS: HYDRALAZINE 20 MG/ML VIAL 10 MG IV (22:45)
--- NOTE | 2024-01-20 23:04 | PC.NURSE ---
Addendum entered by Bisi Gray CNA 01/20/24 23:33: pt going to [facility]. pt removed from all waitlists at 2332 Original Note: pt has dx of acute renal failure and need to be transferred for higher level of care to a facility with nephrology. I talked to the following facilities. [facility] -> Spoke with Bre at 214 and she said that they won't have any beds tonight but possibly in the morning after some discharges occur. Facesheet was faxed at [phone] and pt was put on the waitlist at this time. [place] -> Spoke with Xin at 2200 and she said that they will not have any beds available tonight or tomorrow and to call back if we need to put the pt on the waitlist. [facility] -> Spoke with Patricia at 220 and she said that they most likely will have availability tonight and will call back with the hospitalist. Facesheet was faxed at [phone]. Waiting for call back with hospitalist at this time. -> Spoke with Ld at 2213 and she said that she would have to call me back to see if she has any availability at their facilities before putting the pt on a waitlist. waiting for call back at this time. [facility] -> Spoke with Ginny at 221 and she said that they do have availability and will call back with the hospitalist to start the transfer process. Pt was accepted by Dr. Thibodeaux at [facility] at 2235. Called back [facility] to let them know pt was accepted at another facility [facility] and Dr. Fernandez notified
--- NOTE | 2024-01-20 23:44 | PC.NURSE ---
notified daughter of pt's transfer to [facility] Rm [id number]
--- NOTE | 2024-01-20 23:45 | PC.NURSE ---
Daughter Skylar Banda and [place] [phone]
[2024-01-21] VITALS: PULSE 109; RESP 20; O2SAT 98
[2024-01-21 00:01] VITALS: BP 211/94; PULSE 107; RESP 25; O2SAT 99
[2024-01-21 00:30] VITALS: PULSE 116; RESP 23; O2SAT 100
[2024-01-21 00:31] VITALS: BP 211/97; PULSE 107; RESP 23; O2SAT 100
[2024-01-21 01:00] VITALS: PULSE 109; RESP 19; O2SAT 100
[2024-01-21 01:01] VITALS: BP 217/93; PULSE 100; RESP 24; O2SAT 98
[2024-01-21] MEDS: ACETAMINOPHEN IV 1,000 MG/100 ML VIAL 400 MG IV (01:21)
--- NOTE | 2024-01-21 01:22 | PC.NURSE ---
fluids continued upon transfer
== END 2024-01-21 01:35 | disposition short-term general hospital (02) ==
PROVIDERS: Emergency Medicine; Emergency Provider Emergency Medicine; Family Provider Family Medicine; PCP Family Medicine
DX: N17.9 Acute kidney failure, unspecified (principal); R33.8 Other retention of urine; I10 Essential (primary) hypertension; Z79.01 Long term (current) use of anticoagulants; Z86.73 Personal history of transient ischemic attack (TIA), and cerebral infarction without residual deficits; Z87.448 Personal history of other diseases of urinary system
CPT/HCPCS: 36415; 51798; 80048; 80053; 81001; 82570; 83690; 84300; 85025; 85610; 87086; 93005; 93010; 96361; 96374; 96375; 99284; J0136; J0360

== ENCOUNTER 2024-02-05 13:04 | Inpatient (IN) | payer MEDICARE, OTHER, SELFPAY ==
[2023-01-01 18:43] VITALS: BMI 29.4
[2024-02-05] VITALS (15 sets, daily range): BP systolic 101–218; BP diastolic 46–95; PULSE 72–103; RESP 14–30; TEMP 35.9–37.4; O2SAT 92–100; BMI 27.3
--- NOTE | 2024-02-05 | DI.ECHO.S_ITS ---
[facility] : : [address] : : [place] : : [id number] : : Phone: [phone] Echocardiogram Report + + :Name: BRITT FREITAS Study Date: 02/06/2024 Height: 68 in : :[facility] ReadingLocation: Weight: 180 lb : : Gender: Male BSA: 2.0 m2 : :: 1940 Age: 83 yrs BP: 128/65 mmHg: :Reason For Study: SYNCOPE : :Ordering Physician: WOODROW, : :GRADY Performed By: Candy Storey : :Referring: GRADY TROY : + + Interpretation Summary The left ventricular cavity is small. Mild concentric left ventricular hypertrophy with ejection fraction 65-70%. Borderline basal inferior hypokinesis. Mild aortic regurgitation. Comparison is made with the echocardiogram of 01/02/2023, no significant change. Procedure: A two-dimensional transthoracic echocardiogram with color flow and Doppler was performed. The study quality was technically adequate. Comparison is made with the echocardiogram of 01/02/2023. The heart rate ranged between 66-86 bpm during the study. The patient had occasional PVCs during the exam. Left Ventricle: The left ventricle is normal in size. The left ventricular cavity is small. There is mild concentric left ventricular hypertrophy. The ejection fraction is estimated to be 65-70%. There is basal inferior wall mild hypokinesis. There are no other obvious focal wall motion abnormalities. Diastolic parameters suggest a relaxation abnormality of the left ventricle, consistent with probable normal filling pressures. Right Ventricle: The right ventricle is normal in size and function. Atria: The left atrial size is normal. Right atrial size is normal. There is no Doppler evidence for an interatrial shunt. Mitral Valve: The mitral valve is normal in structure and function. There is trace mitral regurgitation. Aortic Valve: The aortic valve is trileaflet. The aortic valve opens well. There is no aortic valve stenosis. There is mild aortic regurgitation. Tricuspid Valve: The tricuspid valve is normal in structure and function. No tricuspid regurgitation. Pulmonic Valve: The pulmonic valve is not well visualized. There is no pulmonic valvular regurgitation. Great Vessels: The aortic root is normal size. The dimensions of the ascending aorta are normal. The IVC is of normal diameter and collapses greater than 50% with a sniff. This suggests a low right atrial pressure of 3 mm Hg. Pericardium/ Pleura There is no pericardial effusion. There is no pleural effusion. MMode/2D Measurements & Calculations LVIDd: 5.1 cm LVOT diam: 2.0 cm LVIDs: 3.3 cm Ao root diam: 3.9 cm FS: 33.9 % asc Aorta Diam: 2.9 cm EPSS: 0.63 cm Ao Arch Diam (Prox Trans): 2.2 cm IVSd: 1.1 cm LVPWd: 0.93 cm LV katz. diameter/BSA (cm/m^2): 2.6 LV sys. diameter/BSA (cm/m^2): 1.7 LA A2 area: 18.9 cm2 RA long axis: 4.2 cm LA A4 area: 15.0 cm2 RA area: 13.0 cm2 LA length (vol): 4.6 cm RA vol: 34.0 ml LA vol: 52.7 ml RA : 17.4 ml/m2 LA vol index: 27.0 ml/m2 IVC diam: 0.76 cm RVD1 (basal): 3.2 cm RVD2 (mid): 2.4 cm TAPSE: 2.0 cm Doppler Measurements & Calculations Ao V2 max: 120.6 cm/sec LVOT Max Ede: 101.7 cm/sec Ao V2 mean: 93.9 cm/sec LV V1 max P.2 mmHg Ao max P.9 mmHg LV V1 VTI: 15.8 cm Ao mean P.8 mmHg MIKE(I,D): 2.3 cm2 Ao V2 VTI: 20.6 cm MIKE(V,D): 2.5 cm2 sev ratio: 0.77 MIKE indexed to BSA (cm^2/m^2): 1.2 AI P1/2t: 985.7 msec AI dec slope: 118.2 cm/sec2 MV E max ede: 51.9 cm/sec PA V2 max: 113.2 cm/sec MV A max ede: 73.7 cm/sec PA V2 mean: 81.4 cm/sec MV E/A: 0.70 PA mean P.9 mmHg Med Peak E' Ede: 3.6 cm/sec PA pr(Accel): 20.8 mmHg E/E' med: 14.3 Lat Peak E' Ede: 6.4 cm/sec E/E' lat: 8.1 E/e' average: 11.2 MV dec time: 0.22 sec SV(LVOT): 47.2 ml Electronically signed by: Mk Garcia on Reading Physician:02/06/2024 04:03 PM
--- NOTE | 2024-02-05 13:13 | EKG_ITS ---
[address] [address] [address] [address] Test Date: 2024-02-05 Pat Name: Zackery Banda Department: Room: Gender: Male Garnetter: : 1940 Requested By: Order Number: [id number] Reading MD: Bi Carpenter Measurements Intervals [place] Rate: 88 P: [place]: QRS: 5 QRSD: 80 T: 64 QT: 376 QTc: 454 Interpretive Statements Atrial fibrillation Nonspecific T wave abnormality Electronically Signed On 02-08-2024 17:39:01 PDT by Bi Carpenter
--- NOTE | 2024-02-05 13:14 | EKG_ITS ---
[id number] [address] Test Date: 2024-02-05 Pat Name: Zackery Banda Department: Room: 220 Gender: Male Autism Specialist: KELLY : 1940 Requested By: Order Number: [id number] Reading MD: Bi Carpenter Measurements Intervals [place] Rate: 76 P: [place]: QRS: -2 QRSD: 84 T: 67 QT: 366 QTc: 411 Interpretive Statements Atrial fibrillation Nonspecific T wave abnormality Electronically Signed On 02-08-2024 17:39:06 PDT by Bi Carpenter
--- NOTE | 2024-02-05 13:16 | DI.RAD.S_ITS ---
PROCEDURE: XR CHEST 1V INDICATIONS: chest pain TECHNIQUE: One view of the chest was acquired. COMPARISON: [facility], CR, XR CHEST 1V, 12/20/2022, 16:06. FINDINGS: Surgical changes and devices: None. Lungs and pleura: Lungs are clear. No pleural effusions or pneumothorax. Mediastinum: Mild cardiomegaly, accentuated by supine positioning. No central vascular congestion. Normal mediastinal contour. Bones and chest wall: No suspicious bony lesions. Overlying soft tissues appear unremarkable. IMPRESSION: No acute cardiopulmonary abnormality is seen. Dictated by: Billie Nuñez M.D. on 02/05/2024 at 13:51 Approved by: Billie Nuñez M.D. on 02/05/2024 at 13:52
--- NOTE | 2024-02-05 13:26 | ED_ITS ---
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 He states that he was at home when he was bending down to spanish moss picker a plate that he dropped, states that as he stood up he felt lightheaded dizzy and fell and passed out. According to the patient he is unsure if he hit his head. Currently not complaining of any pain or symptoms. States that he has been taking his medications as prescribed. According to medics who arrived on scene patient was positive for orthostatics. Was not given any fluids at that time. Here patient is without any focal deficits, neurovascularly intact. Related Data Home Medications Medication Instructions Recorded Confirmed carvedilol 12.5 mg tablet 12.5 mg PO BID 01/01/23 01/20/24 finasteride 5 mg tablet 5 mg PO DAILY 01/01/23 01/20/24 fluoride (sodium) 1.1 % dental 1 ea PO BEDTIME 01/01/23 01/01/23 paste (Sodium Fluoride 5000 Dry Mouth) furosemide 20 mg tablet 20 mg PO Q OTHER DAY 01/01/23 01/20/24 levetiracetam 250 mg tablet 500 mg PO BID 01/01/23 01/20/24 (Keppra) losartan 25 mg tablet 12.5 mg PO DAILY 01/01/23 01/20/24 prazosin 2 mg capsule 1 mg PO BEDTIME 01/01/23 01/20/24 sertraline 100 mg tablet 150 mg PO DAILY 01/01/23 01/20/24 spironolactone 50 mg tablet 50 mg PO DAILY 01/01/23 01/20/24 aspirin 81 mg tablet,delayed 81 mg PO DAILY 01/20/24 01/20/24 release rivaroxaban 2.5 mg BID 01/20/24 01/20/24 Previous Rx's Medication Instructions Recorded atorvastatin 80 mg tablet 80 mg PO BEDTIME #90 tabs 01/02/23 Allergies Allergy/AdvReac Type Severity Reaction Status Date / Time Penicillins [PENICILLINS] Allergy Intermediate Verified 01/01/23 16:03 Review of Systems Review of Systems Narrative: General: Denies fever, chills, weight loss HEENT: Denies headache, eye drainage, eye irritation, head trauma, sore throat, voice change Cardiovascular: Denies any chest pain, palpitations, shortness of breath, tachycardia Respiratory: Denies any shortness of breath, cough, wheeze, stridor GI/: Denies any abdominal pain, nausea, vomiting, diarrhea, bright red blood per rectum, melanotic stools, urinary frequency, urinary retention, dysuria, hematuria MSK: Denies any joint pain, muscle pains, swelling Skin: Denies any rashes, lesions, discoloration Neuro: Positive syncope, lightheadedness, dizziness Psych: Denies SI/HI Patient History Surgical History History of oral surgery Family History Father Heart disease Essential hypertension Grandmother Diabetes mellitus Social History household members: spouse and children Smoking Status: Former smoker alcohol intake: current Smoking Status: Former smoker tobacco type: cigarettes alcohol intake frequency: 0-2 drinks per day Alcohol type: wine and hard liquor Substance Use Type: does not use Exam Narrative Exam Narrative: General: Cooperative, comfortable, well-developed, not in acute distress HEENT: Normocephalic,PERRLA, normal sclera, eyelids normal, patient with tenderness to palpation of the left forehead with swelling but no overlying palpable step-off Neck: Active full range of motion, atraumatic Chest: Normal to inspection, negative crepitus, no overlying erythema ecchymosis Respiratory: Normal respiratory effort, not in acute respiratory distress, clear to auscultation bilaterally negative cough, wheeze, tachypnea, rhonchi, rales Cardiology: Regular rate rhythm negative gallop, murmur, rubs GI/: Normal to inspection, soft, nonrigid, no tenderness to palpation, exam deferred MSK: Full range of active range of motion of all 4 extremities, atraumatic Skin: No rashes lesions noted Neuro: Alert awake oriented x3, moves all 4 extremities spontaneously, cranial nerves intact, able to answer all questions appropriately follows commands appropriately, NIH of 0 focal deficits Psych: Cooperative, negative suicidal or homicidal ideations Initial Vital Signs Initial Vital Signs: Vital Signs Pulse Rate 98 H 02/05/24 13:09 Pulse Oximetry 98 02/05/24 13:09 Course Orders Ordered: ED Orders 02/05/24 13:12 Complete Blood Count AUTO DIFF Stat Comprehensive Metabolic Panel Stat Lipase Stat Magnesium Stat NT-proBNP (BNP-Adult 18+) Stat PTT Partial Thromboplastin Jose Antonio Stat Prothrombin Time INR Stat Troponin & CK Cardiac Panel Stat 02/05/24 13:16 XR chest 1V Stat EKG-12 Lead Stat 02/05/24 13:30 CT cervical spine wo con Stat CT head/brain wo con Stat 02/05/24 13:31 CT angio head and neck Stat Discontinued Medications Aspirin (Aspirin 81 Mg Chew Tab) 324 mg PO NOW ONE Stop: 02/05/24 13:17 Last Admin: 02/05/24 13:49 Dose: Not Given Documented By: MPO Vital Signs Vital signs: Vital Signs - 8 hr 02/05/24 13:09 02/05/24 13:11 02/05/24 13:11 Temperature Pulse Rate 98 H 86 Respiratory Rate 21 Blood Pressure 194/87 H Pulse Oximetry 98 98 Oxygen Delivery Method 02/05/24 13:16 02/05/24 13:16 02/05/24 13:17 Temperature 97.7 F Pulse Rate 87 103 H Respiratory Rate 25 H 20 Blood Pressure 191/89 H 194/87 H Pulse Oximetry 99 98 Oxygen Delivery Method Room Air 02/05/24 13:30 02/05/24 13:30 02/05/24 13:49 Temperature Pulse Rate 83 Respiratory Rate 30 H Blood Pressure 218/93 H 202/95 H Pulse Oximetry 98 Oxygen Delivery Method 02/05/24 13:49 02/05/24 13:55 02/05/24 13:55 Temperature Pulse Rate 80 84 Respiratory Rate 26 H 23 Blood Pressure 186/86 H Pulse Oximetry 99 100 Oxygen Delivery Method 02/05/24 14:00 02/05/24 14:01 02/05/24 14:01 Temperature Pulse Rate 92 H 93 H Respiratory Rate 24 22 Blood Pressure 199/92 H Pulse Oximetry 99 98 Oxygen Delivery Method MDM - Syncope Differential Diagnosis Differential diagnosis: Likely syncope due to orthostatic hypotension, vasovagal syncope, subarachnoid hemorrhage, dehydration and other (ACS, electrolyte abnormality, intracranial hemorrhage) Lab Data 02/05/24 13:12 02/05/24 13:12 Labs: Lab Results 02/05/24 Range/Units 13:12 WBC 10.0 (4.5-11.0) X10^3/uL RBC 3.78 L (4.5-5.9) X10^6/uL Hgb 11.5 L (13.5-17.5) g/dL Hct 34.0 L (41-53) % MCV 90.1 (80-100) fL MCH 30.5 (26-34) PG MCHC 33.9 (30-36) % RDW 13.2 (11.6-14.8) % Plt Count 217 (150-400) X10^3/uL Neut % (Auto) 75.3 H (50-75) % Lymph % (Auto) 15.8 L (25-40) % Forrest % (Auto) 6.9 (3-14) % Eos % (Auto) 1.3 L (2-4) % Baso % (Auto) 0.7 (0-2) % Neut # (Auto) 7500 H (1519-9719) /uL Lymph # (Auto) 1600 (8633-8023) /uL Forrest # (Auto) 700 (0-900) /uL Eos # (Auto) 100 (0-450) /uL Baso # (Auto) 100 (0-100) /uL PT 19.2 H (9.4-12.5) SECONDS INR 1.7 H (0.9-1.3) APTT 38 H (25.1-36.5) SECONDS Sodium 134 L (137-145) mmol/L Potassium 4.1 (3.4-5.1) mmol/L Chloride 103 (98-107) mmol/L Carbon Dioxide 24 (22-32) mmol/L BUN 22 H (9-20) mg/dL Creatinine 1.51 H (0.66-1.25) mg/dL Estimated GFR 46 L (>60) mL/min BUN/Creatinine Ratio 14.6 (6-22) Glucose 105 (80-110) mg/dL Calcium 9.2 (8.4-10.2) mg/dL Magnesium 1.9 (1.6-2.3) mg/dL Total Bilirubin 0.6 (0.2-1.3) mg/dL AST 24 (17-59) IU/L ALT 13 (<50) IU/L Alkaline Phosphatase 50 (38-126) U/L Total Creatine Kinase 98 (55-170) U/L Troponin I 0.017 (0.01-0.034) ng/mL NT-Pro-B Natriuret Pep 955 H (<450) pg/mL Total Protein 6.8 (6.3-8.2) g/dL Albumin 3.7 (3.5-5.0) g/dL Globulin 3.1 (1.7-4.1) g/dL Albumin/Globulin Ratio 1.2 (1.0-2.8) Lipase 64 (23-300) U/L ECG Data Attestation: I personally reviewed and interpreted this ECG as follows: Interpretation: EKG interpreted ED physician atrial fibrillation at 76 beats per minute QTC 411, normal axis, nonspecific ST changes, no STEMI MDM Narrative Medical decision making narrative: Patient is 83 with a history of 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 He was leaning over to spanish moss picker a plate that he would dropped, states that as he stood up felt lightheaded dizzy and fell. Patient does have a chronic indwelling Horowitz due to BPH. Patient CT scan negative for any acute bleeds, we will send urinalysis for indwelling Horowitz for possible urinary tract infection, however at this time we will hold off on antibiotics given no leukocytosis. Patient states that he is able to normally stand walk ambulate but is too weak to do so, states that he still feels a little ?off. Patient with elevated [place] syncope will require observation The patient's management plan was discussed Dr. Mariee, who agrees to admit the patient to their service and assumes care of this patient at this time. Full admission orders will be placed by the primary team. Discharge Plan Departure Patient Disposition: Admitted as Observation Clinical Impression: Syncope, Weakness Admit Date/Time: 02/05/24 14:24
[2024-02-05 13:27] LABS: INR 1.7 (0.9-1.3); Prothrombin Time 19.2 SECONDS (9.4-12.5)
[2024-02-05 13:28] LABS: Add Manual Diff / Slide Review NO; Basophils Absolute Auto 100 /uL (0-100); Basophils Percent Auto 0.7 % (0-2); Eosinophils Absolute Auto 100 /uL (0-450); Eosinophils Percent Auto 1.3 % (2-4); Hemoglobin 11.5 g/dL (13.5-17.5); Lymphocytes Absolute Auto 1600 /uL (1100-4500); Lymphocytes Percent Auto 15.8 % (25-40); Mean Corpuscular HGB Conc 33.9 % (30-36); Mean Corpuscular Hemoglobin 30.5 PG (26-34); Mean Corpuscular Volume 90.1 fL (80-100); Monocytes Absolute Auto 700 /uL (0-900); Monocytes Percent Auto 6.9 % (3-14); Neutrophils Absolute Auto 7500 /uL (1500-7000); Neutrophils Percent Auto 75.3 % (50-75); Platelet Count 217 X10^3/uL (150-400); Red Blood Cell Count 3.78 X10^6/uL (4.5-5.9); Red Cell Distribution Width 13.2 % (11.6-14.8)
[2024-02-05 13:30] LABS: PTT Partial Thromboplastin Tim 38 SECONDS (25.1-36.5)
--- NOTE | 2024-02-05 13:30 | DI.CT.S_ITS ---
PROCEDURE: CT HEAD/BRAIN WO CON INDICATIONS: Trauma TECHNIQUE: Noncontrast 4.5 mm thick angled axial sections acquired from the foramen magnum to the vertex, with coronal and sagittal reformats. For radiation dose reduction, the following was used: automated exposure control, adjustment of mA and/or kV according to patient size. COMPARISON: Merged With [facility], CT, CT HEAD/BRAIN WO CON, 12/20/2022, 16:14. FINDINGS: Image quality: Diagnostic. CSF spaces: Basal cisterns are patent. No extra-axial fluid collections. The ventricles are symmetric in size and shape. Brain: No intracranial bleeds or masses. There is cerebral volume loss for age, with resultant ventricular and sulcal prominence. Remote right parietal lobe infarct. Small lacunar infarcts in the right basal ganglia. There are periventricular and deep white matter chronic small vessel ischemic changes. There is intracranial internal carotid artery atherosclerosis. Skull and face: Calvarium and visualized facial bones appear intact, without suspicious lesions. Sinuses: Visualized sinuses and mastoids are clear. IMPRESSION: No CT evidence of acute head trauma. Prior lacunar in cortical infarcts superimposed on chronic microvascular ischemic changes. Dictated by: Billie Nuñez M.D. on 02/05/2024 at 14:04 Approved by: Billie Nuñez M.D. on 02/05/2024 at 14:05
--- NOTE | 2024-02-05 13:30 | DI.CT.S_ITS ---
PROCEDURE: CT CERVICAL SPINE WO CON INDICATIONS: trauma TECHNIQUE: Noncontrast 3 mm thick sections acquired from the skull base to the T4 level. Sagittal and coronal reformats were then constructed. For radiation dose reduction, the following was used: automated exposure control, adjustment of mA and/or kV according to patient size. COMPARISON: [facility], CT, CT CERVICAL SPINE WO CON, 12/20/2022, 16:14. FINDINGS: Image quality: Excellent. Bones: No fractures or dislocations. Smooth cervical kyphosis. Degenerative change at the atlantodental interval. Multilevel [id number] anterior disc height loss and spurring from C3 through C7. Chronic appearing mild central canal and bilateral foraminal narrowing due to degenerative bone changes. Visualized superior ribs are intact. Soft tissues: Prevertebral soft tissues are normal in thickness. No paravertebral hematomas. No apical pneumothoraces. IMPRESSION: No CT evidence of acute cervical spine trauma. Multilevel degenerative changes. Dictated by: Billie Nuñez M.D. on 02/05/2024 at 14:11 Approved by: Billie Nuñez M.D. on 02/05/2024 at 14:14
[2024-02-05 13:31] LABS: Alanine Aminotransferase 13 IU/L (<50); Albumin 3.7 g/dL (3.5-5.0); Albumin Globulin Ratio 1.2 (1.0-2.8); Alkaline Phosphatase 50 U/L (38-126); Aspartate Aminotransferase 24 IU/L (17-59); BUN Creatinine Ratio 14.6 (6-22); Bilirubin Total 0.6 mg/dL (0.2-1.3); Blood Urea Nitrogen 22 mg/dL (9-20); Calcium 9.2 mg/dL (8.4-10.2); Carbon Dioxide 24 mmol/L (22-32); Chloride 103 mmol/L (98-107); Creatine Kinase 98 U/L (55-170); Estimated Glomerular Filt Rate 46 mL/min (>60); Globulin 3.1 g/dL (1.7-4.1); Glucose 105 mg/dL (80-110); HEMOLYSIS < 15 (0-50); Lipase 64 U/L (23-300); Magnesium 1.9 mg/dL (1.6-2.3); Potassium 4.1 mmol/L (3.4-5.1); Sodium 134 mmol/L (137-145); Total Protein 6.8 g/dL (6.3-8.2)
[2024-02-05 13:42] LABS: NT-proBNP (BNP-Adult 18+) 955 pg/mL (<450); Troponin I 0.017 ng/mL (0.01-0.034)
--- NOTE | 2024-02-05 14:34 | PC.NURSE ---
Pt oxygen desat to 81% on RA. This RN and AMADOR Lund check on patient. He is repositioned upright and oxygen quickly returns to 96% on RA. Asked if he has sleep apnea and he smiles and says, yes. Pt uses cpap at home.
[2024-02-05] MEDS: ACETAMINOPHEN 325 MG TABLET 650 MG PO (14:49)
--- NOTE | 2024-02-05 18:02 | PM.HP.1 ---
History of Present Illness History of Present Illness Chief complaint: GLF, w/ headstrike and irregular heart beat Narrative: 82-year-old male with previous cerebrovascular accident status post tPA in April 2021, permanent atrial fibrillation on Xarelto, hypertension, CKD, BPH with bladder outlet obstruction status post Horowitz catheter placement recently, PTSD, remote tobacco dependence who presented to the emergency department today after a syncopal event. He reports he dropped his plate and bent down to pick it up. He became dizzy and subsequently became syncopal. He was reportedly orthostatic when EMS arrived. He did hit his head and had a hematoma noted over his left eyebrow. He was subsequently transported to the emergency department. In the emergency department, he was noted to have no focal deficits. Emergency room physician noted he seemed mildly confused. CT scan of the head revealed no acute bleeds. Prior lacunar infarct in the right basal ganglia was noted. Also remote right parietal lobe infarct was noted. Chronic microvascular ischemic change noted. C-spine CT was performed with no evidence of acute trauma. 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 Chest x-ray revealed no acute cardiopulmonary process. Labs revealed a normal white blood cell count, hemoglobin 11.5, platelets 217. PT was 19.2, INR 1.7. Sodium 134, BUN 22, creatinine 1.51. His baseline creatinine is between 1.3 and 1.6. He was in the emergency department with obstructive uropathy on January 19. Initial creatinine was 11.24. After Horowitz catheter was placed it gradually came down to 8.58. Due to his mild confusion and syncopal event with head injury in the setting of chronic anticoagulation, admission for observation was recommended. At the time of my evaluation, patient is eating a meal eaten almost all of what was delivered. He is able to give me the complete history of at today. He is able to recall being dizzy prior. He states is unusual for him to be able to do that as he has a prior history of syncope where he could not remember being dizzy. He states in that setting he fell backwards and hit the back of his head. He reports that fall was quite sometime ago. Reports he was in his usual state of health today. He states he ?tends to overdo it? and take on more than he should given his advanced age and health. He denies any current headache, nausea, shortness of breath, chest pain. He does complain of chronic mild left heel and mild right great toe pain from his fall. 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) Essential hypertension (03/12/16) Coronary arteriosclerosis in [place] artery (03/12/16) Surgical History History of oral surgery Family History Father Heart disease Essential hypertension Grandmother Diabetes mellitus Social History household members: spouse, children and caregiver Smoking Status: Former smoker alcohol intake: current Meds Home Medications and Allergies Home Medications Medication Instructions Recorded Confirmed Type carvedilol 12.5 mg tablet 12.5 mg PO BID 01/01/23 02/05/24 History finasteride 5 mg tablet 5 mg PO DAILY 01/01/23 02/05/24 History furosemide 20 mg tablet 20 mg PO Q OTHER DAY 01/01/23 02/05/24 History levetiracetam 250 mg tablet 500 mg PO BID 01/01/23 02/05/24 History (Cristiane) losartan 25 mg tablet 12.5 mg PO DAILY 01/01/23 02/05/24 History prazosin 2 mg capsule 1 mg PO BEDTIME 01/01/23 02/05/24 History sertraline 100 mg tablet 150 mg PO DAILY 01/01/23 02/05/24 History spironolactone 50 mg tablet 50 mg PO DAILY 01/01/23 02/05/24 History atorvastatin 80 mg tablet 80 mg PO BEDTIME #90 tabs 01/02/23 02/05/24 Rx aspirin 81 mg tablet,delayed 81 mg PO DAILY 01/20/24 02/05/24 History release rivaroxaban 2.5 mg BID 01/20/24 02/05/24 History acetaminophen 325 mg capsule 650 mg PO QID PRN Pain (Scale 02/05/24 02/05/24 History Score 1-3) nitroglycerin 0.4 mg sublingual 0.4 mg sublingual Q5MIN PRN Chest 02/05/24 02/05/24 History tablet Pain peg 400 0.4 %-propylene glycol 1 drp EYE-BOTH DAILY PRN Dry Eyes 02/05/24 02/05/24 History (PF) 0.3 % eye drops (Systane Hydration (PF)) Allergies Allergy/AdvReac Type Severity Reaction Status Date / Time Penicillins [PENICILLINS] Allergy Intermediate Verified 01/01/23 16:03 Review of Systems Review of Systems Narrative: Patient reports lately his appetite has been reduced secondary to constipation. He reports his bowels have improved over the past couple of days and his appetite is now improved. He complains of penile pain related to his Horowitz catheter. All other systems were reviewed and otherwise negative Exam Vital Signs (past 8 hours): - 02/05/24 13:09 02/05/24 13:11 02/05/24 13:11 Temperature Pulse Rate 98 H 86 Respiratory Rate 21 Blood Pressure 194/87 H Pulse Oximetry 98 98 Oxygen Delivery Method Oxygen Flow Rate 02/05/24 13:16 02/05/24 13:16 02/05/24 13:17 Temperature 97.7 F Pulse Rate 87 103 H Respiratory Rate 25 H 20 Blood Pressure 191/89 H 194/87 H Pulse Oximetry 99 98 Oxygen Delivery Method Room Air Oxygen Flow Rate 02/05/24 13:30 02/05/24 13:30 02/05/24 13:49 Temperature Pulse Rate 83 Respiratory Rate 30 H Blood Pressure 218/93 H 202/95 H Pulse Oximetry 98 Oxygen Delivery Method Oxygen Flow Rate 02/05/24 13:49 02/05/24 13:55 02/05/24 13:55 Temperature Pulse Rate 80 84 Respiratory Rate 26 H 23 Blood Pressure 186/86 H Pulse Oximetry 99 100 Oxygen Delivery Method Oxygen Flow Rate 02/05/24 14:00 02/05/24 14:01 02/05/24 14:01 Temperature Pulse Rate 92 H 93 H Respiratory Rate 24 22 Blood Pressure 199/92 H Pulse Oximetry 99 98 Oxygen Delivery Method Oxygen Flow Rate 02/05/24 14:30 02/05/24 14:31 02/05/24 14:31 Temperature Pulse Rate 86 90 Respiratory Rate 14 15 Blood Pressure 188/82 H Pulse Oximetry 94 92 Oxygen Delivery Method Room Air Oxygen Flow Rate 02/05/24 15:10 Temperature 97.8 F Pulse Rate 81 Respiratory Rate 16 Blood Pressure 199/89 H Pulse Oximetry 99 Oxygen Delivery Method Oxygen Flow Rate 0 Oxygen Delivery Method Room Air Oxygen Flow Rate 0 Narrative Exam Narrative: GEN: Very pleasant elderly male Alert and oriented x3, no acute distress HEENT: Normocephalic, face symmetric, small hematoma noted to his left medial forehead, pupils equal round reactive to light, extraocular movements intact, sclerae anicteric, conjunctiva clear, nares patent, oropharynx reveals an intact soft and hard palate with moist mucous membranes, dentition is fair NECK: Supple, no lymphadenopathy, thyroid without enlargement or nodularity, carotids no bruits CHEST: Respiratory excursions symmetric, mild right basilar crackles, otherwise clear to auscultation bilaterally CV: Irregularly irregular, no murmurs, rubs, gallops, PMI nondisplaced ABD: Soft, nontender, nondistended, bowel sounds present in all 4 quadrants, no organomegaly or masses appreciated EXTR: Warm, well perfused, no clubbing/cyanosis/edema, small amount of bruising noted to the right great toe SKIN: Warm and dry, without rash NEURO: Alert and oriented x3, cranial nerves 2 through 12 are intact and symmetric bilaterally, motor strength 5/5 throughout, sensation intact throughout PSYCH: Mood and affect is within normal limits, judgment and insight are appropriate : small ulcerated area to the mucosa at the urethral meatus on the left side, stat lock on the L thigh, catheter length is somewhat short, tiny amount of blood in catheter tubing Objective Labs 02/05/24 13:12 02/05/24 13:12 Labs: Laboratory Results - last 24 hr 02/05/24 13:12 WBC 10.0 RBC 3.78 L Hgb 11.5 L Hct 34.0 L MCV 90.1 MCH 30.5 MCHC 33.9 RDW 13.2 Plt Count 217 Neut % (Auto) 75.3 H Lymph % (Auto) 15.8 L Payne % (Auto) 6.9 Eos % (Auto) 1.3 L Baso % (Auto) 0.7 Neut # (Auto) 7500 H Lymph # (Auto) 1600 Payne # (Auto) 700 Eos # (Auto) 100 Baso # (Auto) 100 PT 19.2 H INR 1.7 H APTT 38 H Sodium 134 L Potassium 4.1 Chloride 103 Carbon Dioxide 24 BUN 22 H Creatinine 1.51 H Estimated GFR 46 L BUN/Creatinine Ratio 14.6 Glucose 105 Calcium 9.2 Magnesium 1.9 Total Bilirubin 0.6 AST 24 ALT 13 Alkaline Phosphatase 50 Total Creatine Kinase 98 Troponin I 0.017 NT-Pro-B Natriuret Pep 955 H Total Protein 6.8 Albumin 3.7 Globulin 3.1 Albumin/Globulin Ratio 1.2 Lipase 64 Assessment & Plan Assessment & Plan narrative: 1. Syncope Patient sustained syncope and was noted to be orthostatic when EMS arrived. It appears to have been triggered by him bending over and then standing back up. He denies any ill symptoms. Will send a UA for completeness, however it may be that his urine is colonized secondary to the Horowitz catheter. Would not necessarily treat for infection unless he develops signs of encephalopathy/fevers/leukocytosis/flank or suprapubic pain. Will obtain an echocardiogram. He did have a CT angiogram of the head and neck which showed no significant stenosis in December of 2022. For now, I will not plan to repeat one given his renal insufficiency and recent bladder outlet obstruction. Will obtain a carotid ultrasound for completeness, however I suspect this will be low yield. Although he has history of seizure disorder, I have low suspicion for that as well as he is on Keppra and and had no prodromal symptoms nor recent seizures. Will place on 24 hour telemetry to rule out any occult arrhythmia. We will have PT and OT assess as well for safety. 2. Closed head injury with hematoma in a patient on chronic anticoagulation CT showed no evidence of intracranial injury. He is alert, oriented x3, neurologically intact at this time. He has no concussive symptoms. Will continue to monitor overnight. Will perform neuro checks q.4. 3. Coagulopathy secondary to Xarelto Will hold Xarelto for tonight given his acute head injury. If his neuro checks remained within normal limits, plan to resume it in the morning. 4. CKD stage 3 Recent obstructive uropathy secondary to BPH. Creatinine is back down to 1.51 on admission. Patient can not recall when he is seeing Urology but notes that his daughter makes all of his appointments for him. He does believe he has a follow-up appointment with someone this upcoming week, but he is uncertain if it is his primary care provider or urologist. 5. Hyponatremia Mild at 134. Will recheck. 6. Daily alcohol use He reportedly drinks 2 beverages or less per day. I have low suspicion for withdrawal symptoms. If he develops evidence of tachycardia/hypertension/confusion/diaphoresis, will initiate CIWA protocol. 7. Permanent atrial fibrillation Presently rate controlled. Continue usual carvedilol dosing. 8. Seizure disorder Continue his usual Keppra dose. Code status Full per POLST Prophylaxis As noted Xarelto was held in the setting of his head injury today Disposition Admit to observation status. Likely discharge home tomorrow Time-Based Coding :: [TOTAL MINUTES] spent with patient and on the chart (including review of chart, obtaining history, exam, reviewing outside data, placing orders, documenting exam and treatment plan, and counseling patient) on [DATE].
[2024-02-05 19:58] LABS: Appearance Urine UA SL CLOUDY; Bilirubin Urine UA NEGATIVE (NEGATIVE); Color Urine UA YELLOW; Glucose Urine UA NEGATIVE (Negative); Ketones Urine UA TRACE (NEGATIVE); Leukocyte Esterase Urine UA 3+ (NEGATIVE); Nitrite Urine UA POSITIVE (Negative); Occult Blood Urine UA 3+ (Negative); Protein Urine UA TRACE (Negative); Specific Gravity Urine UA <=1.005 (1.000-1.035); Urobilinogen Urine UA 0.2 E.U./dL (0.2)
[2024-02-05 20:06] LABS: Bacteria Urine Many (>30); Culture Indicated Urine Specimen Cultured; RBC Urine 5-10/HPF (0-5/HPF); Squamous Epithelial Cell Urine None Seen (0-5/HPF); Urine Volume 10mL (spun); WBC Urine 5-10/HPF (0-5/HPF)
[2024-02-05] MEDS: PRAZOSIN 1 MG CAPSULE PO (21:41)
[2024-02-05] MEDS: ATORVASTATIN 20 MG TABLET 80 MG PO (21:41)
[2024-02-05] MEDS: levETIRAcetam 250 MG TABLET 500 MG PO (21:41)
[2024-02-05] MEDS: carvediloL 12.5 MG TABLET PO (21:42)
[2024-02-06] VITALS (8 sets, daily range): BP systolic 91–184; BP diastolic 54–107; PULSE 66–94; RESP 15–20; TEMP 35.6–37.2; O2SAT 96–100
[2024-02-06 05:03] LABS: Add Manual Diff / Slide Review NO; Basophils Absolute Auto 100 /uL (0-100); Eosinophils Absolute Auto 200 /uL (0-450); Eosinophils Percent Auto 2.2 % (2-4); Hematocrit 31.8 % (41-53); Hemoglobin 10.9 g/dL (13.5-17.5); Lymphocytes Absolute Auto 1700 /uL (1100-4500); Lymphocytes Percent Auto 21.7 % (25-40); Mean Corpuscular HGB Conc 34.4 % (30-36); Mean Corpuscular Hemoglobin 30.7 PG (26-34); Mean Corpuscular Volume 89.4 fL (80-100); Monocytes Absolute Auto 700 /uL (0-900); Monocytes Percent Auto 9.6 % (3-14); Neutrophils Absolute Auto 5000 /uL (1500-7000); Neutrophils Percent Auto 65.5 % (50-75); Platelet Count 214 X10^3/uL (150-400); Red Blood Cell Count 3.56 X10^6/uL (4.5-5.9); Red Cell Distribution Width 13.1 % (11.6-14.8); White Blood Cell Count 7.6 X10^3/uL (4.5-11.0)
[2024-02-06 05:13] LABS: BUN Creatinine Ratio 16.1 (6-22); Blood Urea Nitrogen 23 mg/dL (9-20); Calcium 8.8 mg/dL (8.4-10.2); Carbon Dioxide 24 mmol/L (22-32); Chloride 104 mmol/L (98-107); Estimated Glomerular Filt Rate 49 mL/min (>60); Glucose 96 mg/dL (80-110); HEMOLYSIS < 15 (0-50); Potassium 3.7 mmol/L (3.4-5.1); Sodium 135 mmol/L (137-145)
[2024-02-06] MEDS: LIDOCAINE 2% (GLYDO) 6 ML GEL TOP ×2 (05:18→13:39)
[2024-02-06] MEDS: SPIRONOLACTONE 25 MG TABLET 50 MG PO (08:30)
[2024-02-06] MEDS: carvediloL 12.5 MG TABLET PO ×2 (08:30→21:36)
[2024-02-06] MEDS: levETIRAcetam 250 MG TABLET 500 MG PO ×2 (08:31→21:36)
[2024-02-06] MEDS: LOSARTAN 25 MG TABLET 12.5 MG PO (08:31)
[2024-02-06] MEDS: SERTRALINE 50 MG TABLET 150 MG PO (08:31)
[2024-02-06] MEDS: FINASTERIDE 5 MG TABLET PO (08:31)
--- NOTE | 2024-02-06 09:00 | DI.US.S_ITS ---
PROCEDURE: US CAROTID DOPPLER BI INDICATIONS: SYNCOPE TECHNIQUE: Color and pulse Doppler interrogation was performed of both carotid systems, with image documentation and velocity measurements. COMPARISON: None. FINDINGS: Stenosis calculations are based on SRU (Society of Radiologists in Ultrasound) criteria. Right side: Brachial blood pressure: 108/60 mm Hg. Common carotid artery peak systolic velocity: 125 cm/sec. Internal carotid artery peak systolic velocity: 54 cm/sec. Internal carotid artery end diastolic velocity: Six cm/sec. External carotid artery peak systolic velocity: 76 cm/sec. ICA/CCA peak systolic ratio: 0.43 . Luna scale imaging description: Abnormal high resistance waveform in the proximal internal carotid artery with minimal forward diastolic flow. No visible plaque. Percent internal carotid artery stenosis: Less than 50% . Vertebral artery: Flow direction is antegrade. Left side: Brachial blood pressure: 101/55 mm Hg. Common carotid artery peak systolic velocity: 114 cm/sec. Internal carotid artery peak systolic velocity: 76 cm/sec. Internal carotid artery end diastolic velocity: Nine cm/sec. External carotid artery peak systolic velocity: 100 cm/sec. ICA/CCA peak systolic ratio: 0.67 Luna scale imaging description: High resistance waveform in the proximal ICA with minimal forward diastolic flow. Percent internal carotid artery stenosis: Less than 50% . Vertebral artery: Flow direction is antegrade. IMPRESSION: No hemodynamically significant stenosis in the visible carotid or vertebral system. High resistance waveforms in the bilateral internal carotid arteries suggest distal stenoses such as intracranial atherosclerotic disease. Antegrade flow in the vertebral arteries. Dictated by: Billie Nuñez M.D. on 02/06/2024 at 10:46 Approved by: Billie Nuñez M.D. on 02/06/2024 at 10:53
--- NOTE | 2024-02-06 10:15 | OT.IP.EVAL ---
Past Medical History (Last Updated 02/05/24 @ 18:16 by Loree Mariee MD) Coronary arteriosclerosis in [place] artery (03/12/16) Essential hypertension (03/12/16) 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/16) Posttraumatic stress disorder (03/12/16) Spinal stenosis Syncope Weakness Surgical History (Last Reviewed 01/01/23 @ 18:09 by Kylee Bennett DO) History of oral surgery Occupational Therapy Inpatient Evaluation/Re-Eval M1 PT/OT-IP Prior Functional Status Start: 02/06/24 10:51 Freq: NEEDED Status: Active Protocol: Document 02/06/24 14:41 CGR (Rec: 02/06/24 15:13 CGR [id number]) Medical Review Prior Functional Status Medical History Reviewed Yes Diet/Fluid Consistency Regular Communication Unsure baseline communication, pt speaks slowly with PT and has slower processing speed for talking and functional commands Mobility and Gait Pt states he mobilizes with a fww at baseline around the home. Activities of Daily Living and IADL's Caregiver asst T,W,F and did need assistance for bathing, some dressing and cath management. Social History Household Members spouse,children,caregiver Living Arrangements House Number of Floors (Floors) One Floor Number of Stairs To Enter/Railing? No steps to enter, ramp Home Environment Standard Height Toilet Home Equipment Front Wheel Walker,Straight Cane,Manual Wheelchair,Bedside Commode,Shower Seat without Backrest,Grab Bars In Shower Additional Social History Comment Adjustable bed, grab bars throughout home, walk-in tub M2 OT-IP Current Condition Start: 02/06/24 14:41 Freq: Status: Active Protocol: Document 02/06/24 14:41 CGR (Rec: 02/06/24 15:13 CGR [id number]) Occupational Therapy Current Condition Current Condition Evaluation Date 02/06/24 Treatment Diagnosis syncope, orthostatic Diagnosis Onset Date 02/05/24 M3 OT- IP Subjective and Pain Start: 02/06/24 14:41 Freq: Status: Active Protocol: Document 02/06/24 14:41 CGR (Rec: 02/06/24 15:13 CGR [id number]) OT- Subjective Occupational Therapy Visit Type Type Initial Evaluation Visit Start Time 09:42 Visit Stop Time 10:15 OT Pain Assessment Pain When Pain Assessed At Rest Pain Present Pain Present Denied Pain M4 OT- IP ADL's Start: 02/06/24 14:41 Freq: Status: Active Protocol: Document 02/06/24 14:41 CGR (Rec: 02/06/24 15:13 CGR [id number]) OT [id number] Comments OT Self-Feeding Comments not meal time OT ADL-Grooming Comments OT Grooming Comments pt declined to perform OT ADL-Oral Care Comments Oral Care Comments pt declined to perform OT ADL-Dressing General Eval Lower Body Dressing Ability Total Assistance Areas Needing Assistance Socks Comments OT Dressing Comments This adjusto writer operator assisted pt with donning socks. Pt states that he can't do socks IND. OT ADL-Toileting General Evaluation Toileting Ability Total Assistance Comments OT Toileting Comments ching OT ADL-Bathing Comments OT Bathing Comments not performed M5 OT- IP IADL's Start: 02/06/24 14:41 Freq: Status: Active Protocol: Document 02/06/24 14:41 CGR (Rec: 02/06/24 15:13 CGR [id number]) OT-Instrumental Activities of Daily Living Deficits IADL Deficits Identified Deficits Home Safety Awareness Awareness of Need for Assistance at Home Decreased Awareness Medication Management Medication Management Comments Concerns regarding pt's ability to perform safely Money Management Money Management Comments Concerns regarding pt's ability to perform safely Meal Preparation Meal Preparation Comments Concerns regarding pt's ability to perform safely Sports Marketer Sports Marketer Comments Concerns regarding pt's ability to perform safely Driving Driving Comments Concerns regarding pt's ability to perform safely M6 OT- IP Functional Cognition Start: 02/06/24 14:41 Freq: Status: Active Protocol: Document 02/06/24 14:41 CGR (Rec: 02/06/24 15:13 CGR [id number]) Cognitive Factors Limiting Selfcare Function Cognitive Ability Level of Alertness Alert Patient Orientation Name,Age,Birthday,Month,Date, Year,Day of Week,Place, Situation Attention Span Ability Capable of Focused Attention, Capable of Sustained Attention Ability to Follow Commands Able to Follow One Step Commands with Increased Time, Able to Follow One Step Commands with Repetition Cognitive Comments Cognitive Assessment Comments Pt needs extra time for processing. OT- Vision and Hearing OT- Hearing Assessment OT- Hearing Assessment WFL OT- Vision Assessment Visual Acuity Glasses All The Time Visual Attentiveness WFL Occular Pursuits WFL Vision Assessment Comments Pt wears bifocals M7 OT- IP Mobility and Balance Start: 02/06/24 14:41 Freq: Status: Active Protocol: Document 02/06/24 14:41 CGR (Rec: 02/06/24 15:13 CGR [id number]) OT- Bed Mobility Assessment Supine to Sit Supine to Sit Assist Contact Guard Assistance, Bedrails Scooting Scooting to Edge of Bed Contact Guard Assistance, Bedrails OT-Transfer Assessment Sit to and From Stand Sit to and from Stand Contact Guard Assistance Transfers Transfer Ability Contact Guard Assistance Technique Transfer Destination Bed Transfer Technique Stand Step Pivot Devices Transfer Assistive Devices Gait Belt,Front Wheeled Walker Comments Mobility Comments CGA for transfer to chair OT- Balance Assessment Sitting Balance and Reactions Static Sitting Balance Ability Good Dynamic Sitting Balance Ability Good M8 OT- IP Objective Assessments Start: 02/06/24 14:41 Freq: Status: Active Protocol: Document 02/06/24 14:41 CGR (Rec: 02/06/24 15:13 CGR [id number]) OT Gross Range of Motion Upper Extremity Range of Motion Assessment Within Functional Limits OT Strength Upper Extremity Strength Assessment Within Functional Limits Comments Strength Comments 5/5 OT- Coordination Assessment Upper Extremity Finger to Nose Test Within Functional Limits Finger Tapping Test Within Functional Limits OT-Muscle Tone Assessment Muscle Tone WNL Yes OT Sensation Assessment Edema Edema Absent M9 OT- IP Assessment and Plan Start: 02/06/24 14:41 Freq: Status: Active Protocol: Document 02/06/24 14:41 CGR (Rec: 02/06/24 15:13 CGR [id number]) OT Summary Assessment and Plan Potential Rehabilitation Potential Good Analytic Complexity at Evaluation Moderate Summary OT Impairments Balance,Functional Cognition, Functional Mobility,Grooming, Dressing,Toileting,Bathing, Toilet Transfers,Shower Transfers,Activity Tolerance Progress Towards Goals Slow Progress due to Medical Issues Assessment Summary Pt presents as a moderate complexity evaluation s/p admit for syncope. Pt found to be somewhat orthostatic in todays session as follows: supine 111/58 66 sitting 91/54 94 standing 102/66 94 Pt was able to tranfer to the chair but was limited in his ADLs today. Pt will continue to benefit from therapy services. Recommend SNF at this time. Goals Self-Feeding Goal Independent Grooming Goal Independent Dressing Goal Minimal Assistance Toileting Goal Independent Toilet Transfer Goal Independent Days to Meet Goals 10 Frequency of Treatment Other frequency 5x a week Treatment Plan OT Treatment Plan ADL Training,Functional Cognition Training,Functional Mobility,Patient/Family Education,Discharge Planning Other Treatment Recommendations and Next ADLs seated or standing if BP Treatment Focus permits, possible SLUMS? Discharge Recommendations OT Discharge Recommendations Home vs SNF Transportation Needs at Discharge Wheelchair/Cabulance
--- NOTE | 2024-02-06 11:23 | PT.IIE ---
Surgical History (Last Reviewed 01/01/23 @ 18:09 by Kylee Bennett DO) History of oral surgery Medical History (Last Updated 02/05/24 @ 18:16 by Loree Mariee MD) Coronary arteriosclerosis in [place] artery (03/12/16) Essential hypertension (03/12/16) 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/16) Posttraumatic stress disorder (03/12/16) Spinal stenosis Syncope Weakness Physical Therapy Inpatient Evaluation/Re-Eval M1 PT/OT-IP Prior Functional Status Start: 02/06/24 10:51 Freq: NEEDED Status: Active Protocol: Document 02/06/24 10:51 MB (Rec: 02/06/24 11:23 MB [id number]) Medical Review Prior Functional Status Medical History Reviewed Yes Diet/Fluid Consistency Regular Communication Unsure baseline communication, pt speaks slowly with PT and has slower processing speed for talking and functional commands Mobility and Gait Will get further mobility baseline at next treatment given respiratory care technician needing to start ECHO in bed, PT arrives when tech and BUSGIRL checking BP and it is very low and PT assists pt to bed Activities of Daily Living and IADL's Caregiver asst T,W,F and did need assistance for some ADLs Social History Household Members spouse,children,caregiver Living Arrangements House Number of Floors (Floors) One Floor Number of Stairs To Enter/Railing? No steps to enter, ramp Home Environment Standard Height Toilet Home Equipment Front Wheel Walker,Straight Cane,Manual Wheelchair,Bedside Commode,Shower Seat without Backrest,Grab Bars In Shower Additional Social History Comment Adjustable bed, grab bars throughout home, walk-in tub M2 PT-IP Current Condition Start: 02/06/24 10:51 Freq: NEEDED Status: Active Protocol: Document 02/06/24 10:51 MB (Rec: 02/06/24 11:23 MB [id number]) Physical Therapy Current Condition Current Condition Evaluation Date 02/06/24 Treatment Diagnosis Ground level fall M3 PT-IP Subjective Start: 02/06/24 10:51 Freq: NEEDED Status: Active Protocol: Document 02/06/24 10:51 MB (Rec: 02/06/24 11:23 MB [id number]) Subjective Physical Therapy Visit Type Type Initial Evaluation Visit Start Time 10:51 Visit Stop Time 11:01 Number of COMMUNICATIONS CONSULTANT Visits 0 Physical Therapy Visit Comments Patient Comments No spontaneous conversation and PT enters as electronic sales and service technician and BUSGIRL are checking BP in standing and need assistance to get pt back to bed for testing Therapy Pain Assessment Pain When Pain Assessed At Rest Pain Present Pain Present Denied Pain M4 PT-IP Mobility and Gait Start: 02/06/24 10:51 Freq: NEEDED Status: Active Protocol: Document 02/06/24 10:51 MB (Rec: 02/06/24 11:23 MB [id number]) PT-Bed Mobility Assessment Rolling Type of Rolling Roll to Right Level of Assist Minimal Assistance Sit to Supine Sit to Supine Moderate Assistance,1 Person Assistance Scooting Scooting Up and Down in Bed Standby Assistance PT-Transfer Assessment Sit to and From Stand Sit to and from Stand Moderate Assistance,1 Person Assistance,Use of Upper Extremities Equipment Transfer Assistive Device Gait Belt,Front Wheeled Walker Orthotic/Prosthetic Devices or Brace: No Transfers Transfer Destination Bed Transfer Technique Stepping Transfer Ability Level of Assist Moderate Assistance,1 Person Assistance,Use of Upper Extremities Comments Mobility Comments Very slow movement, pt with history of stroke and current low BP. BP and HR in LUE in standing upon arrival: 71/36, 72. Pt returned to sitting and then electronic sales and service technician does state that she needs pt in the bed for ECHO and so assisted to bed with RW with mod A, increased time, cues and slow stepping. BP and HR sitting EOB LUE: 128/65, 100. Gait Assessment Gait Gait Assistance Required: Moderate Assistance Distance (Feet) 3 Able to Maintain Weight Bearing Status Yes During Gait Assistive Devices Assistive Device Gait Belt,Front Wheeled Walker Orthotic/Prosthetic Devices or Brace: No Gait Deviations General Gait Pattern Decreased Stride Length, Decreased Feet Clearance, Flexed Trunk,Step-to Gait,Wide Based Gait Factors Limiting Gait Function Factors Limiting Gait Function Decreased Activity Tolerance, Decreased Strength,Difficulty Following Directions, Incoordination,Poor Balance, Poor Safety Awareness Comments Gait Comments Slow stepping PT-Balance Assessment Sitting Balance and Reactions Static Sitting Balance Ability Good Dynamic Sitting Balance Ability Good Standing Balance and Reactions Static Standing Balance Ability Good Dynamic Standing Balance Ability Fair Device Used RW M5 PT-IP Objective Assessments Start: 02/06/24 10:51 Freq: NEEDED Status: Active Protocol: Document 02/06/24 10:51 MB (Rec: 02/06/24 11:23 MB [id number]) Orientation Orientation/Cognition Level of Alertness Alert Orientation Name,Age,Month,Year,Place Safety Awareness Decreased Safety Awareness Memory Description No Deficits Noted Comments Slow verbalizations and low vocal volume Gross Range of Motion Upper Extremity ROM Impairments Defer to OT Lower Extremity ROM Impairments PT did not have a chance to examine during assistance to get back to bed, will further review in future PT treatments Strength Comments Strength Comments See above as far as unable to MMT as assisting pt back to bed for ECHO, found up with BUSGIRL and electronic sales and service technician M6 PT-IP Treatment Start: 02/06/24 10:51 Freq: NEEDED Status: Active Protocol: Document 02/06/24 10:51 MB (Rec: 02/06/24 11:23 MB [id number]) Physical Therapy Treatment Education Education Provided Safety M7 PT-IP Assessment and Plan Start: 02/06/24 10:51 Freq: NEEDED Status: Active Protocol: Document 02/06/24 10:51 MB (Rec: 02/06/24 11:23 MB [id number]) PT Summary Assessment and Plan Potential Rehabilitation Potential Fair Status of Condition at Evaluation Unstable Summary Impairments ROM,Strength,Balance, Coordination,Cognition,Bed Mobility,Transfers,Gait, Activity Tolerance Progress Towards Goals Slow Progress due to Activity Tolerance Assessment Summary Pt is an 83 y/o male presenting to hospital after GLF and found to have fluctuating BP. Pt standing at chair with BUSGIRL and electronic sales and service technician upon arrival and his BP and HR in LUE are 71/36 , 72. Returned to sitting and then assisted pt to bed with RW and pt moves very slowly. He appears to have slow processing with answering questions and with stepping/ functional mobility. Goals Bed Mobility Goal Independent Transfer Goal Standby Assistance,Front Wheeled Walker Gait Goal Standby Assistance,Front Wheel Walker Gait Distance 75 Days to Meet Goals 5 Frequency of Treatment Frequency Of Treatment Once a Day Treatment Plan Physical Therapy Treatment Plan Bed Mobility Training,Transfer Training,Gait Training, Therapeutic Exercise,Balance Retraining,Discharge Planning, Hot or Cold Pack,Neuromuscular Re-ed,Coordination Retraining ,Manual Therapy Precautions Other Precautions Fluctuating BP Recommendations To Nursing Amount of Assist Needed 2 Person Assist Discharge Recommendations PT Discharge Recommendations Home with 15/11 Assist Available,Home Health,Home vs SNF Transportation Needs at Discharge Private Vehicle,Wheelchair/ Cabulance
--- NOTE | 2024-02-06 11:27 | PC.NURSE ---
Patient is alert and oriented x4, BP wnl this morning at 118/70s. He denies being dizzy and does have an ingrown toenail that we are putting lidocaine on. Resting comfortably, ate well.
--- NOTE | 2024-02-06 13:53 | CM.DANOTE ---
Initial DCP Assessment Note Pt is a 83 yo male, resident of [place], arrives after syncopal event, admitted OBS, placed on telemetry, imaging ordered, PT/OT pending. PCP: Leydi Josue Payer: [facility]/ [employer] [facility] Reviewed chart, pt discussed in multidisciplinary rounds this morning. Therapies pending, possible DC home over the next 24 hrs. Met w/patient, introduced self and role. Patient sitting up, communication is clear though slow. Patient reports he lives with spouse, who is wheelchair dependent and daughter Skylar Wahl [phone] who manages and care for both her parents. Both spouse and patient have caregivers throughout the week. Patient /sp have some caregiving funded through the [place] and some that is privately paid for. 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 Patient plans to return home with his daughter and continued in-home care. Patient unsure he will need HH, says his daughter will be here later today and requests this SUPERVISING FLOORPERSON return when daughter present to discuss. Therapy recommending home w15/11 assist vs SNF currently; eval limited by fluctuating BP. CM team will plan to follow clinical course closely. Addtl conversation with patient and his family will be helpful to assess needs, assist with dispo planning. FATMATA Ayala Discharge Planning/Care Management CM Discharge Assessment Start: 02/06/24 13:51 Freq: Status: Active Protocol: Document 02/06/24 13:51 VANESSA (Rec: 02/06/24 13:53 [id number]) Discharge Planning Assessment Assigned Varnish Melter FATMATA Summers DPOA/Assigned Designee Name keaton Robison Contact Information [phone] Advance Directives? Yes: POLST on file too Advance Directives on File Yes History Provided By Patient,Medical Record Prior Living Arrangements House Household Members spouse,children,caregiver Type of transporation used prior to Relies on Others admit Independent with ADL's No Is patient alert and oriented? Yes Needs Assistance With Bathing,Grooming,Meal Prep, Toileting,Managing Medications ,Home Chores / Shopping Comment shower railings Barriers to Discharge No Discharge Plan Home Transportation Arrangement daughter in POV Whiteboard Updated in Patient Room with Yes name and ext. # of Varnish Melter
--- NOTE | 2024-02-06 14:56 | P.PN_ITS ---
Subjective Subjective Date Patient Seen: 02/06/24 Interval history: 83 M admitted with weakness, syncope likely due to orthostatic hypotension. BP dropped 20 points today with sitting, improved slightly with standing. He otherwise denies complaints today. TTE read pending. Exam Vital Signs (past 8 hours): - 02/06/24 08:00 02/06/24 10:00 02/06/24 12:00 Temperature 98.0 F 98 F Pulse Rate 78 73 Pulse Rate [Orthostatic Lying] 66 Pulse Rate [Orthostatic Sitting] 94 H Pulse Rate [Orthostatic Standing] 94 H Respiratory Rate 16 15 Blood Pressure 184/107 H 124/56 L Blood Pressure [Orthostatic Lying] 111/58 L Blood Pressure [Orthostatic Sitting] 91/54 L Blood Pressure [Orthostatic Standing] 102/66 Pulse Oximetry 99 96 Oxygen Flow Rate 0 0 Oxygen Delivery Method Room Air Oxygen Flow Rate 0 Narrative Exam Narrative: GEN: Very pleasant elderly male Alert and oriented x3, no acute distress CHEST: Respiratory excursions symmetric, mild right basilar crackles, otherwise clear to auscultation bilaterally CV: Irregularly irregular, no murmurs, rubs, gallops ABD: Soft, nontender, nondistended, bowel sounds present in all 4 quadrants, no organomegaly or masses appreciated EXTR: Warm, well perfused, no clubbing/cyanosis/edema, small amount of bruising noted to the right great toe SKIN: Warm and dry, without rash NEURO: Alert and oriented x3, cranial nerves 2 through 12 are intact and symmetric bilaterally, motor strength 5/5 throughout, sensation intact throughout PSYCH: Mood and affect is within normal limits, judgment and insight are appropriate Objective Labs 02/06/24 04:40 02/06/24 04:40 Labs: Laboratory Results - last 24 hr 02/05/24 02/06/24 15:33 04:40 WBC 7.6 RBC 3.56 L Hgb 10.9 L Hct 31.8 L MCV 89.4 MCH 30.7 MCHC 34.4 RDW 13.1 Plt Count 214 Neut % (Auto) 65.5 Lymph % (Auto) 21.7 L [place] % (Auto) 9.6 Eos % (Auto) 2.2 Baso % (Auto) 1.0 Neut # (Auto) 5000 Lymph # (Auto) 1700 [place] # (Auto) 700 Eos # (Auto) 200 Baso # (Auto) 100 Sodium 135 L Potassium 3.7 Chloride 104 Carbon Dioxide 24 BUN 23 H Creatinine 1.43 H Estimated GFR 49 L BUN/Creatinine Ratio 16.1 Glucose 96 Calcium 8.8 Urine Color Yellow Urine Appearance Sl cloudy Urine pH 7.0 Ur Specific [place] <=1.005 Urine Protein Trace H Urine Glucose (UA) Negative Urine Ketones Trace H Urine Occult Blood 3+ H Urine Nitrate Positive H Urine Bilirubin Negative Urine Urobilinogen 0.2 Ur Leukocyte Esterase 3+ H Urine RBC 5-10/hpf H Urine WBC 5-10/hpf H Ur Squamous Epith Cells None seen Urine Bacteria Many (>30) H Ur Culture Indicated? Specimen cultured Vol Urine Centrifuged 10ml (spun) [facility] Medical History (Updated 02/05/24 @ 18:16 by Loree Mariee MD) Weakness Syncope Spinal stenosis Posttraumatic stress disorder (03/12/16) 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/16) Essential hypertension (03/12/16) Coronary arteriosclerosis in [place] artery (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 Syncope secondary to orthostatic hypotension, possible acute cystitis with chronic urinary obstruction and ching catheter. - orthostatics qshift - will start ceftriaxone for possible acute cystitis given orthostasis, weakness, though may be colonization due to chronic ching. Make sure ching is replaced this admission. - continue PT/OT - hold home losartan for now given orthostatic vitals. Consider holding finasteride and prazosin depending on symptoms moving forward. 2. Closed head injury with hematoma in a patient on chronic anticoagulation CT showed no evidence of intracranial injury. He is alert, oriented x3, neurologically intact at this time. He has no concussive symptoms. Will continue to monitor overnight. 3. Coagulopathy secondary to Xarelto. Now resumed. 4. CKD stage 3 Recent obstructive uropathy secondary to BPH. Creatinine is back down to 1.51 on admission. Patient can not recall when he is seeing Urology but notes that his daughter makes all of his appointments for him. He does believe he has a follow-up appointment with someone this upcoming week, but he is uncertain if it is his primary care provider or urologist. 5. Hyponatremia Mild at 134. Will recheck. 6. Daily alcohol use He reportedly drinks 2 beverages or less per day. I have low suspicion for withdrawal symptoms. If he develops evidence of tachycardia/hypertension/confusion/diaphoresis, will initiate CIWA protocol. 7. Permanent atrial fibrillation Presently rate controlled. Continue usual carvedilol dosing. 8. Seizure disorder Continue his usual Keppra dose. Code status Full per POLST Prophylaxis As noted Xarelto was held in the setting of his head injury today Disposition Admit to observation status. Likely discharge home tomorrow Time-Based Coding :: [TOTAL MINUTES] spent with patient and on the chart (including review of chart, obtaining history, exam, reviewing outside data, placing orders, documenting exam and treatment plan, and counseling patient) on [DATE].
[2024-02-06] MEDS: cefTRIAXone 1,000 MG in SODIUM CHLORIDE 0.9% 100 ML 200 MG IV (15:44)
[2024-02-06] MEDS: ATORVASTATIN 20 MG TABLET 80 MG PO (21:36)
[2024-02-06] MEDS: PRAZOSIN 1 MG CAPSULE PO (21:36)
[2024-02-07] VITALS (9 sets, daily range): BP systolic 90–190; BP diastolic 46–101; PULSE 70–100; RESP 12–19; TEMP 36.2–37.1; O2SAT 99–100
[2024-02-07 06:12] LABS: BUN Creatinine Ratio 16.9 (6-22); Blood Urea Nitrogen 21 mg/dL (9-20); Calcium 8.8 mg/dL (8.4-10.2); Carbon Dioxide 22 mmol/L (22-32); Chloride 107 mmol/L (98-107); Estimated Glomerular Filt Rate 58 mL/min (>60); Glucose 112 mg/dL (80-110); HEMOLYSIS < 15 (0-50); Potassium 4.1 mmol/L (3.4-5.1); Sodium 137 mmol/L (137-145)
[2024-02-07] MEDS: SERTRALINE 50 MG TABLET 150 MG PO (09:25)
[2024-02-07] MEDS: carvediloL 12.5 MG TABLET PO (09:25)
[2024-02-07] MEDS: ACETAMINOPHEN 325 MG TABLET 650 MG PO (09:26)
[2024-02-07] MEDS: levETIRAcetam 250 MG TABLET 500 MG PO ×2 (09:26→22:55)
[2024-02-07] MEDS: SPIRONOLACTONE 25 MG TABLET 50 MG PO (09:26)
[2024-02-07] MEDS: FINASTERIDE 5 MG TABLET PO (09:26)
--- NOTE | 2024-02-07 11:20 | PT.IPTN ---
Physical Therapy Treatment Note M2 PT-IP Current Condition Start: 02/06/24 10:51 Freq: NEEDED Status: Active Protocol: Document 02/06/24 10:51 MB (Rec: 02/06/24 11:23 MB [id number]) Physical Therapy Current Condition Current Condition Evaluation Date 02/06/24 Treatment Diagnosis Ground level fall M3 PT-IP Subjective Start: 02/06/24 10:51 Freq: NEEDED Status: Active Protocol: Document 02/07/24 13:22 TS (Rec: 02/07/24 13:31 TS [id number]) Subjective Physical Therapy Visit Type Type Treatment Note Visit Start Time 11:20 Visit Stop Time 11:47 Notes Bp: supine 154/94, sitting 133 /66, standing 105/55 Number of BACTERIOLOGIST PHARMACEUTICAL Visits 1 Physical Therapy Visit Comments Patient Comments Pt reports some lightheadedness when up on feet, he is agreeable to PT. M4 PT-IP Mobility and Gait Start: 02/06/24 10:51 Freq: NEEDED Status: Active Protocol: Document 02/07/24 13:22 TS (Rec: 02/07/24 13:31 TS [id number]) PT-Bed Mobility Assessment Supine to Sit Supine to Sit Standby Assistance PT-Transfer Assessment Sit to and From Stand Sit to and from Stand Contact Guard Assistance Equipment Transfer Assistive Device Gait Belt,Front Wheeled Walker Orthotic/Prosthetic Devices or Brace: No Comments Mobility Comments Supine to sit SBA with HOB elevated. STS with FWW CGA. Pt ambulates in the room ~60'CGA /SBA, pt reports some lightheadedness. He continues to ambulate ~20' in the room before sitting in the chair. Pt was left in the chair, all needs met. Gait Assessment Gait Gait Assistance Required: Standby Assistance,Contact Guard Assist,1 Person Assist Distance (Feet) 80 Assistive Devices Assistive Device Gait Belt,Front Wheeled Walker Gait Deviations General Gait Pattern Decreased Stride Length, Decreased Feet Clearance, Flexed Trunk,Step-to Gait,Wide Based Gait Factors Limiting Gait Function Factors Limiting Gait Function Decreased Activity Tolerance, Decreased Strength,Difficulty Following Directions, Incoordination,Poor Balance, Poor Safety Awareness PT-Balance Assessment Sitting Balance and Reactions Static Sitting Balance Ability Good Dynamic Sitting Balance Ability Good Standing Balance and Reactions Static Standing Balance Ability Good Dynamic Standing Balance Ability Fair Device Used FWW M5 PT-IP Objective Assessments Start: 02/06/24 10:51 Freq: NEEDED Status: Active Protocol: Document 02/06/24 10:51 MB (Rec: 02/06/24 11:23 MB [id number]) Orientation Orientation/Cognition Level of Alertness Alert Orientation Name,Age,Month,Year,Place Safety Awareness Decreased Safety Awareness Memory Description No Deficits Noted Comments Slow verbalizations and low vocal volume Gross Range of Motion Upper Extremity ROM Impairments Defer to OT Lower Extremity ROM Impairments PT did not have a chance to examine during assistance to get back to bed, will further review in future PT treatments Strength Comments Strength Comments See above as far as unable to MMT as assisting pt back to bed for ECHO, found up with [employer]PERATOR and ekg technician M6 PT-IP Treatment Start: 02/06/24 10:51 Freq: NEEDED Status: Active Protocol: Document 02/07/24 13:22 TS (Rec: 02/07/24 13:31 TS [id number]) Physical Therapy Treatment Education Education Provided Safety M7 PT-IP Assessment and Plan Start: 02/06/24 10:51 Freq: NEEDED Status: Active Protocol: Document 02/07/24 13:22 TS (Rec: 02/07/24 13:31 TS [id number]) PT Summary Assessment and Plan Potential Rehabilitation Potential Fair Summary Impairments ROM,Strength,Balance, Coordination,Cognition,Bed Mobility,Transfers,Gait, Activity Tolerance Progress Towards Goals Slow Progress due to Activity Tolerance Assessment Summary Pt continues to be orthostatic and has some symptoms. Even with symptoms pt is ambulating in the room with no LOB. He continues to be somewhat slow process instructions but follows them well. PT is recommending home with 24/7 assist and HHPT. PT has multiple caregivers at home. Goals Bed Mobility Goal Independent Transfer Goal Standby Assistance,Front Wheeled Walker Gait Goal Standby Assistance,Front Wheel Walker Gait Distance 75 Days to Meet Goals 5 Frequency of Treatment Frequency Of Treatment Once a Day Treatment Plan Physical Therapy Treatment Plan Bed Mobility Training,Transfer Training,Gait Training, Therapeutic Exercise,Balance Retraining,Discharge Planning, Hot or Cold Pack,Neuromuscular Re-ed,Coordination Retraining ,Manual Therapy Precautions Other Precautions Fluctuating BP Recommendations To Nursing Amount of Assist Needed 1 Person Assist Discharge Recommendations PT Discharge Recommendations Home with 24/7 Assist Available,Home Health Transportation Needs at Discharge Private Vehicle
--- NOTE | 2024-02-07 12:21 | CM.DPNOTE ---
Addendum entered by FATMATA [place] 02/07/24 15:41: ADD: [place]= Home w/HH. Discussed with patient and his daughter Skylar. Patient had deepika arranged upon his discharge from [place], according to daughter, and she would like this resumed. Placed call to deepika, spoke with Idris burrows)who explained patient is current, resumption order requested. Emailed face sheet, F2F and HH order to [email or web address] Plan: Discharge today anticipated, home w/family, caregivers, resumption of deepika Original Note: DCP Cont Reviewed chart. Patient discussed in multidisciplinary rounds. Patient is nearing medical stability, blood pressure is reportedly stabilizing. Therapies to see patient again today. Patient remains observation status at this time. Patient hopeful to return home. CM team following closely for continued therapy recommendations, will then discuss with patient and his daughter. VANESSA
--- NOTE | 2024-02-07 13:30 | OT.IP.TRT ---
Occupational Therapy Treatment Note M2 OT-IP Current Condition Start: 02/06/24 14:41 Freq: Status: Active Protocol: Document 02/06/24 14:41 CGR (Rec: 02/06/24 15:13 CGR [id number]) Occupational Therapy Current Condition Current Condition Evaluation Date 02/06/24 Treatment Diagnosis syncope, orthostatic Diagnosis Onset Date 02/05/24 M3 OT- IP Subjective and Pain Start: 02/06/24 14:41 Freq: Status: Active Protocol: Document 02/07/24 13:43 [facility] (Rec: 02/07/24 13:49 [facility] [id number]) OT- Subjective Occupational Therapy Visit Type Type Treatment Note Visit Start Time 13:10 Visit Stop Time 13:30 Occupational Therapy Visit Comments Patient Comments Pt wanting to get back to bed and not wanting to do any ADL' s at this time. Patient/Caregiver Goals TO go home. Pt concerned about being constipated and nursing notified. OT Pain Assessment Pain When Pain Assessed At Rest Pain Present Pain Present Denied Pain M4 OT- IP ADL's Start: 02/06/24 14:41 Freq: Status: Active Protocol: Document 02/06/24 14:41 CGR (Rec: 02/06/24 15:13 CGR [id number]) OT [id number] Comments OT Self-Feeding Comments not meal time OT ADL-Grooming Comments OT Grooming Comments pt declined to perform OT ADL-Oral Care Comments Oral Care Comments pt declined to perform OT ADL-Dressing General Eval Lower Body Dressing Ability Total Assistance Areas Needing Assistance Socks Comments OT Dressing Comments This staff writer assisted pt with donning socks. Pt states that he can't do socks IND. OT ADL-Toileting General Evaluation Toileting Ability Total Assistance Comments OT Toileting Comments ching OT ADL-Bathing Comments OT Bathing Comments not performed M5 OT- IP IADL's Start: 02/06/24 14:41 Freq: Status: Active Protocol: Document 02/06/24 14:41 CGR (Rec: 02/06/24 15:13 CGR [id number]) OT-Instrumental Activities of Daily Living Deficits IADL Deficits Identified Deficits Home Safety Awareness Awareness of Need for Assistance at Home Decreased Awareness Medication Management Medication Management Comments Concerns regarding pt's ability to perform safely Money Management Money Management Comments Concerns regarding pt's ability to perform safely Meal Preparation Meal Preparation Comments Concerns regarding pt's ability to perform safely Furniture Mover Driver Furniture Mover Driver Comments Concerns regarding pt's ability to perform safely Driving Driving Comments Concerns regarding pt's ability to perform safely M6 OT- IP Functional Cognition Start: 02/06/24 14:41 Freq: Status: Active Protocol: Document 02/07/24 13:43 [facility] (Rec: 02/07/24 13:49 [facility] [id number]) Cognitive Factors Limiting Selfcare Function Cognitive Comments Cognitive Assessment Comments Pt able to follow commands with increased time. M7 OT- IP Mobility and Balance Start: 02/06/24 14:41 Freq: Status: Active Protocol: Document 02/07/24 13:43 [facility] (Rec: 02/07/24 13:49 [facility] [id number]) OT-Transfer Assessment Sit to and From Stand Sit to and from Stand Contact Guard Assistance Transfers Transfer Ability Contact Guard Assistance Technique Transfer Destination Bed Transfer Technique Stand Step Pivot Devices Transfer Assistive Devices Gait Belt,Front Wheeled Walker Comments Mobility Comments CGA for transfer. BP sitting 100/56 and standing 90/41 and feeling woozy and back siting down 100/56. OT- Balance Assessment Sitting Balance and Reactions Static Sitting Balance Ability Good Dynamic Sitting Balance Ability Good Standing Balance and Reactions Static Standing Balance Ability Good Dynamic Standing Balance Ability Fair M8 OT- IP Objective Assessments Start: 02/06/24 14:41 Freq: Status: Active Protocol: Document 02/06/24 14:41 CGR (Rec: 02/06/24 15:13 CGR [id number]) OT Gross Range of Motion Upper Extremity Range of Motion Assessment Within Functional Limits OT Strength Upper Extremity Strength Assessment Within Functional Limits Comments Strength Comments 5/5 OT- Coordination Assessment Upper Extremity Finger to Nose Test Within Functional Limits Finger Tapping Test Within Functional Limits OT-Muscle Tone Assessment Muscle Tone WNL Yes OT Sensation Assessment Edema Edema Absent M9 OT- IP Assessment and Plan Start: 02/06/24 14:41 Freq: Status: Active Protocol: Document 02/07/24 13:43 [facility] (Rec: 02/07/24 13:49 [facility] [id number]) OT Summary Assessment and Plan Potential Rehabilitation Potential Good Analytic Complexity at Evaluation Moderate Summary OT Impairments Balance,Functional Cognition, Functional Mobility,Grooming, Dressing,Toileting,Bathing, Toilet Transfers,Shower Transfers,Activity Tolerance Progress Towards Goals Slow Progress due to Medical Issues Assessment Summary Pt still feeling woozy when up on his feet sitting BP 100/56 and dropped to 90/41 while standing. Pt also having concerns about being constipated and nursing notified. Pt to go home with home health when medically stable and have 24/7 assist. Goals Self-Feeding Goal Independent Grooming Goal Independent Dressing Goal Minimal Assistance Toileting Goal Independent Toilet Transfer Goal Independent Days to Meet Goals 9 Frequency of Treatment Other frequency 5x a week Treatment Plan OT Treatment Plan ADL Training,Functional Cognition Training,Functional Mobility,Patient/Family Education,Discharge Planning Other Treatment Recommendations and Next SLUMS Treatment Focus Discharge Recommendations OT Discharge Recommendations Home with 24/7 Assist Available,Home Health Transportation Needs at Discharge Private Vehicle
--- NOTE | 2024-02-07 15:14 | P.DS_ITS ---
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 He reports he dropped his plate and bent down to pick it up. He became dizzy and subsequently became syncopal. He was reportedly orthostatic when EMS arrived. He did hit his head and had a hematoma noted over his left eyebrow. He was subsequently transported to the emergency department. In the emergency department, he was noted to have no focal deficits. Emergency room physician noted he seemed mildly confused. CT scan of the head revealed no acute bleeds. Prior lacunar infarct in the right basal ganglia was noted. Also remote right parietal lobe infarct was noted. Chronic microvascular ischemic change noted. C-spine CT was performed with no evidence of acute trauma. 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 Chest x-ray revealed no acute cardiopulmonary process. Labs revealed a normal white blood cell count, hemoglobin 11.5, platelets 217. PT was 19.2, INR 1.7. Sodium 134, BUN 22, creatinine 1.51. His baseline creatinine is between 1.3 and 1.6. He was in the emergency department with obstructive uropathy on January 19. Initial creatinine was 11.24. After Ching catheter was placed it gradually came down to 8.58. Due to his mild confusion and syncopal event with head injury in the setting of chronic anticoagulation, admission for observation was recommended. At the time of my evaluation, patient is eating a meal eaten almost all of what was delivered. He is able to give me the complete history of at today. He is able to recall being dizzy prior. He states is unusual for him to be able to do that as he has a prior history of syncope where he could not remember being dizzy. He states in that setting he fell backwards and hit the back of his head. He reports that fall was quite sometime ago. Reports he was in his usual state of health today. He states he ?tends to overdo it? and take on more than he should given his advanced age and health. He denies any current headache, nausea, shortness of breath, chest pain. He does complain of chronic mild left heel and mild right great toe pain from his fall. Discharge Providers Provider Date of admission: 02/05/24 14:24 Discharge Date: 02/07/24 Primary care physician: Leydi Josue DO Consults: 02/05/24 14:27 Consult to Occupational Therapy Evaluate & Treat Comment: Physician Instructions: Evaluate and treat Consult to Physical Therapy Evaluate & Treat Comment: Physician Instructions: Evaluate and Treat Discharge provider: Bi Carpenter DO Summary Hospital Course Discharge Diagnosis: 1. Syncope secondary to orthostatic hypotension, possible acute cystitis with chronic urinary obstruction and ching catheter. 2. Closed head injury with hematoma in a patient on chronic anticoagulation 3. Coagulopathy secondary to Xarelto. Now resumed. 4. CKD stage 3 5. Hyponatremia 6. Daily alcohol use 7. Permanent atrial fibrillation 8. Seizure disorder Time Spent with Patient Time spent: Greater than 30 minutes Exam Vital Signs (past 8 hours): - 02/07/24 08:00 02/07/24 09:25 02/07/24 09:30 Temperature 97.1 F L Pulse Rate 80 86 Pulse Rate [Orthostatic Lying] 82 Pulse Rate [Orthostatic Sitting] 75 Respiratory Rate 12 Blood Pressure 149/82 H 138/83 Blood Pressure [Orthostatic Lying] 145/60 H Blood Pressure [Orthostatic Sitting] 90/46 L Pulse Oximetry 99 Oxygen Delivery Method Room Air Oxygen Flow Rate 0 Narrative Exam Narrative: GEN: Very pleasant elderly male Alert and oriented x3, no acute distress CHEST: Respiratory excursions symmetric, mild right basilar crackles, otherwise clear to auscultation bilaterally CV: Irregularly irregular, no murmurs, rubs, gallops ABD: Soft, nontender, nondistended, bowel sounds present in all 4 quadrants, no organomegaly or masses appreciated EXTR: Warm, well perfused, no clubbing/cyanosis/edema, small amount of bruising noted to the right great toe SKIN: Warm and dry, without rash NEURO: Alert and oriented x3, cranial nerves 2 through 12 are intact and symmetric bilaterally, motor strength 5/5 throughout, sensation intact throughout PSYCH: Mood and affect is within normal limits, judgment and insight are appropriate Objective Labs 02/06/24 04:40 02/07/24 05:35 Labs: Laboratory Results - last 24 hr 10/15/24 05:35 Sodium 137 Potassium 4.1 Chloride 107 Carbon Dioxide 22 BUN 21 H Creatinine 1.24 Estimated GFR 58 L BUN/Creatinine Ratio 16.9 Glucose 112 H Calcium 8.8 Magnesium 2.0 PFSH Medical History (Updated 02/05/24 @ 18:16 by Loree Mariee MD) Weakness Syncope Spinal stenosis Posttraumatic stress disorder (03/12/16) 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/16) Essential hypertension (03/12/16) Coronary arteriosclerosis in [place] artery (03/12/16) Surgical History History of oral surgery Family History Father Heart disease Essential hypertension Grandmother Diabetes mellitus Social History household members: spouse, children and caregiver Smoking Status: Former smoker alcohol intake: current Discharge Plan Discharge Plan Patient Disposition: Home Discharge orders & Medications Prescriptions: No Action aspirin 81 mg tablet,delayed release (DR/EC) 81 mg PO DAILY rivaroxaban 2.5 mg 2.5 mg BID carvedilol 12.5 mg Tablet 12.5 mg PO BID Rx Instructions: must administer with a meal/food sertraline 100 mg Tablet 150 mg PO DAILY Rx Instructions: one and one half tab q day levetiracetam [Keppra] 250 mg Tablet 500 mg PO BID losartan 25 mg Tablet 12.5 mg PO DAILY Rx Instructions: one half tab daily furosemide 20 mg Tablet 20 mg PO Q OTHER DAY Rx Instructions: finasteride 5 mg Tablet 5 mg PO DAILY prazosin 2 mg Capsule 1 mg PO BEDTIME spironolactone 50 mg Tablet 50 mg PO DAILY atorvastatin 80 mg tablet 80 mg PO BEDTIME Qty: 90 0RF nitroglycerin 0.4 mg Tablet, Sublingual 0.4 mg sublingual Q5MIN PRN (Reason: Chest Pain) acetaminophen 325 mg Capsule 650 mg PO QID PRN (Reason: Pain (Scale Score 1-3)) Systane Hydration (PF) 0.4-0.3 % Drops 1 drp EYE-BOTH DAILY PRN (Reason: Dry Eyes) Follow up/Referrals: Leydi Josue DO [Primary Care Provider] - Visit Report/Discharge Packet Stand Alone Forms: Patient Portal/API, Stroke Signs & Symptoms Discharge Data Primary Care Provider: Leydi Josue Attending Provider: Loree Mariee Admit Date/Time: 02/05/24 14:24
--- NOTE | 2024-02-07 15:51 | PM.PN.1 ---
Subjective Subjective Date Patient Seen: 02/06/24 Interval history: 83 M admitted with weakness, syncope likely due to orthostatic hypotension. TTE was unremarkable. Still orthostatic today. PT did recommend home health, but daughter came in concerned about discharge. She states he is still quite weak compared to baseline, not moving well and she is still very concerned about risk of falling at home as she also cares for his spouse. Exam Vital Signs (past 8 hours): - 02/07/24 08:00 02/07/24 09:25 02/07/24 09:30 Temperature 97.1 F L Pulse Rate 80 86 Pulse Rate [Orthostatic Lying] 82 Pulse Rate [Orthostatic Sitting] 75 Respiratory Rate 12 Blood Pressure 149/82 H 138/83 Blood Pressure [Orthostatic Lying] 145/60 H Blood Pressure [Orthostatic Sitting] 90/46 L Pulse Oximetry 99 Oxygen Delivery Method Room Air Oxygen Flow Rate 0 Narrative Exam Narrative: GEN: Very pleasant elderly male Alert and oriented x3, no acute distress CHEST: Respiratory excursions symmetric, mild right basilar crackles, otherwise clear to auscultation bilaterally CV: Irregularly irregular, no murmurs, rubs, gallops ABD: Soft, nontender, nondistended, bowel sounds present in all 4 quadrants, no organomegaly or masses appreciated EXTR: Warm, well perfused, no clubbing/cyanosis/edema, small amount of bruising noted to the right great toe SKIN: Warm and dry, without rash NEURO: Alert and oriented x3, cranial nerves 2 through 12 are intact and symmetric bilaterally, motor strength 5/5 throughout, sensation intact throughout PSYCH: Mood and affect is within normal limits, judgment and insight are appropriate Objective Labs 02/06/24 04:40 02/07/24 05:35 Labs: Laboratory Results - last 24 hr 02/07/24 05:35 Sodium 137 Potassium 4.1 Chloride 107 Carbon Dioxide 22 BUN 21 H Creatinine 1.24 Estimated GFR 58 L BUN/Creatinine Ratio 16.9 Glucose 112 H Calcium 8.8 Magnesium 2.0 PFSH Medical History (Updated 02/05/24 @ 18:16 by Loree Mariee MD) Weakness Syncope Spinal stenosis Posttraumatic stress disorder (03/12/16) 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/16) Essential hypertension (03/12/16) Coronary arteriosclerosis in [place] artery (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 Syncope secondary to orthostatic hypotension, possible acute cystitis with chronic urinary obstruction and ching catheter. - orthostatics qshift, still orthostatic today. - started ceftriaxone for possible acute cystitis given orthostasis, weakness, though may be colonization due to chronic ching. Daughter states urology wished to attempt ching removal with trial of void at office visit tomorrow, will do this today since catheter at the least needs to be changed. - continue PT/OT, will try to have daughter present with therapies. - hold home losartan for now given orthostatic vitals. Consider holding finasteride and prazosin depending on symptoms moving forward. Will also reduce coreg to 6.25 mg BID. 2. Closed head injury with hematoma in a patient on chronic anticoagulation CT showed no evidence of intracranial injury. He is alert, oriented x3, neurologically intact at this time. He has no concussive symptoms. Will continue to monitor overnight. 3. Coagulopathy secondary to Xarelto. Now resumed. - only on 2.5 mg BID of rivaroxaban. This is confirmed on discharge from [place] documentation. 4. CKD stage 3 Recent obstructive uropathy secondary to BPH, discharged from [facility] on 01/27/24. Creatinine is back down to 1.51 on admission and 1.24 today. Had urology scheduled for tomorrow, will do trial of void today with ching removal. Replace if unable to void. 5. Hyponatremia Mild at 134. Now resolved 137. 6. Daily alcohol use He reportedly drinks 2 beverages or less per day. I have low suspicion for withdrawal symptoms. If he develops evidence of tachycardia/hypertension/confusion/diaphoresis, will initiate CIWA protocol. 7. Permanent atrial fibrillation Presently rate controlled. Will reduce home coreg in half as noted above given orthostatic vitals today. 8. Seizure disorder Continue his usual Keppra dose. Code status Full per POLST Prophylaxis Xarelto. Disposition change to inpatient, persistent orthostatic hypotension. Additional history obtained via discussion with patient's daughter. These contributed to the above assessment and plan. Time-Based Coding :: [TOTAL MINUTES] spent with patient and on the chart (including review of chart, obtaining history, exam, reviewing outside data, placing orders, documenting exam and treatment plan, and counseling patient) on [DATE].
[2024-02-07] MEDS: cefTRIAXone 1,000 MG in SODIUM CHLORIDE 0.9% 100 ML 200 MG IV (15:58)
[2024-02-07] MEDS: carvediloL 12.5 MG TABLET 6.25 MG PO (20:56)
[2024-02-07] MEDS: RIVAROXABAN 10 MG TABLET 2.5 MG PO (22:56)
[2024-02-07] MEDS: PRAZOSIN 1 MG CAPSULE PO (22:56)
[2024-02-07] MEDS: ATORVASTATIN 20 MG TABLET 80 MG PO (22:59)
[2024-02-08] VITALS (10 sets, daily range): BP systolic 95–159; BP diastolic 53–87; PULSE 62–89; RESP 15–20; TEMP 35.9–36.8; O2SAT 99–100
[2024-02-08] MEDS: LIDOCAINE 2% (GLYDO) 6 ML GEL TOP (00:49)
[2024-02-08] MEDS: HYDROMORPHONE 1 MG INJ IV (00:49)
[2024-02-08 06:32] LABS: BUN Creatinine Ratio 19.8 (6-22); Blood Urea Nitrogen 24 mg/dL (9-20); Calcium 8.6 mg/dL (8.4-10.2); Carbon Dioxide 23 mmol/L (22-32); Chloride 104 mmol/L (98-107); Estimated Glomerular Filt Rate 60 mL/min (>60); Glucose 114 mg/dL (80-110); HEMOLYSIS < 15 (0-50); Sodium 133 mmol/L (137-145)
[2024-02-08] MEDS: ACETAMINOPHEN 325 MG TABLET 650 MG PO ×2 (07:43→20:59)
[2024-02-08] MEDS: FINASTERIDE 5 MG TABLET PO (08:35)
[2024-02-08] MEDS: ASPIRIN EC 81 MG TABLET PO (08:35)
[2024-02-08] MEDS: SERTRALINE 50 MG TABLET 150 MG PO (08:35)
[2024-02-08] MEDS: SPIRONOLACTONE 25 MG TABLET 50 MG PO (08:35)
[2024-02-08] MEDS: levETIRAcetam 250 MG TABLET 500 MG PO ×2 (08:35→20:58)
[2024-02-08] MEDS: carvediloL 12.5 MG TABLET 6.25 MG PO ×2 (08:36→20:58)
[2024-02-08] MEDS: RIVAROXABAN 10 MG TABLET 2.5 MG PO ×2 (08:37→20:57)
[2024-02-08] MEDS: levoFLOXacin 250 MG TABLET 750 MG PO (08:44)
--- NOTE | 2024-02-08 10:20 | PT.IPTN ---
Physical Therapy Treatment Note M2 PT-IP Current Condition Start: 02/06/24 10:51 Freq: NEEDED Status: Active Protocol: Document 02/06/24 10:51 MB (Rec: 02/06/24 11:23 MB [id number]) Physical Therapy Current Condition Current Condition Evaluation Date 02/06/24 Treatment Diagnosis Ground level fall M3 PT-IP Subjective Start: 02/06/24 10:51 Freq: NEEDED Status: Active Protocol: Document 02/08/24 11:51 TS (Rec: 02/08/24 12:06 TS [id number]) Subjective Physical Therapy Visit Type Type Treatment Note Visit Start Time 10:20 Visit Stop Time 10:43 Number of MICA WASHER GLUER Visits 2 Physical Therapy Visit Comments Patient Comments Pt found resting in bed, he is agreeable to PT. M4 PT-IP Mobility and Gait Start: 02/06/24 10:51 Freq: NEEDED Status: Active Protocol: Document 02/08/24 11:51 TS (Rec: 02/08/24 12:06 TS [id number]) PT-Bed Mobility Assessment Supine to Sit Supine to Sit Standby Assistance Scooting Scooting to Edge of Bed Standby Assistance PT-Transfer Assessment Sit to and From Stand Sit to and from Stand Standby Assistance,Contact Guard Assistance Equipment Transfer Assistive Device Gait Belt,Front Wheeled Walker Orthotic/Prosthetic Devices or Brace: No Comments Mobility Comments BP in supine 130/69. Supine to sit SBA with BUE support for uprighting trunk. Pt reports some dizziness in sitting, BP 104/56. Pt sat EOB for ~3mins, lightheadedness slowly resolves. STS with FWW SBA from EOB, BP in standing 95/46 , pt reports some lightheadedness. He ambulates ~50' with FWW SBA and ~50' SBA with SPC. Pt's balance is better with use of FWW and recommended he continue to use . Pt was left in the chair, all needs met. Gait Assessment Gait Gait Assistance Required: Standby Assistance Distance (Feet) 100 Able to Maintain Weight Bearing Status Yes During Gait Assistive Devices Assistive Device Gait Belt,Straight Cane,Front Wheeled Walker Orthotic/Prosthetic Devices or Brace: No Gait Deviations General Gait Pattern Decreased Stride Length, Decreased Feet Clearance, Flexed Trunk,Step-to Gait,Wide Based Gait Factors Limiting Gait Function Factors Limiting Gait Function Decreased Activity Tolerance, Decreased Strength,Difficulty Following Directions, Incoordination,Poor Balance, Poor Safety Awareness PT-Balance Assessment Sitting Balance and Reactions Static Sitting Balance Ability Good Dynamic Sitting Balance Ability Good Standing Balance and Reactions Static Standing Balance Ability Good Dynamic Standing Balance Ability Fair Device Used FWW/SPC M5 PT-IP Objective Assessments Start: 02/06/24 10:51 Freq: NEEDED Status: Active Protocol: Document 02/06/24 10:51 MB (Rec: 02/06/24 11:23 MB [id number]) Orientation Orientation/Cognition Level of Alertness Alert Orientation Name,Age,Month,Year,Place Safety Awareness Decreased Safety Awareness Memory Description No Deficits Noted Comments Slow verbalizations and low vocal volume Gross Range of Motion Upper Extremity ROM Impairments Defer to OT Lower Extremity ROM Impairments PT did not have a chance to examine during assistance to get back to bed, will further review in future PT treatments Strength Comments Strength Comments See above as far as unable to MMT as assisting pt back to bed for ECHO, found up with DENTAL PRACTICE MANAGER and integration technician M6 PT-IP Treatment Start: 02/06/24 10:51 Freq: NEEDED Status: Active Protocol: Document 02/08/24 11:51 TS (Rec: 02/08/24 12:06 TS [id number]) Physical Therapy Treatment Education Education Provided Safety M7 PT-IP Assessment and Plan Start: 02/06/24 10:51 Freq: NEEDED Status: Active Protocol: Document 02/08/24 11:51 TS (Rec: 02/08/24 12:06 TS [id number]) PT Summary Assessment and Plan Potential Rehabilitation Potential Fair Summary Impairments ROM,Strength,Balance, Coordination,Cognition,Bed Mobility,Transfers,Gait, Activity Tolerance Progress Towards Goals Progressing Toward Goals,Slow Progress due to Medical Issues Assessment Summary Zackery is making some progress with his mobility this session but is limited. He continues to be SBA for mobility this session. He progressed his gait to ~50 with SPC and ~50 with FWW. Recommended pt use FWW for safety. He continues to be hypotensive and does have some symptoms,. PT recommends home with assist vs SNF. Daughter reports wanting him to go to rehab to improve more before home. She takes care of her mother who is w/c bound. Patient is open to going to rehab. Goals Bed Mobility Goal Independent Transfer Goal Standby Assistance,Front Wheeled Walker Gait Goal Standby Assistance,Front Wheel Walker Gait Distance 75 Days to Meet Goals 5 Frequency of Treatment Frequency Of Treatment Once a Day Treatment Plan Physical Therapy Treatment Plan Bed Mobility Training,Transfer Training,Gait Training, Therapeutic Exercise,Balance Retraining,Discharge Planning, Hot or Cold Pack,Neuromuscular Re-ed,Coordination Retraining ,Manual Therapy Precautions Other Precautions Fluctuating BP Recommendations To Nursing Amount of Assist Needed Standby Assistance Discharge Recommendations PT Discharge Recommendations Home with Assistance,Home Health,SNF Rehab,Home vs SNF Transportation Needs at Discharge Private Vehicle
[2024-02-08] MEDS: DOCUSATE 100 MG CAPSULE PO (10:48)
[2024-02-08] MEDS: polyethylene glycoL 3350 17 GM POWD.PACK PO (10:48)
--- NOTE | 2024-02-08 13:40 | P.PN_ITS ---
Subjective Subjective Date Patient Seen: 02/06/24 Interval history: 83 M admitted with weakness, syncope likely due to orthostatic hypotension. TTE was unremarkable. Still orthostatic today. PT did recommend home health yesterday but daughter concerned about his safety at home and patient is still quite orthostatic and reporting dizziness today. Will trial compression stockings today. Exam Vital Signs (past 8 hours): - 02/08/24 08:00 02/08/24 08:36 02/08/24 10:39 Temperature 98.2 F Pulse Rate 69 69 Pulse Rate [Orthostatic Lying] 65 Pulse Rate [Orthostatic Sitting] 70 Pulse Rate [Orthostatic Standing] 89 Respiratory Rate 16 Blood Pressure 159/87 H 159/87 H Blood Pressure [Orthostatic Lying] 130/69 Blood Pressure [Orthostatic Sitting] 104/56 L Blood Pressure [Orthostatic Standing] 95/59 L Pulse Oximetry 99 Oxygen Flow Rate 0 02/08/24 12:00 Temperature 97.8 F Pulse Rate 62 Pulse Rate [Orthostatic Lying] Pulse Rate [Orthostatic Sitting] Pulse Rate [Orthostatic Standing] Respiratory Rate 16 Blood Pressure 130/65 Blood Pressure [Orthostatic Lying] Blood Pressure [Orthostatic Sitting] Blood Pressure [Orthostatic Standing] Pulse Oximetry 100 Oxygen Flow Rate 0 Oxygen Delivery Method Room Air Oxygen Flow Rate 0 Narrative Exam Narrative: GEN: Very pleasant elderly male Alert and oriented x3, no acute distress CHEST: Respiratory excursions symmetric, mild right basilar crackles, otherwise clear to auscultation bilaterally CV: Irregularly irregular, no murmurs, rubs, gallops ABD: Soft, nontender, nondistended, bowel sounds present in all 4 quadrants, no organomegaly or masses appreciated EXTR: Warm, well perfused, no clubbing/cyanosis/edema, small amount of bruising noted to the right great toe SKIN: Warm and dry, without rash NEURO: Alert and oriented x3, cranial nerves 2 through 12 are intact and symmetric bilaterally, motor strength 5/5 throughout, sensation intact throughout PSYCH: Mood and affect is within normal limits, judgment and insight are appropriate Objective Labs 02/06/24 04:40 02/08/24 05:20 Labs: Laboratory Results - last 24 hr 02/08/24 05:20 Sodium 133 L Potassium 4.0 Chloride 104 Carbon Dioxide 23 BUN 24 H Creatinine 1.21 Estimated GFR 60 BUN/Creatinine Ratio 19.8 Glucose 114 H Calcium 8.6 Magnesium 2.0 [facility] Medical History (Updated 02/05/24 @ 18:16 by Loree Mariee MD) Weakness Syncope Spinal stenosis Posttraumatic stress disorder (03/12/16) 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/16) Essential hypertension (03/12/16) Coronary arteriosclerosis in [place] artery (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 Syncope secondary to orthostatic hypotension, possible acute cystitis with chronic urinary obstruction and ching catheter. - orthostatics qshift, still orthostatic today. - started ceftriaxone for possible acute cystitis given orthostasis, weakness, though may be colonization due to chronic ching. Attempted trial of void on 02/06 but could not void, and catheter was replaced. - continue PT/OT, will try to have daughter present with therapies. - hold home losartan for now given orthostatic vitals. Consider holding finasteride and prazosin depending on symptoms moving forward but given urinary retention hesitant to do so. Also reduced coreg to 6.25 mg BID. Will trial compression stockings today which are ordered. 2. Closed head injury with hematoma in a patient on chronic anticoagulation CT showed no evidence of intracranial injury. He is alert, oriented x3, neurologically intact at this time. He has no concussive symptoms. Will continue to monitor overnight. 3. Coagulopathy secondary to Xarelto. Now resumed. - only on 2.5 mg BID of rivaroxaban. This is confirmed on discharge from [place] documentation. 4. CKD stage 3 Recent obstructive uropathy secondary to BPH, discharged from [facility] on 01/27/24. Creatinine is back down to 1.51 on admission and 1.24 today. Had urology scheduled for tomorrow, will do trial of void today with ching removal. Replace if unable to void. 5. Hyponatremia Mild at 134. Now resolved 137. 6. Daily alcohol use He reportedly drinks 2 beverages or less per day. I have low suspicion for withdrawal symptoms. If he develops evidence of tachycardia/hypertension/confusion/diaphoresis, will initiate CIWA protocol. 7. Permanent atrial fibrillation Presently rate controlled. Will reduce home coreg in half as noted above given orthostatic vitals today. 8. Seizure disorder Continue his usual Keppra dose. Code status Full per POLST Prophylaxis Xarelto. Disposition changed to inpatient, persistent orthostatic hypotension. Probable discharge home in 1-2 days Additional history obtained via discussion with patient's daughter. These contributed to the above assessment and plan. Time-Based Coding :: [TOTAL MINUTES] spent with patient and on the chart (including review of chart, obtaining history, exam, reviewing outside data, placing orders, documenting exam and treatment plan, and counseling patient) on [DATE].
--- NOTE | 2024-02-08 14:06 | OT.IP.TRT ---
Current Diagnoses Orthostatic hypotension (02/07/24) Occupational Therapy Treatment Note M2 OT-IP Current Condition Start: 02/06/24 14:41 Freq: Status: Active Protocol: Document 02/06/24 14:41 CGR (Rec: 02/06/24 15:13 CGR [id number]) Occupational Therapy Current Condition Current Condition Evaluation Date 02/06/24 Treatment Diagnosis syncope, orthostatic Diagnosis Onset Date 02/05/24 M3 OT- IP Subjective and Pain Start: 02/06/24 14:41 Freq: Status: Active Protocol: Document 02/08/24 13:59 [facility] (Rec: 02/08/24 14:06 [facility] [id number]) OT- Subjective Occupational Therapy Visit Type Type Treatment Note Visit Start Time 13:35 Visit Stop Time 13:52 Occupational Therapy Visit Comments Patient Comments Pt wanting to get back to bed. Patient/Caregiver Goals Pt still worried of not having a bowel movement. OT Pain Assessment Pain When Pain Assessed At Rest Pain Present Pain Present Denied Pain M4 OT- IP ADL's Start: 02/06/24 14:41 Freq: Status: Active Protocol: Document 02/08/24 13:59 [facility] (Rec: 02/08/24 14:06 [facility] [id number]) OT ADL-Dressing General Eval Lower Body Dressing Ability Total Assistance Areas Needing Assistance Socks Comments OT Dressing Comments Pt states recently has gotten slip on shoes and that his caregiver or daughter assist with his socks. OT ADL-Toileting General Evaluation Toileting Ability Total Assistance Comments OT Toileting Comments Horowitz M5 OT- IP IADL's Start: 02/06/24 14:41 Freq: Status: Active Protocol: Document 02/06/24 14:41 CGR (Rec: 02/06/24 15:13 CGR [id number]) OT-Instrumental Activities of Daily Living Deficits IADL Deficits Identified Deficits Home Safety Awareness Awareness of Need for Assistance at Home Decreased Awareness Medication Management Medication Management Comments Concerns regarding pt's ability to perform safely Money Management Money Management Comments Concerns regarding pt's ability to perform safely Meal Preparation Meal Preparation Comments Concerns regarding pt's ability to perform safely Supervisor Front Supervisor Front Comments Concerns regarding pt's ability to perform safely Driving Driving Comments Concerns regarding pt's ability to perform safely M6 OT- IP Functional Cognition Start: 02/06/24 14:41 Freq: Status: Active Protocol: Document 02/08/24 13:59 [facility] (Rec: 02/08/24 14:06 [facility] [id number]) Cognitive Factors Limiting Selfcare Function Cognitive Comments Cognitive Assessment Comments Pt able to follow command. Pt very talkative today. Pt needing safety cues to scoot to the edge of the recliner prior to standing up. M7 OT- IP Mobility and Balance Start: 02/06/24 14:41 Freq: Status: Active Protocol: Document 02/08/24 13:59 [facility] (Rec: 02/08/24 14:06 [facility] [id number]) OT- Bed Mobility Assessment Sit to Supine Sit to Supine Assist Contact Guard Assistance OT-Transfer Assessment Sit to and From Stand Sit to and from Stand Standby Assistance,Contact Guard Assistance Transfers Transfer Ability Standby Assistance Technique Transfer Destination Bed,Chair Transfer Technique Stand Step Pivot Devices Transfer Assistive Devices Gait Belt,Front Wheeled Walker Comments Mobility Comments Pt vc to come to stand and CGA to close SBA to come to stnd to he FWW. Once on his feet close SBA and able to walk around the bed and CGA to assist to get his feet into bed. Pt feeling woozy at the end but able to get back into bed. OT- Balance Assessment Sitting Balance and Reactions Static Sitting Balance Ability Good Dynamic Sitting Balance Ability Good Standing Balance and Reactions Static Standing Balance Ability Good Dynamic Standing Balance Ability Fair M8 OT- IP Objective Assessments Start: 02/06/24 14:41 Freq: Status: Active Protocol: Document 02/06/24 14:41 CGR (Rec: 02/06/24 15:13 CGR [id number]) OT Gross Range of Motion Upper Extremity Range of Motion Assessment Within Functional Limits OT Strength Upper Extremity Strength Assessment Within Functional Limits Comments Strength Comments 5/5 OT- Coordination Assessment Upper Extremity Finger to Nose Test Within Functional Limits Finger Tapping Test Within Functional Limits OT-Muscle Tone Assessment Muscle Tone WNL Yes OT Sensation Assessment Edema Edema Absent M9 OT- IP Assessment and Plan Start: 02/06/24 14:41 Freq: Status: Active Protocol: Document 02/08/24 13:59 [facility] (Rec: 02/08/24 14:06 [facility] [id number]) OT Summary Assessment and Plan Potential Rehabilitation Potential Good Analytic Complexity at Evaluation Moderate Summary OT Impairments Balance,Functional Cognition, Functional Mobility,Grooming, Dressing,Toileting,Bathing, Toilet Transfers,Shower Transfers,Activity Tolerance Progress Towards Goals Progressing Toward Goals Assessment Summary Pt more steady on his feet today. Pt realizes will need more assist at home. Pt's caregiver in the room aware pt will need more assist at home . Pt to go home when medically stable and have 24/7 assist and home health. Goals Self-Feeding Goal Independent Grooming Goal Independent Dressing Goal Minimal Assistance Toileting Goal Independent Toilet Transfer Goal Independent Days to Meet Goals 8 Frequency of Treatment Other frequency 5x a week Treatment Plan OT Treatment Plan ADL Training,Functional Cognition Training,Functional Mobility,Patient/Family Education,Discharge Planning Discharge Recommendations OT Discharge Recommendations Home with 24/7 Assist Available,Home Health Transportation Needs at Discharge Private Vehicle
--- NOTE | 2024-02-08 14:32 | CM.DPNOTE ---
DCP Cont Placed call to daughter Skylar to discuss plan for today. Daughter continues to feel hesitant about taking patient home as she provides multimedia specialist care for her mom and dad. Explained that patient does not qualify for SNF at this time and is moving SBA with walker. Suggested discussing increased in home care with her parents and Skylar agreed. Daughter will be here around 2:30P, this ACCOUNT ADMINISTRATOR read through the GASOLINE PUMP INSTALLER note, which recommends patient return home with family and FWW. Patient is moving well w/FWW per notes. Daughter is agreeable to taking patient home later this afternoon. Daughter has to get her mom home from an appt first around 3:00P, then can turn around and come get patient. Patient has deepika TORRES arranged. Updated Dr Carpenter. Plan: Anticipate discharge home w/daughter, caregivers x3 week (2-3 hours), deepika TORRES, via private vehicle. VANESSA
--- NOTE | 2024-02-08 15:15 | OT.IP.TRT ---
Current Diagnoses Orthostatic hypotension (02/07/24) Occupational Therapy Treatment Note M2 OT-IP Current Condition Start: 02/06/24 14:41 Freq: Status: Active Protocol: Document 02/06/24 14:41 CGR (Rec: 02/06/24 15:13 CGR [id number]) Occupational Therapy Current Condition Current Condition Evaluation Date 02/06/24 Treatment Diagnosis syncope, orthostatic Diagnosis Onset Date 02/05/24 M3 OT- IP Subjective and Pain Start: 02/06/24 14:41 Freq: Status: Active Protocol: Document 02/08/24 15:18 CCC (Rec: 02/08/24 15:22 [facility] [id number]) OT- Subjective Occupational Therapy Visit Type Type Treatment Note Visit Start Time 15:05 Visit Stop Time 15:15 Occupational Therapy Visit Comments Patient Comments Pt's daughter having questions and wanting to talk to therapist . Patient/Caregiver Goals To go home. M4 OT- IP ADL's Start: 02/06/24 14:41 Freq: Status: Active Protocol: Document 02/08/24 15:18 [facility] (Rec: 02/08/24 15:22 [facility] [id number]) OT ADL-Toileting Comments OT Toileting Comments Suggested pt get a BSC, per pt 's daughter has one but that he will need to get his own. M5 OT- IP IADL's Start: 02/06/24 14:41 Freq: Status: Active Protocol: Document 02/06/24 14:41 CGR (Rec: 02/06/24 15:13 CGR [id number]) OT-Instrumental Activities of Daily Living Deficits IADL Deficits Identified Deficits Home Safety Awareness Awareness of Need for Assistance at Home Decreased Awareness Medication Management Medication Management Comments Concerns regarding pt's ability to perform safely Money Management Money Management Comments Concerns regarding pt's ability to perform safely Meal Preparation Meal Preparation Comments Concerns regarding pt's ability to perform safely Clothing Cutter Clothing Cutter Comments Concerns regarding pt's ability to perform safely Driving Driving Comments Concerns regarding pt's ability to perform safely M6 OT- IP Functional Cognition Start: 02/06/24 14:41 Freq: Status: Active Protocol: Document 02/08/24 13:59 [facility] (Rec: 02/08/24 14:06 CCC [id number]) Cognitive Factors Limiting Selfcare Function Cognitive Comments Cognitive Assessment Comments Pt able to follow command. Pt very talkative today. Pt needing safety cues to scoot to the edge of the recliner prior to standing up. M7 OT- IP Mobility and Balance Start: 02/06/24 14:41 Freq: Status: Active Protocol: Document 02/08/24 13:59 [facility] (Rec: 02/08/24 14:06 [facility] [id number]) OT- Bed Mobility Assessment Sit to Supine Sit to Supine Assist Contact Guard Assistance OT-Transfer Assessment Sit to and From Stand Sit to and from Stand Standby Assistance,Contact Guard Assistance Transfers Transfer Ability Standby Assistance Technique Transfer Destination Bed,Chair Transfer Technique Stand Step Pivot Devices Transfer Assistive Devices Gait Belt,Front Wheeled Walker Comments Mobility Comments Pt vc to come to stand and CGA to close SBA to come to stnd to he FWW. Once on his feet close SBA and able to walk around the bed and CGA to assist to get his feet into bed. Pt feeling woozy at the end but able to get back into bed. OT- Balance Assessment Sitting Balance and Reactions Static Sitting Balance Ability Good Dynamic Sitting Balance Ability Good Standing Balance and Reactions Static Standing Balance Ability Good Dynamic Standing Balance Ability Fair M8 OT- IP Objective Assessments Start: 02/06/24 14:41 Freq: Status: Active Protocol: Document 02/06/24 14:41 CGR (Rec: 02/06/24 15:13 CGR [id number]) OT Gross Range of Motion Upper Extremity Range of Motion Assessment Within Functional Limits OT Strength Upper Extremity Strength Assessment Within Functional Limits Comments Strength Comments 5/5 OT- Coordination Assessment Upper Extremity Finger to Nose Test Within Functional Limits Finger Tapping Test Within Functional Limits OT-Muscle Tone Assessment Muscle Tone WNL Yes OT Sensation Assessment Edema Edema Absent M9 OT- IP Assessment and Plan Start: 02/06/24 14:41 Freq: Status: Active Protocol: Document 02/08/24 15:18 [facility] (Rec: 02/08/24 15:22 [facility] [id number]) OT Summary Assessment and Plan Potential Rehabilitation Potential Good Analytic Complexity at Evaluation Moderate Summary OT Impairments Balance,Functional Cognition, Functional Mobility,Grooming, Dressing,Toileting,Bathing, Toilet Transfers,Shower Transfers,Activity Tolerance Progress Towards Goals Progressing Toward Goals Assessment Summary Spoke to pt's daughter of equipment needs and best for pt to get BSC, FWW, and alarm for his chair/bed as per pt'e daughter, pt tends to get up on his own without calling for assist. Pt to go home with 24 /7 assist and home health. Goals Self-Feeding Goal Independent Grooming Goal Independent Dressing Goal Minimal Assistance Toileting Goal Standby Assistance Toilet Transfer Goal Standby Assistance Days to Meet Goals 7 Frequency of Treatment Other frequency 5x a week Treatment Plan OT Treatment Plan ADL Training,Functional Cognition Training,Functional Mobility,Patient/Family Education,Discharge Planning Other Treatment Recommendations and Next SLUMS Treatment Focus Discharge Recommendations OT Discharge Recommendations Home with 24/7 Assist Available,Home Health Transportation Needs at Discharge Private Vehicle
[2024-02-08] MEDS: PRAZOSIN 1 MG CAPSULE PO (20:57)
[2024-02-08] MEDS: ATORVASTATIN 20 MG TABLET 80 MG PO (20:59)
[2024-02-09 02:02] VITALS: BP 114/73; PULSE 85; RESP 22; TEMP 37; O2SAT 98
[2024-02-09 05:02] LABS: BUN Creatinine Ratio 16.9 (6-22); Blood Urea Nitrogen 23 mg/dL (9-20); Carbon Dioxide 20 mmol/L (22-32); Chloride 109 mmol/L (98-107); Estimated Glomerular Filt Rate 52 mL/min (>60); Glucose 112 mg/dL (80-110); HEMOLYSIS < 15 (0-50); Magnesium 1.9 mg/dL (1.6-2.3); Potassium 4.2 mmol/L (3.4-5.1); Sodium 136 mmol/L (137-145)
[2024-02-09 08:00] VITALS: BP 125/72; PULSE 69; RESP 16; TEMP 35.9; O2SAT 99
[2024-02-09 09:03] VITALS: BP 123/59; BP 159/86; BP 98/50; PULSE 75; PULSE 79; PULSE 89
[2024-02-09] MEDS: RIVAROXABAN 10 MG TABLET 2.5 MG PO (09:07)
[2024-02-09] MEDS: levETIRAcetam 250 MG TABLET 500 MG PO (09:07)
[2024-02-09] MEDS: SERTRALINE 50 MG TABLET 150 MG PO (09:07)
[2024-02-09] MEDS: levoFLOXacin 250 MG TABLET 750 MG PO (09:07)
[2024-02-09] MEDS: carvediloL 12.5 MG TABLET 6.25 MG PO (09:09)
[2024-02-09] MEDS: ASPIRIN EC 81 MG TABLET PO (09:09)
[2024-02-09] MEDS: SPIRONOLACTONE 25 MG TABLET 50 MG PO (09:09)
[2024-02-09] MEDS: FINASTERIDE 5 MG TABLET PO (09:11)
[2024-02-09] MEDS: ACETAMINOPHEN 325 MG TABLET 650 MG PO (09:11)
[2024-02-09] MEDS: LOPERAMIDE 2 MG CAPSULE PO (10:19)
--- NOTE | 2024-02-09 10:48 | PT.IPTN ---
Current Diagnoses Orthostatic hypotension (02/07/24) Physical Therapy Treatment Note M2 PT-IP Current Condition Start: 02/06/24 10:51 Freq: NEEDED Status: Active Protocol: Document 02/06/24 10:51 MB (Rec: 02/06/24 11:23 MB [id number]) Physical Therapy Current Condition Current Condition Evaluation Date 02/06/24 Treatment Diagnosis Ground level fall M3 PT-IP Subjective Start: 02/06/24 10:51 Freq: NEEDED Status: Active Protocol: Document 02/09/24 11:15 TS (Rec: 02/09/24 11:22 TS [id number]) Subjective Physical Therapy Visit Type Type Treatment Note Visit Start Time 10:25 Visit Stop Time 10:48 Number of MORNING SHOW HOST Visits 3 Physical Therapy Visit Comments Patient Comments Pt found resting in the chair, he is agreeable to PT. M4 PT-IP Mobility and Gait Start: 02/06/24 10:51 Freq: NEEDED Status: Active Protocol: Document 02/09/24 11:15 TS (Rec: 02/09/24 11:22 TS [id number]) PT-Transfer Assessment Sit to and From Stand Sit to and from Stand Contact Guard Assistance,1 Person Assistance,Use of Upper Extremities Equipment Transfer Assistive Device Gait Belt,Front Wheeled Walker Orthotic/Prosthetic Devices or Brace: No Comments Mobility Comments STS from the chair CGA with use of FWW. Pt denies lightheadedness. He ambulates in the room ~100'SBA with use of FWW, pt continues to deny lightheadedness. BP in standing after gait 101/56. Pt was left back in the chair, all needs met. Gait Assessment Gait Gait Assistance Required: Standby Assistance Distance (Feet) 100 Able to Maintain Weight Bearing Status Yes During Gait Assistive Devices Assistive Device Gait Belt,Straight Cane,Front Wheeled Walker Orthotic/Prosthetic Devices or Brace: No Gait Deviations General Gait Pattern Decreased Stride Length, Decreased Feet Clearance, Flexed Trunk,Step-to Gait,Wide Based Gait Factors Limiting Gait Function Factors Limiting Gait Function Decreased Activity Tolerance, Decreased Strength,Difficulty Following Directions, Incoordination,Poor Balance, Poor Safety Awareness PT-Balance Assessment Sitting Balance and Reactions Static Sitting Balance Ability Good Dynamic Sitting Balance Ability Good Standing Balance and Reactions Static Standing Balance Ability Good Dynamic Standing Balance Ability Fair Device Used FWW M5 PT-IP Objective Assessments Start: 02/06/24 10:51 Freq: NEEDED Status: Active Protocol: Document 02/06/24 10:51 MB (Rec: 02/06/24 11:23 MB [id number]) Orientation Orientation/Cognition Level of Alertness Alert Orientation Name,Age,Month,Year,Place Safety Awareness Decreased Safety Awareness Memory Description No Deficits Noted Comments Slow verbalizations and low vocal volume Gross Range of Motion Upper Extremity ROM Impairments Defer to OT Lower Extremity ROM Impairments PT did not have a chance to examine during assistance to get back to bed, will further review in future PT treatments Strength Comments Strength Comments See above as far as unable to MMT as assisting pt back to bed for ECHO, found up with [employer] and geology technician M6 PT-IP Treatment Start: 02/06/24 10:51 Freq: NEEDED Status: Active Protocol: Document 02/09/24 11:15 TS (Rec: 02/09/24 11:22 TS [id number]) Physical Therapy Treatment Education Education Provided Safety M7 PT-IP Assessment and Plan Start: 02/06/24 10:51 Freq: NEEDED Status: Active Protocol: Document 02/09/24 11:15 TS (Rec: 02/09/24 11:22 TS [id number]) PT Summary Assessment and Plan Potential Rehabilitation Potential Fair Summary Impairments ROM,Strength,Balance, Coordination,Cognition,Bed Mobility,Transfers,Gait, Activity Tolerance Progress Towards Goals Progressing Toward Goals Assessment Summary Zackery is making some progress with his mobility today. He continues to ambulate ~100 in the room with use of FWW. He denied lightheadedness today when up with PT, BP 101/56. PT will continue to recommend Home vs SNF at this time. Goals Bed Mobility Goal Independent Transfer Goal Standby Assistance,Front Wheeled Walker Gait Goal Standby Assistance,Front Wheel Walker Gait Distance 75 Days to Meet Goals 5 Frequency of Treatment Frequency Of Treatment Once a Day Treatment Plan Physical Therapy Treatment Plan Bed Mobility Training,Transfer Training,Gait Training, Therapeutic Exercise,Balance Retraining,Discharge Planning, Hot or Cold Pack,Neuromuscular Re-ed,Coordination Retraining ,Manual Therapy Precautions Other Precautions Fluctuating BP Recommendations To Nursing Amount of Assist Needed 1 Person Assist Discharge Recommendations PT Discharge Recommendations Home Health,Home vs SNF Transportation Needs at Discharge Private Vehicle,Wheelchair/ Cabulance
[2024-02-09 12:00] VITALS: BP 101/56; PULSE 87; RESP 16; O2SAT 97
--- NOTE | 2024-02-09 12:51 | CM.DPNOTE ---
DCP Note CUSTOMS COMPLIANCE MANAGER reviewed EMR. Per hospitalist in morning rounds, pt cleared to dc home with family, CG, and HH support. CUSTOMS COMPLIANCE MANAGER spoke with dtr Skylar ([phone]) on the phone. Agreed to take pt home. CUSTOMS COMPLIANCE MANAGER answered questions about DME, how with [employer] D[employer] it would be PCP writing those orders but for commode she could either 1) rent from [employer] or 2) purchase one PP. Dtr expressed understanding. Dtr asked if pt could dc with some supplies for cath. Dtr reports CG will be on their way to pick him up. CUSTOMS COMPLIANCE MANAGER spoke with Xin from [facility], notified of pt's dc today. Xin will see to pt getting schedule for resumption of care. IVY Barbie kindly agreed to send dc information to [facility]. order already completed, f2f already scanned into chart. CUSTOMS COMPLIANCE MANAGER updated provider/RN. RN agreed to see about cath supplies for dc. CUSTOMS COMPLIANCE MANAGER met with pt in room. In agreement with plan. Denies questions at this time. P: Home with [facility] and family/CG support. CM team will continue to follow as needed FATMATA Costello
--- NOTE | 2024-02-09 13:01 | P.DS_ITS ---
History of Present Illness History of Present Illness Date Patient Seen: 02/09/24 Time Patient Seen: 09:05 Date of Onset of Symptoms: 02/05/24 Chief complaint: GLF, w/ headstrike and irregular heart beat Narrative: 82-year-old male with previous cerebrovascular accident status post tPA in April 2021, permanent atrial fibrillation on Xarelto, hypertension, CKD, BPH with bladder outlet obstruction status post Horowitz catheter placement recently, PTSD, remote tobacco dependence who presented to the emergency department today after a syncopal event. He reports he dropped his plate and bent down to pick it up. He became dizzy and subsequently became syncopal. He was reportedly orthostatic when EMS arrived. He did hit his head and had a hematoma noted over his left eyebrow. He was subsequently transported to the emergency department. In the emergency department, he was noted to have no focal deficits. Emergency room physician noted he seemed mildly confused. CT scan of the head revealed no acute bleeds. Prior lacunar infarct in the right basal ganglia was noted. Also remote right parietal lobe infarct was noted. Chronic microvascular ischemic change noted. C-spine CT was performed with no evidence of acute trauma. 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 Chest x-ray revealed no acute cardiopulmonary process. Labs revealed a normal white blood cell count, hemoglobin 11.5, platelets 217. PT was 19.2, INR 1.7. Sodium 134, BUN 22, creatinine 1.51. His baseline creatinine is between 1.3 and 1.6. He was in the emergency department with obstructive uropathy on January 19. Initial creatinine was 11.24. After Horowitz catheter was placed it gradually came down to 8.58. Due to his mild confusion and syncopal event with head injury in the setting of chronic anticoagulation, admission for observation was recommended. At the time of my evaluation, patient is eating a meal eaten almost all of what was delivered. He is able to give me the complete history of at today. He is able to recall being dizzy prior. He states is unusual for him to be able to do that as he has a prior history of syncope where he could not remember being dizzy. He states in that setting he fell backwards and hit the back of his head. He reports that fall was quite sometime ago. Reports he was in his usual state of health today. He states he ?tends to overdo it? and take on more than he should given his advanced age and health. He denies any current headache, nausea, shortness of breath, chest pain. He does complain of chronic mild left heel and mild right great toe pain from his fall. Discharge Providers Provider Date of admission: 02/07/24 15:50 Discharge Date: 02/09/24 Primary care physician: Leydi Josue DO Consults: 02/05/24 14:27 Consult to Occupational Therapy Evaluate & Treat Comment: Physician Instructions: Evaluate and treat Consult to Physical Therapy Evaluate & Treat Comment: Physician Instructions: Evaluate and Treat 02/07/24 15:33 Consult to Home Health Routine Comment: Reason For Exam: Home health upon discharge Discharge provider: Vishal Aragon MD Summary Hospital Course Discharge Diagnosis: 1. Syncope secondary to orthostatic hypotension, possible acute cystitis with chronic urinary obstruction and medication effect 2. Serratia marcescens urinary tract infection 3. Urinary retention, possibly due to urinary infection with prostatitis 4. Closed head injury with hematoma in a patient on chronic anticoagulation 5. Permanent atrial fibrillation 6. Coagulopathy secondary to Xarelto 7. Chronic kidney disease stage 3 8. Hyponatremia, mild and chronic 9. Seizure disorder, stable on medication Hospital Course: 83-year-old man under the primary care of Dr. [facility] Clemons of [facility] presented after syncopal event, sustaining a closed head injury with hematoma in the setting of chronic anticoagulation on Xarelto 2.5 mg twice daily. This dosing was confirmed through documentation from a previous medical encounter. He was started on ceftriaxone for acute cystitis given orthostasis, weakness and the presenting syncopal episode. Urine culture returned showing Serratia marcescens sensitive to ceftriaxone. He was transition to oral levofloxacin during hospitalization. An attempted a voiding trial with removal of his Horowitz catheter was unsuccessful in the Horowitz catheter was replaced prior to discharge. He was persistently orthostatic though asymptomatic and losartan held, carvedilol reduced to 6.25 mg twice daily (from 12.5 mg) and prazosin discontinued. Further dosing in decision making per primary care and urologic follow-up. He was feeling well and wished to return home. Discussion with patient, physical therapy, discharge planning and social work concluded that home health services were most appropriate. Arrangements were made as such. No other issues arose. Status at Discharge Cognitive/behavioral status at discharge: oriented Functional status at discharge: uses cane/walker Overall status at discharge: patient is progressing back to baseline Time Spent with Patient Time spent: Greater than 30 minutes Exam Vital Signs (past 8 hours): - 02/09/24 08:00 02/09/24 09:03 02/09/24 12:00 Temperature 96.7 F L Pulse Rate 69 87 Pulse Rate [Orthostatic Lying] 79 Pulse Rate [Orthostatic Sitting] 75 Pulse Rate [Orthostatic Standing] 89 Respiratory Rate 16 16 Blood Pressure 125/72 101/56 L Blood Pressure [Orthostatic Lying] 159/86 H Blood Pressure [Orthostatic Sitting] 123/59 L Blood Pressure [Orthostatic Standing] 98/50 L Pulse Oximetry 99 97 Oxygen Flow Rate 0 Oxygen Delivery Method Room Air Oxygen Flow Rate 0 Narrative Exam Narrative: GEN: Very pleasant elderly male Alert and oriented x3, no acute distress CV: Irregularly irregular, no murmurs, rubs, gallops ABD: Soft, nontender, nondistended EXTR: Warm, well perfused, no clubbing/cyanosis/edema, small amount of bruising noted to the right great toe SKIN: Warm and dry, without rash NEURO: Alert and oriented x3, cranial nerves 2 through 12 are intact and symmetric bilaterally, motor strength 5/5 throughout, sensation intact throughout PSYCH: Mood and affect is within normal limits, judgment and insight are appropriate Objective Imaging Imaging:: My impression: EKG: Atrial fibrillation at 76 beats per minute, nonspecific T-wave abnormality (02/05/2024) Radiologist's impression: 1. Echocardiogram 02/05/2024: The left ventricular cavity is small. Mild concentric left ventricular hypertrophy with ejection fraction 65-70%. Borderline basal inferior hypokinesis. Mild aortic regurgitation. Comparison is made with the echocardiogram of 01/02/2023, no significant change. 2. Chest x-ray 02/05/2024: No acute cardiopulmonary abnormality is seen. 3. Cervical spine CT 02/05/2024: No CT evidence of acute cervical spine trauma. Multilevel degenerative changes. 4. Head CT 02/05/2024: No CT evidence of acute head trauma. Prior lacunar in cortical infarcts superimposed on chronic microvascular ischemic changes. 5. Carotid Doppler ultrasound 02/06/2024: No hemodynamically significant stenosis in the visible carotid or vertebral system. High resistance waveforms in the bilateral internal carotid arteries suggest distal stenoses such as intracranial atherosclerotic disease. Antegrade flow in the vertebral arteries. 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 This may be due to a urinary infection, and is now improved. Complete antibiotics at home. Followup with Dr. Dana Clemons and your urologist about your medications and urinary catheter. Discharge orders & Medications Prescriptions: New carvedilol 12.5 mg Tablet 6.25 mg PO BID Qty: 60 0RF levofloxacin 250 mg Tablet 750 mg PO DAILY Qty: 8 0RF Continued aspirin 81 mg tablet,delayed release (DR/EC) 81 mg PO DAILY rivaroxaban 2.5 mg 2.5 mg BID sertraline 100 mg Tablet 150 mg PO DAILY Rx Instructions: one and one half tab q day levetiracetam [Keppra] 250 mg Tablet 500 mg PO BID furosemide 20 mg Tablet 20 mg PO Q OTHER DAY Rx Instructions: mon.tue,tue finasteride 5 mg Tablet 5 mg PO DAILY spironolactone 50 mg Tablet 50 mg PO DAILY atorvastatin 80 mg tablet 80 mg PO BEDTIME Qty: 90 0RF nitroglycerin 0.4 mg Tablet, Sublingual 0.4 mg sublingual Q5MIN PRN (Reason: Chest Pain) acetaminophen 325 mg Capsule 650 mg PO QID PRN (Reason: Pain (Scale Score 1-3)) Systane Hydration (PF) 0.4-0.3 % Drops 1 drp EYE-BOTH DAILY PRN (Reason: Dry Eyes) Discontinued carvedilol 12.5 mg Tablet 12.5 mg PO BID Rx Instructions: must administer with a meal/food losartan 25 mg Tablet 12.5 mg PO DAILY Rx Instructions: one half tab daily prazosin 2 mg Capsule 1 mg PO BEDTIME Follow up/Referrals: Leydi Josue DO [Primary Care Provider] - Diet/Activity/Treatments Diet: Diet as Tolerated Diet comment: as tolerated Activity: As tolerated. Visit Report/Discharge Packet Instructions: DI for Urinary Tract Infection (UTI), Cefdinir, DI for Dizziness- Nonvertigo Stand Alone Forms: Patient Portal/API, Stroke Signs & Symptoms Discharge Data Primary Care Provider: Leydi Josue Quality MIPS - Admit I confirm the patient?s Advance Care Plan is present, Code status is documented, Surrogate decision maker is in patient?s record [If Yes, STOP here]: Yes [facility] - Meds 'Current medications' to include all prescriptions, [id number] products, herbals, cannabis/cannabidiol products, and vitamin/mineral/dietary (nutritional) supplements. I have utilized all available resources to obtain, update, or review the patient?s current medications. [If Yes, STOP here]: Yes [facility] - DC The patient has a history of heart transplant or Left Ventricular Assist Device (LVAD). If yes, STOP here.: No The patient has current or prior documentation of left ventricular ejection fraction (LVEF) less than or equal to 40%, or moderate or severely depressed left ventricular systolic function.: No A. The patient was prescribed or already taking an Angiotensin-Converting Enzyme (BEULAH) Inhibitor, or Angiotensin Receptor Ruby (ARB).: No B. The patient was prescribed or already taking a beta-ruby. [If Yes to Both A & B, STOP here]: Yes Patient not prescribed/taking BEULAH or ARB, no reason given.: No Patient not prescribed/taking beta-ruby, no reason given.: No PROFEE Charge Codes Discharge inpatient/observation: [id number]
== END 2024-02-09 14:28 | disposition home health service (06) | DRG 699 ==
LOC: ED 14:23 → AC 14:24
PROVIDERS: Internal Medicine; Admitting Provider Family Medicine; Emergency Provider Student in an Organized Health Care Education/Training Program; Family Provider Family Medicine; PCP Family Medicine; Referring Provider Student in an Organized Health Care Education/Training Program; Visit Provider Family Medicine
DX: T83.511A Infection and inflammatory reaction due to indwelling urethral catheter, initial encounter (principal); D68.9 Coagulation defect, unspecified; E87.1 Hypo-osmolality and hyponatremia; I48.21 Permanent atrial fibrillation; N30.00 Acute cystitis without hematuria; I95.1 Orthostatic hypotension; S00.83XA Contusion of other part of head, initial encounter; G40.909 Epilepsy, unspecified, not intractable, without status epilepticus; I12.9 Hypertensive chronic kidney disease with stage 1 through stage 4 chronic kidney disease, or unspecified chronic kidney disease; N18.30 Chronic kidney disease, stage 3 unspecified; F10.90 Alcohol use, unspecified, uncomplicated; N13.9 Obstructive and reflux uropathy, unspecified; T50.905A Adverse effect of unspecified drugs, medicaments and biological substances, initial encounter; B96.89 Other specified bacterial agents as the cause of diseases classified elsewhere; N41.9 Inflammatory disease of prostate, unspecified; I25.10 Atherosclerotic heart disease of native coronary artery without angina pectoris; W18.30XA Fall on same level, unspecified, initial encounter; Z86.73 Personal history of transient ischemic attack (TIA), and cerebral infarction without residual deficits; Z79.01 Long term (current) use of anticoagulants; Z87.891 Personal history of nicotine dependence
CPT/HCPCS: 36415; 70450; 71045; 72125; 80048; 80053; 81001; 82550; 83690; 83735; 83880; 84484; 85025; 85610; 85730; 87077; 87086; 87186; 93005; 93306; 93880; 97116; 97161; 97166; 97530; 99284; 99285; G0378; A9270; J0696; J1171

== ENCOUNTER 2024-02-11 07:48 | Emergency (ER) | payer MEDICARE, OTHER, SELFPAY ==
[2024-02-05 15:13] VITALS: BMI 27.3
[2024-02-11] VITALS (9 sets, daily range): BP systolic 138–167; BP diastolic 60–76; PULSE 70–72; RESP 16–17; TEMP 36.6; O2SAT 99–100; BMI 28.8
[2024-02-11] MEDS: LIDOCAINE 2% (GLYDO) 6 ML GEL TOP (08:47)
--- NOTE | 2024-02-11 09:09 | PC.NURSE ---
Pt reports having catheter placed yesterday. At around 2pm family states they emptied catheter. Again at 8pm family noticed that there was no output and attempted to irrigate catheter with 60ml w/ no success. Pt presents to ED with distended, firm abdomen and dry catheter bag. Little blood noted at meatus.
--- NOTE | 2024-02-11 09:12 | PC.NURSE ---
RN attempted to pull back on catheter port w/ no success of urine return. 14 Fr catheter then exchanged for 16 Fr catheter with urine production noted. 14 Fr catheter noted to have small blood clot on tip of catheter. 2 small blood clots noted to come from catheter upon drainage. 1300ml emptied from bladder. Catheter remains patent and draining.
--- NOTE | 2024-02-11 09:41 | ED_ITS ---
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 Initially he was transferred to [place] for acute renal failure and a creatinine of 11. He has had a Horowitz catheter in since then. He was then admitted here on February 04 after he had a syncopal episode which is thought to be orthostatic. He is on furosemide 20 mg Tuesday spironolactone and finasteride. Her blood pressure does drop while standing however he has not passed out at home. Today he presents with a catheter problem. Family is very attentive very organized well involved they report that his catheter has not been draining for about 24 hours. Catheter was exchanged by nursing over 300 cc have come out. She also increase the sized to a 16 [place]. She noted 1 very small blood clot which might have been blocking it. She tried irrigating initially without success. He is currently on Levaquin for a UTI in the have a couple more days left. Abdomen is soft patient has not had recurrent syncopal episodes since he has been home. No chest pain or shortness of breath. Related Data Home Medications Medication Instructions Recorded Confirmed finasteride 5 mg tablet 5 mg PO DAILY 01/01/23 02/05/24 furosemide 20 mg tablet 20 mg PO Q OTHER DAY 01/01/23 02/05/24 levetiracetam 250 mg tablet 500 mg PO BID 01/01/23 02/05/24 (Keppra) sertraline 100 mg tablet 150 mg PO DAILY 01/01/23 02/05/24 spironolactone 50 mg tablet 50 mg PO DAILY 01/01/23 02/05/24 aspirin 81 mg tablet,delayed 81 mg PO DAILY 01/20/24 02/05/24 release rivaroxaban 2.5 mg BID 01/20/24 02/05/24 acetaminophen 325 mg capsule 650 mg PO QID PRN Pain (Scale 02/05/24 02/05/24 Score 1-3) nitroglycerin 0.4 mg sublingual 0.4 mg sublingual Q5MIN PRN Chest 02/05/24 02/05/24 tablet Pain peg 400 0.4 %-propylene glycol 1 drp EYE-BOTH DAILY PRN Dry Eyes 02/05/24 02/05/24 (PF) 0.3 % eye drops (Systane Hydration (PF)) Previous Rx's Medication Instructions Recorded atorvastatin 80 mg tablet 80 mg PO BEDTIME #90 tabs 01/02/23 carvedilol 12.5 mg tablet 6.25 mg (1/2 x 12.5 mg) PO BID #60 02/09/24 tabs levofloxacin 250 mg tablet 750 mg (3 x 250 mg) PO DAILY #8 02/09/24 tabs Allergies Allergy/AdvReac Type Severity Reaction Status Date / Time Penicillins [PENICILLINS] Allergy Intermediate Verified 02/11/24 07:59 Patient History Medical History Weakness Syncope Spinal stenosis Posttraumatic stress disorder (03/12/16) 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/16) Essential hypertension (03/12/16) 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) Surgical History History of oral surgery Family History Father Heart disease Essential hypertension Grandmother Diabetes mellitus Social History household members: spouse, children and caregiver Smoking Status: Former smoker alcohol intake: current Smoking Status: Former smoker tobacco type: cigarettes alcohol intake frequency: 0-2 drinks per day Alcohol type: wine and hard liquor Substance Use Type: does not use Exam Initial Vital Signs Initial Vital Signs: Vital Signs Temperature 97.8 F 02/11/24 07:59 Pulse Rate 72 02/11/24 07:59 Respiratory Rate 16 02/11/24 07:59 Blood Pressure 145/60 H 02/11/24 07:59 Pulse Oximetry 100 02/11/24 07:59 Oxygen Delivery Method Room Air 02/11/24 07:59 GENERAL: Alert well-appearing 83-year-old male and in no acute distress. HEENT: Head atraumatic,EOMI, pupils reactive, face symmetric, moist mucous membranes CARDIOVASCULAR: Regular rate and rhythm without murmurs, rubs or gallops. RESPIRATORY: Breath sounds equal bilaterally, no wheezes rales or rhonchi. ABDOMEN: Soft, nontender. Normoactive bowel sounds all 4 quadrants. No guarding or rebound. : Horowitz catheter in place no gross hematuria EXTREMITIES: Normal range of motion, no clubbing or edema. Neurovascularly intact NEUROLOGICAL: Alert and oriented x4 moving extremities at baseline SKIN: Warm, dry, no laceration, no petechiae, no rashes or lesions. Course Orders Ordered: Discontinued Medications Lidocaine HCl (Lidocaine 2% (Glydo) 6 Ml Gel) 6 ml TOP NOW ONE Stop: 02/11/24 08:09 Last Admin: 02/11/24 08:47 Dose: 6 ml Documented By: HASEEB Vital Signs Vital signs: Vital Signs - 8 hr 02/11/24 07:59 Temperature 97.8 F Pulse Rate 72 Respiratory Rate 16 Blood Pressure 145/60 H Pulse Oximetry 100 Oxygen Delivery Method Room Air MDM - Male Genitourinary MDM Narrative Medical decision making narrative: Patient 83-year-old male who has been in and out of the hospital for acute renal failure which is postobstructive renal failure, UTI and orthostatic hypotension. Here today for isolated Horowitz catheter problem. Horowitz catheter was exchanged she continues to be on antibiotics. He has no gross hematuria. Recommend finishing the antibiotic. Discussed with family he needs follow-up. Orthostatic hypotension may be related to medication. It sounds as though his prazosin was stopped which will likely help. We discussed adjusting furosemide as needed we discussed that this is difficult fluid balance. They understand they are well organized they also understand when to return to the ER. He overall appears well he has no difficulty breathing oxygen is 100% no respiratory distress blood pressure is within normal limits and he has not tachycardic. Discharge Plan Departure Patient Disposition: Home Clinical Impression: Complication of Horowitz catheter Instructions: How to Care for Your Horowitz Catheter -- Male Activity Restrictions/Additional Instructions: *You have been diagnosed with Horowitz catheter problem *What to do: At this time continue antibiotics for Horowitz catheter. Follow-up with urology If you feel his blood pressure is too low you can hold furosemide for a day or 2 however if you notice that he is having trouble breathing then please give him furosemide. You will need to follow up with Cardiology for further medication adjustment *Continue to take medications as directed *Follow up with your primary care provider in 2-3 days or call [phone] *Return to ER if you should have Horowitz catheter problem difficulty breathing not corrected with furosemide, passing or any new, worsening or concerning symptoms Prescriptions: No Action aspirin 81 mg tablet,delayed release (DR/EC) 81 mg PO DAILY rivaroxaban 2.5 mg 2.5 mg BID sertraline 100 mg Tablet 150 mg PO DAILY Rx Instructions: one and one half tab q day levetiracetam [Keppra] 250 mg Tablet 500 mg PO BID furosemide 20 mg Tablet 20 mg PO Q OTHER DAY Rx Instructions: [email or web address] finasteride 5 mg Tablet 5 mg PO DAILY spironolactone 50 mg Tablet 50 mg PO DAILY atorvastatin 80 mg tablet 80 mg PO BEDTIME Qty: 90 0RF nitroglycerin 0.4 mg Tablet, Sublingual 0.4 mg sublingual Q5MIN PRN (Reason: Chest Pain) acetaminophen 325 mg Capsule 650 mg PO QID PRN (Reason: Pain (Scale Score 1-3)) Systane Hydration (PF) 0.4-0.3 % Drops 1 drp EYE-BOTH DAILY PRN (Reason: Dry Eyes) carvedilol 12.5 mg Tablet 6.25 mg PO BID Qty: 60 0RF levofloxacin 250 mg Tablet 750 mg PO DAILY Qty: 8 0RF Referrals: Leydi Josue DO [Primary Care Provider] - Stand Alone Forms: Patient Portal/API
== END 2024-02-11 10:15 | disposition home or self-care (01) ==
PROVIDERS: Emergency Provider Emergency Medicine; Family Provider Family Medicine; PCP Family Medicine
DX: T83.091A Other mechanical complication of indwelling urethral catheter, initial encounter (principal)
CPT/HCPCS: 51702; 99282; 99283

== ENCOUNTER 2024-02-19 04:02 | Emergency (ER) | payer MEDICARE, SELFPAY ==
[2024-02-05 15:13] VITALS: BMI 27.3
[2024-02-19] VITALS (25 sets, daily range): BP systolic 142–251; BP diastolic 62–112; PULSE 55–85; RESP 12–25; TEMP 36.6; O2SAT 99–100; BMI 27.3
--- NOTE | 2024-02-19 04:27 | DI.CT.S_ITS ---
PROCEDURE: CT HEAD/BRAIN WO CON INDICATIONS: GLF, hit head, on thinners TECHNIQUE: Noncontrast 4.5 mm thick angled axial sections acquired from the foramen magnum to the vertex, with coronal and sagittal reformats. For radiation dose reduction, the following was used: automated exposure control, adjustment of mA and/or kV according to patient size. COMPARISON: [facility], CT, CT HEAD/BRAIN WO CON, 12/20/2022, 16:14. [facility], CT, CT ANGIO HEAD AND NECK, 01/01/2023, 16:11. [facility], CT, CT HEAD/BRAIN WO CON, 02/05/2024, 13:36. FINDINGS: Image quality: Diagnostic. CSF spaces: Basal cisterns are patent. No extra-axial fluid collections. The ventricles are symmetric in size and shape. Brain: No intracranial bleeds or masses. There is cerebral volume loss for age, with resultant ventricular and sulcal prominence. There are periventricular and deep white matter chronic small vessel ischemic changes. A remote right parietal is seen. Smaller infarctions can be seen elsewhere. There is intracranial internal carotid artery atherosclerosis. Skull and face: Mild soft tissue swelling is seen of the nose, without associated fracture seen. Calvarium and visualized facial bones appear intact, without suspicious lesions. Sinuses: Visualized sinuses and mastoids are clear. IMPRESSION: Mild soft tissue swelling of the nose, without an associated fracture seen. No acute intracranial hemorrhage is seen. No acute intracranial process is seen. Remote infarcts are seen, which are worst within the right parietal lobe. Note: No significant discrepancy from the preliminary report. Dictated by: Brandon Boudreaux M.D. on 02/19/2024 at 8:01 Approved by: Brandon Boudreaux M.D. on 02/19/2024 at 8:03
--- NOTE | 2024-02-19 05:53 | ED.FALL ---
HPI - Fall <Jose Harden MD - Last Filed: 02/19/24 19:36> General Chief Complaint: Trauma Stated Complaint: fall nose lac Time Seen by Provider: 02/19/24 04:27 Source: patient and EMS Mode of arrival: EMS History of Present Illness HPI Narrative: 83-year-old male with history of stroke, history of chronic Pradaxa anticoagulation, had fall from his bed at home, with laceration to forehead and nose. No nose bleeding. Transport by EMS. Denies significant headache. Denies neck pain. Denies visual changes. Denies new weakness from his previous stroke. He has not yet taken his morning medications. Denies chest pain or shortness of breath. Denies abdominal pain. Denies injury to upper extremities. Denies injuries to lower extremities. Denies neck pain. Related Data Home Medications Medication Instructions Recorded Confirmed finasteride 5 mg tablet 5 mg PO DAILY 01/01/23 02/16/24 furosemide 20 mg tablet 20 mg PO Q OTHER DAY 01/01/23 02/16/24 levetiracetam 250 mg tablet 500 mg PO BID 01/01/23 02/16/24 (Keppra) sertraline 100 mg tablet 150 mg PO DAILY 01/01/23 02/16/24 spironolactone 50 mg tablet 50 mg PO DAILY 01/01/23 02/16/24 aspirin 81 mg tablet,delayed 81 mg PO DAILY 01/20/24 02/16/24 release rivaroxaban 2.5 mg BID 01/20/24 02/16/24 acetaminophen 325 mg capsule 650 mg PO QID PRN Pain (Scale 02/05/24 02/16/24 Score 1-3) nitroglycerin 0.4 mg sublingual 0.4 mg sublingual Q5MIN PRN Chest 02/05/24 02/16/24 tablet Pain peg 400 0.4 %-propylene glycol 1 drp EYE-BOTH DAILY PRN Dry Eyes 02/05/24 02/16/24 (PF) 0.3 % eye drops (Systane Hydration (PF)) Previous Rx's Medication Instructions Recorded atorvastatin 80 mg tablet 80 mg PO BEDTIME #90 tabs 01/02/23 carvedilol 12.5 mg tablet 6.25 mg (1/2 x 12.5 mg) PO BID #60 02/09/24 tabs Allergies Allergy/AdvReac Type Severity Reaction Status Date / Time Penicillins [PENICILLINS] Allergy Intermediate Verified 02/11/24 07:59 Review of Systems <Jose Harden MD - Last Filed: 02/19/24 19:36> Review of Systems Narrative: see HPI Patient History <Jose Harden MD - Last Filed: 02/19/24 19:36> Medical History History of depression Weakness Syncope Spinal stenosis Posttraumatic stress disorder (03/12/16) 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/16) Essential hypertension (03/12/16) 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) Surgical History History of oral surgery Family History Father Heart disease Essential hypertension Grandmother Diabetes mellitus Social History marital status: number of children: 2 household members: spouse, children and caregiver Smoking Status: Former smoker alcohol intake: former caffeine: Yes Type(s) of exercise: none Smoking Status: Former smoker tobacco type: cigarettes alcohol intake frequency: 0-2 drinks per day Alcohol type: wine and hard liquor Substance Use Type: does not use Exam <Jose Harden MD - Last Filed: 02/19/24 19:36> Narrative Exam Narrative: GENERAL: Well-developed patient, in mild distress. HEAD: Atraumatic. Normocephalic. EYES: Pupils equal round and reactive. Extraocular motions intact. No scleral icterus. No injection or drainage. ENT: Nose without bleeding, purulent drainage. Throat without erythema, tonsillar hypertrophy or exudate. Airway patent. Vertical laceration right of midline mid forehead 1.5 cm. Small 0.5 cm laceration right ala nose. No blood at a early, no gross deformity of the nose. NECK: Trachea midline. Non tender CARDIOVASCULAR: Regular rate and rhythm without murmurs, gallops, or rubs. RESPIRATORY: Clear to auscultation. Breath sounds equal bilaterally. No wheezes, rales, or rhonchi. GASTROINTESTINAL: Abdomen soft, non-tender, nondistended. EXTREMITIES: No edema or joint tenderness. BACK: Nontender without deformity or crepitance. No flank tenderness. NEURO: AOx3. Motor functions grossly nonfocal SKIN: No rash or erythema of visible areas Initial Vital Signs Initial Vital Signs: Vital Signs Pulse Rate 67 02/19/24 04:05 Pulse Oximetry 100 02/19/24 04:05 <Debora Ludwig MD - Last Filed: 02/19/24 09:15> Initial Vital Signs Initial Vital Signs: Vital Signs Pulse Rate 67 02/19/24 04:05 Pulse Oximetry 100 02/19/24 04:05 Procedures <Jose Harden MD - Last Filed: 02/19/24 19:36> Laceration Repair Laceration 1: Time of procedure: 06:30 Site: face (right forehead 1.5cm small superficial laceration) Side (If applicable): left Size (cm): 1.5 Description: linear Skin layer closed with: steri-strips (3 applied by nursing, good position on my exam) Course <Jose Harden MD - Last Filed: 02/19/24 19:36> Orders Ordered: Discontinued Medications Amlodipine Besylate (Amlodipine 5 Mg Tablet) 2.5 mg PO NOW ONE Stop: 02/19/24 07:26 Last Admin: 02/19/24 07:54 Dose: 2.5 mg Documented By: WISAM Carvedilol (Carvedilol 3.125 Mg Tablet) 6.25 mg PO NOW ONE Stop: 02/19/24 06:31 Last Admin: 02/19/24 07:06 Dose: 6.25 mg Documented By: HASEEB Hydralazine HCl (Hydralazine 20 Mg/Ml Vial) 5 mg IV NOW ONE Stop: 02/19/24 06:32 Last Admin: 02/19/24 06:50 Dose: 5 mg Documented By: HASEEB Lidocaine/Prilocaine (Lidocaine/Prilocaine 5 Gm) 5 gm TOP NOW ONE Stop: 02/19/24 06:44 Last Admin: 02/19/24 06:50 Dose: 5 gm Documented By: HASEEB Vital Signs Vital signs: Vital Signs - 8 hr 02/19/24 04:05 02/19/24 04:06 02/19/24 04:06 Temperature Pulse Rate 67 69 Respiratory Rate Blood Pressure 212/100 H Pulse Oximetry 100 100 Oxygen Delivery Method 02/19/24 04:12 02/19/24 04:30 02/19/24 05:00 Temperature 97.8 F Pulse Rate 69 77 68 Respiratory Rate 17 25 H 16 Blood Pressure 212/100 H Pulse Oximetry 100 100 99 Oxygen Delivery Method Room Air 02/19/24 05:23 02/19/24 05:23 02/19/24 05:25 Temperature Pulse Rate 55 L 56 L Respiratory Rate 14 15 Blood Pressure 231/112 H Pulse Oximetry 100 100 Oxygen Delivery Method 02/19/24 05:25 02/19/24 05:30 02/19/24 05:31 Temperature Pulse Rate 63 Respiratory Rate 12 Blood Pressure 229/100 H 238/103 H Pulse Oximetry 100 Oxygen Delivery Method 02/19/24 05:31 02/19/24 05:36 02/19/24 05:36 Temperature Pulse Rate 61 61 Respiratory Rate 17 21 Blood Pressure 251/112 H Pulse Oximetry 100 100 Oxygen Delivery Method 02/19/24 06:00 02/19/24 06:05 02/19/24 06:05 Temperature Pulse Rate 58 L 61 Respiratory Rate 18 23 Blood Pressure 237/108 H Pulse Oximetry 100 100 Oxygen Delivery Method 02/19/24 06:30 02/19/24 06:31 02/19/24 06:31 Temperature Pulse Rate 61 58 L Respiratory Rate 17 20 Blood Pressure 209/107 H Pulse Oximetry 100 100 Oxygen Delivery Method 02/19/24 06:50 02/19/24 07:00 02/19/24 07:01 Temperature Pulse Rate 59 L 71 Respiratory Rate 16 Blood Pressure 209/107 H 229/95 H Pulse Oximetry 99 Oxygen Delivery Method 02/19/24 07:01 02/19/24 07:06 02/19/24 07:30 Temperature Pulse Rate 60 85 62 Respiratory Rate 21 18 Blood Pressure 229/95 H Pulse Oximetry 100 99 Oxygen Delivery Method 02/19/24 07:31 02/19/24 07:31 Temperature Pulse Rate 63 Respiratory Rate 16 Blood Pressure 183/80 H Pulse Oximetry 99 Oxygen Delivery Method <Debora Ludwig MD - Last Filed: 02/19/24 09:15> Orders Ordered: Discontinued Medications Amlodipine Besylate (Amlodipine 5 Mg Tablet) 2.5 mg PO NOW ONE Stop: 02/19/24 07:26 Last Admin: 02/19/24 07:54 Dose: 2.5 mg Documented By: WISAM Carvedilol (Carvedilol 3.125 Mg Tablet) 6.25 mg PO NOW ONE Stop: 02/19/24 06:31 Last Admin: 02/19/24 07:06 Dose: 6.25 mg Documented By: HASEEB Hydralazine HCl (Hydralazine 20 Mg/Ml Vial) 5 mg IV NOW ONE Stop: 02/19/24 06:32 Last Admin: 02/19/24 06:50 Dose: 5 mg Documented By: HASEEB Lidocaine/Prilocaine (Lidocaine/Prilocaine 5 Gm) 5 gm TOP NOW ONE Stop: 02/19/24 06:44 Last Admin: 02/19/24 06:50 Dose: 5 gm Documented By: HASEEB Vital Signs Vital signs: Vital Signs - 8 hr 02/19/24 04:05 02/19/24 04:06 02/19/24 04:06 Temperature Pulse Rate 67 69 Respiratory Rate Blood Pressure 212/100 H Pulse Oximetry 100 100 Oxygen Delivery Method 02/19/24 04:12 02/19/24 04:30 02/19/24 05:00 Temperature 97.8 F Pulse Rate 69 77 68 Respiratory Rate 17 25 H 16 Blood Pressure 212/100 H Pulse Oximetry 100 100 99 Oxygen Delivery Method Room Air 02/19/24 05:23 02/19/24 05:23 02/19/24 05:25 Temperature Pulse Rate 55 L 56 L Respiratory Rate 14 15 Blood Pressure 231/112 H Pulse Oximetry 100 100 Oxygen Delivery Method 02/19/24 05:25 02/19/24 05:30 02/19/24 05:31 Temperature Pulse Rate 63 Respiratory Rate 12 Blood Pressure 229/100 H 238/103 H Pulse Oximetry 100 Oxygen Delivery Method 02/19/24 05:31 02/19/24 05:36 02/19/24 05:36 Temperature Pulse Rate 61 61 Respiratory Rate 17 21 Blood Pressure 251/112 H Pulse Oximetry 100 100 Oxygen Delivery Method 02/19/24 06:00 02/19/24 06:05 02/19/24 06:05 Temperature Pulse Rate 58 L 61 Respiratory Rate 18 23 Blood Pressure 237/108 H Pulse Oximetry 100 100 Oxygen Delivery Method 02/19/24 06:30 02/19/24 06:31 02/19/24 06:31 Temperature Pulse Rate 61 58 L Respiratory Rate 17 20 Blood Pressure 209/107 H Pulse Oximetry 100 100 Oxygen Delivery Method 02/19/24 06:50 02/19/24 07:00 02/19/24 07:01 Temperature Pulse Rate 59 L 71 Respiratory Rate 16 Blood Pressure 209/107 H 229/95 H Pulse Oximetry 99 Oxygen Delivery Method 02/19/24 07:01 02/19/24 07:06 02/19/24 07:30 Temperature Pulse Rate 60 85 62 Respiratory Rate 21 18 Blood Pressure 229/95 H Pulse Oximetry 100 99 Oxygen Delivery Method 02/19/24 07:31 02/19/24 07:31 Temperature Pulse Rate 63 Respiratory Rate 16 Blood Pressure 183/80 H Pulse Oximetry 99 Oxygen Delivery Method MDM - Fall <Jose Harden MD - Last Filed: 02/19/24 19:36> Lab Data 02/19/24 04:35 02/19/24 04:35 Labs: Lab Results 02/19/24 Range/Units 04:35 WBC 8.6 (4.5-11.0) X10^3/uL RBC 4.09 L (4.5-5.9) X10^6/uL Hgb 12.2 L (13.5-17.5) g/dL Hct 36.6 L (41-53) % MCV 89.6 (80-100) fL MCH 29.9 (26-34) PG MCHC 33.4 (30-36) % RDW 13.5 (11.6-14.8) % Plt Count 203 (150-400) X10^3/uL Neut % (Auto) 63.6 (50-75) % Lymph % (Auto) 24.0 L (25-40) % [place] % (Auto) 8.6 (3-14) % Eos % (Auto) 3.0 (2-4) % Baso % (Auto) 0.8 (0-2) % Neut # (Auto) 5400 (5593-7513) /uL Lymph # (Auto) 2100 (7161-9955) /uL [place] # (Auto) 700 (0-900) /uL Eos # (Auto) 300 (0-450) /uL Baso # (Auto) 100 (0-100) /uL Sodium 139 (137-145) mmol/L Potassium 3.7 (3.4-5.1) mmol/L Chloride 107 (98-107) mmol/L Carbon Dioxide 24 (22-32) mmol/L BUN 21 H (9-20) mg/dL Creatinine 1.08 (0.66-1.25) mg/dL Estimated GFR > 60 (>60) mL/min BUN/Creatinine Ratio 19.4 (6-22) Glucose 101 (80-110) mg/dL Calcium 8.9 (8.4-10.2) mg/dL Total Bilirubin 0.4 (0.2-1.3) mg/dL AST 22 (17-59) IU/L ALT 13 (<50) IU/L Alkaline Phosphatase 68 (38-126) U/L Troponin I 0.016 (0.01-0.034) ng/mL Total Protein 6.8 (6.3-8.2) g/dL Albumin 3.7 (3.5-5.0) g/dL Globulin 3.1 (1.7-4.1) g/dL Albumin/Globulin Ratio 1.2 (1.0-2.8) MDM Narrative Medical decision making narrative: 83yo male had fall from bed at home [employer], EMS arrival, chronic anticoagulation Pradaxa, frontal forehead laceration and nasal laceration. No known loss of consciousness. History of stroke, no new weakness per patient. Modified trauma by mechanism and chronic anticoagulation. Primary survey: ABC's intact, GCS 15 Secondary survey: See physical exam sections CT head noncontrast study ordered. Lat gel to lacerations for cleaning and assessment for primary closure options. Keep NPO. CT head noncontrast study. Impressions: ?No CT evidence of acute intracranial abnormality. Cerebral volume loss, intracranial atherosclerotic disease and mild sequelae of chronic small-vessel ischemic disease. See tele radiology report Lacs appear superifical. Steri-Strips applied by ED Nursing to superficial facial laceration forehead. None needed 4-5mm nasal linear abrasion. Persisting elevated blood pressures, we will get EKG, send labs. Little change in blood pressure with his usual dose of morning carvedilol, gave IV hydralazine, will add oral amlodipine. Signed out to Dr Ludwig Patient is re-evaluated, independently examined, chart is reviewed Currently does live independently, apparently his daughter just came into town to help, he has a scheduled help her and occasional home health. He typically uses a walker Lab work shows normal CBC Unremarkable chemistries Troponin is undetected Procedure: 1.5 cm simple laceration between his brows and not involving the brows. Is Steri-Strips without complication. There was no vascular or neurologic compromise We discussed pain control. He has been on narcotics in the past, he is having increasing pain from his fall and pain with his bladder and Horowitz catheter issues. He would like some hydrocodone to have at home and I believe this is reasonable for a couple of days. Discussion: 83-year-old gentleman who was having a dream about walking over a pond and found himself falling out of bed, minor laceration to his forehead over the bridge of his nose that is repaired with Steri-Strips. CT scan of the head is unremarkable. He has no cervical spine tenderness. He is able to walk with his walker which is his baseline. Remainder of blood work does not show significant abnormality to explain a secondary reason for falling nor reason for admission. At this time he is safe for discharge <Debora Ludwig MD - Last Filed: 02/19/24 09:15> Lab Data Labs: Lab Results 02/19/24 Range/Units 04:35 WBC 8.6 (4.5-11.0) X10^3/uL RBC 4.09 L (4.5-5.9) X10^6/uL Hgb 12.2 L (13.5-17.5) g/dL Hct 36.6 L (41-53) % MCV 89.6 (80-100) fL MCH 29.9 (26-34) PG MCHC 33.4 (30-36) % RDW 13.5 (11.6-14.8) % Plt Count 203 (150-400) X10^3/uL Neut % (Auto) 63.6 (50-75) % Lymph % (Auto) 24.0 L (25-40) % [place] % (Auto) 8.6 (3-14) % Eos % (Auto) 3.0 (2-4) % Baso % (Auto) 0.8 (0-2) % Neut # (Auto) 5400 (2662-3783) /uL Lymph # (Auto) 2100 (7608-6074) /uL [place] # (Auto) 700 (0-900) /uL Eos # (Auto) 300 (0-450) /uL Baso # (Auto) 100 (0-100) /uL Sodium 139 (137-145) mmol/L Potassium 3.7 (3.4-5.1) mmol/L Chloride 107 (98-107) mmol/L Carbon Dioxide 24 (22-32) mmol/L BUN 21 H (9-20) mg/dL Creatinine 1.08 (0.66-1.25) mg/dL Estimated GFR > 60 (>60) mL/min BUN/Creatinine Ratio 19.4 (6-22) Glucose 101 (80-110) mg/dL Calcium 8.9 (8.4-10.2) mg/dL Total Bilirubin 0.4 (0.2-1.3) mg/dL AST 22 (17-59) IU/L ALT 13 (<50) IU/L Alkaline Phosphatase 68 (38-126) U/L Troponin I 0.016 (0.01-0.034) ng/mL Total Protein 6.8 (6.3-8.2) g/dL Albumin 3.7 (3.5-5.0) g/dL Globulin 3.1 (1.7-4.1) g/dL Albumin/Globulin Ratio 1.2 (1.0-2.8) MDM Narrative Medical decision making narrative: Fall from bed at home, chronic anticoagulation Pradaxa, frontal forehead laceration and nasal laceration. No known loss of consciousness. History of stroke, no new weakness per patient. Modified trauma by mechanism and chronic anticoagulation. Primary survey: ABC's intact, GCS 15 Secondary survey: See physical exam sections CT head noncontrast study ordered. Lat gel to lacerations for cleaning and assessment for primary closure options. Keep NPO. CT head noncontrast study. Impressions: ?No CT evidence of acute intracranial abnormality. Cerebral volume loss, intracranial atherosclerotic disease and mild sequelae of chronic small-vessel ischemic disease. See tele radiology report Steri-Strips applied to superficial facial lacerations Persisting elevated blood pressures, we will get EKG, send labs. Little change in blood pressure with his usual dose of morning carvedilol, IV hydralazine, we will add p.o. amlodipine. Signed out to Dr Ludwig Patient is re-evaluated, independently examined, chart is reviewed Currently does live independently, apparently his daughter just came into town to help, he has a scheduled help her and occasional home health. He typically uses a walker Lab work shows normal CBC Unremarkable chemistries Troponin is undetected Procedure: 1.5 cm simple laceration between his brows and not involving the brows. Is Steri-Strips without complication. There was no vascular or neurologic compromise We discussed pain control. He has been on narcotics in the past, he is having increasing pain from his fall and pain with his bladder and Horowitz catheter issues. He would like some hydrocodone to have at home and I believe this is reasonable for a couple of days. Discussion: 83-year-old gentleman who was having a dream about walking over a pond and found himself falling out of bed, minor laceration to his forehead over the bridge of his nose that is repaired with Steri-Strips. CT scan of the head is unremarkable. He has no cervical spine tenderness. He is able to walk with his walker which is his baseline. Remainder of blood work does not show significant abnormality to explain a secondary reason for falling nor reason for admission. At this time he is safe for discharge Discharge Plan Departure Patient Disposition: Home Clinical Impression: Fall Qualifiers: Encounter type: initial encounter Qualified Code(s): W19.XXXA - Unspecified fall, initial encounter Face lacerations Qualifiers: Encounter type: initial encounter Qualified Code(s): S01.81XA - Laceration without foreign body of other part of head, initial encounter Activity Restrictions/Additional Instructions: Thank you for coming in today It sounds like you had quite the dream heading to the pond that led you to follow up bed This small cut between your eyebrows is going to heal nicely with simple Steri-Strips. You did not require stitches Who are going to have increased pain in multiple places over the next 2-3 days. I have given you 10 tablets of hydrocodone to use for acute pain control. This will increase your risk of falling, will cause constipation and needs to be taken with the care Additional pain can be controlled with ice, heat and Tylenol as needed The remainder of your workup looking for any additional explanations for why you might have fallen out of bed was quite reassuring. There was no evidence of infection, bleeding inside your head, heart attack or reasons that you would need to be hospitalized If you find that you are getting worse or develop any new symptoms, please feel free to return to the emergency department for further evaluation. Prescriptions: No Action aspirin 81 mg tablet,delayed release (DR/EC) 81 mg PO DAILY rivaroxaban 2.5 mg 2.5 mg BID sertraline 100 mg Tablet 150 mg PO DAILY Rx Instructions: one and one half tab q day levetiracetam [Keppra] 250 mg Tablet 500 mg PO BID furosemide 20 mg Tablet 20 mg PO Q OTHER DAY Rx Instructions: ,tue finasteride 5 mg Tablet 5 mg PO DAILY spironolactone 50 mg Tablet 50 mg PO DAILY atorvastatin 80 mg tablet 80 mg PO BEDTIME Qty: 90 0RF nitroglycerin 0.4 mg Tablet, Sublingual 0.4 mg sublingual Q5MIN PRN (Reason: Chest Pain) acetaminophen 325 mg Capsule 650 mg PO QID PRN (Reason: Pain (Scale Score 1-3)) Systane Hydration (PF) 0.4-0.3 % Drops 1 drp EYE-BOTH DAILY PRN (Reason: Dry Eyes) carvedilol 12.5 mg Tablet 6.25 mg PO BID Qty: 60 0RF Referrals: Leydi Josue DO [Primary Care Provider] - Stand Alone Forms: Patient Portal/API
[2024-02-19] MEDS: LIDOCAINE/PRILOCAINE 5 GM TOP (06:50)
[2024-02-19] MEDS: HYDRALAZINE 20 MG/ML VIAL 5 MG IV (06:50)
[2024-02-19] MEDS: carvediloL 3.125 MG TABLET 6.25 MG PO (07:06)
[2024-02-19 07:31] LABS: Add Manual Diff / Slide Review NO; Basophils Absolute Auto 100 /uL (0-100); Basophils Percent Auto 0.8 % (0-2); Eosinophils Absolute Auto 300 /uL (0-450); Hematocrit 36.6 % (41-53); Hemoglobin 12.2 g/dL (13.5-17.5); Lymphocytes Absolute Auto 2100 /uL (1100-4500); Mean Corpuscular HGB Conc 33.4 % (30-36); Mean Corpuscular Hemoglobin 29.9 PG (26-34); Mean Corpuscular Volume 89.6 fL (80-100); Monocytes Absolute Auto 700 /uL (0-900); Monocytes Percent Auto 8.6 % (3-14); Neutrophils Absolute Auto 5400 /uL (1500-7000); Neutrophils Percent Auto 63.6 % (50-75); Platelet Count 203 X10^3/uL (150-400); Red Blood Cell Count 4.09 X10^6/uL (4.5-5.9); Red Cell Distribution Width 13.5 % (11.6-14.8); White Blood Cell Count 8.6 X10^3/uL (4.5-11.0)
[2024-02-19 07:42] LABS: Alanine Aminotransferase 13 IU/L (<50); Albumin 3.7 g/dL (3.5-5.0); Albumin Globulin Ratio 1.2 (1.0-2.8); Alkaline Phosphatase 68 U/L (38-126); Aspartate Aminotransferase 22 IU/L (17-59); BUN Creatinine Ratio 19.4 (6-22); Bilirubin Total 0.4 mg/dL (0.2-1.3); Blood Urea Nitrogen 21 mg/dL (9-20); Calcium 8.9 mg/dL (8.4-10.2); Carbon Dioxide 24 mmol/L (22-32); Chloride 107 mmol/L (98-107); Estimated Glomerular Filt Rate > 60 mL/min (>60); Globulin 3.1 g/dL (1.7-4.1); Glucose 101 mg/dL (80-110); HEMOLYSIS 22 (0-50); Potassium 3.7 mmol/L (3.4-5.1); Sodium 139 mmol/L (137-145); Total Protein 6.8 g/dL (6.3-8.2)
[2024-02-19 07:54] LABS: Troponin I 0.016 ng/mL (0.01-0.034)
[2024-02-19] MEDS: AMLODIPINE 5 MG TABLET 2.5 MG PO (07:54)
--- NOTE | 2024-02-19 08:00 | EKG_ITS ---
[facility] [address] [place] [address] Test Date: 2024-02-19 Pat Name: Zackery Banda Department: [facility] Room: Gender: Male [employer] Operator: : 1940 Requested By: Order Number: [id number] Reading MD: Bi Carpenter Measurements Intervals [place] Rate: 72 P: 38 [place]: 176 QRS: -1 QRSD: 86 T: 71 QT: 412 QTc: 451 Interpretive Statements Normal sinus rhythm with sinus arrhythmia Low voltage QRS Inferior infarct , age undetermined Electronically Signed On 02-21-2024 14:43:38 PDT by Bi Carpenter
--- NOTE | 2024-02-19 09:17 | PC.NURSE ---
ambulated independently, with walker (uses walker at baseline) slow but steady gate; educated on turning around slowly with small steps in a larger half duck[place] not a turn around in place 180 degrees to help prevent loss of balance.
== END 2024-02-19 09:58 | disposition home or self-care (01) ==
PROVIDERS: Emergency Medicine; Emergency Provider Emergency Medicine; Family Provider Family Medicine; PCP Family Medicine
DX: S01.81XA Laceration without foreign body of other part of head, initial encounter (principal); W06.XXXA Fall from bed, initial encounter; Z79.01 Long term (current) use of anticoagulants; I49.8 Other specified cardiac arrhythmias
CPT/HCPCS: 70450; 80053; 84484; 85025; 93005; 96374; 99284; J0360

== ENCOUNTER 2024-02-28 12:56 | Emergency (ER) | payer MEDICARE, SELFPAY ==
[2024-02-05 15:13] VITALS: BMI 27.3
[2024-02-28 13:02] VITALS: BP 135/76; PULSE 65; RESP 16; TEMP 36.4; O2SAT 98; BMI 27.3
--- NOTE | 2024-02-28 13:13 | PC.NURSE ---
Emptied catheter bag in triage. Many small and large clots present, hematuria. 1375 from bag. Urine in cath tubing has clots present.
[2024-02-28 16:18] LABS: Appearance Urine UA CLEAR; Bilirubin Urine UA NEGATIVE (NEGATIVE); Color Urine UA YELLOW; Glucose Urine UA NEGATIVE (Negative); Ketones Urine UA NEGATIVE (NEGATIVE); Leukocyte Esterase Urine UA 1+ (NEGATIVE); Nitrite Urine UA NEGATIVE (Negative); Occult Blood Urine UA 3+ (Negative); Protein Urine UA TRACE (Negative); Urobilinogen Urine UA 0.2 E.U./dL (0.2)
[2024-02-28 16:26] LABS: Bacteria Urine Few (2-10); Culture Indicated Urine Specimen Cultured; RBC Urine 1-5/HPF (0-5/HPF); Squamous Epithelial Cell Urine 0-1 /HPF (0-5/HPF); Urine Volume 10mL (spun); WBC Urine 1-5/HPF (0-5/HPF)
[2024-02-28 17:08] VITALS: BP 192/85; PULSE 61; RESP 17; TEMP 36.4; O2SAT 97
--- NOTE | 2024-02-28 18:58 | ED_ITS ---
HPI - Male Genitourinary <Vincenzo John PA-C - Last Filed: 02/28/24 19:05> General Chief complaint: Urogenital-Male Stated complaint: Blood in catheter Time Seen by Provider: 02/28/24 13:28 Mode of arrival: Ambulatory History of Present Illness HPI Narrative: 83-year-old male with indwelling Horowitz catheter presents to the ED with a clogged Horowitz catheter. Patient has noted some blood and blood clots from the catheter and feels that it is blocked and has pressure in his bladder due to the urine backing up. Patient states this started early this morning. Patient denies fever, chills, nausea, vomiting. Patient has a appointment with urologist Dr. Fierro in 2 days for a repeat trial of voiding. Related Data Home Medications Medication Instructions Recorded Confirmed finasteride 5 mg tablet 5 mg PO DAILY 01/01/23 02/16/24 furosemide 20 mg tablet 20 mg PO Q OTHER DAY 01/01/23 02/16/24 levetiracetam 250 mg tablet 500 mg PO BID 01/01/23 02/16/24 (Keppra) sertraline 100 mg tablet 150 mg PO DAILY 01/01/23 02/16/24 spironolactone 50 mg tablet 50 mg PO DAILY 01/01/23 02/16/24 aspirin 81 mg tablet,delayed 81 mg PO DAILY 01/20/24 02/16/24 release rivaroxaban 2.5 mg BID 01/20/24 02/16/24 acetaminophen 325 mg capsule 650 mg PO QID PRN Pain (Scale 02/05/24 02/16/24 Score 1-3) nitroglycerin 0.4 mg sublingual 0.4 mg sublingual Q5MIN PRN Chest 02/05/24 02/16/24 tablet Pain peg 400 0.4 %-propylene glycol 1 drp EYE-BOTH DAILY PRN Dry Eyes 02/05/24 02/16/24 (PF) 0.3 % eye drops (Systane Hydration (PF)) fluticasone propionate 50 1 spray intranasal DAILY 03/01/24 03/01/24 mcg/actuation nasal spray,suspension (Flonase Allergy Relief) latanoprost 0.005 % eye drops drp EYE-BOTH 03/01/24 03/01/24 lidocaine 1.8 % topical patch 1 patch topical DAILY 03/01/24 03/01/24 tamsulosin 0.4 mg capsule 0.4 mg PO DAILY 03/01/24 03/01/24 Previous Rx's Medication Instructions Recorded atorvastatin 80 mg tablet 80 mg PO BEDTIME #90 tabs 01/02/23 carvedilol 12.5 mg tablet 6.25 mg (1/2 x 12.5 mg) PO BID #60 02/09/24 tabs hydrocodone 5 mg-acetaminophen 325 1 tab PO Q6H PRN pain #10 tabs 02/21/24 mg tablet cefpodoxime 200 mg tablet 200 mg PO Q12H 10 days #20 tabs 02/28/24 Allergies Allergy/AdvReac Type Severity Reaction Status Date / Time Penicillins [PENICILLINS] Allergy Intermediate Verified 03/01/24 16:15 Review of Systems <Vincenzo John PA-C - Last Filed: 02/28/24 19:05> Constitutional Constitutional: Denies chills, Denies fatigue, Denies fever(s), Denies frequent falls, Denies lethargy and Denies weakness Eyes Eyes: Denies change in vision, Denies eye discharge, Denies irritation and Denies loss of vision ENT Ears, Nose, Mouth, and Throat: Denies change in voice, Denies dizziness, Denies neck pain, Denies sore throat and Denies throat swelling Cardiovascular Cardiovascular: Denies chest pain, Denies irregular heart rhythm, Denies lightheadedness, Denies palpitations, Denies dyspnea, Denies dyspnea on exertion and Denies orthopnea Respiratory Respiratory: Denies cough, Denies dyspnea, Denies dyspnea on exertion and Denies wheezing Gastrointestinal Gastrointestinal: Denies abdominal pain, Denies change in bowel habits, Denies diarrhea, Denies nausea and Denies vomiting Genitourinary Comments: Blocked Horowitz catheter, blood in the urine, clots Musculoskeletal Musculoskeletal: Denies neck pain and Denies numbness Integumentary/Breasts Skin/Breast: Denies pruritus, Denies erythema, Denies rash and Denies wounds Neurologic Neurologic: Denies behavioral changes, Denies confusion, Denies dizziness, Denies frequent falls, Denies loss of vision, Denies numbness and Denies weakness Psychiatric Psychiatric: Denies anxiety, Denies behavioral changes, Denies confusion, Denies depression, Denies homicidal ideation and Denies suicidal ideation Endocrine Endocrine: Denies fatigue, Denies flushing and Denies palpitations Hematologic/Lymphatic Hematologic/Lymphatic: Denies easy bruising Allergic/Immunologic Allergic/Immunologic: Denies urticaria, Denies throat swelling and Denies wheezing Patient History <Vincenzo John PA-C - Last Filed: 02/28/24 19:05> Medical History History of depression Weakness Syncope Spinal stenosis Posttraumatic stress disorder (03/12/16) 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/16) Essential hypertension (03/12/16) 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) Surgical History History of oral surgery Family History Father Heart disease Essential hypertension Grandmother Diabetes mellitus Social History marital status: number of children: 2 household members: spouse, children and caregiver Smoking Status: Former smoker alcohol intake: former caffeine: Yes Type(s) of exercise: none Smoking Status: Former smoker tobacco type: cigarettes alcohol intake frequency: 0-2 drinks per day Alcohol type: wine and hard liquor Substance Use Type: does not use Exam <Vincenzo John PA-C - Last Filed: 02/28/24 19:05> Narrative Exam Narrative: Const General:?cooperative, healthy appearing and comfortable [facility] Head:?normal to inspection Ears:?hearing grossly normal bilaterally Nose:?external nose normal Face and sinus:?normal facial exam and sinuses nontender Mouth:?oral mucosae normal Throat:?posterior oropharynx normal Eyes General:?appearance normal, both eyes and all related structures Neck Neck:?normal visual inspection and no lymphadenopathy noted Resp Effort & Inspection:?normal respiratory effort Auscultation:?clear to auscultation bilaterally Cardio Rate:?regular rate Rhythm:?regular rhythm Indwelling Horowitz catheter noted initially with hematuria, clots. Neuro General:?patient alert, patient awake and patient oriented x3 Initial Vital Signs Initial Vital Signs: Vital Signs Temperature 97.5 F L 02/28/24 13:02 Pulse Rate 65 02/28/24 13:02 Respiratory Rate 16 02/28/24 13:02 Blood Pressure 135/76 02/28/24 13:02 Pulse Oximetry 98 02/28/24 13:02 Oxygen Delivery Method Room Air 02/28/24 13:02 <Kylee Bennett DO - Last Filed: 03/02/24 07:10> Initial Vital Signs Initial Vital Signs: Vital Signs Temperature 97.5 F L 02/28/24 13:02 Pulse Rate 65 02/28/24 13:02 Respiratory Rate 16 02/28/24 13:02 Blood Pressure 135/76 02/28/24 13:02 Pulse Oximetry 98 02/28/24 13:02 Oxygen Delivery Method Room Air 02/28/24 13:02 Course <Vincenzo John PA-C - Last Filed: 02/28/24 19:05> Orders Ordered: ED Orders 02/28/24 16:00 Urinalysis and Microscopic Stat Urine Culture Stat Vital Signs Vital signs: Vital Signs - 8 hr 02/28/24 13:02 02/28/24 17:08 Temperature 97.5 F L 97.6 F Pulse Rate 65 61 Respiratory Rate 16 17 Blood Pressure 135/76 192/85 H Pulse Oximetry 98 97 Oxygen Delivery Method Room Air Room Air <Kylee Bennett DO - Last Filed: 03/02/24 07:10> Orders Ordered: ED Orders 02/28/24 16:00 Urinalysis and Microscopic Stat Urine Culture Stat Vital Signs Vital signs: Vital Signs - 8 hr 02/28/24 13:02 02/28/24 17:08 Temperature 97.5 F L 97.6 F Pulse Rate 65 61 Respiratory Rate 16 17 Blood Pressure 135/76 192/85 H Pulse Oximetry 98 97 Oxygen Delivery Method Room Air Room Air MDM - Male Genitourinary <JESU Henson Last Filed: 02/28/24 19:05> Lab Data Labs: Lab Results 02/28/24 Range/Units 16:00 Urine Color Yellow Urine Appearance Clear Urine pH 6.0 (4.5-8.0) Ur Specific [place] 1.020 (1.000-1.035) Urine Protein Trace H (Negative) Urine Glucose (UA) Negative (Negative) g/dL Urine Ketones Negative (NEGATIVE) Urine Occult Blood 3+ H (Negative) Urine Nitrate Negative (Negative) Urine Bilirubin Negative (NEGATIVE) Urine Urobilinogen 0.2 (0.2) E.U./dL Ur Leukocyte Esterase 1+ H (NEGATIVE) Urine RBC 1-5/hpf (0-5/HPF) Urine WBC 1-5/hpf (0-5/HPF) Ur Squamous Epith Cells 0-1 /hpf (0-5/HPF) Urine Bacteria Few (2-10) H (None) Ur Culture Indicated? Specimen cultured Vol Urine Centrifuged 10ml (spun) MDM Narrative Medical decision making narrative: 83-year-old male with indwelling Horowitz catheter presents to the ED with a clogged Horowitz catheter. Horowitz catheter was checked and several clots were noted to be evacuated spontaneously. The bag was changed out and draining well. No blood noted after the clots drained out. Urine was checked, positive for leukocyte esterase, negative for WBCs. Given the starr hematuria and clots, will cover with antibiotics. Patient agrees to keep his appointment with Dr. Fierro in 2 days. ED return precautions discussed with patient. Patient verbalized understanding. Medical records reviewed: Yes <Kylee Bennett DO - Last Filed: 03/02/24 07:10> Lab Data Labs: Lab Results 02/28/24 Range/Units 16:00 Urine Color Yellow Urine Appearance Clear Urine pH 6.0 (4.5-8.0) Ur Specific [place] 1.020 (1.000-1.035) Urine Protein Trace H (Negative) Urine Glucose (UA) Negative (Negative) g/dL Urine Ketones Negative (NEGATIVE) Urine Occult Blood 3+ H (Negative) Urine Nitrate Negative (Negative) Urine Bilirubin Negative (NEGATIVE) Urine Urobilinogen 0.2 (0.2) E.U./dL Ur Leukocyte Esterase 1+ H (NEGATIVE) Urine RBC 1-5/hpf (0-5/HPF) Urine WBC 1-5/hpf (0-5/HPF) Ur Squamous Epith Cells 0-1 /hpf (0-5/HPF) Urine Bacteria Few (2-10) H (None) Ur Culture Indicated? Specimen cultured Vol Urine Centrifuged 10ml (spun) Discharge Plan Departure Patient Disposition: Home Clinical Impression: Blocked urinary catheter Qualifiers: Encounter type: initial encounter Qualified Code(s): T83.098A - Other mechanical complication of other urinary catheter, initial encounter Instructions: DI for Urinary Tract Infection (UTI) Activity Restrictions/Additional Instructions: You were evaluated in the ED today for a blocked Horowitz catheter. The Horowitz catheter initially had some clots, the bag was changed, the catheter appears to be unclogged now and there is a good flow of urine. You also felt relief once the blockage was resolved. You are being prescribed some antibiotics. Please also follow-up with Dr. Fierro as scheduled in 2 days for further evaluation. Return to the ED if you have worsening symptoms. Prescriptions: New cefpodoxime 200 mg tablet 200 mg PO Q12H 10 Days Qty: 20 0RF Rx Instructions: must administer with a meal/food No Action aspirin 81 mg tablet,delayed release (DR/EC) 81 mg PO DAILY rivaroxaban 2.5 mg 2.5 mg BID sertraline 100 mg Tablet 150 mg PO DAILY Rx Instructions: one and one half tab q day levetiracetam [Keppra] 250 mg Tablet 500 mg PO BID furosemide 20 mg Tablet 20 mg PO Q OTHER DAY Rx Instructions: tue.tue,tue finasteride 5 mg Tablet 5 mg PO DAILY spironolactone 50 mg Tablet 50 mg PO DAILY atorvastatin 80 mg tablet 80 mg PO BEDTIME Qty: 90 0RF nitroglycerin 0.4 mg Tablet, Sublingual 0.4 mg sublingual Q5MIN PRN (Reason: Chest Pain) acetaminophen 325 mg Capsule 650 mg PO QID PRN (Reason: Pain (Scale Score 1-3)) Systane Hydration (PF) 0.4-0.3 % Drops 1 drp EYE-BOTH DAILY PRN (Reason: Dry Eyes) carvedilol 12.5 mg Tablet 6.25 mg PO BID Qty: 60 0RF hydrocodone-acetaminophen 5-325 mg tablet 1 tab PO Q6H PRN (Reason: pain) Qty: 10 0RF fluticasone propionate [Flonase Allergy Relief] 50 mcg/actuation spray,suspension 1 spray intranasal DAILY Rx Instructions: administer into each nostril latanoprost 0.005 % drops EYE-BOTH lidocaine 1.8 % adhesive patch,medicated 1 patch topical DAILY Rx Instructions: leave on most painful area for up to 12 hrs tamsulosin 0.4 mg capsule 0.4 mg PO DAILY Referrals: Leydi Josue DO [Primary Care Provider] - Stand Alone Forms: Patient Portal/API/Survey ED Sign-out <Klyee Bennett DO - Last Filed: 03/02/24 07:10> Cosign ED Attending Cosignature Attestation: I was immediately available in the department for consultation.
== END 2024-02-28 17:09 | disposition home or self-care (01) ==
PROVIDERS: Emergency Provider Student in an Organized Health Care Education/Training Program; Family Provider Family Medicine; PCP Family Medicine
DX: T83.098A Other mechanical complication of other urinary catheter, initial encounter (principal)
CPT/HCPCS: 81001; 87086; 99281; 99282

== ENCOUNTER → 2024-04-02 14:41 | Outpatient (CLI) | payer MEDICARE, SELFPAY ==
[2024-02-05 15:13] VITALS: BMI 27.3
== END ==
PROVIDERS: Family Provider Family Medicine; PCP Internal Medicine; Visit Provider Urology
DX: N40.1 Benign prostatic hyperplasia with lower urinary tract symptoms (principal)
CPT/HCPCS: 87077; 87086

== ENCOUNTER → 2024-05-01 14:35 | Outpatient (CLI) | payer MEDICARE, SELFPAY ==
[2024-02-05 15:13] VITALS: BMI 27.3
== END ==
PROVIDERS: Family Provider Family Medicine; PCP Internal Medicine; Visit Provider Urology
DX: R33.8 Other retention of urine (principal); N40.1 Benign prostatic hyperplasia with lower urinary tract symptoms
CPT/HCPCS: 87086

== ENCOUNTER → 2024-05-29 13:55 | Outpatient (CLI) | payer OTHER, SELFPAY ==
[2024-05-29 13:48] VITALS: BMI 27.3
== END ==
PROVIDERS: Family Provider Family Medicine; PCP Internal Medicine; Visit Provider Urology
DX: N40.1 Benign prostatic hyperplasia with lower urinary tract symptoms (principal); R33.8 Other retention of urine
CPT/HCPCS: 87086

== ENCOUNTER → 2024-06-19 14:51 | Outpatient (CLI) | payer OTHER, SELFPAY ==
[2024-05-29 13:48] VITALS: BMI 27.3
[2024-06-19 16:09] LABS: Appearance Urine UA CLOUDY; Bilirubin Urine UA NEGATIVE (NEGATIVE); Color Urine UA YELLOW; Glucose Urine UA NEGATIVE (Negative); Ketones Urine UA NEGATIVE (NEGATIVE); Leukocyte Esterase Urine UA 3+ (NEGATIVE); Nitrite Urine UA NEGATIVE (Negative); Occult Blood Urine UA 3+ (Negative); Protein Urine UA 1+ (Negative); Specific Gravity Urine UA <=1.005 (1.000-1.035); Urobilinogen Urine UA 0.2 E.U./dL (0.2)
[2024-06-19 16:17] LABS: Bacteria Urine Few (2-10); Culture Indicated Urine Specimen Cultured; RBC Urine 30-100/HPF (0-5/HPF); Squamous Epithelial Cell Urine 0-1 /HPF (0-5/HPF); Urine Volume 10mL (spun); WBC Urine 30-100/HPF (0-5/HPF)
== END ==
PROVIDERS: Family Provider Family Medicine; PCP Internal Medicine; Visit Provider Urology
DX: N40.1 Benign prostatic hyperplasia with lower urinary tract symptoms (principal)
CPT/HCPCS: 51702; 81001; 87086; 99213

== ENCOUNTER → 2024-07-17 13:49 | Outpatient (CLI) | payer OTHER, SELFPAY ==
[2024-05-29 13:48] VITALS: BMI 27.3
== END ==
PROVIDERS: Family Provider Family Medicine; PCP Internal Medicine; Visit Provider Urology
DX: N40.1 Benign prostatic hyperplasia with lower urinary tract symptoms (principal); R33.8 Other retention of urine
CPT/HCPCS: 51701; 87077; 87086; 87186

== ENCOUNTER 2025-01-08 00:08 | Inpatient (IN) | payer MEDICARE, SELFPAY ==
[2024-05-29 13:48] VITALS: BMI 27.3
[2025-01-08] VITALS (99 sets, daily range): BP systolic 129–256; BP diastolic 59–119; PULSE 68–105; RESP 7–36; TEMP 36.2–36.7; O2SAT 89–100; BMI 29.0; BMI 27.5
--- NOTE | 2025-01-08 00:04 | ED_ITS ---
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 Patient denies headache, dizziness, blurred vision, chest pain, shortness of breath, leg swelling, leg pain. Other than what is stated 14 point review of systems negative. Related Data Home Medications ?Medication ?Instructions ?Recorded ?Confirmed furosemide 20 mg tablet 20 mg PO Q OTHER DAY 3 01/08/25 levetiracetam 250 mg tablet 500 mg PO BID 01/01/23 (Keppra) sertraline 100 mg tablet 100 mg PO DAILY 01/01/23 aspirin 81 mg tablet,delayed 81 mg PO DAILY 01/20/24 0 01/08/25 release xarelto 2.5 mg PO BID 01/20/2401/08 acetaminophen 325 mg capsule 650 mg PO QID PRN Pain (S homero 02/05/24 01/08/25 Score 1-3) nitroglycerin 0.4 mg sublingual 0.4 mg sublingual Q5MI N PRN Chest 02/05/24 07/17/24 tablet Pain peg 400 0.4 %-propylene glycol 1 drp EYE-BOTH DAILY P RN Dry Eyes 02/05/24 07/17/24 (PF) 0.3 % eye drops (Systane Hydration (PF)) latanoprost 0.005 % eye drops drp EYE-BOTH 03/01/24 atorvastatin 40 mg tablet 40 mg PO DAILY 03/16/2412/24 ascorbate calcium (vitamin C) 500 mg PO DAILY 01/08/25 01/08/25 ferrous gluconate 324 mg (37.5 mg 324 mg PO DAILY 12/2401/08/25 iron) tablet Previous Rx's ?Medication ?Instructions ?Recorded carvedilol 12.5 mg tablet 6.25 mg (1/2 x 12.5 mg) PO B ID #[id number] 02/09/24 tabs hydrocodone 5 mg-acetaminophen 325 1 tab PO Q6H PRN pa in #10 tabs 02/21/24 mg tablet Allergies Allergy/AdvReac Type Severity Reaction Status Date / Time Penicillins (PENICILLINS) Allergy Intermediate Verified 01/08/25 00:23 Review of Systems Review of Systems ROS Unobtainable: All systems reviewed & are unremarkable except as noted in HPI and below Patient History Medical History History of depression Weakness Syncope Spinal stenosis Posttraumatic stress disorder (03/12/16) 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/16) Essential hypertension (03/12/16) Coronary arteriosclerosis in [place] artery (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 Well-developed patient, in mild distress. HEAD: Atraumatic. Normocephalic. EYES: Pupils equal round and reactive. Extraocular motions intact. No scleral icterus. No injection or drainage. ENT: Nose without bleeding, purulent drainage. Throat without erythema, tonsillar hypertrophy or exudate. Airway patent. NECK: Trachea midline. Non tender CARDIOVASCULAR: Regular rate and rhythm without murmurs, gallops, or rubs. RESPIRATORY: Clear to auscultation. Breath sounds equal bilaterally. No wheezes, rales, or rhonchi. GASTROINTESTINAL: Abdomen soft, non-tender, nondistended. EXTREMITIES: No edema or joint tenderness. BACK: Nontender without deformity or crepitance. No flank tenderness. NEURO: AOx3. GCS 15 nonfocal neuro exam SKIN: No rash or erythema of visible areas Initial Vital Signs Initial Vital Signs: Vital Signs Pulse Rate 78 01/08/25 00:21 Respiratory Rate 18 01/08/25 00:21 Pulse Oximetry 99 01/08/25 00:21 Scores NIH Stroke Scale Level of Conciousness: Alert, keenly responsive Ask month/age: Answers both questions correctly. Open/close eyes, close hand: Performs both tasks correctly Best gaze horizontal: Normal Visual mendez: No visual loss Facial palsy: Normal symetrical movement Left arm drift: No drift for full 10 sec Right arm drift: No drift for full 10 sec Left leg drift: No drift for full 5 sec Right leg drift: No drift for full 5 sec Limb ataxia: Absent Sensory on face/arms/legs: Normal, no sensory loss Best language: No aphasia, normal Dysarthria: Normal Extinction or inattention: No abnormality Total NIH Stroke scale score: 0 Course Orders Ordered: ED Orders 01/08/25 00:[address] angio head and neck Stat EKG-12 Lead Stat 01/08/25 00:10 Complete Blood Count AUTO DIFF Stat Comprehensive Metabolic Panel Stat Ethanol (ETOH) Stat PTT Partial Thromboplastin Jose Antonio Stat Prothrombin Time INR Stat Troponin & CK Cardiac Panel Stat 01/08/25 00:35 Covid-19 + FLU A/B + RSV - PCR Stat 01/08/25 01:08 CXR [XR chest 1V] Stat 01/08/25 01:37 Urinalysis and Microscopic Stat Urine Drug Screen, Rapid Stat 01/08/25 02:15 Trop I [Troponin I] Stat Nicardipine HCl 25 mg/ Sodium (Chloride) 250 mls @ 50 mls/hr IV TITRATE KATE; Protocol Last Titration: 01/08/25 02:05 Dose: 2.5 mg/hr, 25 mls/hr Documented By: Titration: 01/08/25 01:05 Dose: 5 mg/hr, 50 mls/hr Documented By: Titration: 01/08/25 00:49 Dose: 7.5 mg/hr, 75 mls/hr Documented By: Admin: 01/08/25 00:36 Dose: 5 mg/hr, 50 mls/hr Documented By: CRYSTAL Discontinued Medications Aspirin (Aspirin Ec 325 Mg Tablet) 325 mg PO NOW ONE Stop: 01/08/25 01:07 Last Admin: 01/08/25 01:19 Dose: 325 mg Documented By: CRYSTAL Potassium Chloride (Potassium Chloride 20 Meq/15 Ml Udc) 40 meq PO NOW ONE Stop: 01/08/25 01:10 Last Admin: 01/08/25 01:18 Dose: 40 meq Documented By: CRYSTAL Vital Signs Vital signs: Vital Signs - 8 hr 01/08/25 00:21 01/08/25 00:22 01/08/25 00:22 Temperature Pulse Rate 78 78 Respiratory Rate 18 22 Blood Pressure 236/113 H Pulse Oximetry 99 99 Oxygen Delivery Method 01/08/25 00:23 01/08/25 00:30 01/08/25 00:32 Temperature 98.0 F Pulse Rate 78 79 78 Respiratory Rate 16 24 32 H Blood Pressure 241/115 H Pulse Oximetry 99 98 99 Oxygen Delivery Method Room Air 01/08/25 00:32 01/08/25 00:42 01/08/25 00:42 Temperature Pulse Rate 79 Respiratory Rate 21 Blood Pressure 256/119 H 237/109 H Pulse Oximetry 99 Oxygen Delivery Method 01/08/25 00:47 01/08/25 00:47 01/08/25 00:48 Temperature Pulse Rate 80 79 Respiratory Rate 21 32 H Blood Pressure 222/99 H Pulse Oximetry 99 99 Oxygen Delivery Method 01/08/25 00:48 01/08/25 00:51 01/08/25 00:51 Temperature Pulse Rate 80 Respiratory Rate 19 Blood Pressure 213/102 H 200/91 H Pulse Oximetry 99 Oxygen Delivery Method 01/08/25 00:54 01/08/25 00:54 01/08/25 00:57 Temperature Pulse Rate 79 Respiratory Rate 22 Blood Pressure 191/90 H 170/80 H Pulse Oximetry 99 Oxygen Delivery Method 01/08/25 00:57 01/08/25 01:00 01/08/25 01:00 Temperature Pulse Rate 77 80 Respiratory Rate 34 H 30 H Blood Pressure 166/65 H Pulse Oximetry 99 97 Oxygen Delivery Method 01/08/25 01:03 01/08/25 01:03 01/08/25 01:06 Temperature Pulse Rate 79 83 Respiratory Rate 31 H 29 H Blood Pressure 197/87 H Pulse Oximetry 99 99 Oxygen Delivery Method 01/08/25 01:06 01/08/25 01:09 01/08/25 01:09 Temperature Pulse Rate 85 Respiratory Rate 15 Blood Pressure 186/83 H 188/87 H Pulse Oximetry 99 Oxygen Delivery Method 01/08/25 01:12 01/08/25 01:12 01/08/25 01:15 Temperature Pulse Rate 83 82 Respiratory Rate 34 H 23 Blood Pressure 186/85 H Pulse Oximetry 99 98 Oxygen Delivery Method 01/08/25 01:15 01/08/25 01:18 01/08/25 01:18 Temperature Pulse Rate 83 Respiratory Rate 27 H Blood Pressure 191/91 H 184/92 H Pulse Oximetry 98 Oxygen Delivery Method 01/08/25 01:21 01/08/25 01:21 01/08/25 01:25 Temperature Pulse Rate 82 84 Respiratory Rate 34 H 20 Blood Pressure 174/76 H Pulse Oximetry 97 97 Oxygen Delivery Method 01/08/25 01:25 01/08/25 01:30 01/08/25 01:30 Temperature Pulse Rate 82 Respiratory Rate 27 H Blood Pressure 174/83 H 199/89 H Pulse Oximetry 97 Oxygen Delivery Method 01/08/25 01:35 01/08/25 01:35 01/08/25 01:40 Temperature Pulse Rate 83 80 Respiratory Rate 23 25 H Blood Pressure 162/86 H Pulse Oximetry 97 97 Oxygen Delivery Method 01/08/25 01:40 01/08/25 01:45 01/08/25 01:45 Temperature Pulse Rate 79 Respiratory Rate 19 Blood Pressure 182/84 H 168/77 H Pulse Oximetry 99 Oxygen Delivery Method 01/08/25 01:50 01/08/25 01:50 01/08/25 01:55 Temperature Pulse Rate 79 78 Respiratory Rate 36 H 26 H Blood Pressure 172/80 H Pulse Oximetry 98 98 Oxygen Delivery Method 01/08/25 01:55 01/08/25 02:00 01/08/25 02:00 Temperature Pulse Rate 77 Respiratory Rate 21 Blood Pressure 167/68 H 160/75 H Pulse Oximetry 99 Oxygen Delivery Method 01/08/25 02:05 01/08/25 02:05 01/08/25 02:08 Temperature Pulse Rate 76 90 Respiratory Rate 30 H 28 H Blood Pressure 151/87 H Pulse Oximetry 97 98 Oxygen Delivery Method 01/08/25 02:08 01/08/25 02:10 01/08/25 02:10 Temperature Pulse Rate 80 Respiratory Rate 23 Blood Pressure 155/72 H 158/74 H Pulse Oximetry 98 Oxygen Delivery Method 01/08/25 02:15 01/08/25 02:15 01/08/25 02:20 Temperature Pulse Rate 80 Respiratory Rate 20 Blood Pressure 180/81 H 172/81 H Pulse Oximetry 95 Oxygen Delivery Method 01/08/25 02:20 01/08/25 02:25 01/08/25 02:25 Temperature Pulse Rate 77 79 Respiratory Rate 24 24 Blood Pressure 179/79 H Pulse Oximetry 98 98 Oxygen Delivery Method Room Air MDM - Neuro Symptoms/Deficit Lab Data 01/08/25 00:10 01/08/25 00:10 Labs: Lab Results 01/08/25 01/08/25 01/08/25 Range/Units 00:08 00:10 00:35 WBC 7.4 (4.5-11.0) X10^3/uL RBC 4.51 (4.5-5.9) X10^6/uL Hgb 13.7 (13.5-17.5) g/dL Hct 40.2 L (41-53) % MCV 89.2 (80-100) fL MCH 30.4 (26-34) PG MCHC 34.1 (30-36) % RDW 13.9 (11.6-14.8) % Plt Count 130 L (150-400) X10^3/uL Neut % (Auto) 59.1 (50-75) % Lymph % (Auto) 31.2 (25-40) % [place] % (Auto) 7.4 (3-14) % Eos % (Auto) 1.6 L (2-4) % Baso % (Auto) 0.7 (0-2) % Neut # (Auto) 4400 (3957-7611) /uL Lymph # (Auto) 2300 (4647-9068) /uL [place] # (Auto) 500 (0-900) /uL Eos # (Auto) 100 (0-450) /uL Baso # (Auto) 0 (0-100) /uL PT 15.8 H (9.4-12.5) SECONDS INR 1.4 H (0.9-1.3) APTT 34 (25.1-36.5) SECONDS Sodium 138 (137-145) mmol/L Potassium 3.2 L (3.4-5.1) mmol/L Chloride 102 (98-107) mmol/L Carbon Dioxide 33 H (22-32) mmol/L BUN 23 H (9-20) mg/dL Creatinine 1.25 (0.66-1.25) mg/dL Estimated GFR 57 L (>60) mL/min BUN/Creatinine Ratio 18.4 (6-22) Glucose 102 H (70-99) mg/dL POC Whole Bld Glucose 113 H (70-99) mg/dL Calcium 8.8 (8.4-10.2) mg/dL Total Bilirubin 0.6 (0.2-1.3) mg/dL AST 28 (17-59) IU/L ALT 14 (<50) IU/L Alkaline Phosphatase 63 (38-126) U/L Total Creatine Kinase 42 L (55-170) U/L Troponin I 0.058 H (0.01-0.034) ng/mL Total Protein 6.7 (6.3-8.2) g/dL Albumin 3.7 (3.5-5.0) g/dL Globulin 3.0 (1.7-4.1) g/dL Albumin/Globulin Ratio 1.2 (1.0-2.8) Urine Color Urine Appearance Urine pH (4.5-8.0) Ur Specific [place] (1.000-1.035) Urine Protein (Negative) Urine Glucose (UA) (Negative) g/dL Urine Ketones (NEGATIVE) Urine Occult Blood (Negative) Urine Nitrate (Negative) Urine Bilirubin (NEGATIVE) Urine Urobilinogen (0.2) E.U./dL Ur Leukocyte Esterase (NEGATIVE) Urine RBC (0-5/HPF) Urine WBC (0-5/HPF) Ur Squamous Epith Cells (0-5/HPF) Urine Bacteria (None) Hyaline Casts (None) Ur Culture Indicated? Vol Urine Centrifuged U Opiates 300ng/mL cut (Negative) Ur Oxycodone Screen (Negative) Urine Methadone Screen (Negative) Ur Barbiturates Screen (Negative) U Tricyclic Antidepress (Negative) Ur Phencyclidine Scrn (Negative) Ur Amphetamines Screen (Negative) U Methamphetamines Scrn (Negative) Ur MDMA Scrn (Ecstasy) (Negative) U Benzodiazepines Scrn (Negative) Urine Cocaine Screen (Negative) U Marijuana (THC) Screen (Negative) Urine Specific [place] (Normal) Ethyl Alcohol < 10 (<10) mg/dL Ur Creatinine (Normal) SARS-CoV-2 (PCR) Cancelled Influenza A (RT-PCR) (NEGATIVE) Influenza B (RT-PCR) (NEGATIVE) RSV (PCR) (Negative) 01/08/25 01/08/25 01/08/25 Range/Units 00:35 01:37 01:37 WBC (4.5-11.0) X10^3/uL RBC (4.5-5.9) X10^6/uL Hgb (13.5-17.5) g/dL Hct (41-53) % MCV (80-100) fL MCH (26-34) PG MCHC (30-36) % RDW (11.6-14.8) % Plt Count (150-400) X10^3/uL Neut % (Auto) (50-75) % Lymph % (Auto) (25-40) % [place] % (Auto) (3-14) % Eos % (Auto) (2-4) % Baso % (Auto) (0-2) % Neut # (Auto) (4122-2627) /uL Lymph # (Auto) (8815-3527) /uL [place] # (Auto) (0-900) /uL Eos # (Auto) (0-450) /uL Baso # (Auto) (0-100) /uL PT (9.4-12.5) SECONDS INR (0.9-1.3) APTT (25.1-36.5) SECONDS Sodium (137-145) mmol/L Potassium (3.4-5.1) mmol/L Chloride (98-107) mmol/L Carbon Dioxide (22-32) mmol/L BUN (9-20) mg/dL Creatinine (0.66-1.25) mg/dL Estimated GFR (>60) mL/min BUN/Creatinine Ratio (6-22) Glucose (70-99) mg/dL POC Whole Bld Glucose (70-99) mg/dL Calcium (8.4-10.2) mg/dL Total Bilirubin (0.2-1.3) mg/dL AST (17-59) IU/L ALT (<50) IU/L Alkaline Phosphatase (38-126) U/L Total Creatine Kinase (55-170) U/L Troponin I (0.01-0.034) ng/mL Total Protein (6.3-8.2) g/dL Albumin (3.5-5.0) g/dL Globulin (1.7-4.1) g/dL Albumin/Globulin Ratio (1.0-2.8) Urine Color Yellow Urine Appearance Clear Urine pH 7.5 Normal (4.5-8.0) Ur Specific [place] 1.010 (1.000-1.035) Urine Protein 2+ H (Negative) Urine Glucose (UA) Negative (Negative) g/dL Urine Ketones Negative (NEGATIVE) Urine Occult Blood 2+ H (Negative) Urine Nitrate Negative (Negative) Urine Bilirubin Negative (NEGATIVE) Urine Urobilinogen 1.0 (0.2) E.U./dL Ur Leukocyte Esterase Negative (NEGATIVE) Urine RBC 10-30/hpf H (0-5/HPF) Urine WBC 1-5/hpf (0-5/HPF) Ur Squamous Epith Cells 0-1 /hpf (0-5/HPF) Urine Bacteria None seen (None) Hyaline Casts 0-1/lpf (None) Ur Culture Indicated? Cult not indicated Vol Urine Centrifuged 10ml (spun) U Opiates 300ng/mL cut Negative (Negative) Ur Oxycodone Screen Negative (Negative) Urine Methadone Screen Negative (Negative) Ur Barbiturates Screen Negative (Negative) U Tricyclic Antidepress Negative (Negative) Ur Phencyclidine Scrn Negative (Negative) Ur Amphetamines Screen Negative (Negative) U Methamphetamines Scrn Negative (Negative) Ur MDMA Scrn (Ecstasy) Negative (Negative) U Benzodiazepines Scrn Negative (Negative) Urine Cocaine Screen Negative (Negative) U Marijuana (THC) Screen Negative (Negative) Urine Specific [place] Normal (Normal) Ethyl Alcohol (<10) mg/dL Ur Creatinine Normal (Normal) SARS-CoV-2 (PCR) Negative Influenza A (RT-PCR) Flu a negative (NEGATIVE) Influenza B (RT-PCR) Flu b negative (NEGATIVE) RSV (PCR) Negative (Negative) Imaging Data CT scan - head: Radiologist's Impression: [address] [address] [address] Scan Report Signed Patient: Zackery Banda MR#: [id number] : 1940 Acct:[id number] Age/Sex: 84 / M Date of Service: 01/08/25 Loc: ED Accession Number: [id number] Procedure: CT Stroke Ordering Provider: Javier Brownlee D.O. PROCEDURE: CT STROKE INDICATIONS: ams/ hx of cva TECHNIQUE: Noncontrast 4.5 mm thick angled axial sections acquired from the foramen magnum to the vertex, with coronal reformats. For radiation dose reduction, the following was used: automated exposure control, adjustment of mA and/or kV according to patient size. COMPARISON: [facility], CT, CT HEAD/BRAIN WO CON, 02/19/2024, 4:47. [facility], CT, CT STROKE, 01/01/2023, 16:11. FINDINGS: Image quality: Diagnostic. CSF spaces: Basal cisterns are patent. No extra-axial fluid collections. The ventricles are symmetric in size and shape. Brain: No intracranial bleeds or mass effect. Old infarction in right parietal lobe is again seen with encephalomalacia unchanged from prior study. There is cerebral volume loss, with resultant ventricular and sulcal prominence. There are periventricular and deep white matter chronic small vessel ischemic changes. There is intracranial internal carotid artery atherosclerosis. Skull and face: Calvarium and visualized facial bones appear intact, without suspicious lesions. Sinuses: Visualized sinuses and mastoids are clear. IMPRESSION: No acute intracranial pathology. Findings were reported to ordering ER physician at the time of dictation. This study fulfills neurological imaging criteria for inclusion or exclusion of acute stroke therapies based on available published neurological guidelines. CTA - brain/neck: Radiologist's Impression: [address] [address] [address] Scan Report Signed Patient: Zackery Banda MR#: [id number] : 1940 Acct:[id number] Age/Sex: 84 / M Date of Service: 01/08/25 Loc: ED Accession Number: [id number] Procedure: CT angio head and neck Ordering Provider: Javier Brownlee D.O. PROCEDURE: CT ANGIO HEAD AND NECK INDICATIONS: ams/ hx of cva TECHNIQUE: After the administration of intravenous contrast, 1 mm thick sections acquired from the aortic arch through the [place] of Banda. 3-dimensional vyradza-tgtulluyc-sysezivwse (MIP) and/or volume rendering reformats were acquired of the central intracranial vasculature and neck separately. For radiation dose reduction, the following was used: automated exposure control, adjustment of mA and/or kV according to patient size. COMPARISON: [facility], CT, CT ANGIO HEAD AND NECK, 01/01/2023, 16:11. FINDINGS: Image quality: Diagnostic. Cerebral CT Angiogram: Internal carotid arteries: No acute findings. Atherosclerotic calcifications are noted involving bilateral intracranial portion of internal carotid arteries with less than 50% stenosis. No occlusion. No aneurysm. Anterior cerebral arteries: Unremarkable. No significant stenosis. No occlusion. No aneurysm. Middle cerebral arteries: Unremarkable. No significant stenosis. No occlusion. No aneurysm. Posterior cerebral arteries: Unremarkable. No significant stenosis. No occlusion. No aneurysm. Basilar artery: Unremarkable. No significant stenosis. No occlusion. No aneurysm. Vertebral arteries: Unremarkable as visualized. Dural venous sinuses: Unremarkable given phase of enhancement. Other: Arterial phase appearance of the brain parenchyma is unremarkable. Neck CT Angiogram: Internal carotid arteries: Unremarkable. No significant stenosis. No dissection or occlusion. Common carotid arteries: Unremarkable. No significant stenosis. No dissection or occlusion. External carotid arteries: Unremarkable. No occlusion. Vertebral arteries: Unremarkable. No significant stenosis. No dissection or occlusion. Aortic Arch and Mediastinum: Partially visualized aortic arch unremarkable without evidence of aneurysm. Origins of the great vessels unremarkable. Other: Arterial phase soft tissues of the neck and chest are unremarkable. IMPRESSION: 1. No significant intracranial arterial abnormality is seen. 2. No significant abnormality is seen within the arteries of the neck.. Any quantitative measurements of stenosis were performed using NASCET criteria. Dictated by: Mahendra Sandoval M.D. on 01/08/2025 at 0:27 Approved by: Mahendra Sandoval M.D. on 01/08/2025 at 0:35 Chest x-ray: Radiologist's Impression: [address] [address] XRay Report Signed Patient: Zackery Banda MR#: [id number] : 1940 Acct:[id number] Age/Sex: 84 / M Date of Service: 01/08/25 Loc: ED Accession Number: [id number] Procedure: XR chest 1V Ordering Provider: Javier Brownlee D.O. PROCEDURE: XR CHEST 1V INDICATIONS: chest pain TECHNIQUE: One view of the chest was acquired. COMPARISON: [facility], CR, XR CHEST 1V, 02/05/2024, 13:18. FINDINGS: Surgical changes and devices: None. Lungs and pleura: Mild pulmonary vascular congestion. No definite focal infiltrate. No pleural effusions or pneumothorax. Mediastinum: Mediastinal contours appear normal. Heart size is enlarged. Bones and chest wall: No suspicious bony lesions. Overlying soft tissues appear unremarkable. IMPRESSION: Cardiomegaly and mild congestion. No definite focal infiltrate. No pleural effusion or pneumothorax. ECG Data Interpretation: Afib HR 76 TX 190 QRS [address]-t wave change Unchanged from 02/19/24 MDM Narrative Medical decision making narrative: All lab work, vital signs, nurse triage note, medication list, previous ER visits, and all imaging studies reviewed. White count normal potassium 3.2 BUN 23 at noon 1.25 glucose 102 troponin 1st set 0.058 and 2nd set 0.054 chest x-ray showed cardiomegaly and mild congestion. No definite focal infiltrate. No pleural effusion or pneumothorax. CT head showed no acute intracranial pathology. CTA head and neck showed no significant intracranial arterial abnormality. No significant abnormality seen within the arteries of the neck. Patient given aspirin, nicardipine drip, and potassium solution. Differential diagnosis hypertensive emergency, urgency, CVA, TIA, hemorrhage, STEMI, NSTEMI, UTI, sepsis, pneumonia. Case discussed with hospitalist who has graciously accepted the patient for inpatient admission. Discharge Plan Departure Patient Disposition: Admitted As Inpatient Clinical Impression: Hypertensive emergency
[2025-01-08 00:18] LABS: Add Manual Diff / Slide Review NO; Hematocrit 40.2 % (41-53); Hemoglobin 13.7 g/dL (13.5-17.5); Lymphocytes Absolute Auto 2300 /uL (1100-4500); Mean Corpuscular HGB Conc 34.1 % (30-36); Mean Corpuscular Hemoglobin 30.4 PG (26-34); Mean Corpuscular Volume 89.2 fL (80-100); Platelet Count 130 X10^3/uL (150-400)
[2025-01-08 00:29] LABS: INR 1.4 (0.9-1.3); Prothrombin Time 15.8 SECONDS (9.4-12.5)
[2025-01-08 00:32] LABS: PTT Partial Thromboplastin Tim 34 SECONDS (25.1-36.5)
--- NOTE | 2025-01-08 00:33 | EKG_ITS ---
[facility] [address] [place] [address] Test Date: 2025-01-08 Pat Name: Zackery Banda Department: [facility] Room: Gender: Male Deputy Clerk: ARVIND : 1940 Requested By: Order Number: [id number] Reading MD: Javier Salazar MD Measurements Intervals [place] Rate: 77 P: 24 CT: 196 QRS: -16 QRSD: 92 T: 109 QT: 424 QTc: 479 Interpretive Statements Sinus rhythm with marked sinus arrhythmia Cannot rule out Anterior infarct , age undetermined ST & T wave abnormality, consider lateral ischemia Electronically Signed On 01-08-2025 6:42:27 PDT by Javier Salazar MD
[2025-01-08 00:34] LABS: Alanine Aminotransferase 14 IU/L (<50); Albumin 3.7 g/dL (3.5-5.0); Albumin Globulin Ratio 1.2 (1.0-2.8); Alkaline Phosphatase 63 U/L (38-126); Blood Urea Nitrogen 23 mg/dL (9-20); Calcium 8.8 mg/dL (8.4-10.2); Carbon Dioxide 33 mmol/L (22-32); Chloride 102 mmol/L (98-107); Creatine Kinase 42 U/L (55-170); Estimated Glomerular Filt Rate 57 mL/min (>60); Globulin 3.0 g/dL (1.7-4.1); Glucose 102 mg/dL (70-99); Potassium 3.2 mmol/L (3.4-5.1); Sodium 138 mmol/L (137-145); Total Protein 6.7 g/dL (6.3-8.2)
--- NOTE | 2025-01-08 00:35 | EKG_ITS ---
[facility] [address] [place] [address] Test Date: 2025-01-08 Pat Name: Zackery Banda Department: [facility] Room: 227 Gender: Male Cell Liner: ARVIND : 1940 Requested By: Order Number: [id number] Reading MD: Javier Salazar MD Measurements Intervals [place] Rate: 76 P: 34 CA: 190 QRS: -18 QRSD: 92 T: 111 QT: 382 QTc: 429 Interpretive Statements Sinus rhythm with marked sinus arrhythmia ST & T wave abnormality, consider lateral ischemia NO SIGNIFICANT CHANGE FROM PRIOR TRACING Electronically Signed On 01-08-2025 10:28:32 PDT by Javier Salazar MD
[2025-01-08 00:45] LABS: Troponin I 0.058 ng/mL (0.01-0.034)
[2025-01-08 00:46] LABS: Ethanol (ETOH) < 10 mg/dL (<10); HEMOLYSIS 22 (0-50)
--- NOTE | 2025-01-08 01:08 | DI.RAD.S_ITS ---
PROCEDURE: XR CHEST 1V INDICATIONS: chest pain TECHNIQUE: One view of the chest was acquired. COMPARISON: [facility], CR, XR CHEST 1V, 02/05/2024, 13:18. FINDINGS: Surgical changes and devices: None. Lungs and pleura: Mild pulmonary vascular congestion. No definite focal infiltrate. No pleural effusions or pneumothorax. Mediastinum: Mediastinal contours appear normal. Heart size is enlarged. Bones and chest wall: No suspicious bony lesions. Overlying soft tissues appear unremarkable. IMPRESSION: Cardiomegaly and mild congestion. No definite focal infiltrate. No pleural effusion or pneumothorax. Dictated by: Mahendra Sandoval M.D. on 01/08/2025 at 1:38 Approved by: Mahendra Sandoval M.D. on 01/08/2025 at 1:38
[2025-01-08] MEDS: POTASSIUM CHLORIDE 20 MEQ/15 ML UDC 40 MEQ PO (01:18)
[2025-01-08] MEDS: ASPIRIN EC 325 MG TABLET PO (01:19)
[2025-01-08 01:37] LABS: COVID-19 CEPHEID 4-PLEX PCR Negative (Negative); Influenza A - CEPHEID Flu A NEGATIVE (NEGATIVE); Influenza B - CEPHEID Flu B NEGATIVE (NEGATIVE)
[2025-01-08 01:47] LABS: Appearance Urine UA CLEAR; Bilirubin Urine UA NEGATIVE (NEGATIVE); Color Urine UA YELLOW; Glucose Urine UA NEGATIVE (Negative); Ketones Urine UA NEGATIVE (NEGATIVE); Leukocyte Esterase Urine UA NEGATIVE (NEGATIVE); Nitrite Urine UA NEGATIVE (Negative); Occult Blood Urine UA 2+ (Negative); Protein Urine UA 2+ (Negative); Specific Gravity Urine UA 1.010 (1.000-1.035); Ur Creatinine Normal (Normal); Ur Specific Gravity Normal (Normal); Urine THC Negative (Negative); Urine pH Normal (Normal); Urobilinogen Urine UA 1.0 E.U./dL (0.2); pH Urine UA 7.5 (4.5-8.0)
[2025-01-08 01:48] LABS: Urine MDMA Negative (Negative); Urine Methamphetamines Negative (Negative); Urine Tricyclic Antidepressant Negative (Negative)
--- NOTE | 2025-01-08 01:51 | PC.NURSE ---
Pt following commands but still slurring words and speaking sentences that are not making sense to this RN or family at times
[2025-01-08 01:54] LABS: Culture Indicated Urine Cult Not Indicated
[2025-01-08 02:46] LABS: Troponin I 0.054 ng/mL (0.01-0.034)
--- NOTE | 2025-01-08 03:37 | DI.MRI.S_ITS ---
PROCEDURE: MR HEAD/BRAIN WO CON INDICATIONS: r/o CVA TECHNIQUE: Non-contrast axial T1 spin echo, axial T2 fast spin echo, sagittal and axial FLAIR, coronal T2 fast spin echo, axial gradient echo, axial diffusion and ADC through the brain. COMPARISON: [facility], CT, CT STROKE, 01/08/2025, 0:12. [facility], MR, MR HEAD/BRAIN WO CON, 01/02/2023, 7:30. FINDINGS: Image quality: Excellent. CSF spaces: Ventricles appear symmetric in size and shape. Basal cisterns are patent. No extra-axial fluid collections. Brain: No acute intracranial hemorrhage or mass effect. Chronic encephalomalacia is seen in the right temporal occipital region. There is cerebral volume loss for age. There are periventricular and deep white matter chronic small vessel ischemic changes. Brainstem appears normal. Diffusion-weighted images show no acute infarct. No chronic ischemic insults. Normal intravascular flow voids are present. Skull and face: Calvarial bone marrow is normal in signal. Orbits are normal. Sinuses: Sinuses and mastoids are clear. IMPRESSION: 1. No acute intracranial hemorrhage or recent infarct. 2. Remote prior right temporal occipital infarct. 3. At least moderate chronic microvascular ischemic changes and generalized parenchymal volume loss. Approved by: Ryland Elliott M.D. on 01/08/2025 at 15:08
[2025-01-08 05:13] LABS: Cholesterol 109 mg/dL (140-199); HDL Cholesterol 45 mg/dL (40-60); Triglycerides 123 mg/dL (35-150)
[2025-01-08 05:16] LABS: Hemoglobin A1C% w Est Avg Glu 5.6 % (4.0-6.0)
--- NOTE | 2025-01-08 06:10 | PM.HP.1 ---
History of Present Illness History of Present Illness Chief complaint: neuro Narrative: 82 years old male with history of previous CVA x 2, status post tPA in April 2021, permanent atrial fibrillation on Xarelto, hypertension, CKD, BPH with bladder outlet obstruction PTSD, CHF, dementia, former smoker presented to the ER with slurred speech around 11 PM. According to his daughter the patient was feeling more tired than usual in the last week and last night he went early to bed which was unusual for him. He also reports some headache but denies any blurry vision or numbness or weakness of extremities. Compliant with his home medications. Denies shortness of breath, chest pain, fever, palpitations, nausea, vomiting, abdominal pain, diarrhea or dysuria. He had recently stopped his spironolactone due to orthostatic hypotension. Take Xarelto and aspirin. Laboratory shows WBC 7.4, H&H 30.7/40.2, platelets 130, sodium 138, potassium 3.2, creatinine 1.25, blood sugar 102, INR 1.4, AST normal, troponin 0.0 58, UA shows mild hematuria, U tox negative, respiratory viral panel negative. CTA of the brain and neck shows no significant abnormalities. Chest x-ray shows cardiomegaly and mild congestion. EKG atrial fibrillation with rate of 76. In the ER he was found to have elevated blood pressure of systolic 200s and was started on nicardipine drip. He also was given aspirin 325 mg p.o. and potassium supplement. According to his daughter his symptoms are improving. 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) Surgical History History of oral surgery Family History Father Heart disease Essential hypertension Grandmother Diabetes mellitus Social History marital status: number of children: 2 household members: spouse, children and caregiver Smoking Status: Former smoker alcohol intake: current caffeine: Yes Type(s) of exercise: none Meds Home Medications and Allergies Home Medications ?Medication ?Instructions ?Recorded ?Confirmed ?Type furosemide 20 mg tablet 20 mg PO Q OTHER DAY 01/01/23 01/08/25 History levetiracetam 250 mg tablet 500 mg PO BID 01/01/23 01/08/25 History (Keppra) sertraline 100 mg tablet 100 mg PO DAILY 01/01/23 01/08/25 History aspirin 81 mg tablet,delayed 81 mg PO DAILY 01/20/24 01/08/25 History release xarelto 2.5 mg PO BID 01/20/24 01/08/25 History acetaminophen 325 mg capsule 650 mg PO QID PRN Pain (Scale 02/05/24 01/08/25 History Score 1-3) nitroglycerin 0.4 mg sublingual 0.4 mg sublingual Q5MIN PRN Chest 02/05/24 07/17/24 History tablet Pain peg 400 0.4 %-propylene glycol 1 drp EYE-BOTH DAILY PRN Dry Eyes 02/05/24 07/17/24 History (PF) 0.3 % eye drops (Systane Hydration (PF)) carvedilol 12.5 mg tablet 6.25 mg (1/2 x 12.5 mg) PO BID #60 02/09/24 01/08/25 Rx tabs hydrocodone 5 mg-acetaminophen 325 1 tab PO Q6H PRN pain #10 tabs 02/21/24 07/17/24 Rx mg tablet latanoprost 0.005 % eye drops drp EYE-BOTH 03/01/24 07/17/24 History atorvastatin 40 mg tablet 40 mg PO DAILY 03/16/24 01/08/25 History ascorbate calcium (vitamin C) 500 mg PO DAILY 01/08/25 01/08/25 History ferrous gluconate 324 mg (37.5 mg 324 mg PO DAILY 01/08/25 01/08/25 History iron) tablet Allergies Allergy/AdvReac Type Severity Reaction Status Date / Time Penicillins (PENICILLINS) Allergy Intermediate Verified 01/08/25 00:23 Review of Systems Review of Systems ROS: Yes All systems reviewed with the patient and are negative except as otherwise documented Constitutional Constitutional: Reports as per HPI and Reports system reviewed and no additional complaints, except as documented Eyes Eyes: Reports as per HPI and Reports system reviewed and no additional complaints, except as documented ENT Ears, Nose, Mouth, and Throat: Yes as per HPI and Yes system reviewed and no additional complaints, except as documented Cardiovascular Cardiovascular: Reports system reviewed and no additional complaints, except as documented Respiratory Respiratory: Reports system reviewed and no additional complaints, except as documented Gastrointestinal Gastrointestinal: Reports system reviewed and no additional complaints, except as documented Genitourinary Genitourinary: Reports system reviewed and no additional complaints, except as documented Musculoskeletal Musculoskeletal: Reports system reviewed and no additional complaints, except as documented, Reports abnormal gait and Reports numbness Neurologic Neurologic: Reports system reviewed and no additional complaints, except as documented, Reports abnormal gait, Reports confusion and Reports numbness Psychiatric Psychiatric: Reports system reviewed and no additional complaints, except as documented and Reports confusion Exam Vital Signs (past 8 hours): - 01/08/25 00:21 01/08/25 00:22 01/08/25 00:22 Temperature Pulse Rate 78 78 Respiratory Rate 18 22 Blood Pressure 236/113 H Pulse Oximetry 99 99 Oxygen Delivery Method 01/08/25 00:23 01/08/25 00:30 01/08/25 00:32 Temperature 98.0 F Pulse Rate 78 79 78 Respiratory Rate 16 24 32 H Blood Pressure 241/115 H Pulse Oximetry 99 98 99 Oxygen Delivery Method Room Air 01/08/25 00:32 01/08/25 00:42 01/08/25 00:42 Temperature Pulse Rate 79 Respiratory Rate 21 Blood Pressure 256/119 H 237/109 H Pulse Oximetry 99 Oxygen Delivery Method 01/08/25 00:47 01/08/25 00:47 01/08/25 00:48 Temperature Pulse Rate 80 79 Respiratory Rate 21 32 H Blood Pressure 222/99 H Pulse Oximetry 99 99 Oxygen Delivery Method 01/08/25 00:48 01/08/25 00:51 01/08/25 00:51 Temperature Pulse Rate 80 Respiratory Rate 19 Blood Pressure 213/102 H 200/91 H Pulse Oximetry 99 Oxygen Delivery Method 01/08/25 00:54 01/08/25 00:54 01/08/25 00:57 Temperature Pulse Rate 79 Respiratory Rate 22 Blood Pressure 191/90 H 170/80 H Pulse Oximetry 99 Oxygen Delivery Method 01/08/25 00:57 01/08/25 01:00 01/08/25 01:00 Temperature Pulse Rate 77 80 Respiratory Rate 34 H 30 H Blood Pressure 166/65 H Pulse Oximetry 99 97 Oxygen Delivery Method 01/08/25 01:03 01/08/25 01:03 01/08/25 01:06 Temperature Pulse Rate 79 83 Respiratory Rate 31 H 29 H Blood Pressure 197/87 H Pulse Oximetry 99 99 Oxygen Delivery Method 01/08/25 01:06 01/08/25 01:09 01/08/25 01:09 Temperature Pulse Rate 85 Respiratory Rate 15 Blood Pressure 186/83 H 188/87 H Pulse Oximetry 99 Oxygen Delivery Method 01/08/25 01:12 01/08/25 01:12 01/08/25 01:15 Temperature Pulse Rate 83 82 Respiratory Rate 34 H 23 Blood Pressure 186/85 H Pulse Oximetry 99 98 Oxygen Delivery Method 01/08/25 01:15 01/08/25 01:18 01/08/25 01:18 Temperature Pulse Rate 83 Respiratory Rate 27 H Blood Pressure 191/91 H 184/92 H Pulse Oximetry 98 Oxygen Delivery Method 01/08/25 01:21 01/08/25 01:21 01/08/25 01:25 Temperature Pulse Rate 82 84 Respiratory Rate 34 H 20 Blood Pressure 174/76 H Pulse Oximetry 97 97 Oxygen Delivery Method 01/08/25 01:25 01/08/25 01:30 01/08/25 01:30 Temperature Pulse Rate 82 Respiratory Rate 27 H Blood Pressure 174/83 H 199/89 H Pulse Oximetry 97 Oxygen Delivery Method 01/08/25 01:35 01/08/25 01:35 01/08/25 01:40 Temperature Pulse Rate 83 80 Respiratory Rate 23 25 H Blood Pressure 162/86 H Pulse Oximetry 97 97 Oxygen Delivery Method 01/08/25 01:40 01/08/25 01:45 01/08/25 01:45 Temperature Pulse Rate 79 Respiratory Rate 19 Blood Pressure 182/84 H 168/77 H Pulse Oximetry 99 Oxygen Delivery Method 01/08/25 01:50 01/08/25 01:50 01/08/25 01:55 Temperature Pulse Rate 79 78 Respiratory Rate 36 H 26 H Blood Pressure 172/80 H Pulse Oximetry 98 98 Oxygen Delivery Method 01/08/25 01:55 01/08/25 02:00 01/08/25 02:00 Temperature Pulse Rate 77 Respiratory Rate 21 Blood Pressure 167/68 H 160/75 H Pulse Oximetry 99 Oxygen Delivery Method 01/08/25 02:05 01/08/25 02:05 01/08/25 02:08 Temperature Pulse Rate 76 90 Respiratory Rate 30 H 28 H Blood Pressure 151/87 H Pulse Oximetry 97 98 Oxygen Delivery Method 01/08/25 02:08 01/08/25 02:10 01/08/25 02:10 Temperature Pulse Rate 80 Respiratory Rate 23 Blood Pressure 155/72 H 158/74 H Pulse Oximetry 98 Oxygen Delivery Method 01/08/25 02:15 01/08/25 02:15 01/08/25 02:20 Temperature Pulse Rate 80 Respiratory Rate 20 Blood Pressure 180/81 H 172/81 H Pulse Oximetry 95 Oxygen Delivery Method 01/08/25 02:20 01/08/25 02:25 01/08/25 02:25 Temperature Pulse Rate 77 79 Respiratory Rate 24 24 Blood Pressure 179/79 H Pulse Oximetry 98 98 Oxygen Delivery Method Room Air 01/08/25 02:30 01/08/25 02:30 01/08/25 02:35 Temperature Pulse Rate 79 79 Respiratory Rate 26 H 24 Blood Pressure 175/84 H Pulse Oximetry 98 99 Oxygen Delivery Method Room Air 01/08/25 02:35 01/08/25 02:40 01/08/25 02:40 Temperature Pulse Rate 79 Respiratory Rate 27 H Blood Pressure 172/78 H 176/85 H Pulse Oximetry 98 Oxygen Delivery Method 01/08/25 02:45 01/08/25 02:45 01/08/25 02:50 Temperature Pulse Rate 78 82 Respiratory Rate 18 18 Blood Pressure 169/81 H Pulse Oximetry 99 97 Oxygen Delivery Method Room Air 01/08/25 02:50 01/08/25 02:55 01/08/25 02:55 Temperature Pulse Rate 80 Respiratory Rate 19 Blood Pressure 182/86 H 174/83 H Pulse Oximetry 98 Oxygen Delivery Method 01/08/25 03:00 01/08/25 03:00 01/08/25 03:05 Temperature Pulse Rate 81 88 Respiratory Rate 23 27 H Blood Pressure 174/83 H Pulse Oximetry 100 89 L Oxygen Delivery Method 01/08/25 03:05 01/08/25 03:10 01/08/25 03:10 Temperature Pulse Rate 82 Respiratory Rate 25 H Blood Pressure 180/79 H 183/86 H Pulse Oximetry 99 Oxygen Delivery Method 01/08/25 03:15 01/08/25 03:15 01/08/25 03:21 Temperature Pulse Rate 83 105 H Respiratory Rate 24 26 H Blood Pressure 175/80 H Pulse Oximetry 100 97 Oxygen Delivery Method 01/08/25 03:21 01/08/25 03:26 01/08/25 03:26 Temperature Pulse Rate 81 Respiratory Rate 22 Blood Pressure 162/78 H 164/74 H Pulse Oximetry 97 Oxygen Delivery Method 01/08/25 03:30 01/08/25 03:30 01/08/25 03:35 Temperature Pulse Rate 78 80 Respiratory Rate 24 27 H Blood Pressure 181/86 H Pulse Oximetry 98 94 Oxygen Delivery Method 01/08/25 03:35 01/08/25 03:40 01/08/25 03:40 Temperature Pulse Rate 80 Respiratory Rate 27 H Blood Pressure 180/85 H 173/87 H Pulse Oximetry 99 Oxygen Delivery Method 01/08/25 03:45 01/08/25 03:45 01/08/25 03:50 Temperature Pulse Rate 80 82 Respiratory Rate 24 25 H Blood Pressure 184/89 H Pulse Oximetry 99 99 Oxygen Delivery Method 01/08/25 03:50 01/08/25 03:55 01/08/25 03:55 Temperature Pulse Rate 84 Respiratory Rate 21 Blood Pressure 179/94 H 181/88 H Pulse Oximetry 99 Oxygen Delivery Method 01/08/25 04:00 01/08/25 04:00 01/08/25 04:05 Temperature Pulse Rate 83 83 Respiratory Rate 21 14 Blood Pressure 178/91 H Pulse Oximetry 98 98 Oxygen Delivery Method 01/08/25 04:05 01/08/25 04:10 01/08/25 04:10 Temperature Pulse Rate 81 Respiratory Rate 17 Blood Pressure 190/91 H 186/91 H Pulse Oximetry 98 Oxygen Delivery Method 01/08/25 04:15 01/08/25 04:15 01/08/25 04:20 Temperature Pulse Rate 82 Respiratory Rate 17 Blood Pressure 190/88 H 191/84 H Pulse Oximetry 98 Oxygen Delivery Method 01/08/25 04:20 Temperature Pulse Rate 80 Respiratory Rate 18 Blood Pressure Pulse Oximetry 98 Oxygen Delivery Method Oxygen Delivery Method Room Air Const General: cooperative, comfortable and well developed Orientation: alert and oriented x3 HENMT Head: normal to inspection, normocephalic and atraumatic Face and sinus: normal facial exam Mouth: oral mucosae normal and moist mucous membranes Throat: posterior oropharynx normal Eyes General: appearance normal, both eyes and all related structures Pupils: PERRL EOM: EOM intact bilaterally Neck Neck: normal visual inspection and full ROM Chest Chest: normal inspection of the chest Resp Effort & Inspection: normal respiratory effort and able to speak in complete sentences Auscultation: clear to auscultation bilaterally Cardio Palpation: normal PMI Rate: regular rate Rhythm: regular rhythm Heart Sounds: S1 normal and S2 normal GI Inspection: normal to inspection Palpation: soft and no hepatosplenomegaly Auscultation: normal bowel sounds Skin General: no rashes or lesions noted Lesions: no lesions Rashes: no rashes Trauma: no lacerations or abrasions Neuro General: patient alert, patient awake, patient oriented x3 and no focal motor deficits Cranial Nerves: CN's II-XI intact bilaterally Cognition: normal cognition Speech: speech normal Gait: normal gait Motor: muscle tone normal throughout Sensory Exam: no sensory deficits noted Extrem General: full ROM and no calf tenderness Psych Appearance: grossly normal Mental Status: mental status grossly normal Speech and Movement: speech and movement normal Objective Labs 01/08/25 00:10 01/08/25 00:10 Labs: Laboratory Results - last 24 hr 01/08/25 01/08/25 01/08/25 00:08 00:10 00:35 WBC 7.4 RBC 4.51 Hgb 13.7 Hct 40.2 L MCV 89.2 MCH 30.4 MCHC 34.1 RDW 13.9 Plt Count 130 L Neut % (Auto) 59.1 Lymph % (Auto) 31.2 [place] % (Auto) 7.4 Eos % (Auto) 1.6 L Baso % (Auto) 0.7 Neut # (Auto) 4400 Lymph # (Auto) 2300 [place] # (Auto) 500 Eos # (Auto) 100 Baso # (Auto) 0 PT 15.8 H INR 1.4 H APTT 34 Sodium 138 Potassium 3.2 L Chloride 102 Carbon Dioxide 33 H BUN 23 H Creatinine 1.25 Estimated GFR 57 L BUN/Creatinine Ratio 18.4 Glucose 102 H POC Whole Bld Glucose 113 H Hemoglobin A1c 5.6 Calcium 8.8 Total Bilirubin 0.6 AST 28 ALT 14 Alkaline Phosphatase 63 Total Creatine Kinase 42 L Troponin I 0.058 H Total Protein 6.7 Albumin 3.7 Globulin 3.0 Albumin/Globulin Ratio 1.2 Triglycerides 123 Cholesterol 109 L LDL Cholesterol, Calc 39 HDL Cholesterol 45 Urine Color Urine Appearance Urine pH Ur Specific [place] Urine Protein Urine Glucose (UA) Urine Ketones Urine Occult Blood Urine Nitrate Urine Bilirubin Urine Urobilinogen Ur Leukocyte Esterase Urine RBC Urine WBC Ur Squamous Epith Cells Urine Bacteria Hyaline Casts Ur Culture Indicated? Vol Urine Centrifuged U Opiates 300ng/mL cut Ur Oxycodone Screen Urine Methadone Screen Ur Barbiturates Screen U Tricyclic Antidepress Ur Phencyclidine Scrn Ur Amphetamines Screen U Methamphetamines Scrn Ur MDMA Scrn (Ecstasy) U Benzodiazepines Scrn Urine Cocaine Screen U Marijuana (THC) Screen Urine Specific [place] Ethyl Alcohol < 10 Ur Creatinine SARS-CoV-2 (PCR) Cancelled Influenza A (RT-PCR) Influenza B (RT-PCR) RSV (PCR) 01/08/25 01/08/25 01/08/25 00:35 01:37 01:37 WBC RBC Hgb Hct MCV MCH MCHC RDW Plt Count Neut % (Auto) Lymph % (Auto) [place] % (Auto) Eos % (Auto) Baso % (Auto) Neut # (Auto) Lymph # (Auto) [place] # (Auto) Eos # (Auto) Baso # (Auto) PT INR APTT Sodium Potassium Chloride Carbon Dioxide BUN Creatinine Estimated GFR BUN/Creatinine Ratio Glucose POC Whole Bld Glucose Hemoglobin A1c Calcium Total Bilirubin AST ALT Alkaline Phosphatase Total Creatine Kinase Troponin I Total Protein Albumin Globulin Albumin/Globulin Ratio Triglycerides Cholesterol LDL Cholesterol, Calc HDL Cholesterol Urine Color Yellow Urine Appearance Clear Urine pH 7.5 Normal Ur Specific [place] 1.010 Urine Protein 2+ H Urine Glucose (UA) Negative Urine Ketones Negative Urine Occult Blood 2+ H Urine Nitrate Negative Urine Bilirubin Negative Urine Urobilinogen 1.0 Ur Leukocyte Esterase Negative Urine RBC 10-30/hpf H Urine WBC 1-5/hpf Ur Squamous Epith Cells 0-1 /hpf Urine Bacteria None seen Hyaline Casts 0-1/lpf Ur Culture Indicated? Cult not indicated Vol Urine Centrifuged 10ml (spun) U Opiates 300ng/mL cut Negative Ur Oxycodone Screen Negative Urine Methadone Screen Negative Ur Barbiturates Screen Negative U Tricyclic Antidepress Negative Ur Phencyclidine Scrn Negative Ur Amphetamines Screen Negative U Methamphetamines Scrn Negative Ur MDMA Scrn (Ecstasy) Negative U Benzodiazepines Scrn Negative Urine Cocaine Screen Negative U Marijuana (THC) Screen Negative Urine Specific [place] Normal Ethyl Alcohol Ur Creatinine Normal SARS-CoV-2 (PCR) Negative Influenza A (RT-PCR) Flu a negative Influenza B (RT-PCR) Flu b negative RSV (PCR) Negative 01/08/25 01/08/25 02:15 05:43 WBC RBC Hgb Hct MCV MCH MCHC RDW Plt Count Neut % (Auto) Lymph % (Auto) [place] % (Auto) Eos % (Auto) Baso % (Auto) Neut # (Auto) Lymph # (Auto) [place] # (Auto) Eos # (Auto) Baso # (Auto) PT INR APTT Sodium Potassium Chloride Carbon Dioxide BUN Creatinine Estimated GFR BUN/Creatinine Ratio Glucose POC Whole Bld Glucose 141 H Hemoglobin A1c Calcium Total Bilirubin AST ALT Alkaline Phosphatase Total Creatine Kinase Troponin I 0.054 H Total Protein Albumin Globulin Albumin/Globulin Ratio Triglycerides Cholesterol LDL Cholesterol, Calc HDL Cholesterol Urine Color Urine Appearance Urine pH Ur Specific [place] Urine Protein Urine Glucose (UA) Urine Ketones Urine Occult Blood Urine Nitrate Urine Bilirubin Urine Urobilinogen Ur Leukocyte Esterase Urine RBC Urine WBC Ur Squamous Epith Cells Urine Bacteria Hyaline Casts Ur Culture Indicated? Vol Urine Centrifuged U Opiates 300ng/mL cut Ur Oxycodone Screen Urine Methadone Screen Ur Barbiturates Screen U Tricyclic Antidepress Ur Phencyclidine Scrn Ur Amphetamines Screen U Methamphetamines Scrn Ur MDMA Scrn (Ecstasy) U Benzodiazepines Scrn Urine Cocaine Screen U Marijuana (THC) Screen Urine Specific [place] Ethyl Alcohol Ur Creatinine SARS-CoV-2 (PCR) Influenza A (RT-PCR) Influenza B (RT-PCR) RSV (PCR) Assessment & Plan Assessment & Plan narrative: TIA versus CVA versus hypertensive urgency. Initial CT head and CT angiogram shows no obvious abnormality. -ASA, -ECHO, MRI brain -Continue with nicardipine drip with close monitoring of blood pressure. -Telemetry monitoring, Serial neurochecks -Strict bedrest for now -Monitor hemodynamics -n.p.o. for now -Restart Lipitor -Check lipid panel in a.m., thyroid function test, blood sugar monitoring, -PT/OT and swallowing evaluation in a.m. I would keep him n.p.o. for now -[place]roke education -fall precaution Hypokalemia -replenish potassium. -Recheck electrolytes in a.m. -Depending on laboratory values any electrolyte disbalance need to be appropriately replenished and corrected. Paroxysmal atrial fibrillation, rate controlled. Restart Coreg and Xarelto CHF. Restart Lasix, carvedilol and statins Seizure. Restart Keppra. Depression. Restart Zoloft Time-Based Coding :: [TOTAL MINUTES] spent with patient and on the chart (including review of chart, obtaining history, exam, reviewing outside data, placing orders, documenting exam and treatment plan, and counseling patient) on [DATE]. Quality VTE Deep Vein Thrombosis/Pulmonary Embolism Present on Admission: No MIPS - Admit I confirm the patient?s Advance Care Plan is present, Code status is documented, Surrogate decision maker is in patient?s record [If Yes, STOP here]: Yes MIPS - Meds 'Current medications' to include all prescriptions, [id number] products, herbals, cannabis/cannabidiol products, and vitamin/mineral/dietary (nutritional) supplements. I have utilized all available resources to obtain, update, or review the patient?s current medications. [If Yes, STOP here]: Yes
[2025-01-08 07:20] LABS: MRSA (Nasal) PCR NOT DETECTED (Not Detect)
--- NOTE | 2025-01-08 07:37 | PM.HP.1 ---
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 According to his daughter the patient was feeling more tired than usual in the last week and last night he went early to bed which was unusual for him. He also reports some headache but denies any blurry vision or numbness or weakness of extremities. He has been compliant with his home medications. He has had no shortness of breath, chest pain, fever, palpitations, nausea, vomiting, abdominal pain, diarrhea or dysuria. Cardiology had recently stopped his spironolactone due to orthostatic hypotension. He is on Xarelto and aspirin. The WBC is 7.4, H&H 30.7/40.2, platelets 130, sodium 138, potassium 3.2, creatinine 1.25, blood sugar 102, INR 1.4, AST normal, troponin 0.058. The UA shows mild hematuria, U tox negative, respiratory viral panel negative. CTA of the brain and neck shows no significant abnormalities. Chest x-ray shows cardiomegaly and mild congestion. EKG is atrial fibrillation with rate of 76 and several leads with subtle ST depression. In the ER he was found to have very elevated blood pressures of systolic 200s and was started on a nicardipine drip. He also was given aspirin 325 mg p.o. and potassium supplement. He has been seen by Cardiology who is planning to transition from nicardipine to felodipine. He will need close attention inpatient management to balance the orthostatic hypotension and the paroxysmal hypertension. Meds Home Medications and Allergies Home Medications ?Medication ?Instructions ?Recorded ?Confirmed ?Type furosemide 20 mg tablet 20 mg PO Q OTHER DAY 01/01/23 01/08/25 History levetiracetam 250 mg tablet 500 mg PO BID 01/01/23 01/08/25 History (Keppra) sertraline 100 mg tablet 100 mg PO DAILY 01/01/23 01/08/25 History aspirin 81 mg tablet,delayed 81 mg PO DAILY 01/20/24 01/08/25 History release xarelto 2.5 mg PO BID 01/20/24 01/08/25 History acetaminophen 325 mg capsule 650 mg PO QID PRN Pain (Scale 02/05/24 01/08/25 History Score 1-3) nitroglycerin 0.4 mg sublingual 0.4 mg sublingual Q5MIN PRN Chest 02/05/24 07/17/24 History tablet Pain peg 400 0.4 %-propylene glycol 1 drp EYE-BOTH DAILY PRN Dry Eyes 02/05/24 07/17/24 History (PF) 0.3 % eye drops (Systane Hydration (PF)) carvedilol 12.5 mg tablet 6.25 mg (1/2 x 12.5 mg) PO BID #60 02/09/24 01/08/25 Rx tabs hydrocodone 5 mg-acetaminophen 325 1 tab PO Q6H PRN pain #10 tabs 02/21/24 07/17/24 Rx mg tablet latanoprost 0.005 % eye drops drp EYE-BOTH 03/01/24 07/17/24 History atorvastatin 40 mg tablet 40 mg PO DAILY 03/16/24 01/08/25 History ascorbate calcium (vitamin C) 500 mg PO DAILY 01/08/25 01/08/25 History ferrous gluconate 324 mg (37.5 mg 324 mg PO DAILY 01/08/25 01/08/25 History iron) tablet Allergies Allergy/AdvReac Type Severity Reaction Status Date / Time Penicillins (PENICILLINS) Allergy Intermediate Verified 01/08/25 00:23 Objective Labs 01/08/25 00:10 01/08/25 00:10 Labs: Laboratory Results - last 24 hr 01/08/25 01/08/25 01/08/25 00:08 00:10 00:35 WBC 7.4 RBC 4.51 Hgb 13.7 Hct 40.2 L MCV 89.2 MCH 30.4 MCHC 34.1 RDW 13.9 Plt Count 130 L Neut % (Auto) 59.1 Lymph % (Auto) 31.2 [place] % (Auto) 7.4 Eos % (Auto) 1.6 L Baso % (Auto) 0.7 Neut # (Auto) 4400 Lymph # (Auto) 2300 [place] # (Auto) 500 Eos # (Auto) 100 Baso # (Auto) 0 PT 15.8 H INR 1.4 H APTT 34 Sodium 138 Potassium 3.2 L Chloride 102 Carbon Dioxide 33 H BUN 23 H Creatinine 1.25 Estimated GFR 57 L BUN/Creatinine Ratio 18.4 Glucose 102 H POC Whole Bld Glucose 113 H Hemoglobin A1c 5.6 Calcium 8.8 Total Bilirubin 0.6 AST 28 ALT 14 Alkaline Phosphatase 63 Total Creatine Kinase 42 L Troponin I 0.058 H Total Protein 6.7 Albumin 3.7 Globulin 3.0 Albumin/Globulin Ratio 1.2 Triglycerides 123 Cholesterol 109 L LDL Cholesterol, Calc 39 HDL Cholesterol 45 Urine Color Urine Appearance Urine pH Ur Specific [place] Urine Protein Urine Glucose (UA) Urine Ketones Urine Occult Blood Urine Nitrate Urine Bilirubin Urine Urobilinogen Ur Leukocyte Esterase Urine RBC Urine WBC Ur Squamous Epith Cells Urine Bacteria Hyaline Casts Ur Culture Indicated? Vol Urine Centrifuged U Opiates 300ng/mL cut Ur Oxycodone Screen Urine Methadone Screen Ur Barbiturates Screen U Tricyclic Antidepress Ur Phencyclidine Scrn Ur Amphetamines Screen U Methamphetamines Scrn Ur MDMA Scrn (Ecstasy) U Benzodiazepines Scrn Urine Cocaine Screen U Marijuana (THC) Screen Urine Specific [place] Ethyl Alcohol < 10 Ur Creatinine SARS-CoV-2 (PCR) Cancelled Influenza A (RT-PCR) Influenza B (RT-PCR) RSV (PCR) 01/08/25 01/08/25 01/08/25 00:35 01:37 01:37 WBC RBC Hgb Hct MCV MCH MCHC RDW Plt Count Neut % (Auto) Lymph % (Auto) [place] % (Auto) Eos % (Auto) Baso % (Auto) Neut # (Auto) Lymph # (Auto) [place] # (Auto) Eos # (Auto) Baso # (Auto) PT INR APTT Sodium Potassium Chloride Carbon Dioxide BUN Creatinine Estimated GFR BUN/Creatinine Ratio Glucose POC Whole Bld Glucose Hemoglobin A1c Calcium Total Bilirubin AST ALT Alkaline Phosphatase Total Creatine Kinase Troponin I Total Protein Albumin Globulin Albumin/Globulin Ratio Triglycerides Cholesterol LDL Cholesterol, Calc HDL Cholesterol Urine Color Yellow Urine Appearance Clear Urine pH 7.5 Normal Ur Specific [place] 1.010 Urine Protein 2+ H Urine Glucose (UA) Negative Urine Ketones Negative Urine Occult Blood 2+ H Urine Nitrate Negative Urine Bilirubin Negative Urine Urobilinogen 1.0 Ur Leukocyte Esterase Negative Urine RBC 10-30/hpf H Urine WBC 1-5/hpf Ur Squamous Epith Cells 0-1 /hpf Urine Bacteria None seen Hyaline Casts 0-1/lpf Ur Culture Indicated? Cult not indicated Vol Urine Centrifuged 10ml (spun) U Opiates 300ng/mL cut Negative Ur Oxycodone Screen Negative Urine Methadone Screen Negative Ur Barbiturates Screen Negative U Tricyclic Antidepress Negative Ur Phencyclidine Scrn Negative Ur Amphetamines Screen Negative U Methamphetamines Scrn Negative Ur MDMA Scrn (Ecstasy) Negative U Benzodiazepines Scrn Negative Urine Cocaine Screen Negative U Marijuana (THC) Screen Negative Urine Specific [place] Normal Ethyl Alcohol Ur Creatinine Normal SARS-CoV-2 (PCR) Negative Influenza A (RT-PCR) Flu a negative Influenza B (RT-PCR) Flu b negative RSV (PCR) Negative 01/08/25 01/08/25 02:15 05:43 WBC RBC Hgb Hct MCV MCH MCHC RDW Plt Count Neut % (Auto) Lymph % (Auto) [place] % (Auto) Eos % (Auto) Baso % (Auto) Neut # (Auto) Lymph # (Auto) [place] # (Auto) Eos # (Auto) Baso # (Auto) PT INR APTT Sodium Potassium Chloride Carbon Dioxide BUN Creatinine Estimated GFR BUN/Creatinine Ratio Glucose POC Whole Bld Glucose 141 H Hemoglobin A1c Calcium Total Bilirubin AST ALT Alkaline Phosphatase Total Creatine Kinase Troponin I 0.054 H Total Protein Albumin Globulin Albumin/Globulin Ratio Triglycerides Cholesterol LDL Cholesterol, Calc HDL Cholesterol Urine Color Urine Appearance Urine pH Ur Specific [place] Urine Protein Urine Glucose (UA) Urine Ketones Urine Occult Blood Urine Nitrate Urine Bilirubin Urine Urobilinogen Ur Leukocyte Esterase Urine RBC Urine WBC Ur Squamous Epith Cells Urine Bacteria Hyaline Casts Ur Culture Indicated? Vol Urine Centrifuged U Opiates 300ng/mL cut Ur Oxycodone Screen Urine Methadone Screen Ur Barbiturates Screen U Tricyclic Antidepress Ur Phencyclidine Scrn Ur Amphetamines Screen U Methamphetamines Scrn Ur MDMA Scrn (Ecstasy) U Benzodiazepines Scrn Urine Cocaine Screen U Marijuana (THC) Screen Urine Specific [place] Ethyl Alcohol Ur Creatinine SARS-CoV-2 (PCR) Influenza A (RT-PCR) Influenza B (RT-PCR) RSV (PCR) Assessment & Plan TIA versus CVA versus hypertensive urgency. -Troponin peaked at 0.084 -recent orthostatic hypotension changes to blood pressure medicine likely contributing -Initial CT head and CT angiogram shows no obvious abnormality. -ASA, -ECHO, MRI brain -Continue with nicardipine drip with close monitoring of blood pressure. Transition to felodipine per Cardiology. -appreciate Dr. Agee's consult -Telemetry monitoring, Serial neurochecks -Strict bedrest for now -Monitor hemodynamics -begin regular cardiac diet. -Restart Lipitor -A1C 5.6, Chol 109, LDL 39 -Speech and swallowing evaluation -fall precaution Hypokalemia -replenish potassium. -follow electrolytes -Depending on laboratory values any electrolyte disbalance need to be appropriately replenished and corrected. Paroxysmal atrial fibrillation, rate controlled. Restart Coreg and Xarelto CHF. Restart Lasix, carvedilol and statins Seizure. Restart Keppra. Depression. 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) Surgical History History of oral surgery Family History Father Heart disease Essential hypertension Grandmother Diabetes mellitus Social History marital status: number of children: 2 household members: spouse, children and caregiver Smoking Status: Former smoker alcohol intake: current caffeine: Yes Type(s) of exercise: none Meds Home Medications and Allergies Home Medications ?Medication ?Instructions ?Recorded ?Confirmed ?Type furosemide 20 mg tablet 20 mg PO Q OTHER DAY 01/01/23 01/08/25 History levetiracetam 250 mg tablet 500 mg PO BID 01/01/23 01/08/25 History (Keppra) sertraline 100 mg tablet 100 mg PO DAILY 01/01/23 01/08/25 History aspirin 81 mg tablet,delayed 81 mg PO DAILY 01/20/24 01/08/25 History release xarelto 2.5 mg PO BID 01/20/24 01/08/25 History acetaminophen 325 mg capsule 650 mg PO QID PRN Pain (Scale 02/05/24 01/08/25 History Score 1-3) carvedilol 12.5 mg tablet 6.25 mg (1/2 x 12.5 mg) PO BID #60 02/09/24 01/08/25 Rx tabs atorvastatin 40 mg tablet 40 mg PO DAILY 03/16/24 01/08/25 History ascorbate calcium (vitamin C) 500 mg PO DAILY 01/08/25 01/08/25 History ferrous gluconate 324 mg (37.5 mg 324 mg PO DAILY 01/08/25 01/08/25 History iron) tablet Allergies Allergy/AdvReac Type Severity Reaction Status Date / Time Penicillins (PENICILLINS) Allergy Intermediate Verified 01/08/25 00:23 Review of Systems Review of Systems Narrative: Positive for weakness, confusion, slurred speech. Negative for fevers, chills, sweats, nausea, vomiting, abdominal pain, chest pain, shortness for breath, palpitations, rashes, headache. Exam Vital Signs (past 8 hours): - 01/08/25 00:21 01/08/25 00:22 01/08/25 00:22 Temperature Pulse Rate 78 78 Respiratory Rate 18 22 Blood Pressure 236/113 H Pulse Oximetry 99 99 Oxygen Delivery Method 01/08/25 00:23 01/08/25 00:30 01/08/25 00:32 Temperature 98.0 F Pulse Rate 78 79 78 Respiratory Rate 16 24 32 H Blood Pressure 241/115 H Pulse Oximetry 99 98 99 Oxygen Delivery Method Room Air 01/08/25 00:32 01/08/25 00:42 01/08/25 00:42 Temperature Pulse Rate 79 Respiratory Rate 21 Blood Pressure 256/119 H 237/109 H Pulse Oximetry 99 Oxygen Delivery Method 01/08/25 00:47 01/08/25 00:47 01/08/25 00:48 Temperature Pulse Rate 80 79 Respiratory Rate 21 32 H Blood Pressure 222/99 H Pulse Oximetry 99 99 Oxygen Delivery Method 01/08/25 00:48 01/08/25 00:51 01/08/25 00:51 Temperature Pulse Rate 80 Respiratory Rate 19 Blood Pressure 213/102 H 200/91 H Pulse Oximetry 99 Oxygen Delivery Method 01/08/25 00:54 01/08/25 00:54 01/08/25 00:57 Temperature Pulse Rate 79 Respiratory Rate 22 Blood Pressure 191/90 H 170/80 H Pulse Oximetry 99 Oxygen Delivery Method 01/08/25 00:57 01/08/25 01:00 01/08/25 01:00 Temperature Pulse Rate 77 80 Respiratory Rate 34 H 30 H Blood Pressure 166/65 H Pulse Oximetry 99 97 Oxygen Delivery Method 01/08/25 01:03 01/08/25 01:03 01/08/25 01:06 Temperature Pulse Rate 79 83 Respiratory Rate 31 H 29 H Blood Pressure 197/87 H Pulse Oximetry 99 99 Oxygen Delivery Method 01/08/25 01:06 01/08/25 01:09 01/08/25 01:09 Temperature Pulse Rate 85 Respiratory Rate 15 Blood Pressure 186/83 H 188/87 H Pulse Oximetry 99 Oxygen Delivery Method 01/08/25 01:12 01/08/25 01:12 01/08/25 01:15 Temperature Pulse Rate 83 82 Respiratory Rate 34 H 23 Blood Pressure 186/85 H Pulse Oximetry 99 98 Oxygen Delivery Method 01/08/25 01:15 01/08/25 01:18 01/08/25 01:18 Temperature Pulse Rate 83 Respiratory Rate 27 H Blood Pressure 191/91 H 184/92 H Pulse Oximetry 98 Oxygen Delivery Method 01/08/25 01:21 01/08/25 01:21 01/08/25 01:25 Temperature Pulse Rate 82 84 Respiratory Rate 34 H 20 Blood Pressure 174/76 H Pulse Oximetry 97 97 Oxygen Delivery Method 01/08/25 01:25 01/08/25 01:30 01/08/25 01:30 Temperature Pulse Rate 82 Respiratory Rate 27 H Blood Pressure 174/83 H 199/89 H Pulse Oximetry 97 Oxygen Delivery Method 01/08/25 01:35 01/08/25 01:35 01/08/25 01:40 Temperature Pulse Rate 83 80 Respiratory Rate 23 25 H Blood Pressure 162/86 H Pulse Oximetry 97 97 Oxygen Delivery Method 01/08/25 01:40 01/08/25 01:45 01/08/25 01:45 Temperature Pulse Rate 79 Respiratory Rate 19 Blood Pressure 182/84 H 168/77 H Pulse Oximetry 99 Oxygen Delivery Method 01/08/25 01:50 01/08/25 01:50 01/08/25 01:55 Temperature Pulse Rate 79 78 Respiratory Rate 36 H 26 H Blood Pressure 172/80 H Pulse Oximetry 98 98 Oxygen Delivery Method 01/08/25 01:55 01/08/25 02:00 01/08/25 02:00 Temperature Pulse Rate 77 Respiratory Rate 21 Blood Pressure 167/68 H 160/75 H Pulse Oximetry 99 Oxygen Delivery Method 01/08/25 02:05 01/08/25 02:05 01/08/25 02:08 Temperature Pulse Rate 76 90 Respiratory Rate 30 H 28 H Blood Pressure 151/87 H Pulse Oximetry 97 98 Oxygen Delivery Method 01/08/25 02:08 01/08/25 02:10 01/08/25 02:10 Temperature Pulse Rate 80 Respiratory Rate 23 Blood Pressure 155/72 H 158/74 H Pulse Oximetry 98 Oxygen Delivery Method 01/08/25 02:15 01/08/25 02:15 01/08/25 02:20 Temperature Pulse Rate 80 Respiratory Rate 20 Blood Pressure 180/81 H 172/81 H Pulse Oximetry 95 Oxygen Delivery Method 01/08/25 02:20 01/08/25 02:25 01/08/25 02:25 Temperature Pulse Rate 77 79 Respiratory Rate 24 24 Blood Pressure 179/79 H Pulse Oximetry 98 98 Oxygen Delivery Method Room Air 01/08/25 02:30 01/08/25 02:30 01/08/25 02:35 Temperature Pulse Rate 79 79 Respiratory Rate 26 H 24 Blood Pressure 175/84 H Pulse Oximetry 98 99 Oxygen Delivery Method Room Air 01/08/25 02:35 01/08/25 02:40 01/08/25 02:40 Temperature Pulse Rate 79 Respiratory Rate 27 H Blood Pressure 172/78 H 176/85 H Pulse Oximetry 98 Oxygen Delivery Method 01/08/25 02:45 01/08/25 02:45 01/08/25 02:50 Temperature Pulse Rate 78 82 Respiratory Rate 18 18 Blood Pressure 169/81 H Pulse Oximetry 99 97 Oxygen Delivery Method Room Air 01/08/25 02:50 01/08/25 02:55 01/08/25 02:55 Temperature Pulse Rate 80 Respiratory Rate 19 Blood Pressure 182/86 H 174/83 H Pulse Oximetry 98 Oxygen Delivery Method 01/08/25 03:00 01/08/25 03:00 01/08/25 03:05 Temperature Pulse Rate 81 88 Respiratory Rate 23 27 H Blood Pressure 174/83 H Pulse Oximetry 100 89 L Oxygen Delivery Method 01/08/25 03:05 01/08/25 03:10 01/08/25 03:10 Temperature Pulse Rate 82 Respiratory Rate 25 H Blood Pressure 180/79 H 183/86 H Pulse Oximetry 99 Oxygen Delivery Method 01/08/25 03:15 01/08/25 03:15 01/08/25 03:21 Temperature Pulse Rate 83 105 H Respiratory Rate 24 26 H Blood Pressure 175/80 H Pulse Oximetry 100 97 Oxygen Delivery Method 01/08/25 03:21 01/08/25 03:26 01/08/25 03:26 Temperature Pulse Rate 81 Respiratory Rate 22 Blood Pressure 162/78 H 164/74 H Pulse Oximetry 97 Oxygen Delivery Method 01/08/25 03:30 01/08/25 03:30 01/08/25 03:35 Temperature Pulse Rate 78 80 Respiratory Rate 24 27 H Blood Pressure 181/86 H Pulse Oximetry 98 94 Oxygen Delivery Method 01/08/25 03:35 01/08/25 03:40 01/08/25 03:40 Temperature Pulse Rate 80 Respiratory Rate 27 H Blood Pressure 180/85 H 173/87 H Pulse Oximetry 99 Oxygen Delivery Method 01/08/25 03:45 01/08/25 03:45 01/08/25 03:50 Temperature Pulse Rate 80 82 Respiratory Rate 24 25 H Blood Pressure 184/89 H Pulse Oximetry 99 99 Oxygen Delivery Method 01/08/25 03:50 01/08/25 03:55 01/08/25 03:55 Temperature Pulse Rate 84 Respiratory Rate 21 Blood Pressure 179/94 H 181/88 H Pulse Oximetry 99 Oxygen Delivery Method 01/08/25 04:00 01/08/25 04:00 01/08/25 04:05 Temperature Pulse Rate 83 83 Respiratory Rate 21 14 Blood Pressure 178/91 H Pulse Oximetry 98 98 Oxygen Delivery Method 01/08/25 04:05 01/08/25 04:10 01/08/25 04:10 Temperature Pulse Rate 81 Respiratory Rate 17 Blood Pressure 190/91 H 186/91 H Pulse Oximetry 98 Oxygen Delivery Method 01/08/25 04:15 01/08/25 04:15 01/08/25 04:20 Temperature Pulse Rate 82 Respiratory Rate 17 Blood Pressure 190/88 H 191/84 H Pulse Oximetry 98 Oxygen Delivery Method 01/08/25 04:20 01/08/25 05:07 Temperature Pulse Rate 80 Respiratory Rate 18 Blood Pressure Pulse Oximetry 98 Oxygen Delivery Method Room Air Oxygen Delivery Method Room Air Narrative Exam Narrative: Alert and oriented x3 but becomes easily confused when interviewed. No apparent distress. He looks like he is used to being very sedentary. Pupils are equally round and reactive to light and accommodation. Extraocular muscles are intact. Sclerae are pink and nonicteric. Throat looks normal. No lymph nodes are felt head, neck, supraclavicular area. There is no thyromegaly. JVD is less than 6 cm. No carotid bruits are heard. Heart is irregularly irregular without murmur lungs are clear to auscultation bilaterally abdomen is soft, bowel sounds positive, nontender, no organomegaly. Extremities have no ankle edema. Skin has no rash or jaundice. Strength is 2/5 diffusely in all extremities. Cranial nerves 2-12 test intact. There is no tremor. Objective Labs 01/08/25 00:10 01/08/25 00:10 Labs: Laboratory Results - last 24 hr 01/08/25 01/08/25 01/08/25 00:08 00:10 00:35 WBC 7.4 RBC 4.51 Hgb 13.7 Hct 40.2 L MCV 89.2 MCH 30.4 MCHC 34.1 RDW 13.9 Plt Count 130 L Neut % (Auto) 59.1 Lymph % (Auto) 31.2 [place] % (Auto) 7.4 Eos % (Auto) 1.6 L Baso % (Auto) 0.7 Neut # (Auto) 4400 Lymph # (Auto) 2300 [place] # (Auto) 500 Eos # (Auto) 100 Baso # (Auto) 0 PT 15.8 H INR 1.4 H APTT 34 Sodium 138 Potassium 3.2 L Chloride 102 Carbon Dioxide 33 H BUN 23 H Creatinine 1.25 Estimated GFR 57 L BUN/Creatinine Ratio 18.4 Glucose 102 H POC Whole Bld Glucose 113 H Hemoglobin A1c 5.6 Calcium 8.8 Total Bilirubin 0.6 AST 28 ALT 14 Alkaline Phosphatase 63 Total Creatine Kinase 42 L Troponin I 0.058 H Total Protein 6.7 Albumin 3.7 Globulin 3.0 Albumin/Globulin Ratio 1.2 Triglycerides 123 Cholesterol 109 L LDL Cholesterol, Calc 39 HDL Cholesterol 45 Urine Color Urine Appearance Urine pH Ur Specific [place] Urine Protein Urine Glucose (UA) Urine Ketones Urine Occult Blood Urine Nitrate Urine Bilirubin Urine Urobilinogen Ur Leukocyte Esterase Urine RBC Urine WBC Ur Squamous Epith Cells Urine Bacteria Hyaline Casts Ur Culture Indicated? Vol Urine Centrifuged Nasal Screen MRSA (PCR) U Opiates 300ng/mL cut Ur Oxycodone Screen Urine Methadone Screen Ur Barbiturates Screen U Tricyclic Antidepress Ur Phencyclidine Scrn Ur Amphetamines Screen U Methamphetamines Scrn Ur MDMA Scrn (Ecstasy) U Benzodiazepines Scrn Urine Cocaine Screen U Marijuana (THC) Screen Urine Specific [place] Ethyl Alcohol < 10 Ur Creatinine SARS-CoV-2 (PCR) Cancelled Influenza A (RT-PCR) Influenza B (RT-PCR) RSV (PCR) 01/08/25 01/08/25 01/08/25 00:35 01:37 01:37 WBC RBC Hgb Hct MCV MCH MCHC RDW Plt Count Neut % (Auto) Lymph % (Auto) [place] % (Auto) Eos % (Auto) Baso % (Auto) Neut # (Auto) Lymph # (Auto) [place] # (Auto) Eos # (Auto) Baso # (Auto) PT INR APTT Sodium Potassium Chloride Carbon Dioxide BUN Creatinine Estimated GFR BUN/Creatinine Ratio Glucose POC Whole Bld Glucose Hemoglobin A1c Calcium Total Bilirubin AST ALT Alkaline Phosphatase Total Creatine Kinase Troponin I Total Protein Albumin Globulin Albumin/Globulin Ratio Triglycerides Cholesterol LDL Cholesterol, Calc HDL Cholesterol Urine Color Yellow Urine Appearance Clear Urine pH 7.5 Normal Ur Specific [place] 1.010 Urine Protein 2+ H Urine Glucose (UA) Negative Urine Ketones Negative Urine Occult Blood 2+ H Urine Nitrate Negative Urine Bilirubin Negative Urine Urobilinogen 1.0 Ur Leukocyte Esterase Negative Urine RBC 10-30/hpf H Urine WBC 1-5/hpf Ur Squamous Epith Cells 0-1 /hpf Urine Bacteria None seen Hyaline Casts 0-1/lpf Ur Culture Indicated? Cult not indicated Vol Urine Centrifuged 10ml (spun) Nasal Screen MRSA (PCR) U Opiates 300ng/mL cut Negative Ur Oxycodone Screen Negative Urine Methadone Screen Negative Ur Barbiturates Screen Negative U Tricyclic Antidepress Negative Ur Phencyclidine Scrn Negative Ur Amphetamines Screen Negative U Methamphetamines Scrn Negative Ur MDMA Scrn (Ecstasy) Negative U Benzodiazepines Scrn Negative Urine Cocaine Screen Negative U Marijuana (THC) Screen Negative Urine Specific [place] Normal Ethyl Alcohol Ur Creatinine Normal SARS-CoV-2 (PCR) Negative Influenza A (RT-PCR) Flu a negative Influenza B (RT-PCR) Flu b negative RSV (PCR) Negative 01/08/25 01/08/25 01/08/25 02:15 04:45 05:43 WBC RBC Hgb Hct MCV MCH MCHC RDW Plt Count Neut % (Auto) Lymph % (Auto) [place] % (Auto) Eos % (Auto) Baso % (Auto) Neut # (Auto) Lymph # (Auto) [place] # (Auto) Eos # (Auto) Baso # (Auto) PT INR APTT Sodium Potassium Chloride Carbon Dioxide BUN Creatinine Estimated GFR BUN/Creatinine Ratio Glucose POC Whole Bld Glucose 141 H Hemoglobin A1c Calcium Total Bilirubin AST ALT Alkaline Phosphatase Total Creatine Kinase Troponin I 0.054 H Total Protein Albumin Globulin Albumin/Globulin Ratio Triglycerides Cholesterol LDL Cholesterol, Calc HDL Cholesterol Urine Color Urine Appearance Urine pH Ur Specific [place] Urine Protein Urine Glucose (UA) Urine Ketones Urine Occult Blood Urine Nitrate Urine Bilirubin Urine Urobilinogen Ur Leukocyte Esterase Urine RBC Urine WBC Ur Squamous Epith Cells Urine Bacteria Hyaline Casts Ur Culture Indicated? Vol Urine Centrifuged Nasal Screen MRSA (PCR) Not detected U Opiates 300ng/mL cut Ur Oxycodone Screen Urine Methadone Screen Ur Barbiturates Screen U Tricyclic Antidepress Ur Phencyclidine Scrn Ur Amphetamines Screen U Methamphetamines Scrn Ur MDMA Scrn (Ecstasy) U Benzodiazepines Scrn Urine Cocaine Screen U Marijuana (THC) Screen Urine Specific [place] Ethyl Alcohol Ur Creatinine SARS-CoV-2 (PCR) Influenza A (RT-PCR) Influenza B (RT-PCR) RSV (PCR) Assessment & Plan Time-Based Coding :: [TOTAL MINUTES] spent with patient and on the chart (including review of chart, obtaining history, exam, reviewing outside data, placing orders, documenting exam and treatment plan, and counseling patient) on [DATE]. Quality VTE Deep Vein Thrombosis/Pulmonary Embolism Present on Admission: No
[2025-01-08 07:40] LABS: Thyroid Stimulating Hormone 2.15 uIU/mL (0.47-4.68)
[2025-01-08 08:37] LABS: Troponin I 0.060 ng/mL (0.01-0.034)
--- NOTE | 2025-01-08 09:44 | P.CONS_ITS ---
History of Present Illness Consult details Date Patient Seen: 01/08/25 Time Patient Seen: 09:57 Chief complaint: neuro Reason for consult: Hypertensive emergency Narrative: This is 84-year-old man with history of CVA TIA, hypertension, orthostatic hypotension and dizziness hyperlipidemia history of alcohol abuse admitted to [facility] with hypertensive emergency and headaches. I spoke to his daughter as patient was not able to answer my questions. Apparently he has been having orthostatic hypotension with antihypertensives and some of his medications have been withdrawn/held. Patient stated that he felt poorly yesterday and was not able to get around the house with a walker. He felt headaches along with it. His family insisted him to come to the emergency room. He was initially reluctant to come here but he came anyways. He was found to have severely elevated blood pressure of 230 mmHg. He underwent brain and head CT which was negative. He was admitted to the hospital for management of his hypertensive emergency. According to his daughter he has been having difficulty articulating his complaints in last few days. She did report history of falls due to orthostatic dizziness and hypotension. He has seen thermo processor at [facility] and has had all his records there. He also sees a primary care provider at [facility]. I was not able to get history from him as he had performed expressive aphasia and speech issues. He denies any chest pains shortness of breath at the time of evaluation. Meds Home Medications and Allergies Home Medications ?Medication ?Instructions ?Recorded ?Confirmed ?Type furosemide 20 mg tablet 20 mg PO Q OTHER DAY 3 01/08/25 History levetiracetam 250 mg tablet 500 mg PO BID 01/01/23 History (Kejosephra) sertraline 100 mg tablet 100 mg PO DAILY 01/01/23 History aspirin 81 mg tablet,delayed 81 mg PO DAILY 01/20/24 0 01/08/25 History release xarelto 2.5 mg PO BID 01/20/2401/08 History acetaminophen 325 mg capsule 650 mg PO QID PRN Pain (S homero 02/05/24 01/08/25 History Score 1-3) carvedilol 12.5 mg tablet 6.25 mg (1/2 x 12.5 mg) PO B ID #[id number] 02/09/24 01/08/25 Rx tabs atorvastatin 40 mg tablet 40 mg PO DAILY 03/16/2412/24 History ascorbate calcium (vitamin C) 500 mg PO DAILY 01/08/25 01/08/25 History ferrous gluconate 324 mg (37.5 mg 324 mg PO DAILY 12/2401/08/25 History iron) tablet Allergies Allergy/AdvReac Type Severity Reaction Status Date / Time Penicillins (PENICILLINS) Allergy Intermediate Verified 01/08/25 00:23 Review of Systems Review of Systems Narrative: Pt has expressive aphasia and speech impairment. Sourc of history from [place] at [phone] ROS: Yes All systems reviewed with the patient and are negative except as otherwise documented and unobtainable due to mental status Exam Vital Signs (past 8 hours): - 01/08/25 01:45 01/08/25 01:45 01/08/25 01:50 Temperature Pulse Rate 79 79 Respiratory Rate 19 36 H Blood Pressure 168/77 H Pulse Oximetry 99 98 Oxygen Delivery Method 01/08/25 01:50 01/08/25 01:55 01/08/25 01:55 Temperature Pulse Rate 78 Respiratory Rate 26 H Blood Pressure 172/80 H 167/68 H Pulse Oximetry 98 Oxygen Delivery Method 01/08/25 02:00 01/08/25 02:00 01/08/25 02:05 Temperature Pulse Rate 77 Respiratory Rate 21 Blood Pressure 160/75 H 151/87 H Pulse Oximetry 99 Oxygen Delivery Method 01/08/25 02:05 01/08/25 02:08 01/08/25 02:08 Temperature Pulse Rate 76 90 Respiratory Rate 30 H 28 H Blood Pressure 155/72 H Pulse Oximetry 97 98 Oxygen Delivery Method 01/08/25 02:10 01/08/25 02:10 01/08/25 02:15 Temperature Pulse Rate 80 Respiratory Rate 23 Blood Pressure 158/74 H 180/81 H Pulse Oximetry 98 Oxygen Delivery Method 01/08/25 02:15 01/08/25 02:20 01/08/25 02:20 Temperature Pulse Rate 80 77 Respiratory Rate 20 24 Blood Pressure 172/81 H Pulse Oximetry 95 98 Oxygen Delivery Method 01/08/25 02:25 01/08/25 02:25 01/08/25 02:30 Temperature Pulse Rate 79 79 Respiratory Rate 24 26 H Blood Pressure 179/79 H Pulse Oximetry 98 98 Oxygen Delivery Method Room Air 01/08/25 02:30 01/08/25 02:35 01/08/25 02:35 Temperature Pulse Rate 79 Respiratory Rate 24 Blood Pressure 175/84 H 172/78 H Pulse Oximetry 99 Oxygen Delivery Method Room Air 01/08/25 02:40 01/08/25 02:40 01/08/25 02:45 Temperature Pulse Rate 79 Respiratory Rate 27 H Blood Pressure 176/85 H 169/81 H Pulse Oximetry 98 Oxygen Delivery Method 01/08/25 02:45 01/08/25 02:50 01/08/25 02:50 Temperature Pulse Rate 78 82 Respiratory Rate 18 18 Blood Pressure 182/86 H Pulse Oximetry 99 97 Oxygen Delivery Method Room Air 01/08/25 02:55 01/08/25 02:55 01/08/25 03:00 Temperature Pulse Rate 80 81 Respiratory Rate 19 23 Blood Pressure 174/83 H Pulse Oximetry 98 100 Oxygen Delivery Method 01/08/25 03:00 01/08/25 03:05 01/08/25 03:05 Temperature Pulse Rate 88 Respiratory Rate 27 H Blood Pressure 174/83 H 180/79 H Pulse Oximetry 89 L Oxygen Delivery Method 01/08/25 03:10 01/08/25 03:10 01/08/25 03:15 Temperature Pulse Rate 82 83 Respiratory Rate 25 H 24 Blood Pressure 183/86 H Pulse Oximetry 99 100 Oxygen Delivery Method 01/08/25 03:15 01/08/25 03:21 01/08/25 03:21 Temperature Pulse Rate 105 H Respiratory Rate 26 H Blood Pressure 175/80 H 162/78 H Pulse Oximetry 97 Oxygen Delivery Method 01/08/25 03:26 01/08/25 03:26 01/08/25 03:30 Temperature Pulse Rate 81 78 Respiratory Rate 22 24 Blood Pressure 164/74 H Pulse Oximetry 97 98 Oxygen Delivery Method 01/08/25 03:30 01/08/25 03:35 01/08/25 03:35 Temperature Pulse Rate 80 Respiratory Rate 27 H Blood Pressure 181/86 H 180/85 H Pulse Oximetry 94 Oxygen Delivery Method 01/08/25 03:40 01/08/25 03:40 01/08/25 03:45 Temperature Pulse Rate 80 Respiratory Rate 27 H Blood Pressure 173/87 H 184/89 H Pulse Oximetry 99 Oxygen Delivery Method 01/08/25 03:45 01/08/25 03:50 01/08/25 03:50 Temperature Pulse Rate 80 82 Respiratory Rate 24 25 H Blood Pressure 179/94 H Pulse Oximetry 99 99 Oxygen Delivery Method 01/08/25 03:55 01/08/25 03:55 01/08/25 04:00 Temperature Pulse Rate 84 83 Respiratory Rate 21 21 Blood Pressure 181/88 H Pulse Oximetry 99 98 Oxygen Delivery Method 01/08/25 04:00 01/08/25 04:05 01/08/25 04:05 Temperature Pulse Rate 83 Respiratory Rate 14 Blood Pressure 178/91 H 190/91 H Pulse Oximetry 98 Oxygen Delivery Method 01/08/25 04:10 01/08/25 04:10 01/08/25 04:15 Temperature Pulse Rate 81 82 Respiratory Rate 17 17 Blood Pressure 186/91 H Pulse Oximetry 98 98 Oxygen Delivery Method 01/08/25 04:15 01/08/25 04:20 01/08/25 04:20 Temperature Pulse Rate 80 Respiratory Rate 18 Blood Pressure 190/88 H 191/84 H Pulse Oximetry 98 Oxygen Delivery Method 01/08/25 05:07 01/08/25 08:30 01/08/25 08:32 Temperature Pulse Rate 83 82 Respiratory Rate 18 15 Blood Pressure Pulse Oximetry 96 96 Oxygen Delivery Method Room Air 01/08/25 08:32 01/08/25 08:59 01/08/25 09:00 Temperature 97.2 F L Pulse Rate Respiratory Rate Blood Pressure 196/90 H 171/80 H Pulse Oximetry Oxygen Delivery Method 01/08/25 09:00 Temperature Pulse Rate 88 Respiratory Rate 22 Blood Pressure Pulse Oximetry Oxygen Delivery Method Oxygen Delivery Method Room Air Const General: cooperative, healthy appearing and well developed Nutritional Appearance: average body habitus Orientation: oriented x3, oriented to person and oriented to place Limitations: other limitations Other: Pt recognised he was at the hospital and could not give all the answers due to expressive aphasia. Appears to be frustated for not able to answer the questions. HENMT Head: normal to inspection Nose: external nose normal Eyes General: appearance normal, both eyes and all related structures Neck Neck: normal visual inspection Chest Chest: normal inspection of the chest Resp Auscultation: clear to auscultation bilaterally Cardio Palpation: normal PMI Rate: regular rate Rhythm: regular rhythm Heart Sounds: S1 normal, S2 normal and murmur GI Inspection: normal to inspection Other: Pt has ching's. Neuro General: patient oriented x3 (No [place]) Other: Pt was not cooperative. Extrem Other: Trace to 1+ swelling. Objective Labs 01/08/25 00:10 01/08/25 00:10 Labs: Laboratory Results - last 24 hr 01/08/25 01/08/25 01/08/25 00:01 00:08 00:10 WBC 7.4 RBC 4.51 Hgb 13.7 Hct 40.2 L MCV 89.2 MCH 30.4 MCHC 34.1 RDW 13.9 Plt Count 130 L Neut % (Auto) 59.1 Lymph % (Auto) 31.2 [place] % (Auto) 7.4 Eos % (Auto) 1.6 L Baso % (Auto) 0.7 Neut # (Auto) 4400 Lymph # (Auto) 2300 [place] # (Auto) 500 Eos # (Auto) 100 Baso # (Auto) 0 PT 15.8 H INR 1.4 H APTT 34 Sodium 138 Potassium 3.2 L Chloride 102 Carbon Dioxide 33 H BUN 23 H Creatinine 1.25 Estimated GFR 57 L BUN/Creatinine Ratio 18.4 Glucose 102 H POC Whole Bld Glucose 113 H Hemoglobin A1c 5.6 Calcium 8.8 Total Bilirubin 0.6 AST 28 ALT 14 Alkaline Phosphatase 63 Total Creatine Kinase 42 L Troponin I 0.058 H Total Protein 6.7 Albumin 3.7 Globulin 3.0 Albumin/Globulin Ratio 1.2 Triglycerides 123 Cholesterol 109 L LDL Cholesterol, Calc 39 HDL Cholesterol 45 TSH 2.15 Urine Color Urine Appearance Urine pH Ur Specific [place] Urine Protein Urine Glucose (UA) Urine Ketones Urine Occult Blood Urine Nitrate Urine Bilirubin Urine Urobilinogen Ur Leukocyte Esterase Urine RBC Urine WBC Ur Squamous Epith Cells Urine Bacteria Hyaline Casts Ur Culture Indicated? Vol Urine Centrifuged Nasal Screen MRSA (PCR) U Opiates 300ng/mL cut Ur Oxycodone Screen Urine Methadone Screen Ur Barbiturates Screen U Tricyclic Antidepress Ur Phencyclidine Scrn Ur Amphetamines Screen U Methamphetamines Scrn Ur MDMA Scrn (Ecstasy) U Benzodiazepines Scrn Urine Cocaine Screen U Marijuana (THC) Screen Urine Specific [place] Ethyl Alcohol < 10 Ur Creatinine SARS-CoV-2 (PCR) Influenza A (RT-PCR) Influenza B (RT-PCR) RSV (PCR) 01/08/25 01/08/2501/08/25 00:35 00:35 01:37 WBC RBC Hgb Hct MCV MCH MCHC RDW Plt Count Neut % (Auto) Lymph % (Auto) [place] % (Auto) Eos % (Auto) Baso % (Auto) Neut # (Auto) Lymph # (Auto) [place] # (Auto) Eos # (Auto) Baso # (Auto) PT INR APTT Sodium Potassium Chloride Carbon Dioxide BUN Creatinine Estimated GFR BUN/Creatinine Ratio Glucose POC Whole Bld Glucose Hemoglobin A1c Calcium Total Bilirubin AST ALT Alkaline Phosphatase Total Creatine Kinase Troponin I Total Protein Albumin Globulin Albumin/Globulin Ratio Triglycerides Cholesterol LDL Cholesterol, Calc HDL Cholesterol TSH Urine Color Yellow Urine Appearance Clear Urine pH 7.5 Ur Specific [place] 1.010 Urine Protein 2+ H Urine Glucose (UA) Negative Urine Ketones Negative Urine Occult Blood 2+ H Urine Nitrate Negative Urine Bilirubin Negative Urine Urobilinogen 1.0 Ur Leukocyte Esterase Negative Urine RBC 10-30/hpf H Urine WBC 1-5/hpf Ur Squamous Epith Cells 0-1 /hpf Urine Bacteria None seen Hyaline Casts 0-1/lpf Ur Culture Indicated? Cult not indicated Vol Urine Centrifuged 10ml (spun) Nasal Screen MRSA (PCR) U Opiates 300ng/mL cut Negative Ur Oxycodone Screen Negative Urine Methadone Screen Negative Ur Barbiturates Screen Negative U Tricyclic Antidepress Negative Ur Phencyclidine Scrn Negative Ur Amphetamines Screen Negative U Methamphetamines Scrn Negative Ur MDMA Scrn (Ecstasy) Negative U Benzodiazepines Scrn Negative Urine Cocaine Screen Negative U Marijuana (THC) Screen Negative Urine Specific [place] Ethyl Alcohol Ur Creatinine SARS-CoV-2 (PCR) Cancelled Negative Influenza A (RT-PCR) Flu a negative Influenza B (RT-PCR) Flu b negative RSV (PCR) Negative 01/08/25 01/08/25 01/08/25 01:37 02:15 04:45 WBC RBC Hgb Hct MCV MCH MCHC RDW Plt Count Neut % (Auto) Lymph % (Auto) [place] % (Auto) Eos % (Auto) Baso % (Auto) Neut # (Auto) Lymph # (Auto) [place] # (Auto) Eos # (Auto) Baso # (Auto) PT INR APTT Sodium Potassium Chloride Carbon Dioxide BUN Creatinine Estimated GFR BUN/Creatinine Ratio Glucose POC Whole Bld Glucose Hemoglobin A1c Calcium Total Bilirubin AST ALT Alkaline Phosphatase Total Creatine Kinase Troponin I 0.054 H Total Protein Albumin Globulin Albumin/Globulin Ratio Triglycerides Cholesterol LDL Cholesterol, Calc HDL Cholesterol TSH Urine Color Urine Appearance Urine pH Normal Ur Specific [place] Urine Protein Urine Glucose (UA) Urine Ketones Urine Occult Blood Urine Nitrate Urine Bilirubin Urine Urobilinogen Ur Leukocyte Esterase Urine RBC Urine WBC Ur Squamous Epith Cells Urine Bacteria Hyaline Casts Ur Culture Indicated? Vol Urine Centrifuged Nasal Screen MRSA (PCR) Not detected U Opiates 300ng/mL cut Ur Oxycodone Screen Urine Methadone Screen Ur Barbiturates Screen U Tricyclic Antidepress Ur Phencyclidine Scrn Ur Amphetamines Screen U Methamphetamines Scrn Ur MDMA Scrn (Ecstasy) U Benzodiazepines Scrn Urine Cocaine Screen U Marijuana (THC) Screen Urine Specific [place] Normal Ethyl Alcohol Ur Creatinine Normal SARS-CoV-2 (PCR) Influenza A (RT-PCR) Influenza B (RT-PCR) RSV (PCR) 01/08/25 01/08/25 01/08/25 05:43 07:53 08:00 WBC RBC Hgb Hct MCV MCH MCHC RDW Plt Count Neut % (Auto) Lymph % (Auto) [place] % (Auto) Eos % (Auto) Baso % (Auto) Neut # (Auto) Lymph # (Auto) [place] # (Auto) Eos # (Auto) Baso # (Auto) PT INR APTT Sodium Potassium Chloride Carbon Dioxide BUN Creatinine Estimated GFR BUN/Creatinine Ratio Glucose POC Whole Bld Glucose 141 H 107 H Hemoglobin A1c Calcium Total Bilirubin AST ALT Alkaline Phosphatase Total Creatine Kinase Troponin I 0.060 H Total Protein Albumin Globulin Albumin/Globulin Ratio Triglycerides Cholesterol LDL Cholesterol, Calc HDL Cholesterol TSH Urine Color Urine Appearance Urine pH Ur Specific [place] Urine Protein Urine Glucose (UA) Urine Ketones Urine Occult Blood Urine Nitrate Urine Bilirubin Urine Urobilinogen Ur Leukocyte Esterase Urine RBC Urine WBC Ur Squamous Epith Cells Urine Bacteria Hyaline Casts Ur Culture Indicated? Vol Urine Centrifuged Nasal Screen MRSA (PCR) U Opiates 300ng/mL cut Ur Oxycodone Screen Urine Methadone Screen Ur Barbiturates Screen U Tricyclic Antidepress Ur Phencyclidine Scrn Ur Amphetamines Screen U Methamphetamines Scrn Ur MDMA Scrn (Ecstasy) U Benzodiazepines Scrn Urine Cocaine Screen U Marijuana (THC) Screen Urine Specific [place] Ethyl Alcohol Ur Creatinine SARS-CoV-2 (PCR) Influenza A (RT-PCR) Influenza B (RT-PCR) RSV (PCR) [facility] Medical History (Updated 01/08/25 @ 10:19 by Walker Agee MD) Hypertension History of depression Weakness Syncope Spinal stenosis Posttraumatic stress disorder (03/12/16) 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/16) Essential hypertension (03/12/16) Coronary arteriosclerosis in [id number] artery (03/12/16) Surgical History History of oral surgery Family History Father Heart disease Essential hypertension Grandmother Diabetes mellitus Social History marital status: number of children: 2 household members: spouse, children and caregiver Tobacco & Substance Use Smoking Status: Former smoker alcohol intake: current Diet and Exercise caffeine: Yes Type(s) of exercise: none Assessment & Plan Assessment and plan (1) Hypertensive emergency: Status: Acute (2) TIA (transient ischemic attack): Status: Acute Plan 84-year-old male with significant past medical history of CVA/TIA cryptogenic hypertension hyperlipidemia, expressive aphasia, orthostatic hypotension right- sided weakness history of alcohol abuse admitted to the hospital with hypertensive emergency with symptoms of feeling poorly fatigued headaches and elevated blood pressure of 2 30 mmHg. EKG did not demonstrate any acute changes however he had a borderline elevation of troponin levels. 1# Hypertensive emergency. This is a 84-year-old male admitted to the hospital with known history of TIA, CVA, hypertension, hyperlipidemia, alcohol abuse history of polysubstance abuse recently had his medication adjusted for orthostatic hypotension. He is currently on carvedilol and spironolactone. According to his daughter he has been worried about his health, finances an upcoming surgery of her daughter. She thinks that he has been worried. With recent withdrawal of his antihypertensive his blood pressure went up associated with headaches and feeling poorly. He was admitted to the hospital with hypertensive emergency. He was started on nicardipine drip and seems to be tolerating it well. His blood pressure is 170 when I 1st saw him on the floor- ICU. Patient is somnolent and had difficulty answering my questions due to his obvious expressive aphasia. 2. In his previous workup he has inferior wall hypokinesis but I was not able to find any coronary angiogram. Based on the notes from his his thermo processor he has known coronary artery disease with suspicion involving the right coronary artery based on echocardiogram. 3. CVA/TIA. The cause of his recurrent CVA and TIA is not known. He is empirically on Xarelto 2.5 mg b.i.d.. Atrial fibrillation as cause of his stroke has not been established. In my opinion, aspirin Plavix would be a reasonable alternative. There is an associated and inherent risk of taking anticoagulants especially risk of fall and bleeding. 4. Non ST-elevation myocardial infarction: Patient has a borderline elevated troponins most likely stress related to hypertensive emergencies. Once troponin levels are trending down, it can be stopped. And aspirin 81 mg and Plavix 75 mg would be a reasonable option. Xarelto can be stopped. 5. Hypertension: Once nicardipine drip is discontinued he can start on felodipine extended release 5 mg daily. Blood pressure goal of 140-150 mmHg is a reasonable option for him. Source of information [facility] notes, Discussion with her daughter. Review of notes at . Time-Based Coding :: [TOTAL MINUTES] 50 spent with patient and on the chart (including review of chart, obtaining history, exam, reviewing outside data, placing orders, documenting exam and treatment plan, and counseling patient) on [DATE].
[2025-01-08] MEDS: FERROUS SULFATE 325 MG TABLET PO (10:44)
[2025-01-08] MEDS: ASCORBIC ACID 500 MG TABLET PO (10:44)
[2025-01-08] MEDS: ATORVASTATIN 20 MG TABLET 40 MG PO (10:45)
[2025-01-08] MEDS: SERTRALINE 50 MG TABLET 100 MG PO (10:45)
[2025-01-08] MEDS: ASPIRIN EC 81 MG TABLET PO (10:46)
[2025-01-08] MEDS: RIVAROXABAN 10 MG TABLET 2.5 MG PO ×2 (11:05→20:37)
--- NOTE | 2025-01-08 11:05 | PT.IIE ---
Current Diagnoses Transient cerebral ischemic attack, unspecified (01/08/25) Hypertensive emergency (01/08/25) Surgical History (Last Reviewed 01/08/25 @ 10:02 by Walker Agee MD) History of oral surgery Medical History (Last Updated 01/08/25 @ 10:19 by Walker Agee MD) Coronary arteriosclerosis in [place] artery (03/12/16) Essential hypertension (03/12/16) History of depression Hypertension 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/16) Posttraumatic stress disorder (03/12/16) Spinal stenosis Syncope Weakness Physical Therapy Inpatient Evaluation/Re-Eval M1 PT/OT-IP Prior Functional Status Start: 01/08/25 12:48 Freq: NEEDED Status: Active Protocol: Document 01/08/25 11:05 AB (Rec: 01/08/25 13:01 [id number]) Medical Review Prior Functional Status Medical History Yes Reviewed Communication able to make needs known Mobility and Gait pt not sure about his PLOF : stated that he has caregivers that comes in to assist him but able to ambulate using SPC by himself but also stated that he is not able to walk without assistance Social History Household Members spouse,caregiver,children Living Arrangements House Number of Floors ( One Floor Floors) Number of Stairs To 5 steps wide B rails(can only hold on to one at a time) Enter/Railing? to enter the house: pt stated that he holds on to L rail and uses SPC on R Home Environment Standard Height Toilet,Walk in Shower,Built-In Shower Seat Home Equipment Front Wheel Walker,Straight Cane,Hand Held Shower,Grab Bars In Shower Additional Social pt stated that he has caregivers that comes in a few History Comment hours a day but not sure how many hours and how many times a week; pt stated that he lives with his daughter who assists him when caregiver is not around M2 PT-IP Current Condition Start: 01/08/25 12:48 Freq: NEEDED Status: Active Protocol: Document 01/08/25 11:05 AB (Rec: 01/08/25 13:01 [id number]) Physical Therapy Current Condition Current Condition Evaluation Date 01/08/25 Treatment Diagnosis r/o CVA; difficulty in walking Onset Date 01/08/25 M3 PT-IP Subjective Start: 01/08/25 12:48 Freq: NEEDED Status: Active Protocol: Document 01/08/25 11:05 AB (Rec: 01/08/25 13:01 AB [id number]) Subjective Physical Therapy Visit Type Type Initial Evaluation Visit Start Time 11:05 Visit Stop Time 11:40 Number of [employer] OPERATOR Visits 0 Physical Therapy Visit Comments Patient Comments agreeable to do PT M4 PT-IP Mobility and Gait Start: 01/08/25 12:48 Freq: NEEDED Status: Active Protocol: Document 01/08/25 11:05 AB (Rec: 01/08/25 13:01 AB [id number]) PT-Bed Mobility Assessment Supine to Sit Supine to Sit Minimal Assistance PT-Transfer Assessment Sit to and From Stand Sit to and from Minimal Assistance,1 Person Assistance,Use of Upper Stand Extremities Equipment Transfer Assistive Gait Belt,Front Wheeled Walker Device Orthotic/Prosthetic No Devices or Brace: Transfers Transfer Destination Chair Transfer Technique ambulated Transfer Ability Level of Assist Minimal Assistance,1 Person Assistance,Use of Upper Extremities Comments Mobility Comments pt in bed and agreeable to do PT. obtained PLOF and home set up. pt with memory issues and unable to provide accurate info. BP supine in bed: 140/74. supine to sit min A and cues. able to sit on EOB SBA. no c/o dizziness. sit to stand min A and cues and ambulated in room using fWW ~ 30 ft requiring initial min A and able to ambulate CGA a midway with ambulation . pt agreed to sit up on the chair. BP checked: 163/74 . pt refused further mobility. positioned pt on the chair. call light and table placed within reach. Gait Assessment Gait Gait Assistance Contact Guard Assist,Minimum Assistance Required: Distance (Feet) 30 Able to Maintain Yes Weight Bearing Status During Gait Assistive Devices Assistive Device Gait Belt,Front Wheeled Walker Orthotic/Prosthetic No Devices or Brace: Gait Deviations General Gait Pattern Decreased Stride Length,Decreased Feet Clearance Factors Limiting Gait Function Factors Limiting Decreased Activity Tolerance,Decreased Sensation, Gait Function Decreased Strength,Difficulty Following Directions,Poor Balance,Poor Safety Awareness PT-Balance Assessment Sitting Balance and Reactions Static Sitting Good Balance Ability Dynamic Sitting Fair Balance Ability Standing Balance and Reactions Static Standing Fair Balance Ability Dynamic Standing Poor Balance Ability Device Used FWW M5 PT-IP Objective Assessments Start: 01/08/25 12:48 Freq: NEEDED Status: Active Protocol: Document 01/08/25 11:05 AB (Rec: 01/08/25 13:01 AB [id number]) Orientation Orientation/Cognition Level of Alertness Alert Orientation Name,Place,Situation Language Function No Deficits Noted Ability Safety Awareness Decreased Safety Awareness Memory Description Short Term Impaired,Senior Care Impaired Gross Range of Motion Lower Extremity ROM Assessment Within Functional Limits Strength Lower Extremity Strength Hip 4-/5 Knee 4-/5 Sensation Assessment Sensation Sensation Numbness Description Comments Sensation Comments c/o numbness on B big toes Muscle Tone Muscle Tone WNL Yes M6 PT-IP Treatment Start: 01/08/25 12:48 Freq: NEEDED Status: Active Protocol: Document 01/08/25 11:05 AB (Rec: 01/08/25 13:01 AB [id number]) Physical Therapy Treatment Education Education Provided Safety M7 PT-IP Assessment and Plan Start: 01/08/25 12:48 Freq: NEEDED Status: Active Protocol: Document 01/08/25 11:05 AB (Rec: 01/08/25 13:01 AB [id number]) PT Summary Assessment and Plan Potential Rehabilitation Good Potential Status of Condition Stable at Evaluation Summary Impairments Pain,ROM,Strength,Balance,Coordination,Sensation,Tone, Cognition,Bed Mobility,Transfers,Gait,Activity Tolerance Assessment Summary pt is an 84 y/o M who is admitted to r/o CVA. pt requiring min A with mobilities using FWW and needed cues for safety. pt with decrease safety awareness affecting independence. pt will need 24/7 assistance at home and will benefit from HHPT. Goals Bed Mobility Goal Independent Transfer Goal Independent,Front Wheeled Walker Gait Goal Independent,Front Wheel Walker Gait Distance 100 Other Goals improve transfers and ambulation using SPC/LRAD ~ 150 ft SBA up/down 5 steps 1 rail + SPC SBA Days to Meet Goals 10 Frequency of Treatment Frequency Of Once a Day Treatment Treatment Plan Physical Therapy Bed Mobility Training,Transfer Training,Gait Training, Treatment Plan Therapeutic Exercise,Balance Retraining,Post Op Education,Discharge Planning,Hot or Cold Pack, Neuromuscular Re-ed,Coordination Retraining,Manual Therapy Precautions Other Precautions falls Recommendations To Nursing Amount of Assist 1 Person Assist Needed Discharge Recommendations PT Discharge Home with 24/7 Assist Available,Home Health Recommendations Transportation Needs Private Vehicle at Discharge - PT assist 1
--- NOTE | 2025-01-08 12:05 | OT.IP.EVAL ---
Current Diagnoses Transient cerebral ischemic attack, unspecified (01/08/25) Hypertensive emergency (01/08/25) Past Medical History (Last Updated 01/08/25 @ 10:19 by Walker Agee MD) Coronary arteriosclerosis in [place] artery (03/12/16) Essential hypertension (03/12/16) History of depression Hypertension 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/16) Posttraumatic stress disorder (03/12/16) Spinal stenosis Syncope Weakness Surgical History (Last Reviewed 01/08/25 @ 10:02 by Walker Agee MD) History of oral surgery Occupational Therapy Inpatient Evaluation/Re-Eval M2 OT-IP Current Condition Start: 01/08/25 12:40 Freq: Status: Active Protocol: Document 01/08/25 11:40 [facility] (Rec: 01/08/25 12:55 [facility] Desktop) Occupational Therapy Current Condition Current Condition Evaluation Date 01/08/25 Treatment Diagnosis TIA, hypertensive emergency Diagnosis Onset Date 01/08/25 M3 OT- IP Subjective and Pain Start: 01/08/25 12:40 Freq: Status: Active Protocol: Document 01/08/25 11:40 [facility] (Rec: 01/08/25 12:55 [facility] Desktop) OT- Subjective Occupational Therapy Visit Type Type Initial Evaluation Visit Start Time 11:40 Visit Stop Time 12:05 Occupational Therapy Visit Comments Patient Comments Pt agreed to get to the sink for grooming and oral care needs. Patient/Caregiver TO go home. Goals OT Pain Assessment Pain When Pain Assessed At Rest Pain Present Pain Present Denied Pain M4 OT- IP ADL's Start: 01/08/25 12:40 Freq: Status: Active Protocol: Document 01/08/25 11:40 [facility] (Rec: 01/08/25 12:55 [facility] Desktop) OT [id number] General Evaluation Self-Feeding Ability Standby Assistance Areas Needing Opening Containers Assistance Comments OT Self-Feeding Set-up Comments OT ADL-Grooming General Evaluation Areas Needing Retrieving/Set-up of Grooming Items Assistance Comments OT Grooming Comments Able to do while standing with FWW at the sink and set- up assist. OT ADL-Oral Care General Eval Oral Care Ability Independent OT ADL-Dressing General Eval Lower Body Dressing Maximum Assistance Ability Areas Needing Socks Assistance Comments OT Dressing Comments Pt gets assist with socks and shoes at home. OT ADL-Toileting Comments OT Toileting Not having to go. Comments OT ADL-Bathing Comments OT Bathing Comments Best for pt to continue to have assist for toileting needs. M5 OT- IP IADL's Start: 01/08/25 12:40 Freq: Status: Active Protocol: Document 01/08/25 11:40 [facility] (Rec: 01/08/25 12:55 [facility] Desktop) OT-Instrumental Activities of Daily Living Home Safety Awareness Awareness of Need Good Awareness for Assistance at Home Ability to Problem Able to Problem Solve Solve Emergency Situations Medication Management Medication Caregiver Administers Management Money Management Money Management Caregiver Provides Assistance Meal Preparation Meal Preparation Caregiver Provides Assist Pattern Keeper Pattern Keeper Caregiver Provides Assist M6 OT- IP Functional Cognition Start: 01/08/25 12:40 Freq: Status: Active Protocol: Document 01/08/25 11:40 [facility] (Rec: 01/08/25 12:55 [facility] Desktop) Cognitive Factors Limiting Selfcare Function Cognitive Ability Level of Alertness Alert Patient Orientation Name,Age,Birthday,Month,Year,Place,Situation Attention Span Capable of Focused Attention,Capable of Sustained Ability Attention Ability to Follow Able to Follow One Step Commands Commands Cognitive Comments Cognitive Assessment Pt able to follow commands for ADL and mobility needs. Comments OT- Vision and Hearing OT- Hearing Assessment OT- Hearing Hearing Impaired Assessment OT- Vision Assessment Visual Acuity Glasses All The Time Visual Attentiveness WFL Occular Pursuits WFL M7 OT- IP Mobility and Balance Start: 01/08/25 12:40 Freq: Status: Active Protocol: Document 01/08/25 11:40 [facility] (Rec: 01/08/25 12:55 [facility] Desktop) OT-Transfer Assessment Sit to and From Stand Sit to and from Standby Assistance,Contact Guard Assistance Stand Transfers Transfer Ability Contact Guard Assistance Technique Transfer Destination Bed Transfer Technique Stand Step Pivot Devices Transfer Assistive Gait Belt,Front Wheeled Walker Devices Comments Mobility Comments CGA to close SBA with FWW to walk to and from the sink for grooming/oral care needs. BP 151/67 OT- Balance Assessment Sitting Balance and Reactions Static Sitting Normal Balance Ability Dynamic Sitting Good Balance Ability Standing Balance and Reactions Static Standing Good Balance Ability Dynamic Standing Fair Balance Ability M8 OT- IP Objective Assessments Start: 01/08/25 12:40 Freq: Status: Active Protocol: Document 01/08/25 11:40 [facility] (Rec: 01/08/25 12:55 [facility] Desktop) OT Gross Range of Motion Upper Extremity Range of Motion ROM Impairments grossly WFL OT Strength Comments Strength Comments BUE 4/5 OT- Coordination Assessment Upper Extremity Finger to Nose Test Right UE Impaired Comments Coordination Right finger mildly off initially Comments M9 OT- IP Assessment and Plan Start: 01/08/25 12:40 Freq: Status: Active Protocol: Document 01/08/25 11:40 [facility] (Rec: 01/08/25 12:55 [facility] Desktop) OT Summary Assessment and Plan Potential Rehabilitation Good Potential Analytic Complexity Low at Evaluation Summary OT Impairments Strength,Balance,Functional Mobility,Toilet Transfers, Activity Tolerance Progress Towards Progressing Toward Goals Goals Assessment Summary Pt low complexity and main barriers are decreased dynamic balance, activity tolerance and will benefit from 24/7 assist at home and home health. Per pt, prior his daughter assists and also has caregivers 3days/week. Pt will benefit from FWW at a little unsteady on his feet at this time. Pt will continue to need assist with dressing, toileting, bathing , and IADL needs. Goals Self-Feeding Goal Independent Grooming Goal Independent Dressing Goal Moderate Assistance Toileting Goal Minimal Assistance Bathing Goal Moderate Assistance Toilet Transfer Goal Independent Shower Transfer Goal Standby Assistance Days to Meet Goals 5 Frequency of Treatment Other frequency 5x/week Treatment Plan OT Treatment Plan ADL Training,Functional Mobility,Patient/Family Education,Discharge Planning Discharge Recommendations OT Discharge Home with 24/7 Assist Available,Home Health Recommendations Home Equipment Needs FWW Transportation Needs Private Vehicle at Discharge
--- NOTE | 2025-01-08 14:49 | CM.DANOTE ---
DCP Assessment note pt is an 84yo M admitted with hypertension. PMH of CVA, chronic afib, dementia. dtr brought into hospital for slurred speech, MRI and echo pending. OT/PT=Home with assistance/HH. speech pending. per provider, SKIP unknown. per RN, off drip, monitoring tropes. CMA spoke with dtr/DPOA Skylar on the phone. pt lives at home with her at primary CG. additional CGs 3days/week to help her care for him and pt spouse. agreeable to HH- preference for [facility]. deny other needs/questions at this time. report pt has walker at home he could use. CMA completed f2f/order. Reyna KINDLY assisted by sending official referral to [facility] , acceptance pending. P: dc home with dtr/CGs when stable, dtr to transport. [facility] to follow. CM team will continue to follow closely for DCP coordination FATMATA Costello Discharge Planning/Care Management Advanced directive, confirm from FAMILY Start: 01/08/25 05:30 Freq: Q24H Status: Active Protocol: Document 01/08/25 05:30 TF (Rec: 01/08/25 06:50 TF [id number]) Advance Directive, confirm on record Time 05:00 Person contacted Skylar (Daughter) Copy received Yes Advanced directive Yes available on record CM Discharge Assessment Start: 01/08/25 05:07 Freq: Status: Active Protocol: Document 01/08/25 14:47 SL (Rec: 01/08/25 14:49 SL [id number]) Discharge Planning Assessment Assigned Discharge FATMATA Salas [employer]le Inspector Provider Kaci Cortez Insurance Medicare Insurance Comment AARP secondary DPOA/Assigned madelin Cheng Designee Name Contact Information [phone] Advance Directives? Yes: POLST on file too Advance Directives Yes on File History Provided By Family Member,Medical Record Prior Living House Arrangements Household Members spouse,caregiver,children Type of Relies on Others transporation used prior to admit Independent with ADL No 's Needs Assistance Meal Prep,Managing Medications,Home Chores / Shopping With DME Already Rented / FWW / Walker,Cane Owned Comment shower railings Patient/Family Home with Home Health Preference Discharge Plan Home with Home Health Transportation daughter in POV Arrangement Referrals Initiated Home Health If patient plan is Yes home with home health: Has signed face to face form been completed? Review Status In Process Please Provide Date 01/08/25 Initial DC Assessment Was Performed Next Review Type Continued Stay Review
--- NOTE | 2025-01-08 16:08 | ST.IPIE ---
Visit Care Team Role Provider Type Dana Clemons MD Primary Care Provider Non-Staff Specialty: Internal Medicine Address: [address] [place] [address],[address], [place], [address] Email: Walker Agee MD Other Providers Physician Specialty: Cardiology Address: [address] [place], [address] Email: [email or web address] Leydi Josue DO Family Provider Non-Staff Specialty: Family Practice Address: [address] [place] [address], [id number] Email: Javier Brownlee DO Emergency Provider Physician Referring Provider Specialty: Emergency Medicine Address: [address] [place] [address], [address] Phone: Fax: Email: [email or web address] James Verdin MD Admit Provider Physician Attending Provider Specialty: Internal Medicine Address: [address] [place] [address], [address] Fax: Email: [email or web address] Diagnoses Transient cerebral ischemic attack, unspecified (01/08/25) Hypertensive emergency (01/08/25) Past Medical History (Last Updated 01/08/25 @ 10:19 by Walker Agee MD) Coronary arteriosclerosis in [place] artery (Medical 03/12/16) Essential hypertension (Medical 03/12/16) History of depression (Medical) Hypertension (Medical) Mass of left kidney (Medical 03/12/16) Posttraumatic stress disorder (Medical 03/12/16) Spinal stenosis (Medical) Syncope (Medical) Weakness (Medical) ST IP Initial Evaluation Report CREDIT ASSISTANT Clinical Swallow Evaluation Start: 01/08/25 15:55 Freq: Status: Active Protocol: Document 01/08/25 15:55 MA (Rec: 01/08/25 16:08 MA Desktop) Clinical Swallow Evaluation Session Time Visit Start Time 03:25 Visit Stop Time 03:45 Total Visit Minutes 20 Visit Information Visit Number [address] 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 According to his daughter the patient was feeling more tired than usual in the last week and last night he went early to bed which was unusual for him. He also reports some headache but denies any blurry vision or numbness or weakness of extremities. Compliant with his home medications. Denies shortness of breath, chest pain, fever, palpitations, nausea, vomiting, abdominal pain, diarrhea or dysuria. He had recently stopped his spironolactone due to orthostatic hypotension. Take Xarelto and aspirin. Laboratory shows WBC 7.4, H&H 30.7/40.2, platelets 130, sodium 138 , potassium 3.2, creatinine 1.25, blood sugar 102, INR 1.4, AST normal, troponin 0.0 58, UA shows mild hematuria, U tox negative, respiratory viral panel negative. CTA of the brain and neck shows no significant abnormalities. Chest x-ray shows cardiomegaly and mild congestion. EKG atrial fibrillation with rate of 76. In the ER he was found to have elevated blood pressure of systolic 200s and was started on nicardipine drip. He also was given aspirin 325 mg p.o. and potassium supplement. According to his daughter his symptoms are improving. [facility] Medical History History of depression Weakness Syncope Spinal stenosis Posttraumatic stress disorder (03/12/16) 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/16) Essential hypertension (03/12/16) Coronary arteriosclerosis in [place] artery (03/12/16) Pt referred for ST evaluation d/t Pt with hx of CVA, slurred speech and word finding difficulties that started yesterday and possible CVA/TIA. ST to assess swallow function at this time. Subjective Pt awake, alert, pleasant, sitting upright in bed. Pt Observations daughter and friend present at bedside. Pt oriented to self and place, however stated year was 1924. Pt daughter reports his speech has improved a lot from yesterday, however she is not sure if he is at baseline yet. His friend reports he was able to have a conversation with him without him experiencing any word finding trouble. Pt lives with his daughter and , with his daughter being his primary caregiver. She reports he does not have a hx of swallowing difficulties. Nursing reports he took his pills whole with water without trouble. Pt able to answer most questions and communicate in full sentences, however some confusion which may be d/t dx of dementia. Reported by Patient/Caregiver Current Diet Regular (IDDSI 7) Baseline Feeding Needs some assistance Method The IDDSI Framework Protocol: IDDSI.1 Objective Assessment Mental Status Alert,Responsive,Cooperative Oral Integrity WFL Dentition Within normal limits Observation of Lips Right sided weakness/Drooping at Rest Pucker Reduced strength Tongue Function Within normal limits Observations of Within normal limits Tongue at Rest Comment Pt with mild right sided facial droop Food and Liquid Trials Position During Upright (90 degrees) Assessment Liquids Trialed Thin (IDDSI 0) Solid Trials Regular (IDDSI 7) Administration Type Straw,Needs some assistance Oral Impairment Within functional limits Oral Phase Comments Pt consumed about 4 oz of thin water via straw, 1 andrea cracker and a few bites of a peanut butter and jelly sandwich. He was able to feed himself when handed the food and cup. For water via straw, Pt exhibited good oral acceptance, mild anterior spillage, bolus holding consisting of Pt swishing water in his mouth which his daughter reports he does at home, no overt s/ s of aspiration such as coughing or choking. For regular solids, Pt exhibited adequate bite size and rate, prolonged mastication however adequate bolus formation and control, mild oral stasis, no overt s/s of aspiration such as coughing or choking. Pharyngeal Within functional limits Impairment Pharyngeal Phase See oral phase comments Comments Fatigue/Endurance Endurance WNL The IDDSI Framework Protocol: IDDSI.1 Findings Swallowing Function Within functional limits Severity of Swallow Within functional limits Impairment Prognosis Good Based on Family support Recommendations Instrumental No Assessment Swallowing Treatment No Recommended Solids Regular (IDDSI 7) Recommended Liquids Thin (IDDSI 0) Other Pt presents with WFL swallow function. ST recommends Recommendations regular solids and thin liquids with the below safe swallowing strategies in place. Pt daughter is requesting he receive home health speech services to work on his speech/word finding. ST recommends he receive home health speech in order to work on returning to baseline/learning compensatory strategies targeting speech and word finding. Safety Precautions/ Reduce distractions,Remain upright (90 degrees) during Swallowing all oral intake,Upright position at least 30 minutes Recommendations after meals,Small bites and sips when eating,Slow rate; swallow between bites,Alternate liquids and solids Medication As Tolerated Recommendations Discharge Home with Home Health Recommendations Education Patient/Caregiver Described results of evaluation,Patient expressed Education understanding of evaluation,Family/caregivers expressed understanding of evaluation
[2025-01-09] VITALS (42 sets, daily range): BP systolic 126–207; BP diastolic 62–104; PULSE 56–87; RESP 9–31; TEMP 36.5–36.9; O2SAT 82–97
[2025-01-09 06:26] LABS: Troponin I 0.055 ng/mL (0.01-0.034)
[2025-01-09 06:30] LABS: Blood Urea Nitrogen 18 mg/dL (9-20); Calcium 8.5 mg/dL (8.4-10.2); Carbon Dioxide 31 mmol/L (22-32); Chloride 103 mmol/L (98-107); Estimated Glomerular Filt Rate > 60 mL/min (>60); Glucose 93 mg/dL (70-99); HEMOLYSIS < 15 (0-50); Potassium 3.0 mmol/L (3.4-5.1); Sodium 137 mmol/L (137-145)
--- NOTE | 2025-01-09 07:04 | PM.PN.1 ---
Subjective Subjective Date Patient Seen: 01/09/25 Time Patient Seen: 07:05 Interval history: This is 84-year-old man with history of CVA TIA, hypertension, orthostatic hypotension and dizziness hyperlipidemia history of alcohol abuse admitted to [facility] with hypertensive emergency and headaches. Pt is here for management of hypertensive emergency with difficult to control BP despite being on multiple medications. He has remained ICU due to continuous parenteral cardene drip. Exam Vital Signs (past 8 hours): - 01/08/25 23:30 01/09/25 00:00 01/09/25 00:19 Temperature 98.4 F Pulse Rate 72 74 Respiratory Rate 18 14 Blood Pressure 205/102 H Pulse Oximetry 01/09/25 00:19 01/09/25 00:28 01/09/25 00:28 Temperature Pulse Rate 74 73 Respiratory Rate 20 11 L Blood Pressure 203/99 H Pulse Oximetry 82 L 01/09/25 00:30 01/09/25 01:00 01/09/25 01:03 Temperature Pulse Rate 73 74 Respiratory Rate 10 L 16 Blood Pressure 188/104 H Pulse Oximetry 01/09/25 01:03 01/09/25 01:30 01/09/25 02:00 Temperature Pulse Rate 75 74 72 Respiratory Rate 14 13 9 L Blood Pressure Pulse Oximetry 01/09/25 02:30 01/09/25 03:00 01/09/25 03:30 Temperature Pulse Rate 74 77 75 Respiratory Rate 17 19 20 Blood Pressure Pulse Oximetry 01/09/25 04:00 01/09/25 04:00 Temperature Pulse Rate 75 Respiratory Rate 19 Blood Pressure 184/99 H Pulse Oximetry Oxygen Delivery Method Room Air Oxygen Flow Rate 0 Const General: cooperative and healthy appearing [facility] Head: normal to inspection Eyes General: appearance normal, both eyes and all related structures Neck Neck: normal visual inspection Chest Chest: normal inspection of the chest Resp Effort & Inspection: normal respiratory effort Auscultation: clear to auscultation bilaterally Cardio Palpation: normal PMI Rate: regular rate Rhythm: regular rhythm Heart Sounds: S1 normal and S2 normal GI Inspection: normal to inspection Neuro General: patient alert, patient awake and moves all extremities Speech: expressive aphasia Objective ECG Impression: The left ventricular cavity is small. Mild concentric left ventricular hypertrophy with ejection fraction 65-70%. Borderline basal inferior hypokinesis. Mild aortic regurgitation. Comparison is made with the echocardiogram of 01/02/2023, no significant change Labs 01/08/25 00:10 01/09/25 05:52 Labs: Laboratory Results - last 24 hr 01/08/25 01/08/25 01/08/25 00:01 04:45 07:53 Sodium Potassium Chloride Carbon Dioxide BUN Creatinine Estimated GFR BUN/Creatinine Ratio Glucose POC Whole Bld Glucose Calcium Troponin I 0.060 H TSH 2.15 Nasal Screen MRSA (PCR) Not detected 01/08/25 01/09/25 08:00 05:52 Sodium 137 Potassium 3.0 L Chloride 103 Carbon Dioxide 31 BUN 18 Creatinine 1.01 Estimated GFR > 60 BUN/Creatinine Ratio 17.8 Glucose 93 POC Whole Bld Glucose 107 H Calcium 8.5 Troponin I 0.055 H TSH Nasal Screen MRSA (PCR) [facility] Medical History Hypertension History of depression Weakness Syncope Spinal stenosis Posttraumatic stress disorder (03/12/16) 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/16) Essential hypertension (03/12/16) 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 Continue BP monitoring. Hydralazine is an option for BP control if Amlodipine is not effective for him. Time-Based Coding :: [TOTAL MINUTES 30 minutes] spent with patient and on the chart (including review of chart, obtaining history, exam, reviewing outside data, placing orders, documenting exam and treatment plan, and counseling patient) on [DATE]. Quality VTE Deep Vein Thrombosis/Pulmonary Embolism Present on Admission: No
[2025-01-09] MEDS: SERTRALINE 50 MG TABLET 100 MG PO (07:47)
[2025-01-09] MEDS: RIVAROXABAN 10 MG TABLET 2.5 MG PO ×2 (07:47→20:24)
[2025-01-09] MEDS: ASPIRIN EC 81 MG TABLET PO (07:48)
[2025-01-09] MEDS: ATORVASTATIN 20 MG TABLET 40 MG PO (07:48)
[2025-01-09] MEDS: ASCORBIC ACID 500 MG TABLET PO (07:49)
[2025-01-09] MEDS: POTASSIUM CHLORIDE 20 MEQ TAB PO ×2 (07:49→17:09)
[2025-01-09] MEDS: FERROUS SULFATE 325 MG TABLET PO (07:49)
--- NOTE | 2025-01-09 11:30 | PT.IPTN ---
Current Diagnoses Transient cerebral ischemic attack, unspecified (01/08/25) Hypertensive emergency (01/08/25) Physical Therapy Treatment Note M2 PT-IP Current Condition Start: 01/08/25 12:48 Freq: NEEDED Status: Active Protocol: Document 01/08/25 11:05 AB (Rec: 01/08/25 13:01 AB [id number]) Physical Therapy Current Condition Current Condition Evaluation Date 01/08/25 Treatment Diagnosis r/o CVA; difficulty in walking Onset Date 01/08/25 M3 PT-IP Subjective Start: 01/08/25 12:48 Freq: NEEDED Status: Active Protocol: Document 01/09/25 11:30 AB (Rec: 01/09/25 13:14 AB [id number]) Subjective Physical Therapy Visit Type Type Treatment Note Visit Start Time 11:30 Visit Stop Time 11:55 Number of BOROUGH COORDINATOR Visits 0 Physical Therapy Visit Comments Patient Comments agreed to get up and to PT M4 PT-IP Mobility and Gait Start: 01/08/25 12:48 Freq: NEEDED Status: Active Protocol: Document 01/09/25 11:30 AB (Rec: 01/09/25 13:14 AB [id number]) PT-Bed Mobility Assessment Supine to Sit Supine to Sit Standby Assistance PT-Transfer Assessment Sit to and From Stand Sit to and from Minimal Assistance,1 Person Assistance,Use of Upper Stand Extremities Equipment Transfer Assistive Gait Belt,Front Wheeled Walker Device Orthotic/Prosthetic No Devices or Brace: Transfers Transfer Destination Chair Transfer Technique ambulated Transfer Ability Level of Assist Contact Guard Assistance,1 Person Assistance,Use of Upper Extremities Comments Mobility Comments pt in bed and agreeable to do PT. BP: 154/80. ND: 86. completed bed mobility supine to sit SBA. pt needing increase time to complete. able to sit on EOB SBA. no c /o dizziness/lightheadedness. sit to stand from EOB min A and cues with increase posterior lean with initial standing and cued to correct. pt ambulated in room using FWW ~ 60 ft CGA and cues. slow paced gait. pt with A-fib and tachycardia during ambulation. pt sat on chair and pt agreed to stay up on chair for lunch. positioned pt on the chair. call light and table placed within reach. Gait Assessment Gait Gait Assistance Contact Guard Assist Required: Distance (Feet) 60 Assistive Devices Assistive Device Gait Belt,Front Wheeled Walker Orthotic/Prosthetic No Devices or Brace: Gait Deviations General Gait Pattern Decreased Stride Length,Decreased Feet Clearance Factors Limiting Gait Function Factors Limiting Decreased Activity Tolerance,Decreased Strength,Poor Gait Function Balance,Poor Safety Awareness M5 PT-IP Objective Assessments Start: 01/08/25 12:48 Freq: NEEDED Status: Active Protocol: Document 01/08/25 11:05 AB (Rec: 01/08/25 13:01 AB [id number]) Orientation Orientation/Cognition Level of Alertness Alert Orientation Name,Place,Situation Language Function No Deficits Noted Ability Safety Awareness Decreased Safety Awareness Memory Description Short Term Impaired,Snf Impaired Gross Range of Motion Lower Extremity ROM Assessment Within Functional Limits Strength Lower Extremity Strength Hip 4-/5 Knee 4-/5 Sensation Assessment Sensation Sensation Numbness Description Comments Sensation Comments c/o numbness on B big toes Muscle Tone Muscle Tone WNL Yes M6 PT-IP Treatment Start: 01/08/25 12:48 Freq: NEEDED Status: Active Protocol: Document 01/09/25 11:30 AB (Rec: 01/09/25 13:14 AB [id number]) Physical Therapy Treatment Education Education Provided Safety M7 PT-IP Assessment and Plan Start: 01/08/25 12:48 Freq: NEEDED Status: Active Protocol: Document 01/09/25 11:30 AB (Rec: 01/09/25 13:14 AB [id number]) PT Summary Assessment and Plan Summary Impairments Pain,ROM,Strength,Balance,Coordination,Sensation,Tone, Cognition,Bed Mobility,Transfers,Gait,Activity Tolerance Assessment Summary pt progressing slowly with mobility and able to ambulate using FWW ~ 60 ft CGA. pt will require 24/7 assist: d/c plan SNF vs home with 24/7, if family can provide 24/7 assist and HHPT. will continue to assess progress. Goals Bed Mobility Goal Independent Transfer Goal Independent,Front Wheeled Walker Gait Goal Independent,Front Wheel Walker Gait Distance 100 Other Goals improve transfers and ambulation using SPC/LRAD ~ 150 ft SBA up/down 5 steps 1 rail + SPC SBA Days to Meet Goals 10 Frequency of Treatment Frequency Of Once a Day Treatment Treatment Plan Physical Therapy Bed Mobility Training,Transfer Training,Gait Training, Treatment Plan Therapeutic Exercise,Balance Retraining,Post Op Education,Discharge Planning,Hot or Cold Pack, Neuromuscular Re-ed,Coordination Retraining,Manual Therapy Precautions Other Precautions falls Recommendations To Nursing Amount of Assist 1 Person Assist Needed Discharge Recommendations PT Discharge Home with 15/11 Assist Available,SNF Rehab,Home vs SNF Recommendations Transportation Needs Private Vehicle at Discharge - PT assist 1
--- NOTE | 2025-01-09 12:56 | CM.DPC ---
DCP Cont: Per MD and RN, pt had significant bp issues overnight and adjusting his meds today with possible discharge tomorrow 01/10 if stable. [facility] accepts at discharge and F2F already sent yesterday. FATMATA Philip
--- NOTE | 2025-01-09 13:10 | OT.IP.TRT ---
Current Diagnoses Transient cerebral ischemic attack, unspecified (01/08/25) Hypertensive emergency (01/08/25) Occupational Therapy Treatment Note M2 OT-IP Current Condition Start: 01/08/25 12:40 Freq: Status: Active Protocol: Document 01/08/25 11:40 [facility] (Rec: 01/08/25 12:55 [facility] Desktop) Occupational Therapy Current Condition Current Condition Evaluation Date 01/08/25 Treatment Diagnosis TIA, hypertensive emergeny Diagnosis Onset Date 01/08/25 M3 OT- IP Subjective and Pain Start: 01/08/25 12:40 Freq: Status: Active Protocol: Document 01/09/25 13:10 [facility] (Rec: 01/09/25 13:31 [facility] Desktop) OT- Subjective Occupational Therapy Visit Type Type Treatment Note Visit Start Time 12:40 Visit Stop Time 13:10 Occupational Therapy Visit Comments Patient Comments Pt agreed to get up to use the toilet and wanting to try to use the SPC as pt usually uses one at home when up. Patient/Caregiver TO go home. Goals OT Pain Assessment Pain When Pain Assessed At Rest Pain Present Pain Present Denied Pain M4 OT- IP ADL's Start: 01/08/25 12:40 Freq: Status: Active Protocol: Document 01/09/25 13:10 [facility] (Rec: 01/09/25 13:31 [facility] Desktop) OT [id number] Comments OT Self-Feeding Set-up Comments OT ADL-Grooming Comments OT Grooming Comments Set-up OT ADL-Toileting General Evaluation Toileting Ability Standby Assistance Comments OT Toileting Pt able to stand with FWW over the toilet to urinate Comments and needing SBA. OT ADL-Bathing Comments OT Bathing Comments Pt not open to showering at this time. M5 OT- IP IADL's Start: 01/08/25 12:40 Freq: Status: Active Protocol: Document 01/08/25 11:40 [facility] (Rec: 01/08/25 12:55 [facility] Desktop) OT-Instrumental Activities of Daily Living Home Safety Awareness Awareness of Need Good Awareness for Assistance at Home Ability to Problem Able to Problem Solve Solve Emergency Situations Medication Management Medication Caregiver Administers Management Money Management Money Management Caregiver Provides Assistance Meal Preparation Meal Preparation Caregiver Provides Assist Instrument Operator Instrument Operator Caregiver Provides Assist M6 OT- IP Functional Cognition Start: 01/08/25 12:40 Freq: Status: Active Protocol: Document 01/09/25 13:10 [facility] (Rec: 01/09/25 13:31 [facility] Desktop) Cognitive Factors Limiting Selfcare Function Cognitive Comments Cognitive Assessment Pt able to follow commands with slight increased time Comments to follow commands. M7 OT- IP Mobility and Balance Start: 01/08/25 12:40 Freq: Status: Active Protocol: Document 01/09/25 13:10 [facility] (Rec: 01/09/25 13:31 [facility] Desktop) OT-Transfer Assessment Sit to and From Stand Sit to and from Standby Assistance Stand Transfers Transfer Ability Standby Assistance Technique Transfer Destination Chair,Toilet Transfer Technique Stand Step Pivot Devices Transfer Assistive Gait Belt,Straight Cane,Front Wheeled Walker Devices Comments Mobility Comments SBA with SPC and FWW to get to the sink and toilet with good safety. Pt needing initial vc for safety to be sure to get his weight forwards as pt initially his weight is on his heels when he stands up initially. OT- Balance Assessment Sitting Balance and Reactions Static Sitting Normal Balance Ability Dynamic Sitting Good Balance Ability Standing Balance and Reactions Static Standing Good Balance Ability Dynamic Standing Good Balance Ability M8 OT- IP Objective Assessments Start: 01/08/25 12:40 Freq: Status: Active Protocol: Document 01/08/25 11:40 [facility] (Rec: 01/08/25 12:55 [facility] Desktop) OT Gross Range of Motion Upper Extremity Range of Motion ROM Impairments grossly WFL OT Strength Comments Strength Comments BUE 4/5 OT- Coordination Assessment Upper Extremity Finger to Nose Test Right UE Impaired Comments Coordination Right finger mildly off initially Comments M9 OT- IP Assessment and Plan Start: 01/08/25 12:40 Freq: Status: Active Protocol: Document 01/09/25 13:10 [facility] (Rec: 01/09/25 13:31 [facility] Desktop) OT Summary Assessment and Plan Potential Rehabilitation Good Potential Analytic Complexity Low at Evaluation Summary OT Impairments Strength,Balance,Functional Mobility,Toilet Transfers, Activity Tolerance Progress Towards Progressing Toward Goals Goals Assessment Summary Pt reiterates that someone is home at all times to assist him and also called his daughter to clarify on assist. Pt to go home with 24/7 assist and home health. Goals Self-Feeding Goal Independent Grooming Goal Independent Dressing Goal Moderate Assistance Toileting Goal Minimal Assistance Bathing Goal Moderate Assistance Toilet Transfer Goal Independent Shower Transfer Goal Standby Assistance Days to Meet Goals 4 Treatment Plan OT Treatment Plan ADL Training,Functional Mobility,Patient/Family Education,Discharge Planning Discharge Recommendations OT Discharge Home with 15/11 Assist Available,Home Health Recommendations Transportation Needs Private Vehicle at Discharge
--- NOTE | 2025-01-09 15:32 | PM.PN.1 ---
Subjective Subjective Interval history: S: He is feeling fine, he is able to speak easily. No dyspnea. Exam Vital Signs (past 8 hours): - 01/09/25 07:34 01/09/25 07:34 01/09/25 08:00 Pulse Rate 70 68 Respiratory Rate 14 17 Blood Pressure 193/96 H Pulse Oximetry Oxygen Delivery Method Oxygen Flow Rate 01/09/25 08:01 01/09/25 08:01 01/09/25 08:02 Pulse Rate 70 Respiratory Rate 17 Blood Pressure 207/91 H 194/93 H Pulse Oximetry Oxygen Delivery Method Oxygen Flow Rate 01/09/25 08:02 01/09/25 09:00 01/09/25 09:00 Pulse Rate 70 67 Respiratory Rate 15 16 Blood Pressure 154/74 H Pulse Oximetry Oxygen Delivery Method Oxygen Flow Rate 01/09/25 09:07 01/09/25 10:00 01/09/25 10:01 Pulse Rate 62 Respiratory Rate 20 Blood Pressure 126/62 Pulse Oximetry Oxygen Delivery Method Room Air Oxygen Flow Rate 01/09/25 10:01 01/09/25 11:00 01/09/25 11:01 Pulse Rate 56 L 63 Respiratory Rate 19 18 Blood Pressure 155/81 H Pulse Oximetry Oxygen Delivery Method Oxygen Flow Rate 01/09/25 11:01 01/09/25 11:30 01/09/25 11:39 Pulse Rate 63 63 Respiratory Rate 31 H 16 Blood Pressure 159/77 H Pulse Oximetry Oxygen Delivery Method Oxygen Flow Rate 01/09/25 11:39 01/09/25 12:00 01/09/25 12:00 Pulse Rate 66 64 Respiratory Rate 15 14 Blood Pressure 140/65 Pulse Oximetry Oxygen Delivery Method Oxygen Flow Rate 01/09/25 12:30 01/09/25 12:42 01/09/25 12:42 Pulse Rate 70 63 Respiratory Rate 21 20 Blood Pressure 131/77 Pulse Oximetry Oxygen Delivery Method Oxygen Flow Rate 01/09/25 13:00 01/09/25 13:00 Pulse Rate 68 Respiratory Rate 19 Blood Pressure 150/76 H Pulse Oximetry 97 Oxygen Delivery Method Oxygen Flow Rate 0 Oxygen Delivery Method Room Air Oxygen Flow Rate 0 Narrative Exam Narrative: NAD, alert and oriented. Fluent speech. Mildly slurred speech. Lungs are clear, normal rate and effort. Heart is regular, no murmur gallop or rub. Abdomen is soft, non distended. Extremities are free of edema. Objective Labs 01/08/25 00:10 01/09/25 05:52 Labs: Laboratory Results - last 24 hr 01/09/25 05:52 Sodium 137 Potassium 3.0 L Chloride 103 Carbon Dioxide 31 BUN 18 Creatinine 1.01 Estimated GFR > 60 BUN/Creatinine Ratio 17.8 Glucose 93 Calcium 8.5 Troponin I 0.055 H [facility] Medical History Hypertension History of depression Weakness Syncope Spinal stenosis Posttraumatic stress disorder (03/12/16) 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/16) Essential hypertension (03/12/16) Coronary arteriosclerosis in [place] artery (03/12/16) Surgical History History of oral surgery Family History Father Heart disease Essential hypertension Grandmother Diabetes mellitus Social History marital status: number of children: 2 household members: spouse, children and caregiver Smoking Status: Former smoker alcohol intake: current caffeine: Yes Type(s) of exercise: none Assessment & Plan Assessment & Plan narrative: 1. Hypertensive urgency. Improved. -Troponin peaked at 0.084 -recent orthostatic hypotension changes to blood pressure medicine likely contributing -Initial CT head and CT angiogram shows no obvious abnormality. -Continue Amlodipine 5 BID. 2. Hypokalemia, improved. -replenish potassium. -follow electrolytes -Depending on laboratory values any electrolyte disbalance need to be appropriately replenished and corrected. 3. Paroxysmal atrial fibrillation, rate controlled. 4. CHF. Stable. 5. Seizure. Restart Keppra. 6. Depression. Restart Zoloft PLAN: -continue amlodipine, monitor blood pressure. We will add hydralazine if pressures are uncontrolled. So far they are looking good. -physical therapy assessment, discharge planning. Time-Based Coding :: [TOTAL MINUTES] spent with patient and on the chart (including review of chart, obtaining history, exam, reviewing outside data, placing orders, documenting exam and treatment plan, and counseling patient) on [DATE]. Quality VTE Deep Vein Thrombosis/Pulmonary Embolism Present on Admission: No
--- NOTE | 2025-01-09 17:29 | PC.NURSE ---
Addendum entered by Willow Yip RN 01/09/25 18:57: BP remains elevated in the 170s systolic with patient at rest. Dr. Agee updated and order for another 25 mg hydralazine ordered. Original Note: Day Shift Note Alert and oriented x3, pre-existing right facial droop present. SpO2 upper 90s. SR in the 70s. Up 1 person assist with FWW. Using call light appropriately to make needs known. SBP goal 140-150s per Dr. Agee. Pt with increasing BPs this afternoon (see VS) up to the [address] Agee called and one time dose for hydralazine ordered and then administered.
[2025-01-09] MEDS: SODIUM CHLORIDE 0.9% FLUSH 10 ML IV (20:25)
[2025-01-10] VITALS (48 sets, daily range): BP systolic 118–166; BP diastolic 56–74; PULSE 61–142; RESP 4–30; TEMP 35.9; O2SAT 80–99
--- NOTE | 2025-01-10 00:41 | PC.NURSE ---
Patient is alert and oriented except did not know day of month. Chronic right sided facial droop noted. Speech is clear but is slow in responses. Breath sounds CTA with RA sat of 97%. HRR but BP elevated at 200/[address] Agee was informed. On recheck he was 159/75 and was medicated with scheduled Amlodipine + Carvedilol. Then at 2130 his BP was 190/[address] Agee was again infomed and order obtained to medicate with po Hydralazine and recheck BP q4h. At 0007 his BP was 224/107 and patient was asleep so Dr. Agee contacted and order received to restart on Nicardipine gtt. Care transferred to [facility] as patient status will now be ICU. Patient denied nausea. He had good BT and was passing flatus. Voiding per urinal and denied any dysuria. Is able to turn himself in bed. Reportedly gets up and ambulates with SBA + walker. He did complain of 5/10 pain in right great toe; no redness or swelling noted; patient declined offer of Tylenol. Fall risk score was high and bed alarm is activated.
[2025-01-10 08:25] LABS: Hematocrit 37.4 % (41-53); Hemoglobin 13.2 g/dL (13.5-17.5); Mean Corpuscular HGB Conc 35.2 % (30-36); Mean Corpuscular Hemoglobin 31.0 PG (26-34); Mean Corpuscular Volume 88.1 fL (80-100); Platelet Count 118 X10^3/uL (150-400)
[2025-01-10 08:37] LABS: Alanine Aminotransferase 13 IU/L (<50); Albumin 3.0 g/dL (3.5-5.0); Albumin Globulin Ratio 1.1 (1.0-2.8); Alkaline Phosphatase 54 U/L (38-126); Blood Urea Nitrogen 22 mg/dL (9-20); Calcium 8.4 mg/dL (8.4-10.2); Carbon Dioxide 28 mmol/L (22-32); Chloride 104 mmol/L (98-107); Estimated Glomerular Filt Rate > 60 mL/min (>60); Globulin 2.7 g/dL (1.7-4.1); Glucose 95 mg/dL (70-99); HEMOLYSIS < 15 (0-50); Magnesium 1.8 mg/dL (1.6-2.3); Potassium 2.9 mmol/L (3.4-5.1); Sodium 136 mmol/L (137-145); Total Protein 5.7 g/dL (6.3-8.2)
[2025-01-10] MEDS: ATORVASTATIN 20 MG TABLET 40 MG PO (08:51)
[2025-01-10] MEDS: ASCORBIC ACID 500 MG TABLET PO (08:52)
[2025-01-10] MEDS: ASPIRIN EC 81 MG TABLET PO (08:53)
[2025-01-10] MEDS: RIVAROXABAN 10 MG TABLET 2.5 MG PO (08:53)
[2025-01-10] MEDS: FERROUS SULFATE 325 MG TABLET PO (08:54)
[2025-01-10] MEDS: SERTRALINE 50 MG TABLET 100 MG PO (08:54)
[2025-01-10] MEDS: POTASSIUM CHLORIDE 20 MEQ TAB PO (08:54)
[2025-01-10] MEDS: SODIUM CHLORIDE 0.9% FLUSH 10 ML IV (08:55)
--- NOTE | 2025-01-10 10:40 | PT.IPTN ---
Current Diagnoses Transient cerebral ischemic attack, unspecified (01/08/25) Hypertensive emergency (01/08/25) Physical Therapy Treatment Note M2 PT-IP Current Condition Start: 01/08/25 12:48 Freq: NEEDED Status: Active Protocol: Document 01/08/25 11:05 AB (Rec: 01/08/25 13:01 AB [id number]) Physical Therapy Current Condition Current Condition Evaluation Date 01/08/25 Treatment Diagnosis r/o CVA; difficulty in walking Onset Date 01/08/25 M3 PT-IP Subjective Start: 01/08/25 12:48 Freq: NEEDED Status: Active Protocol: Document 01/10/25 10:36 KJ (Rec: 01/10/25 10:40 KJ [id number]) Subjective Physical Therapy Visit Type Type Treatment Note Visit Start Time 10:24 Visit Stop Time 10:34 Physical Therapy Visit Comments Patient Comments had a bad night M4 PT-IP Mobility and Gait Start: 01/08/25 12:48 Freq: NEEDED Status: Active Protocol: Document 01/10/25 10:36 KJ (Rec: 01/10/25 10:40 KJ [id number]) PT-Bed Mobility Assessment Rolling Type of Rolling Log Rolling,Roll to Left Level of Assist Moderate Assistance Supine to Sit Supine to Sit Moderate Assistance Scooting Scooting to Edge of Contact Guard Assistance Bed PT-Transfer Assessment Sit to and From Stand Sit to and from Minimal Assistance Stand Equipment Transfer Assistive Gait Belt,Front Wheeled Walker Device Transfers Transfer Destination Chair Transfer Technique Stand Step Pivot Transfer Ability Level of Assist Contact Guard Assistance Comments Mobility Comments HR 120 in sitting after transfer, may be related to medication administration Gait Assessment Comments Gait Comments Ambulation deferred due to high HR PT-Balance Assessment Sitting Balance and Reactions Static Sitting Good Balance Ability Dynamic Sitting Good Balance Ability Standing Balance and Reactions Static Standing Good Balance Ability M5 PT-IP Objective Assessments Start: 01/08/25 12:48 Freq: NEEDED Status: Active Protocol: Document 01/10/25 10:36 KJ (Rec: 01/10/25 10:40 KJ [id number]) Orientation Orientation/Cognition Level of Alertness Alert Orientation Name,Age,Birthday,Month,Date,Year,Day of Week,Place, Situation M6 PT-IP Treatment Start: 01/08/25 12:48 Freq: NEEDED Status: Active Protocol: Document 01/10/25 10:36 KJ (Rec: 01/10/25 10:40 KJ [id number]) Physical Therapy Treatment Other Treatments Other Treatment Reviewed log rolling with patient, instructed pt on Performed safety during transfers, monitored vitals during Rx. Pt demonstrated safe transfers with verbal cuing. M7 PT-IP Assessment and Plan Start: 01/08/25 12:48 Freq: NEEDED Status: Active Protocol: Document 01/10/25 10:36 KJ (Rec: 01/10/25 10:40 KJ [id number]) PT Summary Assessment and Plan Potential Rehabilitation Good Potential Status of Condition Evolving at Evaluation Summary Impairments Bed Mobility,Transfers,Gait,Activity Tolerance Treatment Plan Physical Therapy Bed Mobility Training,Transfer Training,Gait Training, Treatment Plan Therapeutic Exercise Other Progress to ambulation, monitor HR Recommendations and Next Treatment Focus
--- NOTE | 2025-01-10 10:56 | CM.DPNOTE ---
DCP Continued: Reviewed EMR and team rounds for pt?s medical status. Per hospitalist and [employer], pt BP medications still being adjusted between PO vs. nicardopine drip. [facility] following for care after discharge, will need discharge summary sent when completed. Plan: Anticipating dc home on 01/11 or when medically cleared, family to transport. [facility] to follow with care. CM Team will continue to follow for coordination of discharge plans. JUANITO Caba
--- NOTE | 2025-01-10 11:29 | OT.IPNOTE ---
Per nursing aid just assisted pt back to bed.
[2025-01-10] MEDS: POTASSIUM CHLORIDE 20 MEQ TAB 40 MEQ PO ×2 (12:37→14:29)
--- NOTE | 2025-01-10 14:17 | P.DS_ITS ---
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 According to his daughter the patient was feeling more tired than usual in the last week and last night he went early to bed which was unusual for him. He also reports some headache but denies any blurry vision or numbness or weakness of extremities. He has been compliant with his home medications. He has had no shortness of breath, chest pain, fever, palpitations, nausea, vomiting, abdominal pain, diarrhea or dysuria. Cardiology had recently stopped his spironolactone due to orthostatic hypotension. He is on Xarelto and aspirin. The WBC is 7.4, H&H 30.7/40.2, platelets 130, sodium 138, potassium 3.2, creatinine 1.25, blood sugar 102, INR 1.4, AST normal, troponin 0.058. The UA shows mild hematuria, U tox negative, respiratory viral panel negative. CTA of the brain and neck shows no significant abnormalities. Chest x-ray shows cardiomegaly and mild congestion. EKG is atrial fibrillation with rate of 76 and several leads with subtle ST depression. In the ER he was found to have very elevated blood pressures of systolic 200s and was started on a nicardipine drip. He also was given aspirin 325 mg p.o. and potassium supplement. He has been seen by Cardiology who is planning to transition from nicardipine to felodipine. He will need close attention inpatient management to balance the orthostatic hypotension and the paroxysmal hypertension. Discharge Providers Provider Date of admission: 01/08/25 03:15 Discharge Date: 01/10/25 Primary care physician: Dana Clemons MD Consults: 01/08/25 03:36 Consult to Discharge Planning Routine Comment: Consult to Occupational Therapy Evaluate & Treat Comment: Physician Instructions: Evaluate and treat Consult to Physical Therapy Evaluate & Treat Comment: Physician Instructions: Evaluate and Treat 01/08/25 08:05 Consult to Cardiology Routine Comment: Consulting Provider: Walker Agee Reason for consultation: NSTEMI Has provider been notified: Yes 01/08/25 12:38 Consult to Pharmacy Routine Comment: prompted by falls assessment 01/08/25 14:53 Consult to Home Health Routine Comment: Reason For Exam: RN/PT/OT/speech 01/08/25 19:54 Consult to Pharmacy Routine Comment: fall risk Discharge provider: Anton Torres MD Summary Hospital Course Discharge Diagnosis: 1. Hypertensive urgency. Improved. -Troponin peaked at 0.084 -recent orthostatic hypotension changes to blood pressure medicine likely contributing -Initial CT head and CT angiogram shows no obvious abnormality. -Continue Amlodipine 5 BID. 2. Hypokalemia, improved. 3. Paroxysmal atrial fibrillation, rate controlled. 4. CHF. Stable. 5. Seizure. Keppra. 6. Depression. Zoloft. Hospital Course: He was initially admitted with altered mental status and slurred speech. The patient's [employer] imaging was negative for stroke but he was hypertensive. He was in atrial fibrillation, rate controlled. The patient was initially started on a nicardipine drip and amlodipine was started. Ultimately he required the addition of hydralazine and was able to come off of the nicardipine drip. The patient's mental status improved and he did well with physical therapy. On the day of discharge, he was felt by caregivers to be at or near his baseline and he was comfortable returning home. There was no evidence of acute stroke on imaging or clinically. He had a persistent hypokalemia and was given repletion again before discharge and we will be on potassium orally at home for the next several days. He will require repeat electrolytes upon follow up with his primary care. Status at Discharge Cognitive/behavioral status at discharge: at baseline, oriented Functional status at discharge: uses cane/walker Overall status at discharge: patient is progressing back to baseline Time Spent with Patient Time spent: Greater than 30 minutes Exam Vital Signs (past 8 hours): - 01/10/25 06:30 01/10/25 06:30 01/10/25 06:45 Temperature Pulse Rate 69 71 Respiratory Rate 16 16 Blood Pressure 148/65 H Pulse Oximetry 99 98 01/10/25 06:45 01/10/25 07:00 01/10/25 07:00 Temperature Pulse Rate 68 Respiratory Rate 11 L Blood Pressure 152/66 H 154/67 H Pulse Oximetry 98 01/10/25 07:15 01/10/25 07:15 01/10/25 07:30 Temperature Pulse Rate 69 Respiratory Rate 16 Blood Pressure 148/66 H 149/66 H Pulse Oximetry 96 01/10/25 07:30 01/10/25 07:45 01/10/25 07:45 Temperature Pulse Rate 68 68 Respiratory Rate 15 14 Blood Pressure 156/67 H Pulse Oximetry 96 96 01/10/25 08:00 01/10/25 08:00 01/10/25 08:15 Temperature Pulse Rate 70 Respiratory Rate 19 Blood Pressure 166/70 H 153/67 H Pulse Oximetry 80 L 01/10/25 08:15 01/10/25 08:30 01/10/25 08:35 Temperature Pulse Rate 69 71 72 Respiratory Rate 15 28 H 23 Blood Pressure Pulse Oximetry 96 01/10/25 08:35 01/10/25 09:00 01/10/25 09:30 Temperature Pulse Rate 72 63 Respiratory Rate 13 14 Blood Pressure 151/72 H Pulse Oximetry 01/10/25 10:00 01/10/25 10:05 01/10/25 10:05 Temperature Pulse Rate 63 64 Respiratory Rate 17 4 L Blood Pressure 118/56 L Pulse Oximetry 01/10/25 10:15 01/10/25 10:15 01/10/25 10:30 Temperature Pulse Rate 65 Respiratory Rate 15 Blood Pressure 136/63 127/61 Pulse Oximetry 97 01/10/25 10:30 01/10/25 10:45 01/10/25 10:45 Temperature Pulse Rate 61 63 Respiratory Rate 16 19 Blood Pressure 139/58 L Pulse Oximetry 94 95 01/10/25 11:00 01/10/25 11:00 01/10/25 11:00 Temperature 96.7 F L Pulse Rate 65 Respiratory Rate 24 Blood Pressure 144/67 H Pulse Oximetry 95 01/10/25 11:15 01/10/25 11:15 01/10/25 11:30 Temperature Pulse Rate 63 Respiratory Rate 5 L Blood Pressure 138/62 142/60 H Pulse Oximetry 93 01/10/25 11:30 01/10/25 12:00 01/10/25 12:00 Temperature Pulse Rate 63 62 Respiratory Rate 19 17 Blood Pressure 142/67 H Pulse Oximetry 97 96 01/10/25 12:30 01/10/25 12:31 01/10/25 12:31 Temperature Pulse Rate 67 67 Respiratory Rate 11 L 14 Blood Pressure 149/69 H Pulse Oximetry 01/10/25 13:00 01/10/25 13:00 01/10/25 13:25 Temperature Pulse Rate 64 67 Respiratory Rate 11 L 30 H Blood Pressure 141/64 H Pulse Oximetry 01/10/25 13:38 Temperature Pulse Rate Respiratory Rate Blood Pressure 157/70 H Pulse Oximetry Oxygen Delivery Method Room Air Oxygen Flow Rate 0 Narrative Exam Narrative: NAD, alert and oriented. Fluent speech. His mild chronic slurring. Lungs are clear, normal rate and effort. Heart is regular, no murmur gallop or rub. Abdomen is soft, non distended. Extremities are free of edema. Objective ECG Impression: Intervals [place] Rate: 76 P: 34 [place]: 190 QRS: -18 QRSD: 92 T: 111 QT: 382 QTc: 429 Interpretive Statements Sinus rhythm with marked sinus arrhythmia ST & T wave abnormality, consider lateral ischemia NO SIGNIFICANT CHANGE FROM PRIOR TRACING Imaging Multiple studies: : Radiologist's impression: Brain MR: 1. No acute intracranial hemorrhage or recent infarct. 2. Remote prior right temporal occipital infarct. 3. At least moderate chronic microvascular ischemic changes and generalized parenchymal volume loss. CXR: Cardiomegaly and mild congestion. No definite focal infiltrate. No pleural effusion or pneumothorax. Head and neck CTA: 1. No significant intracranial arterial abnormality is seen. 2. No significant abnormality is seen within the arteries of the neck.. Head CT: No acute intracranial pathology. Labs 01/10/25 08:02 01/10/25 08:02 Labs: Laboratory Results - last 24 hr 01/10/25 08:02 WBC 7.3 RBC 4.24 L Hgb 13.2 L Hct 37.4 L MCV 88.1 MCH 31.0 MCHC 35.2 RDW 13.5 Plt Count 118 L Sodium 136 L Potassium 2.9 L Chloride 104 Carbon Dioxide 28 BUN 22 H Creatinine 1.05 Estimated GFR > 60 BUN/Creatinine Ratio 21.0 Glucose 95 Calcium 8.4 Magnesium 1.8 Total Bilirubin 1.3 AST 28 ALT 13 Alkaline Phosphatase 54 Total Protein 5.7 L Albumin 3.0 L Globulin 2.7 Albumin/Globulin Ratio 1.1 [facility] Medical History Hypertension History of depression Weakness Syncope Spinal stenosis Posttraumatic stress disorder (03/12/16) 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/16) Essential hypertension (03/12/16) Coronary arteriosclerosis in [place] artery (03/12/16) Surgical History History of oral surgery Family History Father Heart disease Essential hypertension Grandmother Diabetes mellitus Social History marital status: number of children: 2 household members: spouse, children and caregiver Smoking Status: Former smoker alcohol intake: current caffeine: Yes Type(s) of exercise: none Discharge Assessment & Plan Assessment and Plan Assessment: 1. Uncontrolled hypertension. Improved. 2. Hypertensive encephalopathy, resolved. 3. Hypokalemia, active and improving. Plan of Treatment: Discharge home on amlodipine 5 b.i.d., hydralazine t.i.d., as well as potassium daily for the next several days. Recommended follow up with PCP and repeat blood tests within the next week. Discharge Plan Discharge Plan Patient Disposition: Home Health Service Provider Discharge Comment: Improved mental status and blood pressure control, stable for discharge home. Caregiver will help transport home. Discharge orders & Medications Prescriptions: New hydralazine 25 mg Tablet 50 mg PO TID Qty: 90 0RF amlodipine 5 mg Tablet 5 mg PO BID Qty: 60 0RF potassium chloride [Klor-Con M20] 20 mEq Tablet,Er Particles/Crystals 40 meq PO DAILY Qty: 30 0RF Continued aspirin 81 mg tablet,delayed release (DR/EC) 81 mg PO DAILY xarelto 2.5 mg 2.5 mg PO BID ascorbate calcium (vitamin C) 500 mg PO DAILY ferrous gluconate 324 mg (37.5 mg iron) tablet 324 mg PO DAILY sertraline 100 mg Tablet 100 mg PO DAILY Rx Instructions: one and one half tab q day levetiracetam [Keppra] 250 mg Tablet 500 mg PO BID furosemide 20 mg Tablet 20 mg PO Q OTHER DAY Rx Instructions: mon.wed,fri acetaminophen 325 mg Capsule 650 mg PO QID PRN (Reason: Pain (Scale Score 1-3)) atorvastatin 40 mg tablet 40 mg PO DAILY Discontinued carvedilol 12.5 mg Tablet 6.25 mg PO BID Qty: 60 0RF Follow up/Referrals: Dana Clemons MD [Primary Care Provider, Internal Medicine] Diet/Activity/Treatments Diet: Low-sodium Visit Report/Discharge Packet Instructions: DI for Malignant Hypertension Stand Alone Forms: Patient Portal/API Discharge Data Primary Care Provider: Dana Clemons Quality VTE Deep Vein Thrombosis/Pulmonary Embolism Present on Admission: No
--- NOTE | 2025-01-10 14:36 | PC.NURSE ---
PT transitioned off Cardene drip and started on PO hydralazine with SBP holding >150. Additional PO potassium given for K of 2.9. Renal US ordered but not done as an inpatient. Pt discharged home in private car with small craft operator. All belonging accounted for and questions answered.
== END 2025-01-10 14:35 | disposition home health service (06) | DRG 305 ==
LOC: ED 03:13 → AC 03:16 → ICU 03:22
PROVIDERS: Family Medicine; Hospitalist; Admitting Provider Internal Medicine; Emergency Provider Family Medicine; Family Provider Family Medicine; PCP Internal Medicine; Referring Provider Family Medicine; Visit Provider Internal Medicine
DX: I16.1 Hypertensive emergency (principal); N13.8 Other obstructive and reflux uropathy; R47.01 Aphasia; N40.1 Benign prostatic hyperplasia with lower urinary tract symptoms; F03.90 Unspecified dementia, unspecified severity, without behavioral disturbance, psychotic disturbance, mood disturbance, and anxiety; R47.81 Slurred speech; E87.6 Hypokalemia; I48.0 Paroxysmal atrial fibrillation; I50.9 Heart failure, unspecified; F32.A Depression, unspecified; R56.9 Unspecified convulsions; I95.2 Hypotension due to drugs; T50.0X5A Adverse effect of mineralocorticoids and their antagonists, initial encounter; I25.10 Atherosclerotic heart disease of native coronary artery without angina pectoris; I11.0 Hypertensive heart disease with heart failure; F10.11 Alcohol abuse, in remission; Y90.0 Blood alcohol level of less than 20 mg/100 ml; Z86.73 Personal history of transient ischemic attack (TIA), and cerebral infarction without residual deficits; Z79.01 Long term (current) use of anticoagulants; Z87.891 Personal history of nicotine dependence
CPT/HCPCS: 36415; 70450; 70496; 70498; 70551; 71045; 80048; 80053; 80061; 80305; 80320; 81001; 82550; 82962; 83036; 83735; 84443; 84484; 85025; 85027; 85610; 85730; 87637; 87797; 92610; 93005; 93010; 96365; 96366; 97116; 97161; 97165; 97530; 97535; 99285; A9270; Q9967

== ENCOUNTER → 2025-04-11 16:33 | Outpatient (ROUT) | payer MEDICARE, SELFPAY ==
[2025-01-08 05:07] VITALS: BMI 27.5
[2025-04-11 16:44] LABS: Add Manual Diff / Slide Review NO; Hematocrit 36.1 % (41-53); Hemoglobin 12.5 g/dL (13.5-17.5); Lymphocytes Absolute Auto 1800 /uL (1100-4500); Mean Corpuscular HGB Conc 34.5 % (30-36); Mean Corpuscular Hemoglobin 31.0 PG (26-34); Mean Corpuscular Volume 89.7 fL (80-100); Platelet Count 161 X10^3/uL (150-400)
[2025-04-11 16:58] LABS: Reticulocyte Count, Percent 1.1 % (0.9-2.6)
[2025-04-11 17:04] LABS: Blood Urea Nitrogen 16 mg/dL (9-20); Calcium 8.5 mg/dL (8.4-10.2); Carbon Dioxide 29 mmol/L (22-32); Chloride 104 mmol/L (98-107); Estimated Glomerular Filt Rate > 60 mL/min (>60); Glucose 100 mg/dL (70-99); HEMOLYSIS < 15 (0-50); Potassium 3.1 mmol/L (3.4-5.1); Sodium 140 mmol/L (137-145)
== END ==
LOC: LAB 16:34
PROVIDERS: Family Provider Family Medicine; PCP Internal Medicine; Visit Provider Internal Medicine
DX: I50.9 Heart failure, unspecified (principal); I95.1 Orthostatic hypotension; I48.0 Paroxysmal atrial fibrillation; E87.6 Hypokalemia
CPT/HCPCS: 80048; 85025; 85045